=== PATIENT | female | born 1950 | race Caucasian/White ===

== ENCOUNTER 2016-04-15 14:17 | Emergency (ER) | payer MEDICARE, BC ==
[2016-04-15 14:32] VITALS: BP 143/95
--- NOTE | 2016-04-15 15:35 | EDM.PDOC ---
ED HPI Skin/Rash - General Chief Complaint: Skin Complaint Stated Complaint: RASH BY BREAST AREA Time Seen by Provider: 04/15/16 15:15 Source: Reports: Patient History Limitations: Reports: No limitations - History of Present Illness INITIAL COMMENTS - FREE TEXT/NARRATIVE: 66-year-old female with a painful rash in the right chest for the past 24 hours. No fever or chills, no cough, no recent trauma. Denies nausea or vomiting. Timing: Reports: still present Location, Skin: Reports: chest Severity: mild Associated symptoms: Reports: denies other symptoms - Related Data Allergies Allergy/AdvReac Type Severity Reaction Status Date / Time Sulfa (Sulfonamide Allergy Mild Rash Verified 02/16/16 02:56 Antibiotics) meperidine HCl [From Demerol] Allergy Unknown Rash Verified 02/16/16 02:56 Home Meds: Ambulatory Orders Medication Instructions Recorded Confirmed Albuterol/Ipratropium [DuoNeb 3 ml INH ASDIRECTED PRN 01/06/13 04/15/16 3.0-0.5 MG/3 ML] LORazepam [Ativan] 0.5 mg PO Q6H PRN 01/06/13 04/15/16 PARoxetine [Paxil] 10 mg PO QAM 04/11/14 04/15/16 busPIRone [Buspar] 5 mg PO TID 11/06/15 04/15/16 Alendronate Sodium [Fosamax] 1 tab PO ASDIRECTED 02/16/16 04/15/16 Cholecalciferol (Vitamin D3) 50,000 unit PO ASDIRECTED 02/16/16 04/15/16 [Decara] Levalbuterol Tartrate 2 puff IH Q4H PRN 02/16/16 04/15/16 [Levalbuterol Tartrate Hfa] predniSONE 10 mg PO DAILY PRN 02/16/16 04/15/16 Metoprolol Tartrate [Lopressor] 50 mg PO BID tablet 02/18/16 04/15/16 Budesonide/Formoterol Fumarate 2 puff INH BID 04/15/16 04/15/16 [Symbicort 160-4.5 Mcg Inhaler] Past Medical History HEENT History: Reports: Impaired vision Cardiovascular History: Reports: Hypertension Respiratory History: Reports: COPD, Other (see below) Other Respiratory History: 02 2l at night as needed. 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: Neurological History: Reports: Migraines Psychiatric History: Reports: Anxiety - Infectious Disease History Infectious Disease History: Reports: Other (see below) Other Infectious Disease History: unknown - Past Surgical History Head Surgeries/Procedures: Reports: None HEENT Surgical History: Reports: None Cardiovascular Surgical History: Reports: None Respiratory Surgical History: Reports: None Female Surgical History: Reports: None Neurological Surgical History: Reports: None Dermatological Surgical History: Reports: None Social & Family History - Family History Family Medical History: Noncontributory - Tobacco Use Smoking Status *Q: Former Smoker Years of Tobacco use: 40 Packs/Tins Daily: 1 Used Tobacco, but Quit: Yes Month Tobacco Last Used: july Second Hand Smoke Exposure: No - Caffeine Use Caffeine Use: Reports: Tea - Alcohol Use Days Per Week of Alcohol Use: 7 Number of Drinks Per Day: 2 Total Drinks Per Week: 14 Date of Last Drink: 04/14/16 - Recreational Drug Use Recreational Drug Use: No - Living Situation & Occupation Living situation: Reports: , with spouse Occupation: disabled ED ROS GENERAL - Review of Systems Review Of Systems: See Below Constitutional: Reports: no symptoms Respiratory: Denies: shortness of breath, cough Cardiovascular: Reports: Chest pain GI/Abdominal: Denies: Abdominal pain, Nausea, Vomiting ED EXAM, SKIN/RASH Exam: See Below Exam Limited By: No limitations General Appearance: alert, no apparent distress Respiratory/Chest: no respiratory distress Cardiovascular: regular rate, rhythm Neurological: alert, oriented Psychiatric: normal affect, normal mood Skin: Warm, Dry, Other (Patient has 3 discrete groups of vesicular lesions on an erythematous base along the right lateral chest typical of shingles) Course - Vital Signs Last Recorded V/S: Last Vital Signs Temp 96.8 F 04/15/16 14:30 Pulse 91 04/15/16 14:30 Resp 16 04/15/16 14:30 BP 143/95 H 04/15/16 14:30 Pulse Ox 95 04/15/16 14:30 - Re-Assessments/Exams Free Text/Narrative Re-Assessment/Exam: 04/15/16 15:33 Patient has shingles of the right chest. She was placed on Famvir 500 mg 3 times a day for 7 days along with gabapentin 100 mg 3 times a day. She was also given 12 hydrocodone for extra pain control at anti-inflammatories. She can return if worsening or concerns. Departure - Departure Time of Disposition: 15:57 Disposition: Home, Self-Care 01 Condition: good Clinical Impression: Shingles rash Qualifiers: Herpes zoster complications: without complications Qualified Code(s): B02.9 - Zoster without complications Instructions: Shingles, [id number] Referrals: Félix Santana MD [Primary Care Provider] - Forms: ED Department Discharge Care Plan Goals: Take prescribed medicines 3 times daily for 7 days. Ibuprofen or naproxen for pain and add stronger pain medications if needed. Return for recheck if worsening at any time, or consider recheck in 4-5 days if not improving satisfactorily.
== END 2016-04-15 15:58 | disposition home or self-care (01) ==
LOC: JP.ED 14:17
DX: B02.9 Zoster without complications (principal); I10 Essential (primary) hypertension; J44.9 Chronic obstructive pulmonary disease, unspecified; F41.9 Anxiety disorder, unspecified; Z87.891 Personal history of nicotine dependence; Z79.899 Other long term (current) drug therapy; Z88.2 Allergy status to sulfonamides; Z88.8 Allergy status to other drugs, medicaments and biological substances
CPT/HCPCS: 99283

== ENCOUNTER 2016-04-23 07:00 | Inpatient (IN) | payer MEDICARE, BC ==
[2016-04-23] MEDS ORDERED: Sodium Chloride 0.9% 10 ML Syringe FLUSH PRN ×3 (07:28→10:22)
--- NOTE | 2016-04-23 07:33 | EDM.PDOC ---
ED HISTORY OF PRESENT ILLNESS - General Chief Complaint: Respiratory Problem Stated Complaint: BREATHING Time Seen by Provider: 04/23/16 07:23 Source: Reports: Patient, Family, RN notes reviewed History Limitations: Reports: No limitations - History of Present Illness INITIAL COMMENTS - FREE TEXT/NARRATIVE: 66-year-old female presents emergency department for a complaint of shortness of breath she is a known history of end-stage chronic obstructive pulmonary disease has been intubated in the past however does not want to be intubated at this time does have home BiPAP which she uses. This particular event started early in the morning start BiPAP she did well unfortunately this morning it started becoming more hypoxic EMS services were called she was transported to ED for further evaluation she denies any fevers chest pain no GI symptoms - Related Data Allergies/ADRs: Allergies Allergy/AdvReac Type Severity Reaction Status Date / Time Sulfa (Sulfonamide Allergy Mild Rash Verified 02/16/16 02:56 Antibiotics) meperidine HCl [From Demerol] Allergy Unknown Rash Verified 02/16/16 02:56 Home Meds: Home Meds Albuterol/Ipratropium [DuoNeb 3.0-0.5 MG/3 ML] 3 ml INH ASDIRECTED PRN 01/06/13 [History] LORazepam [Ativan] 0.5 mg PO Q6H PRN 01/06/13 [History] PARoxetine [Paxil] 10 mg PO QAM 04/11/14 [History] busPIRone [Buspar] 5 mg PO TID 11/06/15 [History] Alendronate Sodium [Fosamax] 1 tab PO ASDIRECTED 02/16/16 [History] Cholecalciferol (Vitamin D3) [Decara] 50,000 unit PO ASDIRECTED 02/16/16 [ History] Levalbuterol Tartrate [Levalbuterol Tartrate Hfa] 2 puff IH Q4H PRN 02/16/16 [ History] predniSONE 10 mg PO DAILY PRN 02/16/16 [History] Metoprolol Tartrate [Lopressor] 50 mg PO BID tablet 02/18/16 [Rx] Budesonide/Formoterol Fumarate [Symbicort 160-4.5 Mcg Inhaler] 2 puff INH BID [History] Past Medical History HEENT History: Reports: Impaired vision Cardiovascular History: Reports: Hypertension Respiratory History: Reports: COPD, Other (see below) Other Respiratory History: 02 2l at night as needed. 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: Neurological History: Reports: Migraines Psychiatric History: Reports: Anxiety - Infectious Disease History Infectious Disease History: Reports: Chicken pox Other Infectious Disease History: unknown - Past Surgical History Head Surgeries/Procedures: Reports: None HEENT Surgical History: Reports: None Cardiovascular Surgical History: Reports: None Respiratory Surgical History: Reports: None Female Surgical History: Reports: None Neurological Surgical History: Reports: None Dermatological Surgical History: Reports: None Social & Family History - Family History Family Medical History: Noncontributory - Tobacco Use Smoking Status *Q: Former Smoker Years of Tobacco use: 40 Packs/Tins Daily: 1 Used Tobacco, but Quit: Yes Month Tobacco Last Used: july Second Hand Smoke Exposure: No - Caffeine Use Caffeine Use: Reports: Tea - Alcohol Use Days Per Week of Alcohol Use: 7 Number of Drinks Per Day: 2 Total Drinks Per Week: 14 - Recreational Drug Use Recreational Drug Use: No - Living Situation & Occupation Living situation: Reports: , with spouse Occupation: disabled ED ROS GENERAL - Review of Systems Review Of Systems: See Below Constitutional: Denies: fever, chills HEENT: Reports: No symptoms Respiratory: Reports: shortness of breath, wheezing, cough. Denies: sputum Cardiovascular: Denies: Chest pain GI/Abdominal: Reports: No symptoms : Reports: no symptoms Musculoskeletal: Reports: no symptoms Skin: Reports: no symptoms ED EXAM, GENERAL - Physical Exam Exam: See Below Free Text/Narrative:: General: Female in respiratory distress on CPAP, alert and oriented x3 HEENT: head is atraumatic normocephalic, eyes pupils equal round reactive to light and accommodation sclera clear no conjunctivitis appreciated. Ears tympanic membranes clear and mae landmarks and light reflex are present bilaterally canals are clear. Nose deferred Mouth deferred. Neck: Supple no thyromegaly no tracheal deviation. Nodes: Cervical nodes subclavicular nodes nontender no palpable lymphadenopathy noted. Lungs: Breath sounds are distant there is scant wheezing noted both sides expiratory phase CV: Distant sounds Regular rate and rhythm S1 and S2 appreciated no murmurs rubs or gallops noted. Abdomen: Soft, nontender, no palpable masses or organomegaly appreciated, no distention no guarding bowel sounds are present, . Neuro: Cranial nerves II through XII grossly intact Skin: Warm and dry, intact Extremities: No lower extremity edema appreciated, pedal pulse is +2. Course - Vital Signs Last Recorded V/S: Last Vital Signs Temp 96.3 F 04/23/16 07:04 Pulse 123 H 04/23/16 09:32 Resp 28 H 04/23/16 09:32 BP 179/102 H 04/23/16 09:32 Pulse Ox 83 L 04/23/16 09:32 - Orders/Labs/Meds Orders: Active Orders 24 hr Category Date Time Status Patient Status Manage Transfer [TRANSFER] Routine ADT 04/23/16 09:25 Active BIPAP Adult [RT BiPAP/CPAP] [RC] ASDIRECTED Care 04/23/16 07:33 Active Cardiac Monitoring [RC] .As Directed Care 04/23/16 09:25 Active EKG Documentation Completion [RC] ASDIRECTED Care 04/23/16 07:31 Active Chest 1V Frontal [CR] Urgent Exams 04/23/16 07:28 Taken CULTURE BLOOD [BC] Urgent Lab 04/23/16 08:32 Received CULTURE BLOOD [BC] Urgent Lab 04/23/16 08:35 Received Piperacillin/Tazobactam [Zosyn] 3.375 gm Med 04/23/16 08:30 Active Sodium Chloride 0.9% [Normal Saline] 50 ml IV Q6H Sodium Chloride 0.9% [Saline Flush] Med 04/23/16 07:28 Active 10 ml FLUSH ASDIRECTED PRN Sodium Chloride 0.9% [Saline Flush] Med 04/23/16 07:28 Active 10 ml FLUSH ASDIRECTED PRN Blood Culture x2 Reflex Set [OM.PC] Urgent Oth 04/23/16 08:23 Ordered Peripheral IV Insertion Adult [OM.PC] Urgent Oth 04/23/16 07:28 Ordered Resuscitation Status Routine Resus Stat 04/23/16 09:33 Ordered EKG 12 Lead [EK] Urgent Ther 04/23/16 07:28 Ordered Medication Orders Piperacillin Sod/Tazobactam (Sod 3.375 gm/ Sodium Chloride) 50 mls @ 100 mls/ hr IV Q6H THEA Last Admin: 04/23/16 08:35 Dose: 100 mls/hr Sodium Chloride (Saline Flush) 10 ml FLUSH ASDIRECTED PRN PRN Reason: Keep Vein Open Sodium Chloride (Saline Flush) 10 ml FLUSH ASDIRECTED PRN PRN Reason: Keep Vein Open Last Admin: 04/23/16 08:08 Dose: 10 ml Labs: Laboratory Tests 04/23/16 04/23/16 04/23/16 Range/Units 07:28 07:40 07:40 WBC 10.5 (4.5-11.0) K/uL RBC 4.12 (3.30-5.50) M/uL Hgb 15.7 H D (12.0-15.0) g/dL Hct 44.2 (36.0-48.0) % MCV 107 H (80-98) fL MCH 38 H (27-31) pg MCHC 36 (32-36) % Plt Count 257 (150-400) K/uL Neut % (Auto) 79 H (36-66) % Lymph % (Auto) 9 L (24-44) % [place] % (Auto) 8 H (2-6) % Eos % (Auto) 4 (2-4) % Baso % (Auto) 1 (0-1) % Puncture Site Rt radial ABG pH 7.287 L (7.350-7.450) ABG pCO2 57.3 H (35.0-42.0) mmHg ABG pO2 113.0 H (75.0-100.0) mmHg ABG HCO3 26.5 H (22.0-26.0) mmol/L ABG Total CO2 23.2 (21.0-25.0) mmol/L ABG O2 Saturation 97.3 (95.0-98.0) % ABG O2 Content 22.3 (15.0-23.0) %vol ABG Base Excess -1.2 mm/L ABG Hemoglobin 16.4 H (12.0-16.0) g/dL ABG Oxyhemoglobin 96.3 % ABG Carboxyhemoglobin 0.6 (0.0-1.6) % ABG Methemoglobin 0.4 % Shaun Test Passed O2 Delivery Device Cpap Oxygen Flow Rate L Sodium 143 (140-148) mmol/L Potassium 3.7 (3.6-5.2) mmol/L Chloride 106 (100-108) mmol/L Carbon Dioxide 27 (21-32) mmol/L Anion Gap 10.1 (5.0-14.0) mmol/L BUN 7 (7-18) mg/dL Creatinine 0.6 (0.6-1.0) mg/dL Est Cr Clr Drug Dosing 65.35 mL/min Estimated GFR (MDRD) > 60 (>60) Glucose 103 (74-106) mg/dL Calcium 8.6 (8.5-10.1) mg/dL Total Bilirubin 0.4 D (0.2-1.0) mg/dL AST 45 H (15-37) U/L ALT 61 (12-78) U/L Alkaline Phosphatase 81 (46-116) U/L Troponin I < 0.017 (0.000-0.056) ng/mL Total Protein 7.1 (6.4-8.2) g/dL Albumin 3.5 (3.4-5.0) g/dL Globulin 3.6 H (2.3-3.5) g/dL Albumin/Globulin Ratio 1.0 L (1.2-2.2) Meds: Medications Generic Name Dose Route Start Last Admin Trade Name Freq PRN Reason Stop Dose Admin Piperacillin Sod/Tazobactam 50 mls @ 100 mls/hr 04/23/16 08:30 04/23/16 08:35 Sod 3.375 gm/ Sodium Chloride IV 100 mls/hr Q6H THEA Administration Sodium Chloride 10 ml 04/23/16 07:28 Saline Flush FLUSH ASDIRECTED PRN Keep Vein Open Sodium Chloride 10 ml 04/23/16 07:28 04/23/16 08:08 Saline Flush FLUSH 10 ml ASDIRECTED PRN Administration Keep Vein Open Discontinued Medications Generic Name Dose Route Start Last Admin Trade Name Freq PRN Reason Stop Dose Admin Levofloxacin/Dextrose 500 mg/ 100 mls @ 100 mls/hr 04/23/16 08:21 04/23/16 08 :36 Premix IV 04/23/16 09:20 100 mls/hr ONETIME ONE Administration Lorazepam 1 mg 04/23/16 07:56 04/23/16 08:00 Ativan IVPUSH 04/23/16 07:57 1 mg ONETIME ONE Administration Lorazepam 1 mg 04/23/16 08:22 04/23/16 08:27 Ativan IVPUSH 04/23/16 08:23 1 mg ONETIME ONE Administration Lorazepam 1 mg 04/23/16 08:37 04/23/16 08:50 Ativan IVPUSH 04/23/16 08:38 1 mg ONETIME ONE Administration Methylprednisolone Sodium Succinate 125 mg 04/23/16 08:21 04/23/16 08:27 Solu-Medrol IVPUSH 04/23/16 08:22 125 mg ONETIME ONE Administration Morphine Sulfate 1 mg 04/23/16 07:56 04/23/16 08:01 Morphine IVPUSH 04/23/16 07:57 1 mg ONETIME ONE Administration Morphine Sulfate 1 mg 04/23/16 08:37 04/23/16 09:21 Morphine IVPUSH 04/23/16 08:38 1 mg ONETIME ONE Administration Departure - Departure Time of Disposition: 09:54 Disposition: Home, Self-Care 01 Condition: good Clinical Impression: COPD exacerbation Respiratory failure with hypoxia Qualifiers: Chronicity: acute Qualified Code(s): J96.01 - Acute respiratory failure with hypoxia Forms: ED Department Discharge - My Orders Last 24 Hours: My Active Orders 04/23/16 07:28 Chest 1V Frontal [CR] Urgent Sodium Chloride 0.9% [Saline Flush] 10 ml FLUSH ASDIRECTED PRN Sodium Chloride 0.9% [Saline Flush] 10 ml FLUSH ASDIRECTED PRN Peripheral IV Insertion Adult [OM.PC] Urgent EKG 12 Lead [EK] Urgent 04/23/16 07:31 EKG Documentation Completion [RC] ASDIRECTED 04/23/16 07:33 BIPAP Adult [RT BiPAP/CPAP] [RC] ASDIRECTED 04/23/16 08:23 Blood Culture x2 Reflex Set [OM.PC] Urgent 04/23/16 08:30 Piperacillin/Tazobactam [Zosyn] 3.375 gm Sodium Chloride 0.9% [Normal Saline] 50 ml IV Q6H 04/23/16 08:32 CULTURE BLOOD [BC] Urgent 04/23/16 08:35 CULTURE BLOOD [BC] Urgent - Assessment/Plan Last 24 Hours: My Active Orders 04/23/16 07:28 Chest 1V Frontal [CR] Urgent Sodium Chloride 0.9% [Saline Flush] 10 ml FLUSH ASDIRECTED PRN Sodium Chloride 0.9% [Saline Flush] 10 ml FLUSH ASDIRECTED PRN Peripheral IV Insertion Adult [OM.PC] Urgent EKG 12 Lead [EK] Urgent 04/23/16 07:31 EKG Documentation Completion [RC] ASDIRECTED 04/23/16 07:33 BIPAP Adult [RT BiPAP/CPAP] [RC] ASDIRECTED 04/23/16 08:23 Blood Culture x2 Reflex Set [OM.PC] Urgent 04/23/16 08:30 Piperacillin/Tazobactam [Zosyn] 3.375 gm Sodium Chloride 0.9% [Normal Saline] 50 ml IV Q6H 04/23/16 08:32 CULTURE BLOOD [BC] Urgent 04/23/16 08:35 CULTURE BLOOD [BC] Urgent Plan: Assessment Acuity = acute Site and laterality = respiratory failure complicated patient with history of chronic obstructive lung disease Etiology = unclear etiology exacerbation of COPD Manifestations = hypoxic Location of injury = home Lab values = CBC within normal limits the pH 7.3 PCO2 57.3 PO2 113 bicarbonate 26.5 consistent with respiratory acidosis troponin was negative chest x-ray shows no acute process Plan 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
[2016-04-23] MEDS ORDERED: Morphine 2 MG/ML Syringe IVPUSH ONE ×2 (07:56→08:37)
[2016-04-23] MEDS ORDERED: LORazepam 2 MG/ML MDV IVPUSH ONE ×3 (07:56→08:37)
[2016-04-23] MEDS ORDERED: methylPREDNISolone Sodium Succinate 125 MG/2 ML SDV IVPUSH ONE (08:21)
[2016-04-23] MEDS ORDERED: Levofloxacin/Dextrose 5%-Water 500 MG in Premix Bag 1 BAG IV ONE (08:21)
[2016-04-23] MEDS ORDERED: Piperacillin/Tazobactam 3.375 GM in Sodium Chloride 0.9% 50 ML IV SCH ×2 (08:30→10:22)
[2016-04-23] MEDS ORDERED: Levalbuterol Tartrate HFA 15 GM Inhaler INH PRN (10:22)
[2016-04-23] MEDS ORDERED: Docusate Sodium 100 MG Cap PO PRN (10:22)
[2016-04-23] MEDS ORDERED: Polyethylene Glycol 3350 Powder 17 GM Packet PO PRN (10:22)
[2016-04-23] MEDS ORDERED: HYDROmorphone 0.5 MG/0.5 ML Syringe IVPUSH PRN (10:22)
[2016-04-23] MEDS ORDERED: Acetaminophen 325 MG Tab PO PRN (10:22)
[2016-04-23] MEDS ORDERED: Ondansetron 4 MG/2 ML SDV IV PRN (10:22)
[2016-04-23] MEDS ORDERED: Magnesium Hydroxide 400 MG/5 ML Susp 30 ML Cup PO PRN (10:22)
[2016-04-23] MEDS ORDERED: Bisacodyl 5 MG Tab PO PRN (10:22)
[2016-04-23] MEDS ORDERED: oxyCODONE 5 MG Tab PO PRN (10:22)
[2016-04-23] MEDS ORDERED: Levalbuterol HCl 1.25 MG/3 ML Neb NEB PRN (10:22)
[2016-04-23] MEDS ORDERED: Non-Formulary Medication 1 Each (Budesonide/Formoterol Fumarate [Symbicort 160-4.5 Mcg Inh INH SCH (10:22)
--- NOTE | 2016-04-23 10:38 | PCM.HP ---
H&P History of Present Illness - General Date of Service: 04/23/16 Admit Problem/Dx: Admission Diagnosis/Problem Admission Diagnosis/Problem COPD, Severe chronic obstructive pulmonary disease Source of Information: Patient, Family, Old records, Provider History Limitations: Reports: Altered mental status, Respiratory distress - History of Present Illness Initial Comments - Free Text/Narative: This patient is a 66-year-old woman was admitted through the emergency department with acute on chronic respiratory failure. She has a long-standing history of COPD oxygen dependent and does use the Trilogy home ventilator system. Over the past 2 weeks has been somewhat more weak and lethargic, she has experienced shingles on her left lower chest wall. At the present time she has received sedating medication and is compromised from a respiratory standpoint with BiPAP in place and is unable to provide significant history concerning recent symptoms or events. Other than being weak and lethargic does not think that she's had significant respiratory symptoms until early this morning. She awoke early in the morning more short of breath, this seemed to settle down after she used a nebulizer treatment and her Trilogy ventilator. She will begin at 6 AM more short of breath and this did not settle down despite use of the Trilogy and nebulizer therapy. On evaluation in the emergency department is noted to have hypoxic and hypercapnic respiratory failure. Chest x-ray shows no obvious infiltrates at the present time. - Related Data Allergies/Adverse Reactions: Allergies Allergy/AdvReac Type Severity Reaction Status Date / Time Sulfa (Sulfonamide Allergy Mild Rash Verified 02/16/16 02:56 Antibiotics) meperidine HCl [From Demerol] Allergy Unknown Rash Verified 02/16/16 02:56 Home Medications: Home Meds Albuterol/Ipratropium [DuoNeb 3.0-0.5 MG/3 ML] 3 ml INH ASDIRECTED PRN 01/06/13 [History] LORazepam [Ativan] 0.5 mg PO Q6H PRN 01/06/13 [History] PARoxetine [Paxil] 10 mg PO QAM 04/11/14 [History] busPIRone [Buspar] 5 mg PO TID 11/06/15 [History] Alendronate Sodium [Fosamax] 1 tab PO ASDIRECTED 02/16/16 [History] Cholecalciferol (Vitamin D3) [Decara] 50,000 unit PO ASDIRECTED 02/16/16 [ History] Levalbuterol Tartrate [Levalbuterol Tartrate Hfa] 2 puff IH Q4H PRN 02/16/16 [ History] predniSONE 10 mg PO DAILY PRN 02/16/16 [History] Metoprolol Tartrate [Lopressor] 50 mg PO BID tablet 02/18/16 [Rx] Budesonide/Formoterol Fumarate [Symbicort 160-4.5 Mcg Inhaler] 2 puff INH BID [History] Past Medical History HEENT History: Reports: Impaired vision Cardiovascular History: Reports: Hypertension Respiratory History: Reports: COPD, Other (see below) Other Respiratory History: 02 2l at night as needed. 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: Neurological History: Reports: Migraines Psychiatric History: Reports: Anxiety - Infectious Disease History Infectious Disease History: Reports: Chicken pox Other Infectious Disease History: unknown - Past Surgical History Head Surgeries/Procedures: Reports: None HEENT Surgical History: Reports: None Cardiovascular Surgical History: Reports: None Respiratory Surgical History: Reports: None Female Surgical History: Reports: None Neurological Surgical History: Reports: None Dermatological Surgical History: Reports: None Social & Family History - Family History Family Medical History: Noncontributory - Tobacco Use Smoking Status *Q: Former Smoker Years of Tobacco use: 40 Packs/Tins Daily: 1 Used Tobacco, but Quit: Yes Month Tobacco Last Used: july Second Hand Smoke Exposure: No - Caffeine Use Caffeine Use: Reports: Tea - Alcohol Use Days Per Week of Alcohol Use: 7 Number of Drinks Per Day: 2 Total Drinks Per Week: 14 - Recreational Drug Use Recreational Drug Use: No - Living Situation & Occupation Living situation: Reports: , with spouse Occupation: disabled H&P Review of Systems - Review of Systems: Review Of Systems: Unable To Obtain General: Reports: ROS unobtainable (Secondary to respiratory compromise and sedation) Exam - Exam Exam: See Below - Vital Signs Vital Signs: Last Vital Signs Temp 96.3 F 04/23/16 07:04 Pulse 123 H 04/23/16 09:32 Resp 28 H 04/23/16 09:32 BP 179/102 H 04/23/16 09:32 Pulse Ox 83 L 04/23/16 09:32 Weight: 119 lb 0.794 oz - Exam Quality Assessment: supplemental oxygen, other (BiPAP) General: moderate distress, sedated HEENT: Conjunctiva clear, Mucosa moist & pink, Nares patent, Normal nasal septum , Posterior pharynx clear, Pupils equal, Pupils reactive Neck: supple, trachea midline, +2 carotid pulse wo bruit Lungs: Decreased breath sounds, Wheezing. No: Crackles, Rales, Rhonchi, Rub, Stridor Cardiovascular: regular rhythm, normal S1, normal S2, tachycardia. No: irregular rhythm, bradycardia, systolic murmur, diastolic murmur Abdomen: normal bowel sounds, soft Extremities: 3, normal inspection, 10 Skin: warm, dry, intact - Patient Data Result Diagrams: 04/23/16 07:40 04/23/16 07:40 *Q Meaningful Use (ADM) - VTE *Q VTE Criteria *Q: - VTE Risk Assess *Q Each Risk Factor Represents 1 Point: Abnormal Pulmonary Function (COPD) Total Score 1 Point Risk Factors: 1 Each Risk Factor Represents 2 Points: Age 60 - 74 Years Total Score 2 Point Risk Factors: 2 Each Risk Factor Represents 3 Points: None Total Score 3 Point Risk Factors: 0 Each Risk Factor Represents 5 Points: None Total Score 5 Point Risk Factors: 0 Venous Thromboembolism Risk Factor Score *Q: 3 - Stroke *Q Stroke Criteria *Q: - AMI *Q AMI Criteria *Q: Problem List Initiated/Reviewed/Updated: Yes Orders Last 24hrs: Active Orders 24 hr Category Date Time Status Patient Status [ADT] Routine ADT 04/23/16 10:22 Active Communication Order [RC] ASDIRECTED Care 04/23/16 10:22 Active Intake and Output [RC] QSHIFT Care 04/23/16 10:22 Active Notify Provider Vital Signs [RC] ASDIRECTED Care 04/23/16 10:22 Active Notify Provider [RC] PRN Care 04/23/16 10:22 Active Oxygen Therapy [RC] ASDIRECTED Care 04/23/16 10:22 Active Oxygen Therapy [RC] PRN Care 04/23/16 10:22 Active Peripheral IV Care [RC] . DIRECTED Care 04/23/16 10:22 Active Pulse Oximetry [RC] CONTINUOUS Care 04/23/16 10:22 Active RT Aerosol Therapy [RC] ASDIRECTED Care 04/23/16 10:22 Active RT BiPAP/CPAP [RC] ASDIRECTED Care 04/23/16 10:22 Active Up With Assistance [RC] ASDIRECTED Care 04/23/16 10:22 Active VTE/DVT Education [RC] Per Unit Routine Care 04/23/16 10:22 Active Vital Signs [RC] Q4H Care 04/23/16 10:22 Active Regular Diet [DIET] Diet 04/23/16 Lunch Active BASIC METABOLIC PANEL,BMP [CHEM] AM Lab 04/24/16 05:11 Ordered BLOOD GAS ARTERIAL [BG] Stat Lab 04/23/16 11:00 Ordered BLOOD GAS ARTERIAL [BG] Timed Lab 04/24/16 05:00 Ordered CBC WITH AUTO DIFF [HEME] AM Lab 04/24/16 05:11 Ordered CULTURE RESPIRATORY + SMEAR [RM] Stat Lab 04/23/16 10:22 Uncollected Acetaminophen [Tylenol] Med 04/23/16 10:22 Active 650 mg PO Q4H PRN Albuterol/Ipratropium [DuoNeb 3.0-0.5 MG/3 ML] Med 04/23/16 11:00 Active 3 ml NEB QIDRT Bisacodyl [Dulcolax] Med 04/23/16 10:22 Active 5 mg PO DAILY PRN Docusate Sodium [Colace] Med 04/23/16 10:22 Active 100 mg PO BID PRN Enoxaparin [Lovenox] Med 04/23/16 10:22 Ordered 40 mg SUBCUT DAILY HYDROmorphone [Dilaudid] Med 04/23/16 10:22 Active 0.5 mg IVPUSH Q1H PRN LORazepam [Ativan] Med 04/23/16 10:22 Active See Dose Instructions IVPUSH Q2H PRN Levalbuterol HCl [Xopenex] Med 04/23/16 10:22 Active 1.25 mg NEB Q4H PRN Levofloxacin/Dextrose 5%-Water [Levaquin in D5W 750 MG/ Med 04/23/16 10:22 Ordered 150 ML] 750 mg Premix Bag 1 bag IV Q24H Magnesium Hydroxide [Milk of Magnesia] Med 04/23/16 10:22 Active 30 ml PO Q12H PRN Ondansetron [Zofran] Med 04/23/16 10:22 Active 4 mg IV Q4H PRN Pantoprazole [Protonix] Med 04/23/16 10:22 Ordered 40 mg PO DAILY Piperacillin/Tazobactam [Zosyn] 3.375 gm Med 04/23/16 10:22 Ordered Sodium Chloride 0.9% [Normal Saline] 50 ml IV Q6H Polyethylene Glycol 3350 [MiraLAX] Med 04/23/16 10:22 Ordered 17 gm PO DAILY PRN Sodium Chloride 0.9% [Normal Saline] 1,000 ml Med 04/23/16 10:22 Ordered IV ASDIRECTED Sodium Chloride 0.9% [Saline Flush] Med 04/23/16 10:22 Ordered 10 ml FLUSH ASDIRECTED PRN methylPREDNISolone Sod Succ [Solu-MEDROL] Med 04/23/16 10:22 Ordered 62.5 mg IV Q6H oxyCODONE Med 04/23/16 10:22 Active 5 mg PO Q4H PRN Peripheral IV Insertion Adult [OM.PC] Routine Oth 04/23/16 10:22 Ordered Resuscitation Status Routine Resus Stat 04/23/16 09:33 Ordered Medication Orders Acetaminophen (Tylenol) 650 mg PO Q4H PRN PRN Reason: Pain (Mild 1-3)/fever Albuterol/Ipratropium (Duoneb 3.0-0.5 Mg/3 Ml) 3 ml NEB QIDRT [facility] Bisacodyl (Dulcolax) 5 mg PO DAILY PRN PRN Reason: Constipation Buspirone HCl (Buspar) 5 mg PO TID [facility] Docusate Sodium (Colace) 100 mg PO BID PRN PRN Reason: Constipation Enoxaparin Sodium (Lovenox) 40 mg SUBCUT DAILY [facility] Hydromorphone HCl (Dilaudid) 0.5 mg IVPUSH Q1H PRN PRN Reason: Pain Levofloxacin/Dextrose 750 mg/ (Premix) 150 mls @ 100 mls/hr IV Q24H [facility] Stop: 04/30/16 10:23 Piperacillin Sod/Tazobactam (Sod 3.375 gm/ Sodium Chloride) 50 mls @ 100 mls/ hr IV Q6H [facility] Sodium Chloride (Normal Saline) 1,000 mls @ 125 mls/hr IV ASDIRECTED THEA Levalbuterol HCl (Xopenex) 1.25 mg NEB Q4H PRN PRN Reason: Shortness of Breath Levalbuterol HCl (Xopenex Hfa) gm INH Q4H PRN PRN Reason: Wheezing Lorazepam (Ativan) 0 mg IVPUSH Q2H PRN PRN Reason: Anxiety Magnesium Hydroxide (Milk Of Magnesia) 30 ml PO Q12H PRN PRN Reason: Constipation Methylprednisolone Sodium Succinate (Solu-Medrol) 62.5 mg IV Q6H THEA Metoprolol Tartrate (Lopressor) 50 mg PO BID THEA Non-Formulary Medication (Budesonide/Formoterol Fumarate [Symbicort 160-4.5 Mcg Inhaler]) 2 puff INH BID THEA Non-Formulary Medication (Paroxetine [Paxil]) 10 mg PO QAM THEA Ondansetron HCl (Zofran) 4 mg IV Q4H PRN PRN Reason: Nausea/Vomiting Oxycodone HCl (Oxycodone) 5 mg PO Q4H PRN PRN Reason: Pain (moderate 4-6) Pantoprazole Sodium (Protonix) 40 mg PO DAILY THEA Polyethylene Glycol (Miralax) 17 gm PO DAILY PRN PRN Reason: Constipation Sodium Chloride (Saline Flush) 10 ml FLUSH ASDIRECTED PRN PRN Reason: Keep Vein Open Assessment/Plan Comment:: ASSESSMENT AND PLAN ACUTE ON CHRONIC HYPOXIC AND HYPERCAPNIC RESPIRATORY FAILURE-exacerbation which occurred in the past few hours, unable to manage at home. Still has a relatively high respiratory rate with hypoxia and tachycardia. There've been several discussions in the past concerning her wishes for ongoing management and she has adamantly refused intubation and mechanical ventilation. -Continue noninvasive positive pressure ventilation -Solu-Medrol IV -IV antibiotic therapy with levofloxacin and Zosyn, given previous antibiotic use and steroid use -IV fluids for hydration -Supplemental oxygen as needed, goal oxygen saturation of 88-92% -Nebulizer therapy as needed SEVERE COPD-oxygen dependent with use of Trilogy ventilator at home -Management as above MAINTENANCE ISSUES -DVT prophylaxis; Lovenox 40 mg subcutaneous daily -GI prophylaxis; Protonix 40 mg by mouth daily -Pederson catheter; not indicated -Nutrition; regular diet -Nicotine dependence; not required CODE STATUS-DNR/DNI ADMISSION STATUS-patient will be admitted to inpatient status, expect at least a 2 night hospital stay for evaluation and management of problems as outlined above. At the time of this admission I do not reasonably expected evaluation and management of this problem will require more than a 96 hour hospital stay. DISPOSITION-anticipate discharge to home after the hospital stay. PRIMARY CARE PROVIDER-Dr. Santana
--- NOTE | 2016-04-23 10:52 | CR ---
Portable chest Comparison: February 16, 2016. Findings: There is advanced hyperinflation. There are no infiltrates or effusions. The heart and vas cular structures are within normal limits. Impression: 1. COPD. 2. No acute findings.
[2016-04-23] MEDS: Albuterol/Ipratropium 3.0-0.5 MG/3 ML Neb Soln NEB SCH ×3 (10:59→20:36)
[2016-04-23] MEDS: Pantoprazole 40 MG Tab.CR PO SCH ×2 (13:11→14:37)
[2016-04-23] MEDS: Formoterol/Mometasone 200-5 MCG 8.8 GM Inhaler IH SCH ×2 (13:15→20:31)
[2016-04-23] MEDS: busPIRone 5 MG Tab PO SCH ×2 (14:36→20:30)
[2016-04-23] MEDS: methylPREDNISolone Sodium Succinate 125 MG/2 ML SDV IV SCH ×2 (14:36→19:31)
[2016-04-23] MEDS: Enoxaparin 40 MG/0.4 ML Syringe SUBCUT SCH (14:37)
[2016-04-23] MEDS: Piperacillin/Tazobactam/Dext 3.375 GM in Premix Bag 1 BAG IV SCH ×2 (14:53→20:38)
[2016-04-23] MEDS: Sodium Chloride 0.9% 1,000 ML IV SCH (17:47)
[2016-04-23] MEDS: LORazepam 2 MG/ML MDV IVPUSH PRN ×2 (19:47→20:53)
[2016-04-23] MEDS: Metoprolol Tartrate 50 MG Tab PO SCH (20:32)
[2016-04-24] MEDS: methylPREDNISolone Sodium Succinate 125 MG/2 ML SDV IV SCH ×2 (02:05→08:30)
[2016-04-24] MEDS: Piperacillin/Tazobactam/Dext 3.375 GM in Premix Bag 1 BAG IV SCH ×4 (02:06→21:00)
[2016-04-24] MEDS: Sodium Chloride 0.9% 1,000 ML IV SCH (03:14)
[2016-04-24] MEDS: LORazepam 2 MG/ML MDV IVPUSH PRN ×4 (05:25→23:52)
[2016-04-24] MEDS: Levofloxacin/Dextrose 5%-Water 750 MG in Premix Bag 1 BAG IV SCH (05:25)
[2016-04-24] MEDS: Albuterol/Ipratropium 3.0-0.5 MG/3 ML Neb Soln NEB SCH ×4 (07:10→21:00)
[2016-04-24] MEDS: Formoterol/Mometasone 200-5 MCG 8.8 GM Inhaler IH SCH ×2 (07:10→21:00)
[2016-04-24] MEDS: Pantoprazole 40 MG Tab.CR PO SCH (08:32)
[2016-04-24] MEDS ORDERED: Potassium Chloride 20 MEQ Tab.ER PO ONE (09:00)
[2016-04-24] MEDS ORDERED: PAROXETINE 10 MG PO SCH (09:00)
[2016-04-24] MEDS: busPIRone 5 MG Tab PO SCH ×3 (10:20→21:00)
[2016-04-24] MEDS: Metoprolol Tartrate 50 MG Tab PO SCH ×2 (10:20→21:00)
[2016-04-24] MEDS: PARoxetine 20 MG Tab PO SCH (10:21)
--- NOTE | 2016-04-24 15:08 | PCM.PN ---
- General Info Date of Service: 04/24/16 - Review of Systems General: Reports: weakness. Denies: fever, chills Pulmonary: Reports: shortness of breath, wheezing. Denies: pleuritic chest pain , cough, sputum, hemoptysis Cardiovascular: Reports: dyspnea on exertion. Denies: chest pain, palpitations , orthopnea, PND, edema, lightheadedness Gastrointestinal: Reports: No symptoms Systems Review Comment:: This patient has improved dramatically over the past 24 hours. Oxygen saturations have been good with supplemental oxygen via nasal cannula, no longer requiring BiPAP. Vital signs have been stable and she has remained afebrile. - Patient Data Vitals - most recent: Last Vital Signs Temp 97.8 F 04/24/16 12:00 Pulse 104 H 04/24/16 14:32 Resp 14 04/24/16 12:00 BP 112/47 L 04/24/16 12:00 Pulse Ox 95 04/24/16 12:00 Weight - most recent: 119 lb 0.794 oz I&O - last 24 hours: Intake & Output 04/24/16 04/24/16 04/24/16 06:59 14:59 22:59 Intake Total 240 50 Output Total 450 200 Balance -210 -150 Lab Results last 24 hrs: Laboratory Results - last 24 hr 04/24/16 04/24/16 04/24/16 Range/Units 05:00 05:48 05:48 WBC 11.3 H (4.5-11.0) K/uL RBC 3.74 (3.30-5.50) M/uL Hgb 13.8 (12.0-15.0) g/dL Hct 40.4 (36.0-48.0) % MCV 108 H (80-98) fL MCH 37 H (27-31) pg MCHC 34 (32-36) % Plt Count 265 (150-400) K/uL Neut % (Auto) 93 H (36-66) % Lymph % (Auto) 5 L (24-44) % [place] % (Auto) 2 (2-6) % Eos % (Auto) 0 L (2-4) % Baso % (Auto) 0 (0-1) % Puncture Site Rt radial ABG pH 7.453 H (7.350-7.450) ABG pCO2 30.2 L (35.0-42.0) mmHg ABG pO2 99.0 (75.0-100.0) mmHg ABG HCO3 20.8 L (22.0-26.0) mmol/L ABG Total CO2 18.1 L (21.0-25.0) mmol/L ABG O2 Saturation 97.9 (95.0-98.0) % ABG O2 Content 19.0 (15.0-23.0) %vol ABG Base Excess -1.6 mm/L ABG Hemoglobin 14.0 (12.0-16.0) g/dL ABG Oxyhemoglobin 95.9 % ABG Carboxyhemoglobin 1.5 (0.0-1.6) % ABG Methemoglobin 0.5 % Shaun Test Passed O2 Delivery Device Bipap Oxygen Flow Rate L Sodium 141 (140-148) mmol/L Potassium 3.4 L (3.6-5.2) mmol/L Chloride 108 (100-108) mmol/L Carbon Dioxide 22 (21-32) mmol/L Anion Gap 14.4 H (5.0-14.0) mmol/L BUN 9 (7-18) mg/dL Creatinine 0.7 (0.6-1.0) mg/dL Est Cr Clr Drug Dosing 56.02 mL/min Estimated GFR (MDRD) > 60 (>60) Glucose 171 H (74-106) mg/dL Calcium 8.4 L (8.5-10.1) mg/dL Med Orders - Current: Current Medications Acetaminophen (Tylenol) 650 mg PO Q4H PRN PRN Reason: Pain (Mild 1-3)/fever Albuterol/Ipratropium (Duoneb 3.0-0.5 Mg/3 Ml) 3 ml NEB QIDRT [facility] Last Admin: 04/24/16 14:31 Dose: 3 ml Bisacodyl (Dulcolax) 5 mg PO DAILY PRN PRN Reason: Constipation Buspirone HCl (Buspar) 5 mg PO TID [facility] Last Admin: 04/24/16 10:20 Dose: 5 mg Docusate Sodium (Colace) 100 mg PO BID PRN PRN Reason: Constipation Enoxaparin Sodium (Lovenox) 40 mg SUBCUT Q24H [facility] Last Admin: 04/23/16 14:37 Dose: 40 mg Hydromorphone HCl (Dilaudid) 0.5 mg IVPUSH Q1H PRN PRN Reason: Pain Levofloxacin/Dextrose 750 mg/ (Premix) 150 mls @ 100 mls/hr IV Q24H [facility] Stop: 04/30/16 06:01 Last Admin: 04/24/16 05:25 Dose: 100 mls/hr Piperacillin/Tazobactam/ (Dextrose 3.375 gm/ Premix) 50 mls @ 100 mls/hr IV Q6H [facility] Last Admin: 04/24/16 10:27 Dose: 100 mls/hr Levalbuterol HCl (Xopenex) 1.25 mg NEB Q4H PRN PRN Reason: Shortness of Breath Levalbuterol HCl (Xopenex Hfa) 0 gm INH Q4H PRN PRN Reason: Wheezing Lorazepam (Ativan) 0 mg IVPUSH Q2H PRN PRN Reason: Anxiety Last Admin: 04/24/16 10:22 Dose: 1 mg Magnesium Hydroxide (Milk Of Magnesia) 30 ml PO Q12H PRN PRN Reason: Constipation Metoprolol Tartrate (Lopressor) 50 mg PO BID [facility] Last Admin: 04/24/16 10:20 Dose: 50 mg Mometasone Furoate/Formoterol Fumar (Dulera 200-5 Mcg) 2 puff IH BIDRT [facility] Last Admin: 04/24/16 07:10 Dose: 2 puff Ondansetron HCl (Zofran) 4 mg IV Q4H PRN PRN Reason: Nausea/Vomiting Oxycodone HCl (Oxycodone) 5 mg PO Q4H PRN PRN Reason: Pain (moderate 4-6) Pantoprazole Sodium (Protonix) 40 mg PO ACBREAKFAST [facility] Last Admin: 04/24/16 08:32 Dose: 40 mg Paroxetine HCl (Paxil) 10 mg PO DAILY [facility] Last Admin: 04/24/16 10:21 Dose: 10 mg Polyethylene Glycol (Miralax) 17 gm PO DAILY PRN PRN Reason: Constipation Sodium Chloride (Saline Flush) 10 ml FLUSH ASDIRECTED PRN PRN Reason: Keep Vein Open Discontinued Medications Levofloxacin/Dextrose 500 mg/ (Premix) 100 mls @ 100 mls/hr IV ONETIME ONE Stop: 04/23/16 09:20 Last Admin: 04/23/16 08:36 Dose: 100 mls/hr Piperacillin Sod/Tazobactam (Sod 3.375 gm/ Sodium Chloride) 50 mls @ 100 mls/ hr IV Q6H [facility] Last Admin: 04/23/16 08:35 Dose: 100 mls/hr Sodium Chloride (Normal Saline) 1,000 mls @ 125 mls/hr IV ASDIRECTED [facility] Last Admin: 04/24/16 03:14 Dose: 125 mls/hr Lorazepam (Ativan) 1 mg IVPUSH ONETIME ONE Stop: 04/23/16 07:57 Last Admin: 04/23/16 08:00 Dose: 1 mg Lorazepam (Ativan) 1 mg IVPUSH ONETIME ONE Stop: 04/23/16 08:23 Last Admin: 04/23/16 08:27 Dose: 1 mg Lorazepam (Ativan) 1 mg IVPUSH ONETIME ONE Stop: 04/23/16 08:38 Last Admin: 04/23/16 08:50 Dose: 1 mg Methylprednisolone Sodium Succinate (Solu-Medrol) 125 mg IVPUSH ONETIME ONE Stop: 04/23/16 08:22 Last Admin: 04/23/16 08:27 Dose: 125 mg Methylprednisolone Sodium Succinate (Solu-Medrol) 62.5 mg IV Q6H [facility] Last Admin: 04/24/16 08:30 Dose: 62.5 mg Morphine Sulfate (Morphine) 1 mg IVPUSH ONETIME ONE Stop: 04/23/16 07:57 Last Admin: 04/23/16 08:01 Dose: 1 mg Morphine Sulfate (Morphine) 1 mg IVPUSH ONETIME ONE Stop: 04/23/16 08:38 Last Admin: 04/23/16 09:21 Dose: 1 mg Potassium Chloride (Klor-Con M20) 40 meq PO ONETIME ONE Stop: 04/24/16 09:01 Last Admin: 04/24/16 10:20 Dose: 40 meq Sodium Chloride (Saline Flush) 10 ml FLUSH ASDIRECTED PRN PRN Reason: Keep Vein Open Sodium Chloride (Saline Flush) 10 ml FLUSH ASDIRECTED PRN PRN Reason: Keep Vein Open Last Admin: 04/23/16 08:08 Dose: 10 ml - Exam Lungs: Decreased breath sounds, Wheezing. No: Crackles, Rales, Rhonchi, Rub, Stridor Cardiovascular: regular rhythm, no murmurs, tachycardia. No: irregular rhythm, bradycardia Abdomen: bowel sounds present, soft, no tenderness, no distension Extremities: no edema Skin: warm, dry, intact - Problem List Review Problem List Initiated/Reviewed/Updated: Yes - My Orders Last 24 Hours: My Active Orders 04/23/16 15:00 Piperacillin/Tazobactam/Dext [Zosyn in Dextrose Iso-Osmotic 3.375 GM] 3.375 gm Premix Bag 1 bag IV Q6H 04/24/16 06:00 Levofloxacin/Dextrose 5%-Water [Levaquin in D5W 750 MG/150 ML] 750 mg Premix Bag 1 bag IV Q24H 04/24/16 09:00 PARoxetine [Paxil] 10 mg PO DAILY 04/24/16 11:32 Convert IV to Saline Lock [OM.PC] Routine 04/24/16 15:15 methylPREDNISolone Sod Succ [Solu-MEDROL] 40 mg IVPUSH Q12H - Plan Plan:: ASSESSMENT AND PLAN ACUTE ON CHRONIC HYPOXIC AND HYPERCAPNIC RESPIRATORY FAILURE-improved significantly since admission, hypercapnia has resolved and oxygen saturations are within the desired range on supplemental oxygen via nasal cannula -Discontinue BiPAP -Solu-Medrol IV -IV antibiotic therapy with levofloxacin and Zosyn, given previous antibiotic use and steroid use -Saline lock IV -Supplemental oxygen as needed, goal oxygen saturation of 88-92% -Nebulizer therapy as needed SEVERE COPD-oxygen dependent with use of Trilogy ventilator at home -Management as above MAINTENANCE ISSUES -DVT prophylaxis; Lovenox 40 mg subcutaneous daily -GI prophylaxis; Protonix 40 mg by mouth daily -Pederson catheter; not indicated -Nutrition; regular diet -Nicotine dependence; not required CODE STATUS-DNR/DNI ADMISSION STATUS-patient will be admitted to inpatient status, expect at least a 2 night hospital stay for evaluation and management of problems as outlined above. At the time of this admission I do not reasonably expected evaluation and management of this problem will require more than a 96 hour hospital stay. DISPOSITION-anticipate discharge to home after the hospital stay. PRIMARY CARE PROVIDER-Dr. Santana
[2016-04-24] MEDS: Enoxaparin 40 MG/0.4 ML Syringe SUBCUT SCH (15:55)
[2016-04-24] MEDS: methylPREDNISolone Sodium Succinate 40 MG/1 ML SDV IVPUSH SCH (20:59)
[2016-04-25] MEDS: Piperacillin/Tazobactam/Dext 3.375 GM in Premix Bag 1 BAG IV SCH ×2 (02:45→08:19)
[2016-04-25] MEDS: LORazepam 2 MG/ML MDV IVPUSH PRN ×2 (02:45→05:35)
[2016-04-25] MEDS: Levofloxacin/Dextrose 5%-Water 750 MG in Premix Bag 1 BAG IV SCH (05:35)
[2016-04-25] MEDS: Formoterol/Mometasone 200-5 MCG 8.8 GM Inhaler IH SCH ×2 (07:11→21:25)
[2016-04-25] MEDS: Albuterol/Ipratropium 3.0-0.5 MG/3 ML Neb Soln NEB SCH ×4 (07:11→21:25)
[2016-04-25] MEDS: methylPREDNISolone Sodium Succinate 40 MG/1 ML SDV IVPUSH SCH (08:19)
[2016-04-25] MEDS: busPIRone 5 MG Tab PO SCH ×3 (08:28→21:23)
[2016-04-25] MEDS: Pantoprazole 40 MG Tab.CR PO SCH (08:28)
[2016-04-25] MEDS: Metoprolol Tartrate 50 MG Tab PO SCH ×2 (08:29→21:23)
[2016-04-25] MEDS: PARoxetine 20 MG Tab PO SCH (08:29)
--- NOTE | 2016-04-25 08:39 | PCM.PN ---
- General Info Date of Service: 04/25/16 Functional Status: Reports: pain controlled, tolerating diet, urinating - Review of Systems General: Denies: fever, chills Pulmonary: Reports: shortness of breath, wheezing. Denies: pleuritic chest pain , cough, sputum, hemoptysis Cardiovascular: Reports: dyspnea on exertion. Denies: chest pain, palpitations , orthopnea, PND, edema Gastrointestinal: Reports: No symptoms Systems Review Comment:: This patient has continued to do well, shortness of breath remains mildly to moderately worse than her baseline. Oxygen saturations have been adequate and she has remained afebrile with stable vital signs. - Patient Data Vitals - most recent: Last Vital Signs Temp 97.1 F 04/25/16 08:00 Pulse 100 04/25/16 08:29 Resp 20 04/25/16 08:00 BP 127/56 L 04/25/16 08:29 Pulse Ox 98 04/25/16 08:00 Weight - most recent: 119 lb 0.794 oz I&O - last 24 hours: Intake & Output 04/24/16 04/25/16 04/25/16 22:59 06:59 14:59 Intake Total 182 Output Total 1000 Balance -818 Med Orders - Current: Current Medications Acetaminophen (Tylenol) 650 mg PO Q4H PRN PRN Reason: Pain (Mild 1-3)/fever Albuterol/Ipratropium (Duoneb 3.0-0.5 Mg/3 Ml) 3 ml NEB QIDRT [facility] Last Admin: 04/25/16 07:11 Dose: 3 ml Bisacodyl (Dulcolax) 5 mg PO DAILY PRN PRN Reason: Constipation Buspirone HCl (Buspar) 5 mg PO TID [facility] Last Admin: 04/25/16 08:28 Dose: 5 mg Docusate Sodium (Colace) 100 mg PO BID PRN PRN Reason: Constipation Last Admin: 04/25/16 08:35 Dose: 100 mg Enoxaparin Sodium (Lovenox) 40 mg SUBCUT Q24H [facility] Last Admin: 04/24/16 15:55 Dose: 40 mg Hydromorphone HCl (Dilaudid) 0.5 mg IVPUSH Q1H PRN PRN Reason: Pain Levalbuterol HCl (Xopenex) 1.25 mg NEB Q4H PRN PRN Reason: Shortness of Breath Levalbuterol HCl (Xopenex Hfa) 0 gm INH Q4H PRN PRN Reason: Wheezing Levofloxacin (Levaquin) 500 mg PO Q24H [facility] Lorazepam (Ativan) 0.5 mg PO Q4H PRN PRN Reason: Anxiety Magnesium Hydroxide (Milk Of Magnesia) 30 ml PO Q12H PRN PRN Reason: Constipation Metoprolol Tartrate (Lopressor) 50 mg PO BID [facility] Last Admin: 04/25/16 08:29 Dose: 50 mg Mometasone Furoate/Formoterol Fumar (Dulera 200-5 Mcg) 2 puff IH BIDRT [facility] Last Admin: 04/25/16 07:11 Dose: 2 puff Ondansetron HCl (Zofran) 4 mg IV Q4H PRN PRN Reason: Nausea/Vomiting Oxycodone HCl (Oxycodone) 5 mg PO Q4H PRN PRN Reason: Pain (moderate 4-6) Pantoprazole Sodium (Protonix) 40 mg PO ACBREAKFAST [facility] Last Admin: 04/25/16 08:28 Dose: 40 mg Paroxetine HCl (Paxil) 10 mg PO DAILY [facility] Last Admin: 04/25/16 08:29 Dose: 10 mg Polyethylene Glycol (Miralax) 17 gm PO DAILY PRN PRN Reason: Constipation Prednisone (Prednisone) 40 mg PO WITHBREAKFAST [facility] Sodium Chloride (Saline Flush) 10 ml FLUSH ASDIRECTED PRN PRN Reason: Keep Vein Open Discontinued Medications Levofloxacin/Dextrose 500 mg/ (Premix) 100 mls @ 100 mls/hr IV ONETIME ONE Stop: 04/23/16 09:20 Last Admin: 04/23/16 08:36 Dose: 100 mls/hr Piperacillin Sod/Tazobactam (Sod 3.375 gm/ Sodium Chloride) 50 mls @ 100 mls/ hr IV Q6H [facility] Last Admin: 04/23/16 08:35 Dose: 100 mls/hr Levofloxacin/Dextrose 750 mg/ (Premix) 150 mls @ 100 mls/hr IV Q24H [facility] Stop: 04/30/16 06:01 Last Admin: 04/25/16 05:35 Dose: 100 mls/hr Sodium Chloride (Normal Saline) 1,000 mls @ 125 mls/hr IV ASDIRECTED [facility] Last Admin: 04/24/16 03:14 Dose: 125 mls/hr Piperacillin/Tazobactam/ (Dextrose 3.375 gm/ Premix) 50 mls @ 100 mls/hr IV Q6H [facility] Last Admin: 04/25/16 08:19 Dose: 100 mls/hr Lorazepam (Ativan) 1 mg IVPUSH ONETIME ONE Stop: 04/23/16 07:57 Last Admin: 04/23/16 08:00 Dose: 1 mg Lorazepam (Ativan) 1 mg IVPUSH ONETIME ONE Stop: 04/23/16 08:23 Last Admin: 04/23/16 08:27 Dose: 1 mg Lorazepam (Ativan) 1 mg IVPUSH ONETIME ONE Stop: 04/23/16 08:38 Last Admin: 04/23/16 08:50 Dose: 1 mg Lorazepam (Ativan) 0 mg IVPUSH Q2H PRN PRN Reason: Anxiety Last Admin: 04/25/16 05:35 Dose: 1 mg Methylprednisolone Sodium Succinate (Solu-Medrol) 125 mg IVPUSH ONETIME ONE Stop: 04/23/16 08:22 Last Admin: 04/23/16 08:27 Dose: 125 mg Methylprednisolone Sodium Succinate (Solu-Medrol) 62.5 mg IV Q6H [facility] Last Admin: 04/24/16 08:30 Dose: 62.5 mg Methylprednisolone Sodium Succinate (Solu-Medrol) 40 mg IVPUSH Q12H [facility] Last Admin: 04/25/16 08:19 Dose: 40 mg Morphine Sulfate (Morphine) 1 mg IVPUSH ONETIME ONE Stop: 04/23/16 07:57 Last Admin: 04/23/16 08:01 Dose: 1 mg Morphine Sulfate (Morphine) 1 mg IVPUSH ONETIME ONE Stop: 04/23/16 08:38 Last Admin: 04/23/16 09:21 Dose: 1 mg Potassium Chloride (Klor-Con M20) 40 meq PO ONETIME ONE Stop: 04/24/16 09:01 Last Admin: 04/24/16 10:20 Dose: 40 meq Sodium Chloride (Saline Flush) 10 ml FLUSH ASDIRECTED PRN PRN Reason: Keep Vein Open Sodium Chloride (Saline Flush) 10 ml FLUSH ASDIRECTED PRN PRN Reason: Keep Vein Open Last Admin: 04/23/16 08:08 Dose: 10 ml - Exam Quality Assessment: supplemental oxygen, DVT prophylaxis General: alert, oriented, cooperative, mild distress Lungs: Normal respiratory effort, Decreased breath sounds, Wheezing. No: Crackles, Rales, Rhonchi Cardiovascular: regular rhythm, no murmurs, tachycardia. No: irregular rhythm, bradycardia Abdomen: bowel sounds present, soft, no tenderness, no distension Extremities: no edema Skin: warm, dry, intact - Problem List Review Problem List Initiated/Reviewed/Updated: Yes - My Orders Last 24 Hours: My Active Orders 04/24/16 09:00 PARoxetine [Paxil] 10 mg PO DAILY 04/24/16 11:32 Convert IV to Saline Lock [OM.PC] Routine 04/25/16 08:34 Vital Signs [RC] Q4H LORazepam [Ativan] 0.5 mg PO Q4H PRN 04/25/16 08:45 Levofloxacin [Levaquin] 500 mg PO Q24H 04/26/16 08:00 predniSONE 40 mg PO WITHBREAKFAST - Plan Plan:: ASSESSMENT AND PLAN ACUTE ON CHRONIC HYPOXIC AND HYPERCAPNIC RESPIRATORY FAILURE-improved significantly since admission, hypercapnia has resolved and oxygen saturations are within the desired range on supplemental oxygen via nasal cannula -Discontinue Solu-Medrol IV -Prednisone 40 mg by mouth daily -Discontinue IV antibiotics -Urine is on 40 mg by mouth daily -Saline lock IV -Supplemental oxygen as needed, goal oxygen saturation of 88-92% -Nebulizer therapy as needed SEVERE COPD-oxygen dependent with use of Trilogy ventilator at home -Management as above MAINTENANCE ISSUES -DVT prophylaxis; Lovenox 40 mg subcutaneous daily -GI prophylaxis; Protonix 40 mg by mouth daily -Pederson catheter; not indicated -Nutrition; regular diet -Nicotine dependence; not required CODE STATUS-DNR/DNI ADMISSION STATUS-patient will be admitted to inpatient status, expect at least a 2 night hospital stay for evaluation and management of problems as outlined above. At the time of this admission I do not reasonably expected evaluation and management of this problem will require more than a 96 hour hospital stay. DISPOSITION-anticipate discharge to home possibly tomorrow PRIMARY CARE PROVIDER-Dr. Santana
[2016-04-25] MEDS: Enoxaparin 40 MG/0.4 ML Syringe SUBCUT SCH (14:13)
[2016-04-25] MEDS: LORazepam 0.5 MG Tab PO PRN (21:25)
[2016-04-26] MEDS: LORazepam 0.5 MG Tab PO PRN (04:22)
[2016-04-26] MEDS: Formoterol/Mometasone 200-5 MCG 8.8 GM Inhaler IH SCH (07:15)
[2016-04-26] MEDS: Albuterol/Ipratropium 3.0-0.5 MG/3 ML Neb Soln NEB SCH (07:15)
[2016-04-26] MEDS ORDERED: Levofloxacin 500 MG Tab PO SCH (07:30)
[2016-04-26] MEDS ORDERED: predniSONE 20 MG Tab PO SCH (08:00)
--- NOTE | 2016-04-26 10:02 | PCM.DCSUM1 ---
Discharge Summary - Hospital Course Brief History: This patient is a 66-year-old woman who was admitted through the emergency department hypoxia and shortness of breath secondary to acute on chronic respiratory failure with hypoxia and hypercapnia. - Discharge Data Discharge Date: 04/26/16 Discharge Disposition: Home, Self-Care 01 Condition: Fair - Discharge Diagnosis/Problem(s) (1) Acute on chronic respiratory failure with hypoxia and hypercapnia SNOMED Code(s): 41750593, 490827687 ICD Code: J96.21 - ACUTE AND CHRONIC RESPIRATORY FAILURE WITH HYPOXIA; J96.22 - ACUTE AND CHRONIC RESPIRATORY FAILURE WITH HYPERCAPNIA Status: Acute Current Visit: Yes (2) Bronchitis SNOMED Code(s): 77525853 ICD Code: J40 - BRONCHITIS, NOT SPECIFIED ACUTE OR CHRONIC Status: Acute Current Visit: Yes (3) COPD exacerbation SNOMED Code(s): 038162595, 918054123 ICD Code: J44.1 - CHRONIC OBSTRUCTIVE PULMONARY DISEASE W (ACUTE) EXACERBATION Status: Acute Current Visit: Yes (4) COPD, Severe chronic obstructive pulmonary disease SNOMED Code(s): 283743936 ICD Code: J44.9 - CHRONIC OBSTRUCTIVE PULMONARY DISEASE, UNSPECIFIED Status : Chronic Priority: Medium Current Visit: No - Patient Summary/Data Hospital Course: Ms. Gamboa is a 66-year-old woman with a known history of severe COPD. She's had recurrent admissions for COPD exacerbation with respiratory compromise. On the morning of admission developed marked increased shortness of breath and was unresponsive to nebulizer therapy at home. On evaluation in the emergency department with arterial blood gases was found to have significant hypoxia as well as hypercapnia. Chest x-ray showed no obvious infiltrates. She was placed on invasive positive pressure ventilation for respiratory support, given IV fluids, IV antibiotics, and IV Solu-Medrol. Initially her respiratory status worsened, it has been her which up until this point that she will not be intubated again. Initially with use of the noninvasive positive pressure ventilation she stabilized and by the time of discharge was significantly improved and close to baseline as far as her respiratory status. She is descended to change her CODE STATUS full code and a new pulse form will be completed prior to discharge. Activity will be as tolerated and she will resume her usual diet. Home care followup will be arranged for restorative physical therapy and occupational therapy because of weakness related to her respiratory compromise. Followup appointment will be scheduled with Dr. Santana within one week. - Patient Instructions Diet: Usual Diet as Tolerated Activity: As Tolerated Other/Special Instructions: Home care followup after discharge, with restorative physical therapy and occupational therapy. Schedule followup appointment with Dr. Santana within one week. - Discharge Plan Prescriptions/Med Rec: Levofloxacin [Levaquin] 500 mg PO Q24H #7 tablet Prednisone [IJD: predniSONE] 40 mg PO WITHBREAKFAST #6 tablet Home Medications: Home Meds Albuterol/Ipratropium [DuoNeb 3.0-0.5 MG/3 ML] 3 ml INH ASDIRECTED PRN 01/06/13 [History] LORazepam [Ativan] 0.5 mg PO Q6H PRN 01/06/13 [History] PARoxetine [Paxil] 10 mg PO QAM 04/11/14 [History] busPIRone [Buspar] 5 mg PO TID 11/06/15 [History] Alendronate Sodium [Fosamax] 1 tab PO ASDIRECTED 02/16/16 [History] Cholecalciferol (Vitamin D3) [Decara] 50,000 unit PO ASDIRECTED 02/16/16 [ History] Levalbuterol Tartrate [Levalbuterol Tartrate Hfa] 2 puff IH Q4H PRN 02/16/16 [ History] predniSONE 10 mg PO DAILY PRN 02/16/16 [History] Metoprolol Tartrate [Lopressor] 50 mg PO BID tablet 02/18/16 [Rx] Budesonide/Formoterol Fumarate [Symbicort 160-4.5 Mcg Inhaler] 2 puff INH BID [History] Levofloxacin [Levaquin] 500 mg PO Q24H #7 tablet 04/26/16 [Rx] Prednisone [IJD: predniSONE] 40 mg PO WITHBREAKFAST #6 tablet 04/26/16 [Rx] Referrals: Félix Santana MD [Primary Care Provider] - - Patient Data Vitals - Most Recent: Last Vital Signs Temp 97.5 F 04/26/16 00:00 Pulse 89 04/26/16 07:21 Resp 17 04/26/16 04:00 BP 155/82 H 04/26/16 04:00 Pulse Ox 98 04/26/16 04:00 Weight - Most Recent: 119 lb 0.794 oz I&O - Last 24 hours: Intake & Output 04/25/16 04/26/16 04/26/16 22:59 06:59 14:59 Output Total 400 1300 Balance -400 -1300 Med Orders - Current: Current Medications Acetaminophen (Tylenol) 650 mg PO Q4H PRN PRN Reason: Pain (Mild 1-3)/fever Albuterol/Ipratropium (Duoneb 3.0-0.5 Mg/3 Ml) 3 ml NEB QIDRT [facility] Last Admin: 04/26/16 07:15 Dose: 3 ml Bisacodyl (Dulcolax) 5 mg PO DAILY PRN PRN Reason: Constipation Buspirone HCl (Buspar) 5 mg PO TID [facility] Last Admin: 04/25/16 21:23 Dose: 5 mg Docusate Sodium (Colace) 100 mg PO BID PRN PRN Reason: Constipation Last Admin: 04/25/16 08:35 Dose: 100 mg Enoxaparin Sodium (Lovenox) 40 mg SUBCUT Q24H [facility] Last Admin: 04/25/16 14:13 Dose: 40 mg Hydromorphone HCl (Dilaudid) 0.5 mg IVPUSH Q1H PRN PRN Reason: Pain Levalbuterol HCl (Xopenex) 1.25 mg NEB Q4H PRN PRN Reason: Shortness of Breath Levalbuterol HCl (Xopenex Hfa) 0 gm INH Q4H PRN PRN Reason: Wheezing Levofloxacin (Levaquin) 500 mg PO Q24H [facility] Lorazepam (Ativan) 0.5 mg PO Q4H PRN PRN Reason: Anxiety Last Admin: 04/26/16 04:22 Dose: 0.5 mg Magnesium Hydroxide (Milk Of Magnesia) 30 ml PO Q12H PRN PRN Reason: Constipation Metoprolol Tartrate (Lopressor) 50 mg PO BID [facility] Last Admin: 04/25/16 21:23 Dose: 50 mg Mometasone Furoate/Formoterol Fumar (Dulera 200-5 Mcg) 2 puff IH BIDRT [facility] Last Admin: 04/26/16 07:15 Dose: 2 puff Ondansetron HCl (Zofran) 4 mg IV Q4H PRN PRN Reason: Nausea/Vomiting Oxycodone HCl (Oxycodone) 5 mg PO Q4H PRN PRN Reason: Pain (moderate 4-6) Pantoprazole Sodium (Protonix) 40 mg PO ACBREAKFAST [facility] Last Admin: 04/25/16 08:28 Dose: 40 mg Paroxetine HCl (Paxil) 10 mg PO DAILY [facility] Last Admin: 04/25/16 08:29 Dose: 10 mg Polyethylene Glycol (Miralax) 17 gm PO DAILY PRN PRN Reason: Constipation Prednisone (Prednisone) 40 mg PO WITHBREAKFAST [facility] Sodium Chloride (Saline Flush) 10 ml FLUSH ASDIRECTED PRN PRN Reason: Keep Vein Open Discontinued Medications Levofloxacin/Dextrose 500 mg/ (Premix) 100 mls @ 100 mls/hr IV ONETIME ONE Stop: 04/23/16 09:20 Last Admin: 04/23/16 08:36 Dose: 100 mls/hr Piperacillin Sod/Tazobactam (Sod 3.375 gm/ Sodium Chloride) 50 mls @ 100 mls/ hr IV Q6H [facility] Last Admin: 04/23/16 08:35 Dose: 100 mls/hr Levofloxacin/Dextrose 750 mg/ (Premix) 150 mls @ 100 mls/hr IV Q24H [facility] Stop: 04/30/16 06:01 Last Admin: 04/25/16 05:35 Dose: 100 mls/hr Sodium Chloride (Normal Saline) 1,000 mls @ 125 mls/hr IV ASDIRECTED [facility] Last Admin: 04/24/16 03:14 Dose: 125 mls/hr Piperacillin/Tazobactam/ (Dextrose 3.375 gm/ Premix) 50 mls @ 100 mls/hr IV Q6H [facility] Last Admin: 04/25/16 08:19 Dose: 100 mls/hr Lorazepam (Ativan) 1 mg IVPUSH ONETIME ONE Stop: 04/23/16 07:57 Last Admin: 04/23/16 08:00 Dose: 1 mg Lorazepam (Ativan) 1 mg IVPUSH ONETIME ONE Stop: 04/23/16 08:23 Last Admin: 04/23/16 08:27 Dose: 1 mg Lorazepam (Ativan) 1 mg IVPUSH ONETIME ONE Stop: 04/23/16 08:38 Last Admin: 04/23/16 08:50 Dose: 1 mg Lorazepam (Ativan) 0 mg IVPUSH Q2H PRN PRN Reason: Anxiety Last Admin: 04/25/16 05:35 Dose: 1 mg Methylprednisolone Sodium Succinate (Solu-Medrol) 125 mg IVPUSH ONETIME ONE Stop: 04/23/16 08:22 Last Admin: 04/23/16 08:27 Dose: 125 mg Methylprednisolone Sodium Succinate (Solu-Medrol) 62.5 mg IV Q6H [facility] Last Admin: 04/24/16 08:30 Dose: 62.5 mg Methylprednisolone Sodium Succinate (Solu-Medrol) 40 mg IVPUSH Q12H [facility] Last Admin: 04/25/16 08:19 Dose: 40 mg Morphine Sulfate (Morphine) 1 mg IVPUSH ONETIME ONE Stop: 04/23/16 07:57 Last Admin: 04/23/16 08:01 Dose: 1 mg Morphine Sulfate (Morphine) 1 mg IVPUSH ONETIME ONE Stop: 04/23/16 08:38 Last Admin: 04/23/16 09:21 Dose: 1 mg Potassium Chloride (Klor-Con M20) 40 meq PO ONETIME ONE Stop: 04/24/16 09:01 Last Admin: 04/24/16 10:20 Dose: 40 meq Sodium Chloride (Saline Flush) 10 ml FLUSH ASDIRECTED PRN PRN Reason: Keep Vein Open Sodium Chloride (Saline Flush) 10 ml FLUSH ASDIRECTED PRN PRN Reason: Keep Vein Open Last Admin: 04/23/16 08:08 Dose: 10 ml *Q Meaningful Use (DIS) - VTE *Q VTE Criteria *Q: - Stroke *Q Stroke Criteria *Q: - AMI *Q AMI Criteria *Q:
[2016-04-26 11:00] VITALS: BP 138/75
[2016-04-26] MEDS: Metoprolol Tartrate 50 MG Tab PO SCH (11:00)
== END 2016-04-26 11:13 | disposition home or self-care (01) | DRG 189 ==
LOC: JP.ED 07:00 → JP.ICU 09:25
PROVIDERS: ADMIT Hospitalist; ATTEND Hospitalist
DX: J96.21 Acute and chronic respiratory failure with hypoxia (principal); J44.1 Chronic obstructive pulmonary disease with (acute) exacerbation; J96.22 Acute and chronic respiratory failure with hypercapnia; I10 Essential (primary) hypertension; Z87.891 Personal history of nicotine dependence; F41.9 Anxiety disorder, unspecified; H54.7 Unspecified visual loss; Z99.81 Dependence on supplemental oxygen; Z79.52 Long term (current) use of systemic steroids; Z88.2 Allergy status to sulfonamides; Z88.8 Allergy status to other drugs, medicaments and biological substances
CPT/HCPCS: 36415; 36600; 71010 ×2; 80053; 82803; 84484; 85025; 87040 ×2; 87804 ×2; 94660; 96365; 96367; 96375; 96376; 99284; 99285; J1956; J2060 ×3; J2270 ×2; J2543; J2930; J7050 ×2; 80048; 94640-76; A9270-GY; J1650; J2920; J7040; J7620

== ENCOUNTER 2016-05-24 05:57 | Inpatient (IN) | payer MEDICARE, BC ==
--- NOTE | 2016-05-24 06:32 | EDM.PDOC ---
ED HISTORY OF PRESENT ILLNESS - General Chief Complaint: Respiratory Problem Stated Complaint: [facility] Time Seen by Provider: 05/24/16 06:19 Source: Reports: Patient, Old records, RN notes reviewed History Limitations: Reports: No limitations - History of Present Illness INITIAL COMMENTS - FREE TEXT/NARRATIVE: EMS arrival, BiPAP applied and duo neb administered prior to arrival Chief complaint Shortness of breath HPI 66-year-old female with long-standing COPD, however her condition is improved, she quit smoking 3 years ago and she is on oxygen at night only one to 2 L per minute. Was well at bedtime but woke up short of breath 2 hours prior to arrival. Attempted nebulizer at home without relief of dyspnea consequently has been called EMS EMS found her cyanotic with saturations in the 70s despite home oxygen. Started BiPAP at only 5 mm pressure, but this requires a liters per minute of oxygen She improved significantly with this and with a nebulizer and is alert and coherent. Patient has had a DO NOT INTUBATE status in the past, however she states that if it became necessary she would like to be intubated "for a short time". Denies chest pain and nasal congestion and coryza throat pain. Mild cough, nonproductive. No abdominal pain or distention No swelling of the extremities. She has been intubated in the past, has had cardiac arrest at one time due to respiratory arrest. Accompanied by her . - Related Data Allergies/ADRs: Allergies Allergy/AdvReac Type Severity Reaction Status Date / Time Sulfa (Sulfonamide Allergy Mild Rash Verified 02/16/16 02:56 Antibiotics) meperidine HCl [From Demerol] Allergy Unknown Rash Verified 02/16/16 02:56 Home Meds: Home Meds Albuterol/Ipratropium [DuoNeb 3.0-0.5 MG/3 ML] 3 ml INH ASDIRECTED PRN 01/06/13 [History] LORazepam [Ativan] 0.5 mg PO Q6H PRN 01/06/13 [History] PARoxetine [Paxil] 10 mg PO QAM 04/11/14 [History] busPIRone [Buspar] 5 mg PO TID 11/06/15 [History] Alendronate Sodium [Fosamax] 1 tab PO ASDIRECTED 02/16/16 [History] Cholecalciferol (Vitamin D3) [Decara] 50,000 unit PO ASDIRECTED 02/16/16 [ History] Levalbuterol Tartrate [Levalbuterol Tartrate Hfa] 2 puff IH Q4H PRN 02/16/16 [ History] predniSONE 10 mg PO DAILY PRN 02/16/16 [History] Metoprolol Tartrate [Lopressor] 50 mg PO BID tablet 02/18/16 [Rx] Budesonide/Formoterol Fumarate [Symbicort 160-4.5 Mcg Inhaler] 2 puff INH BID [History] Hydrocodone/Acetaminophen [Hydrocodon-Acetaminophen 5-325] 1 each PO Q6H PRN 08/04 [History] clonazePAM [Clonazepam] 0.5 mg PO BEDTIME PRN 05/24/16 [History] Past Medical History HEENT History: Reports: Impaired vision Cardiovascular History: Reports: Hypertension, Other (see below) Other Cardiovascular History: cardiac arrest april 2016 Respiratory History: Reports: COPD, Other (see below) Other Respiratory History: 02 2l at night as needed. 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: Neurological History: Reports: Migraines Psychiatric History: Reports: Anxiety - Infectious Disease History Infectious Disease History: Reports: Shingles Other Infectious Disease History: unknown - Past Surgical History Head Surgeries/Procedures: Reports: None HEENT Surgical History: Reports: None Cardiovascular Surgical History: Reports: None Respiratory Surgical History: Reports: None Female Surgical History: Reports: None Neurological Surgical History: Reports: None Dermatological Surgical History: Reports: None Social & Family History - Family History Family Medical History: Noncontributory - Tobacco Use Smoking Status *Q: Former Smoker Years of Tobacco use: 50 Packs/Tins Daily: 1 Used Tobacco, but Quit: Yes Month Tobacco Last Used: 12/31 Second Hand Smoke Exposure: No - Caffeine Use Caffeine Use: Reports: Tea - Alcohol Use Days Per Week of Alcohol Use: 7 Number of Drinks Per Day: 2 Total Drinks Per Week: 14 Date of Last Drink: 05/23/16 Time of Last Drink: 20:00 - Recreational Drug Use Recreational Drug Use: No - Living Situation & Occupation Living situation: Reports: , with spouse Occupation: disabled ED ROS GENERAL - Review of Systems Review Of Systems: See Below Constitutional: Reports: fatigue, other (Difficulty breathing). Denies: fever, chills HEENT: Reports: No symptoms Respiratory: Reports: Shortness of Breath, Cough, Other (Cyanosis) Cardiovascular: Reports: Dyspnea on exertion. Denies: Chest pain, Edema, Lightheadedness Endocrine: Reports: no symptoms GI/Abdominal: Reports: No symptoms : Reports: no symptoms Musculoskeletal: Reports: no symptoms Skin: Reports: no symptoms Neurological: Reports: No Symptoms Psychiatric: Reports: No symptoms Hematologic/Lymphatic: Reports: no symptoms Immunologic: Reports: no symptoms ED EXAM, GENERAL - Physical Exam Exam: See Below Exam Limited By: Other (BiPAP in place) General Appearance: alert, mild distress, other (She is tachycardic rate 120 with mild elevation of respiratory rate and blood pressure but is definitely improved compared to her earlier status on the BiPAP, responds appropriately to questions and instructions) Eye Exam: bilateral eye: normal inspection Ears: normal external exam, normal canal, hearing grossly normal, normal TMs Nose: normal inspection, normal mucosa Throat/Mouth: Normal inspection, Normal oropharynx, Normal voice Head: atraumatic, normocephalic Neck: supple, non-tender. No: lymphadenopathy (R), lymphadenopathy (L) Respiratory/Chest: decreased breath sounds, rales, rhonchi, accessory muscle use , other (Tachypnea) Cardiovascular: normal peripheral pulses, regular rate, rhythm, tachycardia GI/Abdominal: normal bowel sounds, soft, non tender, distended. No: guarding, rigid, rebound Back Exam: normal inspection Extremities: normal inspection, non-tender, no pedal edema Neurological: alert, no motor/sensory deficits Psychiatric: normal mood Skin Exam: Warm, Dry, Intact, Normal color (Currently, cyanotic earlier), No rash Lymphatic: no adenopathy Course - Vital Signs Last Recorded V/S: Last Vital Signs Temp 37 C 05/24/16 05:59 Pulse 117 H 05/24/16 06:17 Resp 28 H 05/24/16 06:17 BP 137/76 05/24/16 06:17 Pulse Ox 96 05/24/16 06:17 - Orders/Labs/Meds Orders: Active Orders 24 hr Category Date Time Status EKG Documentation Completion [RC] ASDIRECTED Care 05/24/16 06:40 Ordered RT Aerosol Therapy [RC] ASDIRECTED Care 05/24/16 06:41 Ordered Chest 1V Frontal [CR] Stat Exams 05/24/16 06:38 Ordered BLOOD GAS VENOUS [BG] Stat Lab 05/24/16 06:38 Ordered COMPREHENSIVE METABOLIC PN,CMP [CHEM] Stat Lab 05/24/16 06:38 Ordered PRO B-TYPE NATRIUR PEPT,BNPPRO [CHEM] Stat Lab 05/24/16 06:38 Ordered TROPONIN I [CHEM] Stat Lab 05/24/16 06:38 Ordered Albuterol [Proventil Neb Soln] Med 05/24/16 06:41 Once 2.5 mg NEB ONETIME ONE Sodium Chloride 0.9% [Saline Flush] Med 05/24/16 06:38 Ordered 10 ml FLUSH ASDIRECTED PRN methylPREDNISolone Sod Succ [Solu-MEDROL] Med 05/24/16 06:41 Once 40 mg IVPUSH ONETIME ONE Saline Lock Insert [OM.PC] Stat Oth 05/24/16 06:38 Ordered EKG 12 Lead [EK] Routine Ther 05/24/16 06:38 Ordered - Re-Assessments/Exams Free Text/Narrative Re-Assessment/Exam: 05/24/16 06:49 66-year-old female with history of COPD requiring intubation and at one point cardiac resuscitation Presents with acute exacerbation this morning with cyanosis despite home oxygen , improved with BiPAP at only 5 mm of pressure. Differential diagnosis would include pneumonia cardiac ischemia, CBD exacerbation, upper respiratory infection. Chest x-ray labs and BiPAP ordered Transfer to care of Dr. Phillips pending results, will likely need admission Departure - Departure Time of Disposition: 07:00 Disposition: DC[facility] 05 Condition: fair Clinical Impression: COPD with exacerbation, Hypoxia - My Orders Last 24 Hours: My Active Orders 05/24/16 06:38 Chest 1V Frontal [CR] Stat BLOOD GAS VENOUS [BG] Stat COMPREHENSIVE METABOLIC PN,CMP [CHEM] Stat PRO B-TYPE NATRIUR PEPT,BNPPRO [CHEM] Stat TROPONIN I [CHEM] Stat Sodium Chloride 0.9% [Saline Flush] 10 ml FLUSH ASDIRECTED PRN Saline Lock Insert [OM.PC] Stat EKG 12 Lead [EK] Routine 05/24/16 06:40 EKG Documentation Completion [RC] ASDIRECTED 05/24/16 06:41 RT Aerosol Therapy [RC] ASDIRECTED Albuterol [Proventil Neb Soln] 2.5 mg NEB ONETIME ONE methylPREDNISolone Sod Succ [Solu-MEDROL] 40 mg IVPUSH ONETIME ONE - Assessment/Plan Last 24 Hours: My Active Orders 05/24/16 06:38 Chest 1V Frontal [CR] Stat BLOOD GAS VENOUS [BG] Stat COMPREHENSIVE METABOLIC PN,CMP [CHEM] Stat PRO B-TYPE NATRIUR PEPT,BNPPRO [CHEM] Stat TROPONIN I [CHEM] Stat Sodium Chloride 0.9% [Saline Flush] 10 ml FLUSH ASDIRECTED PRN Saline Lock Insert [OM.PC] Stat EKG 12 Lead [EK] Routine 05/24/16 06:40 EKG Documentation Completion [RC] ASDIRECTED 05/24/16 06:41 RT Aerosol Therapy [RC] ASDIRECTED Albuterol [Proventil Neb Soln] 2.5 mg NEB ONETIME ONE methylPREDNISolone Sod Succ [Solu-MEDROL] 40 mg IVPUSH ONETIME ONE
[2016-05-24] MEDS ORDERED: Sodium Chloride 0.9% 10 ML Syringe FLUSH PRN ×2 (06:38→09:34)
[2016-05-24] MEDS ORDERED: methylPREDNISolone Sodium Succinate 40 MG/1 ML SDV IVPUSH ONE (06:41)
[2016-05-24] MEDS ORDERED: Albuterol 0.083% 2.5 MG/3 ML Neb Soln NEB ONE (06:41)
--- NOTE | 2016-05-24 09:00 | PCM.HP ---
H&P History of Present Illness - General Date of Service: 05/24/16 Admit Problem/Dx: Admission Diagnosis/Problem Admission Diagnosis/Problem Hypoxia Source of Information: Patient, Family, Old records, Provider, RN notes reviewed History Limitations: Reports: No limitations - History of Present Illness Initial Comments - Free Text/Narative: This patient is a 66-year-old woman who is admitted through the emergency department with acute on chronic hypoxic respiratory failure. She has known and long-standing oxygen-dependent COPD, she also uses a home Trilogy ventilator. She had an episode of increased shortness of breath last night, this resolved with use of her ventilator and and nebulizer treatment. She slept well until about 4 AM this morning when she developed developed acute shortness of breath that did not respond to her usual interventions. She was brought into the emergency department for further evaluation. Chest x-ray shows no obvious infiltrates, white blood cell count is normal, blood gases did show hypoxia but no hypercapnia. She's been treated with noninvasive positive pressure ventilation, IV Solu-Medrol, and nebulizer therapy. With these interventions her respiratory status has improved significantly. She's had no productive cough, fever, chills, or sweats. - Related Data Allergies/Adverse Reactions: Allergies Allergy/AdvReac Type Severity Reaction Status Date / Time Sulfa (Sulfonamide Allergy Mild Rash Verified 02/16/16 02:56 Antibiotics) meperidine HCl [From Demerol] Allergy Unknown Rash Verified 02/16/16 02:56 Home Medications: Home Meds Albuterol/Ipratropium [DuoNeb 3.0-0.5 MG/3 ML] 3 ml INH ASDIRECTED PRN 01/06/13 [History] LORazepam [Ativan] 0.5 mg PO Q6H PRN 01/06/13 [History] PARoxetine [Paxil] 10 mg PO QAM 04/11/14 [History] busPIRone [Buspar] 5 mg PO TID 11/06/15 [History] Alendronate Sodium [Fosamax] 1 tab PO ASDIRECTED 02/16/16 [History] Cholecalciferol (Vitamin D3) [Decara] 50,000 unit PO ASDIRECTED 02/16/16 [ History] Levalbuterol Tartrate [Levalbuterol Tartrate Hfa] 2 puff IH Q4H PRN 02/16/16 [ History] predniSONE 10 mg PO DAILY PRN 02/16/16 [History] Metoprolol Tartrate [Lopressor] 50 mg PO BID tablet 02/18/16 [Rx] Budesonide/Formoterol Fumarate [Symbicort 160-4.5 Mcg Inhaler] 2 puff INH BID [History] Hydrocodone/Acetaminophen [Hydrocodon-Acetaminophen 5-325] 1 each PO Q6H PRN 08/04 [History] clonazePAM [Clonazepam] 0.5 mg PO BEDTIME PRN 05/24/16 [History] Past Medical History HEENT History: Reports: Impaired vision Cardiovascular History: Reports: Hypertension, Other (see below) Other Cardiovascular History: cardiac arrest april 2016 Respiratory History: Reports: COPD, Other (see below) Other Respiratory History: 02 2l at night as needed. 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: Neurological History: Reports: Migraines Psychiatric History: Reports: Anxiety - Infectious Disease History Infectious Disease History: Reports: Shingles Other Infectious Disease History: unknown - Past Surgical History Head Surgeries/Procedures: Reports: None HEENT Surgical History: Reports: None Cardiovascular Surgical History: Reports: None Respiratory Surgical History: Reports: None Female Surgical History: Reports: None Neurological Surgical History: Reports: None Dermatological Surgical History: Reports: None Social & Family History - Family History Family Medical History: Noncontributory - Tobacco Use Smoking Status *Q: Former Smoker Years of Tobacco use: 50 Packs/Tins Daily: 1 Used Tobacco, but Quit: Yes Month Tobacco Last Used: 12/31 Second Hand Smoke Exposure: No - Caffeine Use Caffeine Use: Reports: Tea - Alcohol Use Days Per Week of Alcohol Use: 7 Number of Drinks Per Day: 2 Total Drinks Per Week: 14 Date of Last Drink: 05/23/16 Time of Last Drink: 20:00 - Recreational Drug Use Recreational Drug Use: No - Living Situation & Occupation Living situation: Reports: , with spouse Occupation: disabled H&P Review of Systems - Review of Systems: Review Of Systems: See Below General: Denies: fever, chills, weakness, diaphoresis HEENT: Reports: no symptoms Pulmonary: Reports: Shortness of Breath, Wheezing. Denies: Pleuritic Chest Pain , Cough, Sputum, Hemoptysis Cardiovascular: Reports: dyspnea on exertion. Denies: chest pain, palpitations , orthopnea, PND, edema, lightheadedness, syncope Gastrointestinal: Reports: No symptoms Genitourinary: Reports: no symptoms Musculoskeletal: Reports: no symptoms Skin: Reports: no symptoms Psychiatric: Reports: no symptoms Neurological: Reports: Difficulty Walking, Other (New foot drop left foot, present for the past month) Hematologic/Lymphatic: Reports: no symptoms Immunologic: Reports: no symptoms Exam - Exam Exam: See Below - Vital Signs Vital Signs: Last Vital Signs Temp 98.6 F 05/24/16 05:59 Pulse 112 H 05/24/16 07:23 Resp 28 H 05/24/16 06:17 BP 130/71 05/24/16 07:23 Pulse Ox 96 05/24/16 07:23 Weight: 118 lb - Exam Quality Assessment: supplemental oxygen, DVT prophylaxis General: alert, cooperative, moderate distress HEENT: Conjunctiva clear, Hearing intact, Mucosa moist & pink, Nares patent, Normal nasal septum, Posterior pharynx clear, Pupils equal, Pupils reactive Neck: supple, trachea midline, +2 carotid pulse wo bruit Lungs: Decreased breath sounds. No: Crackles, Rales, Rhonchi, Rub, Stridor, Wheezing Cardiovascular: regular rate, regular rhythm, normal S1, normal S2 Abdomen: normal bowel sounds, soft Back Exam: normal inspection, full range of motion, NT Extremities: 3, normal inspection, 10 Skin: warm, dry, intact Neurological: cranial nerves intact, normal speech, normal tone, sensation intact, focal deficit (Foot drop left foot) Neuro Extensive - Mental Status: alert, oriented x3, normal mood/affect, normal cognition, memory intact - Patient Data Lab Results last 24 hrs: Laboratory Results - last 24 hr 05/24/16 05/24/16 05/24/16 Range/Units 06:38 06:58 07:52 WBC 12.1 H (4.5-11.0) K/uL RBC 3.92 (3.30-5.50) M/uL Hgb 14.7 (12.0-15.0) g/dL Hct 41.5 (36.0-48.0) % MCV 106 H (80-98) fL MCH 38 H (27-31) pg MCHC 35 (32-36) % Plt Count 321 (150-400) K/uL Neut % (Auto) 82 H (36-66) % Lymph % (Auto) 6 L (24-44) % Dixie % (Auto) 8 H (2-6) % Eos % (Auto) 4 (2-4) % Baso % (Auto) 0 (0-1) % ABG Hemoglobin 14.6 (12.0-16.0) g/dL ABG Oxyhemoglobin 58.1 % ABG Carboxyhemoglobin 1.2 (0.0-1.6) % ABG Methemoglobin 0.5 % VBG pH 7.414 (7.350-7.450) VBG pCO2 44.5 mm/Hg VBG pO2 33.8 mm/Hg VBG HCO3 27.9 mmol/L VBG Total CO2 24.6 mmol/L VBG O2 Saturation 59.1 VBG O2 Content 11.9 %vol VBG Base Excess 3.3 mm/L O2 Delivery Device Cpap Sodium 145 (140-148) mmol/L Potassium 4.0 (3.6-5.2) mmol/L Chloride 107 (100-108) mmol/L Carbon Dioxide 29 (21-32) mmol/L Anion Gap 9.1 (5.0-14.0) mmol/L BUN 5 L (7-18) mg/dL Creatinine 0.7 (0.6-1.0) mg/dL Est Cr Clr Drug Dosing TNP Estimated GFR (MDRD) > 60 (>60) Glucose 119 H (74-106) mg/dL Calcium 9.0 (8.5-10.1) mg/dL Total Bilirubin 0.4 (0.2-1.0) mg/dL AST 44 H (15-37) U/L ALT 39 (12-78) U/L Alkaline Phosphatase 117 H (46-116) U/L Troponin I < 0.017 (0.000-0.056) ng/mL Tiz-[id number] Pept 117 (5-125) pg/mL Total Protein 6.8 (6.4-8.2) g/dL Albumin 2.9 L (3.4-5.0) g/dL Globulin 3.9 H (2.3-3.5) g/dL Albumin/Globulin Ratio 0.7 L (1.2-2.2) Result Diagrams: 04/06/17 07:52 05/24/16 06:58 *Q Meaningful Use (ADM) - VTE *Q VTE Criteria *Q: - VTE Risk Assess *Q Each Risk Factor Represents 1 Point: Abnormal Pulmonary Function (COPD) Total Score 1 Point Risk Factors: 1 Each Risk Factor Represents 2 Points: Age 60 - 74 Years Total Score 2 Point Risk Factors: 2 Each Risk Factor Represents 3 Points: None Total Score 3 Point Risk Factors: 0 Each Risk Factor Represents 5 Points: None Total Score 5 Point Risk Factors: 0 Venous Thromboembolism Risk Factor Score *Q: 3 - Stroke *Q Stroke Criteria *Q: - AMI *Q AMI Criteria *Q: Problem List Initiated/Reviewed/Updated: Yes Orders Last 24hrs: Active Orders 24 hr Category Date Time Status Patient Status Manage Transfer [TRANSFER] Routine ADT 05/24/16 08:48 Active Cardiac Monitoring [RC] .As Directed Care 05/24/16 08:48 Active EKG Documentation Completion [RC] ASDIRECTED Care 05/24/16 06:40 Active RT Aerosol Therapy [RC] ASDIRECTED Care 05/24/16 06:41 Active Chest 1V Frontal [CR] Stat Exams 05/24/16 06:38 Taken Sodium Chloride 0.9% [Saline Flush] Med 05/24/16 06:38 Active 10 ml FLUSH ASDIRECTED PRN Saline Lock Insert [OM.PC] Stat Oth 05/24/16 06:38 Ordered Resuscitation Status Routine Resus Stat 05/24/16 08:50 Ordered EKG 12 Lead [EK] Routine Ther 05/24/16 06:38 Ordered Medication Orders Sodium Chloride (Saline Flush) 10 ml FLUSH ASDIRECTED PRN PRN Reason: Keep Vein Open Last Admin: 05/24/16 07:05 Dose: 10 ml Assessment/Plan Comment:: ASSESSMENT AND PLAN ACUTE ON CHRONIC HYPOXIC RESPIRATORY FAILURE-exacerbation which occurred in the past few hours, unable to manage at home. Stabilize since arriving in the emergency department using noninvasive ventilation, nebulizer therapy, and Solu- Medrol. No evidence of underlying respiratory tract infection at the present time, we'll plan to hold on use of antibiotics. -Continue noninvasive positive pressure ventilation -Solu-Medrol IV -IV fluids for hydration -Supplemental oxygen as needed, goal oxygen saturation of 88-92% -Nebulizer therapy as needed SEVERE COPD-oxygen dependent with use of Trilogy ventilator at home -Management as above MAINTENANCE ISSUES -DVT prophylaxis; Lovenox 40 mg subcutaneous daily -GI prophylaxis; not indicated -Pederson catheter; not indicated -Nutrition; regular diet -Nicotine dependence; not required CODE STATUS-FULL CODE ADMISSION STATUS-patient will be admitted to inpatient status, expect at least a 2 night hospital stay for evaluation and management of problems as outlined above. At the time of this admission I do not reasonably expected evaluation and management of this problem will require more than a 96 hour hospital stay. DISPOSITION-anticipate discharge to home after the hospital stay. PRIMARY CARE PROVIDER-Dr. Santana Additional CC's: Félix Santana
--- NOTE | 2016-05-24 09:13 | CR ---
Chest 1V Frontal HISTORY: exacerbation copd COMPARISON: 04/23/2016, 02/16/2016 FINDINGS: Lungs appear mildly hyperinflated similar to prior exams. No acute infiltrate is identified. Cardiom ediastinal silhouette is within normal limits. No vascular redistribution or pleural fluid can be se en. Bony structures and soft tissues are unremarkable. IMPRESSION: Mild hyperinflation. No acute chest abnormality or significant interval change is identified.
[2016-05-24] MEDS ORDERED: Acetaminophen 325 MG Tab PO PRN (09:34)
[2016-05-24] MEDS ORDERED: LORazepam 0.5 MG Tab PO PRN (09:34)
[2016-05-24] MEDS ORDERED: Levalbuterol Tartrate HFA 15 GM Inhaler INH PRN (09:34)
[2016-05-24] MEDS ORDERED: Magnesium Hydroxide 400 MG/5 ML Susp 30 ML Cup PO PRN (09:34)
[2016-05-24] MEDS ORDERED: Albuterol 0.083% 2.5 MG/3 ML Neb Soln NEB PRN (09:34)
[2016-05-24] MEDS ORDERED: Docusate Sodium 100 MG Cap PO PRN (09:34)
[2016-05-24] MEDS ORDERED: Polyethylene Glycol 3350 Powder 17 GM Packet PO PRN (09:34)
[2016-05-24] MEDS ORDERED: Ondansetron 4 MG/2 ML SDV IV PRN (09:34)
[2016-05-24] MEDS ORDERED: Acetaminophen/HYDROcodone 325-5 MG Tab PO PRN (09:34)
[2016-05-24] MEDS: Albuterol/Ipratropium 3.0-0.5 MG/3 ML Neb Soln NEB SCH ×3 (10:25→20:34)
[2016-05-24] MEDS: Formoterol/Mometasone 200-5 MCG 8.8 GM Inhaler IH SCH ×2 (10:25→20:34)
[2016-05-24] MEDS: Enoxaparin 40 MG/0.4 ML Syringe SUBCUT SCH (10:46)
[2016-05-24] MEDS: Metoprolol Tartrate 50 MG Tab PO SCH ×2 (10:47→20:34)
[2016-05-24] MEDS: PARoxetine 20 MG Tab PO SCH (10:47)
[2016-05-24] MEDS: busPIRone 5 MG Tab PO SCH ×3 (10:47→20:34)
[2016-05-24] MEDS: methylPREDNISolone Sodium Succinate 40 MG/1 ML SDV IVPUSH SCH ×2 (14:24→21:30)
[2016-05-24] MEDS: ClonazePAM 0.5 MG Tab PO PRN (22:35)
[2016-05-25] MEDS: methylPREDNISolone Sodium Succinate 40 MG/1 ML SDV IVPUSH SCH ×2 (05:48→17:26)
[2016-05-25] MEDS: Albuterol/Ipratropium 3.0-0.5 MG/3 ML Neb Soln NEB SCH ×4 (07:13→20:53)
[2016-05-25] MEDS: Formoterol/Mometasone 200-5 MCG 8.8 GM Inhaler IH SCH ×2 (07:53→20:55)
[2016-05-25] MEDS: busPIRone 5 MG Tab PO SCH ×3 (08:16→20:53)
[2016-05-25] MEDS: PARoxetine 20 MG Tab PO SCH (08:16)
[2016-05-25] MEDS: Metoprolol Tartrate 50 MG Tab PO SCH ×2 (08:17→20:53)
[2016-05-25] MEDS: Enoxaparin 40 MG/0.4 ML Syringe SUBCUT SCH (08:17)
--- NOTE | 2016-05-25 09:31 | PCM.PN ---
- General Info Date of Service: 05/25/16 Functional Status: Reports: tolerating diet, ambulating, urinating - Review of Systems General: Denies: Fever, Chills Pulmonary: Reports: shortness of breath, wheezing. Denies: pleuritic chest pain , cough, sputum, hemoptysis Cardiovascular: Reports: Dyspnea on Exertion. Denies: Chest Pain, Palpitations , Orthopnea, PND, Edema, Lightheadedness Gastrointestinal: Reports: No symptoms Systems Review Comment:: This patient has improved significantly since admission, shortness of breath is much better but not yet back to baseline. Vital signs have been stable and she has remained afebrile. No significant cough or sputum production. - Patient Data Vitals - most recent: Last Vital Signs Temp 97.9 F 05/25/16 08:00 Pulse 97 05/25/16 08:17 Resp 18 05/25/16 08:00 BP 130/65 05/25/16 08:17 Pulse Ox 95 05/25/16 08:00 Weight - most recent: 115 lb 9.6 oz I&O - last 24 hours: Intake & Output 05/24/16 05/25/16 05/25/16 22:59 06:59 14:59 Intake Total 480 Balance 480 Lab Results last 24 hrs: Laboratory Results - last 24 hr 05/25/16 05/25/16 Range/Units 05:44 05:44 WBC 9.6 (4.5-11.0) K/uL RBC 3.81 (3.30-5.50) M/uL Hgb 13.7 (12.0-15.0) g/dL Hct 41.0 (36.0-48.0) % MCV 108 H (80-98) fL MCH 36 H (27-31) pg MCHC 33 (32-36) % Plt Count 347 (150-400) K/uL Neut % (Auto) 88 H (36-66) % Lymph % (Auto) 8 L (24-44) % [place] % (Auto) 5 (2-6) % Eos % (Auto) 0 L (2-4) % Baso % (Auto) 0 (0-1) % Sodium 142 (140-148) mmol/L Potassium 4.3 (3.6-5.2) mmol/L Chloride 106 (100-108) mmol/L Carbon Dioxide 28 (21-32) mmol/L Anion Gap 8.5 (5.0-14.0) mmol/L BUN 9 D (7-18) mg/dL Creatinine 0.6 (0.6-1.0) mg/dL Est Cr Clr Drug Dosing 65.35 mL/min Estimated GFR (MDRD) > 60 (>60) Glucose 155 H (74-106) mg/dL Calcium 8.8 (8.5-10.1) mg/dL Med Orders - Current: Current Medications Acetaminophen (Tylenol) 650 mg PO Q4H PRN PRN Reason: Pain (Mild 1-3)/fever Hydrocodone Bitart/Acetaminophen ([place] 325-5 Mg) 1 tab PO Q4H PRN PRN Reason: Pain (moderate 4-6) Albuterol (Proventil Neb Soln) 2.5 mg NEB Q4H PRN PRN Reason: Shortness Of Breath/wheezing Albuterol/Ipratropium (Duoneb 3.0-0.5 Mg/3 Ml) 3 ml NEB QIDRT [facility] Last Admin: 05/25/16 07:13 Dose: 3 ml Buspirone HCl (Buspar) 5 mg PO TID [facility] Last Admin: 05/25/16 08:16 Dose: 5 mg Clonazepam (Klonopin) 0.5 mg PO BEDTIME PRN PRN Reason: Anxiety Last Admin: 05/24/16 22:35 Dose: 0.5 mg Docusate Sodium (Colace) 100 mg PO BID PRN PRN Reason: Constipation Enoxaparin Sodium (Lovenox) 40 mg SUBCUT DAILY [facility] Last Admin: 05/25/16 08:17 Dose: 40 mg Levalbuterol HCl (Xopenex Hfa) 0 gm INH Q4H PRN PRN Reason: Wheezing Lorazepam (Ativan) 0.5 mg PO Q6H PRN PRN Reason: Anxiety Last Admin: 05/24/16 23:45 Dose: 0.5 mg Magnesium Hydroxide (Milk Of Magnesia) 30 ml PO Q12H PRN PRN Reason: Constipation Methylprednisolone Sodium Succinate (Solu-Medrol) 40 mg IVPUSH Q12H [facility] Metoprolol Tartrate (Lopressor) 50 mg PO BID [facility] Last Admin: 05/25/16 08:17 Dose: 50 mg Mometasone Furoate/Formoterol Fumar (Dulera 200-5 Mcg) 2 puff IH BIDRT [facility] Last Admin: 05/25/16 07:53 Dose: 2 puff Ondansetron HCl (Zofran) 4 mg IV Q4H PRN PRN Reason: Nausea/Vomiting Paroxetine HCl (Paxil) 10 mg PO QAM [facility] Last Admin: 05/25/16 08:16 Dose: 10 mg Polyethylene Glycol (Miralax) 17 gm PO DAILY PRN PRN Reason: Constipation Sodium Chloride (Saline Flush) 10 ml FLUSH ASDIRECTED PRN PRN Reason: Keep Vein Open Discontinued Medications Albuterol (Proventil Neb Soln) 2.5 mg NEB ONETIME ONE Stop: 05/24/16 06:42 Last Admin: 05/24/16 07:03 Dose: 2.5 mg Methylprednisolone Sodium Succinate (Solu-Medrol) 40 mg IVPUSH ONETIME ONE Stop: 05/24/16 06:42 Last Admin: 05/24/16 07:04 Dose: 40 mg Methylprednisolone Sodium Succinate (Solu-Medrol) 40 mg IVPUSH Q8H [facility] Last Admin: 05/25/16 05:48 Dose: 40 mg Sodium Chloride (Saline Flush) 10 ml FLUSH ASDIRECTED PRN PRN Reason: Keep Vein Open Last Admin: 05/24/16 07:05 Dose: 10 ml - Exam Quality Assessment: supplemental oxygen, DVT prophylaxis General: alert, oriented, cooperative, no acute distress Lungs: Normal respiratory effort, Decreased breath sounds, Wheezing. No: Crackles, Rales, Rhonchi, Rub, Stridor Cardiovascular: Regular Rate, Regular Rhythm, No Murmurs Abdomen: bowel sounds present, soft, no tenderness, no distension Extremities: no edema Skin: warm, dry, intact - Problem List Review Problem List Initiated/Reviewed/Updated: Yes - My Orders Last 24 Hours: My Active Orders 05/24/16 08:50 Resuscitation Status Routine 05/24/16 09:34 Patient Status [ADT] Routine Intake and Output [RC] QSHIFT Notify Provider Vital Signs [RC] ASDIRECTED Oxygen Therapy [RC] PRN Peripheral IV Care [RC] Q12H RT Aerosol Therapy [RC] ASDIRECTED VTE/DVT Education [RC] Per Unit Routine Acetaminophen [Tylenol] 650 mg PO Q4H PRN Acetaminophen/HYDROcodone [[place] 325-5 MG] 1 tab PO Q4H PRN Albuterol [Proventil Neb Soln] 2.5 mg NEB Q4H PRN Docusate Sodium [Colace] 100 mg PO BID PRN Enoxaparin [Lovenox] 40 mg SUBCUT DAILY Magnesium Hydroxide [Milk of Magnesia] 30 ml PO Q12H PRN Ondansetron [Zofran] 4 mg IV Q4H PRN Polyethylene Glycol 3350 [MiraLAX] 17 gm PO DAILY PRN Sodium Chloride 0.9% [Saline Flush] 10 ml FLUSH ASDIRECTED PRN Peripheral IV Insertion Adult [OM.PC] Routine 05/24/16 11:00 Albuterol/Ipratropium [DuoNeb 3.0-0.5 MG/3 ML] 3 ml NEB QIDRT 05/25/16 09:28 Activity as Tolerated [RC] .Routine Vital Signs [RC] Q4H 05/25/16 18:00 methylPREDNISolone Sod Succ [Solu-MEDROL] 40 mg IVPUSH Q12H - Plan Plan:: ASSESSMENT AND PLAN ACUTE ON CHRONIC HYPOXIC RESPIRATORY FAILURE-significant improvement since admission with decrease shortness of breath. No longer requiring noninvasive ventilation -Continue noninvasive positive pressure ventilation -Solu-Medrol IV -Supplemental oxygen as needed, goal oxygen saturation of 88-92% -Nebulizer therapy as needed SEVERE COPD-oxygen dependent with use of Trilogy ventilator at home -Management as above MAINTENANCE ISSUES -DVT prophylaxis; Lovenox 40 mg subcutaneous daily -GI prophylaxis; not indicated -Pederson catheter; not indicated -Nutrition; regular diet -Nicotine dependence; not required CODE STATUS-FULL CODE ADMISSION STATUS-patient will be admitted to inpatient status, expect at least a 2 night hospital stay for evaluation and management of problems as outlined above. At the time of this admission I do not reasonably expected evaluation and management of this problem will require more than a 96 hour hospital stay. DISPOSITION-anticipate discharge to home after the hospital stay. PRIMARY CARE PROVIDER-Dr. Santana Additional CC's: Félix Santana
[2016-05-25] MEDS: ClonazePAM 0.5 MG Tab PO PRN (20:55)
[2016-05-26] MEDS: methylPREDNISolone Sodium Succinate 40 MG/1 ML SDV IVPUSH SCH (06:25)
[2016-05-26] MEDS: Formoterol/Mometasone 200-5 MCG 8.8 GM Inhaler IH SCH (07:01)
[2016-05-26] MEDS: Albuterol/Ipratropium 3.0-0.5 MG/3 ML Neb Soln NEB SCH (07:01)
[2016-05-26 07:44] VITALS: BP 148/69
[2016-05-26] MEDS: PARoxetine 20 MG Tab PO SCH (08:30)
[2016-05-26] MEDS: busPIRone 5 MG Tab PO SCH (08:30)
[2016-05-26] MEDS: Metoprolol Tartrate 50 MG Tab PO SCH (08:30)
--- NOTE | 2016-05-26 09:58 | PCM.DCSUM1 ---
Discharge Summary - Hospital Course Brief History: Ms. Gamboa is a 66-year-old woman who is admitted through the emergency department with acute on chronic respiratory failure and hypoxia. - Discharge Data Discharge Date: 05/26/16 Discharge Disposition: Home, Self-Care 01 Condition: Fair - Discharge Diagnosis/Problem(s) (1) COPD with exacerbation SNOMED Code(s): 736412583, [id number] ICD Code: J44.1 - CHRONIC OBSTRUCTIVE PULMONARY DISEASE W (ACUTE) EXACERBATION Status: Acute Current Visit: Yes (2) Hypoxia SNOMED Code(s): 897243507, 639739061 ICD Code: R09.02 - HYPOXEMIA Status: Acute Current Visit: Yes (3) Respiratory failure with hypoxia SNOMED Code(s): 33026642056272666 ICD Code: J96.91 - RESPIRATORY FAILURE, UNSPECIFIED WITH HYPOXIA Status: Acute Current Visit: No Qualifiers: Chronicity: acute Qualified Code(s): J96.01 - Acute respiratory failure with hypoxia - Patient Summary/Data Hospital Course: Ms. Gamboa is a 66-year-old woman with a known and long-standing history of oxygen-dependent COPD. She's had a history of recurrent episodes of exacerbation with hypoxia and frequently associated hypercapnia. For a few days prior to admission she noted some increased shortness of breath and also had an episode of increased shortness of breath on the evening prior to admission. She woke at approximately 4 AM on the morning of admission with marked increase in shortness of breath, unfortunately did not improve with use of her Trilogy ventilator or nebulizers. On evaluation in the emergency department she was found to be severely hypoxic, but did not have significant CO2 retention. There was no evidence of underlying respiratory tract infection. White blood cell count was within normal range and chest x-ray showed no obvious infiltrates. She had no recent history of cough or significant sputum production. On admission she was given IV fluids for hydration as well as IV Solu-Medrol and use a noninvasive ventilation. She was also given nebulizer therapy scheduled and as needed. With these interventions she improved significantly over the next 2 days and was almost back to baseline by the time of discharge. She reported that her ventilator at home had not been working appropriately in the company was contacted and provided her with a new ventilator and ability to use in the line nebulizer therapy. Activity will be as tolerated and she will resume her usual diet. She will be on prednisone 40 mg for 2 days and then 20 mg for 2 days and then discontinue. Followup appointment will be scheduled with Dr. Santana within one week. - Patient Instructions Diet: Usual Diet as Tolerated Activity: As Tolerated Other/Special Instructions: Schedule followup appointment with Dr. Santana within one week. - Discharge Plan Prescriptions/Med Rec: Prednisone [IJD: predniSONE] 40 mg PO DAILY #6 tab Home Medications: Home Meds Albuterol/Ipratropium [DuoNeb 3.0-0.5 MG/3 ML] 3 ml INH ASDIRECTED PRN 01/06/13 [History] LORazepam [Ativan] 0.5 mg PO Q6H PRN 01/06/13 [History] PARoxetine [Paxil] 10 mg PO QAM 04/11/14 [History] busPIRone [Buspar] 5 mg PO TID 11/06/15 [History] Alendronate Sodium [Fosamax] 1 tab PO ASDIRECTED 02/16/16 [History] Cholecalciferol (Vitamin D3) [Decara] 50,000 unit PO ASDIRECTED 02/16/16 [ History] Levalbuterol Tartrate [Levalbuterol Tartrate Hfa] 2 puff IH Q4H PRN 02/16/16 [ History] Metoprolol Tartrate [Lopressor] 50 mg PO BID tablet 02/18/16 [Rx] Budesonide/Formoterol Fumarate [Symbicort 160-4.5 Mcg Inhaler] 2 puff INH BID [History] Hydrocodone/Acetaminophen [Hydrocodon-Acetaminophen 5-325] 1 each PO Q6H PRN 08/04 [History] clonazePAM [Clonazepam] 0.5 mg PO BEDTIME PRN 05/24/16 [History] Prednisone [IJD: predniSONE] 40 mg PO DAILY #6 tab 05/26/16 [Rx] Referrals: Félix Santana MD [Primary Care Provider] - - Patient Data Vitals - Most Recent: Last Vital Signs Temp 97.2 F 05/26/16 07:43 Pulse 88 05/26/16 08:30 Resp 16 05/26/16 07:43 BP 148/69 H 05/26/16 08:30 Pulse Ox 98 05/26/16 07:43 Weight - Most Recent: 115 lb 9.6 oz I&O - Last 24 hours: Intake & Output 05/25/16 05/26/16 05/26/16 22:59 06:59 14:59 Intake Total 840 240 Balance 840 240 Med Orders - Current: Current Medications Acetaminophen (Tylenol) 650 mg PO Q4H PRN PRN Reason: Pain (Mild 1-3)/fever Hydrocodone Bitart/Acetaminophen ([place] 325-5 Mg) 1 tab PO Q4H PRN PRN Reason: Pain (moderate 4-6) Albuterol (Proventil Neb Soln) 2.5 mg NEB Q4H PRN PRN Reason: Shortness Of Breath/wheezing Albuterol/Ipratropium (Duoneb 3.0-0.5 Mg/3 Ml) 3 ml NEB QIDRT [facility] Last Admin: 05/26/16 07:01 Dose: 3 ml Buspirone HCl (Buspar) 5 mg PO TID [facility] Last Admin: 05/26/16 08:30 Dose: 5 mg Clonazepam (Klonopin) 0.5 mg PO BEDTIME PRN PRN Reason: Anxiety Last Admin: 05/25/16 20:55 Dose: 0.5 mg Docusate Sodium (Colace) 100 mg PO BID PRN PRN Reason: Constipation Enoxaparin Sodium (Lovenox) 40 mg SUBCUT DAILY [facility] Last Admin: 05/25/16 08:17 Dose: 40 mg Levalbuterol HCl (Xopenex Hfa) 0 gm INH Q4H PRN PRN Reason: Wheezing Lorazepam (Ativan) 0.5 mg PO Q6H PRN PRN Reason: Anxiety Last Admin: 05/24/16 23:45 Dose: 0.5 mg Magnesium Hydroxide (Milk Of Magnesia) 30 ml PO Q12H PRN PRN Reason: Constipation Methylprednisolone Sodium Succinate (Solu-Medrol) 40 mg IVPUSH Q12H [facility] Last Admin: 05/26/16 06:25 Dose: 40 mg Metoprolol Tartrate (Lopressor) 50 mg PO BID [facility] Last Admin: 05/26/16 08:30 Dose: 50 mg Mometasone Furoate/Formoterol Fumar (Dulera 200-5 Mcg) 2 puff IH BIDRT [facility] Last Admin: 05/26/16 07:01 Dose: 2 puff Ondansetron HCl (Zofran) 4 mg IV Q4H PRN PRN Reason: Nausea/Vomiting Paroxetine HCl (Paxil) 10 mg PO QAM [facility] Last Admin: 05/26/16 08:30 Dose: 10 mg Polyethylene Glycol (Miralax) 17 gm PO DAILY PRN PRN Reason: Constipation Sodium Chloride (Saline Flush) 10 ml FLUSH ASDIRECTED PRN PRN Reason: Keep Vein Open Discontinued Medications Albuterol (Proventil Neb Soln) 2.5 mg NEB ONETIME ONE Stop: 05/24/16 06:42 Last Admin: 05/24/16 07:03 Dose: 2.5 mg Methylprednisolone Sodium Succinate (Solu-Medrol) 40 mg IVPUSH ONETIME ONE Stop: 05/24/16 06:42 Last Admin: 05/24/16 07:04 Dose: 40 mg Methylprednisolone Sodium Succinate (Solu-Medrol) 40 mg IVPUSH Q8H [facility] Last Admin: 05/25/16 05:48 Dose: 40 mg Sodium Chloride (Saline Flush) 10 ml FLUSH ASDIRECTED PRN PRN Reason: Keep Vein Open Last Admin: 05/24/16 07:05 Dose: 10 ml *Q Meaningful Use (DIS) - VTE *Q VTE Criteria *Q: - Stroke *Q Stroke Criteria *Q: - AMI *Q AMI Criteria *Q:
== END 2016-05-26 10:29 | disposition home or self-care (01) | DRG 190 ==
LOC: JP.ED 05:57 → JP.ICU 08:48
PROVIDERS: ADMIT Hospitalist; ATTEND Hospitalist
DX: J44.1 Chronic obstructive pulmonary disease with (acute) exacerbation (principal); J96.21 Acute and chronic respiratory failure with hypoxia; I10 Essential (primary) hypertension; Z99.81 Dependence on supplemental oxygen; Z87.891 Personal history of nicotine dependence; F41.9 Anxiety disorder, unspecified; Z87.440 Personal history of urinary (tract) infections; H54.7 Unspecified visual loss; Z88.2 Allergy status to sulfonamides; Z88.8 Allergy status to other drugs, medicaments and biological substances; Z79.52 Long term (current) use of systemic steroids; Z86.74 Personal history of sudden cardiac arrest
CPT/HCPCS: 36415; 71010 ×2; 80053; 82803; 83880; 84484; 85025; 93005; 96374; 99285 ×2; J2920; J7050; 80048; 93010; 94640-76; A9270-GY; J1650; J7620

== ENCOUNTER 2016-10-30 15:28 | Emergency (ER) | payer MEDICARE, BC ==
[2016-10-30 16:05] VITALS: BP 183/103
--- NOTE | 2016-10-30 16:13 | EDM.PDOC ---
ED HPI GENERAL MEDICAL PROBLEM - General Chief Complaint: Respiratory Problem Stated Complaint: chest pain Time Seen by Provider: 10/30/16 15:50 Source of Information: Reports: Patient, Family History Limitations: Reports: No Limitations - History of Present Illness INITIAL COMMENTS - FREE TEXT/NARRATIVE: 66-year-old female with severe end-stage COPD but no previous cardiac history presents with several days of recurring upper chest, neck, jaw and ear pain which waxes and wanes several times daily lasting up to 15 minutes. It is not related to activity in fact she had 2 episodes while sleeping last night that woke her up. She has no shortness of breath increase, diaphoresis, or nausea or vomiting with the episodes. She has not tried antacids for symptoms. She currently has no pain or discomfort. Her COPD has been stable for the last 5 months, she has not been on steroids recently. Onset: Unknown/Unsure Duration: Day(s): (symptoms have been waxing and waning for several days) Location: Reports: Neck, Chest - Related Data Allergies Allergy/AdvReac Type Severity Reaction Status Date / Time Sulfa (Sulfonamide Allergy Mild Rash Verified 10/30/16 15:43 Antibiotics) meperidine HCl [From Demerol] Allergy Unknown Rash Verified 10/30/16 15:43 Home Meds: Home Meds Albuterol/Ipratropium [DuoNeb 3.0-0.5 MG/3 ML] 3 ml INH ASDIRECTED PRN 01/06/13 [History] LORazepam [Ativan] 0.5 mg PO Q6H PRN 01/06/13 [History] PARoxetine [Paxil] 10 mg PO QAM 04/11/14 [History] busPIRone [Buspar] 5 mg PO TID 11/06/15 [History] Alendronate Sodium [Fosamax] 1 tab PO ASDIRECTED 02/16/16 [History] Cholecalciferol (Vitamin D3) [Decara] 50,000 unit PO ASDIRECTED 02/16/16 [ History] Levalbuterol Tartrate [Levalbuterol Tartrate Hfa] 2 puff IH Q4H PRN 02/16/16 [ History] Metoprolol Tartrate [Lopressor] 50 mg PO BID tablet 02/18/16 [Rx] Budesonide/Formoterol Fumarate [Symbicort 160-4.5 Mcg Inhaler] 2 puff INH BID [History] Hydrocodone/Acetaminophen [Hydrocodon-Acetaminophen 5-325] 1 each PO Q6H PRN 08/04 [History] clonazePAM [Clonazepam] 0.5 mg PO BEDTIME PRN 05/24/16 [History] Past Medical History HEENT History: Reports: Impaired Vision Cardiovascular History: Reports: Hypertension, Other (See Below) Other Cardiovascular History: cardiac arrest april 2016 Respiratory History: Reports: COPD, Other (See Below) Other Respiratory History: 02 2l at night as needed. 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 copd Genitourinary History: Reports: UTI, Recurrent [employer] History: Reports: Neurological History: Reports: Migraines Psychiatric History: Reports: Anxiety - Infectious Disease History Infectious Disease History: Reports: Shingles Other Infectious Disease History: unknown - Past Surgical History Head Surgeries/Procedures: Reports: None Neurological Surgical History: Reports: None Dermatological Surgical History: Reports: None Social & Family History - Family History Family Medical History: Noncontributory - Tobacco Use Smoking Status *Q: Former Smoker Years of Tobacco use: 50 Packs/Tins Daily: 1 Used Tobacco, but Quit: Yes Month Tobacco Last Used: 12/31 Second Hand Smoke Exposure: No - Caffeine Use Caffeine Use: Reports: Tea - Alcohol Use Days Per Week of Alcohol Use: 7 Number of Drinks Per Day: 2 Total Drinks Per Week: 14 - Recreational Drug Use Recreational Drug Use: No - Living Situation & Occupation Living situation: Reports: , with Spouse Occupation: Disabled ED ROS GENERAL - Review of Systems Review Of Systems: See Below Constitutional: Denies: Fever, Chills, Malaise HEENT: Reports: Ear Pain, Other (jaw hurts) Respiratory: Reports: Shortness of Breath (chronic and stable) Cardiovascular: Reports: Chest Pain (upper substernal pain that radiates to the neck and jaw) GI/Abdominal: Reports: No Symptoms Skin: Reports: Bruising (patient bruises easily which is chronic) Neurological: Denies: Dizziness, Headache Psychiatric: Reports: No Symptoms ED EXAM, GENERAL - Physical Exam Exam: See Below Exam Limited By: No Limitations General Appearance: Alert, No Apparent Distress Eye Exam: Bilateral Eye: EOMI, Normal Inspection (no jaundice, hydration normal) Throat/Mouth: Normal Inspection, Other (I cannot reproduce palpation tenderness to the jaw or temporal area) Head: Atraumatic Neck: Normal Inspection Respiratory/Chest: No Respiratory Distress, Decreased Breath Sounds (diffusely decreased breath sounds) Cardiovascular: Regular Rate, Rhythm, No Edema, No Murmur GI/Abdominal: Non-Tender Extremities: No: Pedal Edema Neurological: Alert, Oriented Psychiatric: Normal Affect, Normal Mood Skin Exam: Warm, Dry EKG INTERPRETATION Rhythm: NSR (nonspecific ST depression looks consistent with past EKGs) Course - Vital Signs Last Recorded V/S: Last Vital Signs Temp 97.7 F 10/30/16 15:40 Pulse 99 10/30/16 15:40 Resp 12 10/30/16 15:40 BP 183/103 H 10/30/16 15:40 Pulse Ox 92 L 10/30/16 15:40 - Orders/Labs/Meds Orders: Active Orders 24 hr Category Date Time Status EKG Documentation Completion [RC] ASDIRECTED Care 10/30/16 16:06 Active EKG 12 Lead [EK] Routine Ther 10/30/16 16:06 Ordered Labs: Laboratory Tests 10/30/16 10/30/16 10/30/16 Range/Units 16:19 16:19 16:19 WBC 10.8 (4.5-11.0) K/uL RBC 4.29 (3.30-5.50) M/uL Hgb 15.2 H (12.0-15.0) g/dL Hct 46.2 (36.0-48.0) % MCV 108 H (80-98) fL MCH 35 H (27-31) pg MCHC 33 (32-36) % Plt Count 233 (150-400) K/uL Neut % (Auto) 79 H (36-66) % Lymph % (Auto) 11 L (24-44) % [place] % (Auto) 7 H (2-6) % Eos % (Auto) 3 (2-4) % Baso % (Auto) 0 (0-1) % Sodium 140 (140-148) mmol/L Potassium 3.6 (3.6-5.2) mmol/L Chloride 104 (100-108) mmol/L Carbon Dioxide 26 (21-32) mmol/L Anion Gap 9.8 (5.0-14.0) mmol/L BUN 12 (7-18) mg/dL Creatinine 0.8 (0.6-1.0) mg/dL Est Cr Clr Drug Dosing 49.01 mL/min Estimated GFR (MDRD) > 60 (>60) Glucose 99 (74-106) mg/dL Calcium 9.0 (8.5-10.1) mg/dL Troponin I < 0.017 (0.000-0.056) ng/mL - Re-Assessments/Exams Free Text/Narrative Re-Assessment/Exam: 10/30/16 16:12 She has no pain in the emergency room, the EKG is nonspecific. A CBC, BMP, troponin were obtained. 10/30/16 17:13 all labs were negative. Patient did not develop any additional symptoms while in the emergency room. She will take 20 mg of omeprazole daily for 2 weeks, and liquid antacid if her pain recurs. She will return to the emergency room if the pain becomes more common with activity or causes shortness of breath, diaphoresis or other symptoms. Departure - Departure Time of Disposition: 17:27 Disposition: Home, Self-Care 01 Condition: Good Clinical Impression: Chest pain, atypical - Discharge Information Instructions: Nonspecific Chest Pain, [id number] Referrals: Félix Santana MD [Primary Care Provider] - Forms: ED Department Discharge Care Plan Goals: Try daily Prilosec, generic is omeprazole, 20 mg daily before meals for the next 2 weeks. Also liquid antacid may provide a rapid relief if pain recurs. return to ER if the pain is persistent or is accompanied with increasing shortness of breath, diaphoresis or nausea. - My Orders Last 24 Hours: My Active Orders 10/30/16 16:06 EKG Documentation Completion [RC] ASDIRECTED EKG 12 Lead [EK] Routine - Assessment/Plan Last 24 Hours: My Active Orders 10/30/16 16:06 EKG Documentation Completion [RC] ASDIRECTED EKG 12 Lead [EK] Routine
== END 2016-10-30 17:27 | disposition home or self-care (01) ==
LOC: JP.ED 15:28
DX: R07.89 Other chest pain (principal); H54.7 Unspecified visual loss; I10 Essential (primary) hypertension; J44.9 Chronic obstructive pulmonary disease, unspecified; G43.909 Migraine, unspecified, not intractable, without status migrainosus; F41.9 Anxiety disorder, unspecified; Z87.891 Personal history of nicotine dependence; Z88.2 Allergy status to sulfonamides; Z88.8 Allergy status to other drugs, medicaments and biological substances; Z87.440 Personal history of urinary (tract) infections; Z88.5 Allergy status to narcotic agent
CPT/HCPCS: 36415; 80048; 84484; 85025; 93005; 93010; 99284; 99285-25

== ENCOUNTER 2016-11-02 14:04 | Emergency (ER) | payer MEDICARE, BC ==
[2016-11-02] MEDS ORDERED: Sodium Chloride 0.9% 100 ML IV SCH (14:45)
[2016-11-02] MEDS ORDERED: Iopamidol 612 MG/ML 100 ML Bottle IV SCH (14:45)
--- NOTE | 2016-11-02 15:04 | EDM.PDOC ---
ED HPI GENERAL MEDICAL PROBLEM - General Chief Complaint: Chest Pain Stated Complaint: CHEST PAIN Time Seen by Provider: 11/02/16 14:15 Source of Information: Reports: Patient, Family History Limitations: Reports: No Limitations - History of Present Illness INITIAL COMMENTS - FREE TEXT/NARRATIVE: 66-year-old female with significant COPD was seen several days ago with intermittent chest pain and cardiac was ruled out. Anti-acids were tried the last 3 days but pain is becoming more persistent, especially in the neck, jaw and the ears bilaterally. Her breathing has been good, no chest pain, nausea or vomiting, fever or chills. She called this morning explaining she wasn't improving so I asked the patient to come back in for a CT of her chest to rule out any mediastinal air or other pathology. Onset: Unknown/Unsure (Symptoms have been waxing and waning for over a week) Location: Reports: Head, Neck, Chest Severity: Moderate Worsens with: Reports: None Associated Symptoms: Reports: No Other Symptoms Chest Pain Score (Numeric/FACES): 1 - Related Data Allergies Allergy/AdvReac Type Severity Reaction Status Date / Time Sulfa (Sulfonamide Allergy Mild Rash Verified 10/30/16 15:43 Antibiotics) meperidine HCl [From Demerol] Allergy Unknown Rash Verified 10/30/16 15:43 Home Meds: Home Meds Albuterol/Ipratropium [DuoNeb 3.0-0.5 MG/3 ML] 3 ml INH ASDIRECTED PRN 01/06/13 [History] LORazepam [Ativan] 0.5 mg PO Q6H PRN 01/06/13 [History] PARoxetine [Paxil] 10 mg PO QAM 04/11/14 [History] busPIRone [Buspar] 5 mg PO TID 11/06/15 [History] Alendronate Sodium [Fosamax] 1 tab PO ASDIRECTED 02/16/16 [History] Cholecalciferol (Vitamin D3) [Decara] 50,000 unit PO ASDIRECTED 02/16/16 [ History] Levalbuterol Tartrate [Levalbuterol Tartrate Hfa] 2 puff IH Q4H PRN 02/16/16 [ History] Metoprolol Tartrate [Lopressor] 50 mg PO BID tablet 02/18/16 [Rx] Budesonide/Formoterol Fumarate [Symbicort 160-4.5 Mcg Inhaler] 2 puff INH BID [History] Hydrocodone/Acetaminophen [Hydrocodon-Acetaminophen 5-325] 1 each PO Q6H PRN 08/04 [History] clonazePAM [Clonazepam] 0.5 mg PO BEDTIME PRN 05/24/16 [History] Past Medical History HEENT History: Reports: Impaired Vision Cardiovascular History: Reports: Hypertension, Other (See Below) Other Cardiovascular History: cardiac arrest april 2016 Respiratory History: Reports: COPD, Other (See Below) Other Respiratory History: 02 2l at night as needed. 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: Neurological History: Reports: Migraines Psychiatric History: Reports: Anxiety - Infectious Disease History Infectious Disease History: Reports: Shingles Other Infectious Disease History: unknown - Past Surgical History Head Surgeries/Procedures: Reports: None Neurological Surgical History: Reports: None Dermatological Surgical History: Reports: None Social & Family History - Family History Family Medical History: Noncontributory - Tobacco Use Smoking Status *Q: Never Smoker Years of Tobacco use: 50 Packs/Tins Daily: 1 Used Tobacco, but Quit: Yes Month Tobacco Last Used: 12/31 Second Hand Smoke Exposure: No - Caffeine Use Caffeine Use: Reports: None - Alcohol Use Days Per Week of Alcohol Use: 7 Number of Drinks Per Day: 3 Total Drinks Per Week: 21 - Recreational Drug Use Recreational Drug Use: No - Living Situation & Occupation Living situation: Reports: , with Spouse Occupation: Disabled ED ROS GENERAL - Review of Systems Review Of Systems: See Below Constitutional: Denies: Fever, Chills, Malaise HEENT: Reports: Ear Pain (Bilateral ear pain), Other (Bilateral jaw pain) Respiratory: Reports: Shortness of Breath (Shortness of breath is chronic and stable) Cardiovascular: Reports: Chest Pain (Substernal chest pain is actually improved from several days ago) GI/Abdominal: Denies: Abdominal Pain : Reports: No Symptoms Neurological: Denies: Headache Psychiatric: Reports: No Symptoms ED EXAM, GENERAL - Physical Exam Exam: See Below Exam Limited By: No Limitations General Appearance: Alert, No Apparent Distress Eye Exam: Bilateral Eye: EOMI Ears: Normal TMs Throat/Mouth: Normal Inspection, Other (I cannot reproduce jaw pain with palpation) Head: Atraumatic Respiratory/Chest: No Respiratory Distress, Decreased Breath Sounds (Diffuse decreased breath sounds but otherwise stable) Cardiovascular: Regular Rate, Rhythm Back Exam: Normal Inspection Extremities: No: Pedal Edema Neurological: Alert, Oriented, No Motor/Sensory Deficits Course - Vital Signs Last Recorded V/S: Last Vital Signs Temp 97.7 F 11/02/16 14:14 Pulse 86 11/02/16 15:12 Resp 16 11/02/16 14:14 BP 139/74 11/02/16 15:12 Pulse Ox 87 L 11/02/16 15:12 - Orders/Labs/Meds Meds: Medications Discontinued Medications Generic Name Dose Route Start Last Admin Trade Name Reilly PRN Reason Stop Dose Admin Sodium Chloride 100 mls @ 3 mls/sec 11/02/16 14:45 11/02/16 14:46 Normal Saline IV 3 mls/sec ASDIRECTED THEA Administration Iopamidol 100 ml 11/02/16 14:45 11/02/16 14:46 Isovue-300 (61%) IV 100 ml . DIRECTED THEA Administration Methylprednisolone Sodium Succinate 62.5 mg 11/02/16 15:23 11/02/16 15:31 Solu-Medrol IVPUSH 11/02/16 15:24 62.5 mg ONETIME ONE Administration - Re-Assessments/Exams Free Text/Narrative Re-Assessment/Exam: 11/02/16 15:38 CT chest was done with IV contrast and was normal other than severe emphysematous changes. Patient was given 62.5 mg of IV Solu-Medrol, encouraged to continue taking the pain medication and increasing activity as tolerated. She will recheck in 2-3 days if not improving satisfactorily. Departure - Departure Time of Disposition: 15:47 Disposition: Home, Self-Care 01 Condition: Fair Clinical Impression: Chest pain, atypical - Discharge Information Instructions: Nonspecific Chest Pain, [id number] Referrals: PCP,None [Primary Care Provider] - Forms: ED Department Discharge Care Plan Goals: Continue with oxycodone as needed for the next 24-48 hours and recheck if not improving after 2-3 days.
--- NOTE | 2016-11-02 15:08 | CT ---
CT chest with contrast. Total DLP 231. Indication: Chest pain. Comparison: 02/22/2015. Findings: No enlarged mediastinal or hilar adenopathy. No evidence for dissection. Coronary artery ca lcifications. There is moderate to advanced emphysematous changes. No focal consolidation. No pneumot horax. There are remote bilateral rib fractures.. Small indeterminant adrenal gland nodule measuring 9 mm is stable compared to prior. Fatty infiltration liver. Impression: 1. Emphysematous changes. 2. No evidence for pneumothorax or pneumomediastinum. 3. Small indeterminate adrenal gland nodule stable compared to prior 9 mm.
[2016-11-02 15:13] VITALS: BP 139/74
[2016-11-02] MEDS ORDERED: methylPREDNISolone Sodium Succinate 125 MG/2 ML SDV IVPUSH ONE (15:23)
== END 2016-11-02 15:47 | disposition home or self-care (01) ==
LOC: JP.ED 14:04
DX: R07.89 Other chest pain (principal); I10 Essential (primary) hypertension; F41.9 Anxiety disorder, unspecified; J44.9 Chronic obstructive pulmonary disease, unspecified; Z87.440 Personal history of urinary (tract) infections; Z88.2 Allergy status to sulfonamides; Z88.8 Allergy status to other drugs, medicaments and biological substances; Z79.899 Other long term (current) drug therapy
CPT/HCPCS: 71260; 96374; 99285; J2930; J7030; Q9967; 99284

== ENCOUNTER 2016-11-03 15:43 | Emergency (ER) | payer MEDICARE, BC ==
--- NOTE | 2016-11-03 16:33 | EDM.PDOC ---
ED HPI GENERAL MEDICAL PROBLEM - General Chief Complaint: Chest Pain Stated Complaint: CHEST PAIN Time Seen by Provider: 11/03/16 16:23 Source of Information: Reports: Patient, Family History Limitations: Reports: No Limitations - History of Present Illness INITIAL COMMENTS - FREE TEXT/NARRATIVE: pt hs pain in her upper chest which rdiates to her neck and jaws and to the back of her neck It comes on in episodes and will last sometimes up to 2 hours. She has a history of severe copd. She has had numerous episodes of resp failure and ended up on a resp multiple times. Duration: Day(s):, Other (pt has been having this unusal chest pain for 1 week. ) Location: Reports: Chest Associated Symptoms: Reports: Chest Pain, Shortness of Breath, Other (history of severe copd) Upper Chest Pain Score (Numeric/FACES): 10 - Related Data Allergies Allergy/AdvReac Type Severity Reaction Status Date / Time Sulfa (Sulfonamide Allergy Mild Rash Verified 11/03/16 16:03 Antibiotics) meperidine HCl [From Demerol] Allergy Unknown Rash Verified 11/03/16 16:03 Home Meds: Home Meds Albuterol/Ipratropium [DuoNeb 3.0-0.5 MG/3 ML] 3 ml INH ASDIRECTED PRN 01/06/13 [History] LORazepam [Ativan] 0.5 mg PO Q6H PRN 01/06/13 [History] PARoxetine [Paxil] 10 mg PO QAM 04/11/14 [History] busPIRone [Buspar] 5 mg PO TID 11/06/15 [History] Alendronate Sodium [Fosamax] 1 tab PO ASDIRECTED 02/16/16 [History] Cholecalciferol (Vitamin D3) [Decara] 50,000 unit PO ASDIRECTED 02/16/16 [ History] Levalbuterol Tartrate [Levalbuterol Tartrate Hfa] 2 puff IH Q4H PRN 02/16/16 [ History] Metoprolol Tartrate [Lopressor] 50 mg PO BID tablet 02/18/16 [Rx] Budesonide/Formoterol Fumarate [Symbicort 160-4.5 Mcg Inhaler] 2 puff INH BID [History] Hydrocodone/Acetaminophen [Hydrocodon-Acetaminophen 5-325] 1 each PO Q6H PRN 08/04 [History] clonazePAM [Clonazepam] 0.5 mg PO BEDTIME PRN 05/24/16 [History] Past Medical History HEENT History: Reports: Impaired Vision Cardiovascular History: Reports: Hypertension, Prior Cardiac Arrest, Other (See Below) Other Cardiovascular History: cardiac arrest april 2016 Respiratory History: Reports: COPD, Other (See Below) Other Respiratory History: 02 2l at night as needed. 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: Neurological History: Reports: Migraines Psychiatric History: Reports: Anxiety - Infectious Disease History Infectious Disease History: Reports: Shingles Other Infectious Disease History: unknown - Past Surgical History Head Surgeries/Procedures: Reports: None Neurological Surgical History: Reports: None Dermatological Surgical History: Reports: None Social & Family History - Family History Family Medical History: Noncontributory - Tobacco Use Smoking Status *Q: Former Smoker Years of Tobacco use: 50 Packs/Tins Daily: 1 Used Tobacco, but Quit: Yes Month Tobacco Last Used: 12/31 Second Hand Smoke Exposure: No - Caffeine Use Caffeine Use: Reports: None - Alcohol Use Days Per Week of Alcohol Use: 7 Number of Drinks Per Day: 3 Total Drinks Per Week: 21 - Recreational Drug Use Recreational Drug Use: No - Living Situation & Occupation Living situation: Reports: , with Spouse Occupation: Disabled ED ROS GENERAL - Review of Systems Review Of Systems: See Below Constitutional: Reports: No Symptoms HEENT: Reports: No Symptoms Respiratory: Reports: Shortness of Breath Cardiovascular: Reports: Chest Pain Endocrine: Reports: No Symptoms GI/Abdominal: Reports: No Symptoms : Reports: No Symptoms Musculoskeletal: Reports: No Symptoms Skin: Reports: No Symptoms ED EXAM, GENERAL - Physical Exam Exam: See Below Free Text/Narrative:: pt arrived with upper chest pain radiating to the neck and jaws. She states these come in episodes and will sometimes last as long as 2 hours. This pain is very severe at this time. Exam Limited By: No Limitations General Appearance: Alert, Anxious, Moderate Distress Ears: Normal TMs Nose: Normal Inspection Throat/Mouth: Normal Inspection Head: Atraumatic Neck: Normal Inspection Respiratory/Chest: Other (pt has chronic sob. ) Cardiovascular: Regular Rate, Rhythm GI/Abdominal: Soft, Non-Tender (Female) Exam: Deferred Rectal (Female) Exam: Deferred Back Exam: Normal Inspection Extremities: Normal Inspection Neurological: Alert, Oriented, Normal Cognition Psychiatric: Normal Affect Course - Vital Signs Last Recorded V/S: Last Vital Signs Temp 36.6 C 11/03/16 16:07 Pulse 105 H 11/03/16 16:07 Resp 14 11/03/16 16:07 BP 163/93 H 11/03/16 16:07 Pulse Ox 93 L 11/03/16 16:07 - Orders/Labs/Meds Orders: Active Orders 24 hr Category Date Time Status EKG Documentation Completion [RC] ASDIRECTED Care 11/03/16 16:08 Active UA W/MICROSCOPIC [URIN] Urgent Lab 11/03/16 16:08 Uncollected EKG 12 Lead [EK] Routine Ther 11/03/16 16:08 Ordered Labs: Laboratory Tests 11/03/16 11/03/16 11/03/16 Range/Units 16:18 16:18 16:18 WBC 15.6 H (4.5-11.0) K/uL RBC 4.10 (3.30-5.50) M/uL Hgb 15.3 H (12.0-15.0) g/dL Hct 43.5 (36.0-48.0) % MCV 106 H (80-98) fL MCH 37 H (27-31) pg MCHC 35 (32-36) % Plt Count 289 (150-400) K/uL Neut % (Auto) 85 H (36-66) % Lymph % (Auto) 7 L (24-44) % [place] % (Auto) 8 H (2-6) % Eos % (Auto) 0 L (2-4) % Baso % (Auto) 0 (0-1) % Sodium 137 L (140-148) mmol/L Potassium 4.0 (3.6-5.2) mmol/L Chloride 102 (100-108) mmol/L Carbon Dioxide 27 (21-32) mmol/L Anion Gap 12.0 (5.0-14.0) mmol/L BUN 14 (7-18) mg/dL Creatinine 1.0 (0.6-1.0) mg/dL Est Cr Clr Drug Dosing 39.21 mL/min Estimated GFR (MDRD) 55 L (>60) Glucose 133 H (74-106) mg/dL Calcium 9.3 (8.5-10.1) mg/dL Total Bilirubin 0.4 (0.2-1.0) mg/dL AST 38 H (15-37) U/L ALT 49 (12-78) U/L Alkaline Phosphatase 91 (46-116) U/L Troponin I 0.306 H* (0.000-0.056) ng/mL Total Protein 7.4 (6.4-8.2) g/dL Albumin 3.4 (3.4-5.0) g/dL Globulin 4.0 H (2.3-3.5) g/dL Albumin/Globulin Ratio 0.9 L (1.2-2.2) - Re-Assessments/Exams Free Text/Narrative Re-Assessment/Exam: 11/03/16 17:[address] depression laterally. Her trop is .3. Her other labs are good and her o2 sats have remained ok Departure - Departure Time of Disposition: 17:05 Disposition: DC/Tfer to Acute Hospital 02 Reason for Transfer *Q: Primary PCI Indicated Condition: Fair Clinical Impression: Elevated troponin, Acute DE anterior lateral subsequent episode care Referrals: Félix Santana MD [Primary Care Provider] - Forms: ED Department Discharge Care Plan Goals: transfer to [facility]. - My Orders Last 24 Hours: My Active Orders 11/03/16 16:08 EKG Documentation Completion [RC] ASDIRECTED UA W/MICROSCOPIC [URIN] Urgent EKG 12 Lead [EK] Routine - Assessment/Plan Last 24 Hours: My Active Orders 11/03/16 16:08 EKG Documentation Completion [RC] ASDIRECTED UA W/MICROSCOPIC [URIN] Urgent EKG 12 Lead [EK] Routine
[2016-11-03] MEDS ORDERED: Aspirin 81 MG Tab.Chew PO ONE (17:01)
[2016-11-03] MEDS ORDERED: Heparin Sodium 5,000 Units/ML Vial IVPUSH ONE (17:01)
[2016-11-03] MEDS ORDERED: Metoprolol Tartrate 50 MG Tab PO ONE (17:06)
--- NOTE | 2016-11-03 17:11 | PCM.CONS ---
H&P History of Present Illness - General Date of Service: 11/03/16 Source of Information: Patient, Family, Provider History Limitations: Reports: No Limitations - History of Present Illness Initial Comments - Free Text/Narative: Eleanor presents to the emergency room today after an episode of chest pain that started around 8 AM this morning. She describes a severe pressure-like pain that started in the middle of her chest and radiated to her neck into her jaw as well as to the left shoulder. She had a accompanying sensation of heartburn but did not have nausea or shortness of breath. She laid down and rested and after approximately 2 hours the pain went away. She has had similar pains several times over the past week and has been in the emergency room twice but workup has been negative both of those times. The episode yesterday happened while she was resting but shortly after she had finished staining the deck. Episodes earlier in the week had happened with exertion as well. Respiratory status has been stable recently. No recent pulmonary infections. No fevers or chills. Workup in the emergency room revealed anterolateral ST depressions which were relatively mild but deeper than previous EKGs. Troponin level is elevated at 0.3. [facility] was contacted for transfer and cardiology evaluation. Upper Chest Pain Score (Numeric/FACES): 10 - Related Data Allergies/Adverse Reactions: Allergies Allergy/AdvReac Type Severity Reaction Status Date / Time Sulfa (Sulfonamide Allergy Mild Rash Verified 11/03/16 16:03 Antibiotics) meperidine HCl [From Demerol] Allergy Unknown Rash Verified 11/03/16 16:03 Home Medications: Home Meds Albuterol/Ipratropium [DuoNeb 3.0-0.5 MG/3 ML] 3 ml INH ASDIRECTED PRN 01/06/13 [History] LORazepam [Ativan] 0.5 mg PO Q6H PRN 01/06/13 [History] PARoxetine [Paxil] 10 mg PO QAM 04/11/14 [History] busPIRone [Buspar] 5 mg PO TID 11/06/15 [History] Alendronate Sodium [Fosamax] 1 tab PO ASDIRECTED 02/16/16 [History] Cholecalciferol (Vitamin D3) [Decara] 50,000 unit PO ASDIRECTED 02/16/16 [ History] Levalbuterol Tartrate [Levalbuterol Tartrate Hfa] 2 puff IH Q4H PRN 02/16/16 [ History] Metoprolol Tartrate [Lopressor] 50 mg PO BID tablet 02/18/16 [Rx] Budesonide/Formoterol Fumarate [Symbicort 160-4.5 Mcg Inhaler] 2 puff INH BID [History] Hydrocodone/Acetaminophen [Hydrocodon-Acetaminophen 5-325] 1 each PO Q6H PRN 08/04 [History] clonazePAM [Clonazepam] 0.5 mg PO BEDTIME PRN 05/24/16 [History] Past Medical History HEENT History: Reports: Impaired Vision Cardiovascular History: Reports: Hypertension, Prior Cardiac Arrest, Other (See Below) Other Cardiovascular History: cardiac arrest april 2016 Respiratory History: Reports: COPD, Other (See Below) Other Respiratory History: 02 2l at night as needed. 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: Neurological History: Reports: Migraines Psychiatric History: Reports: Anxiety - Infectious Disease History Infectious Disease History: Reports: Shingles Other Infectious Disease History: unknown - Past Surgical History Head Surgeries/Procedures: Reports: None Neurological Surgical History: Reports: None Dermatological Surgical History: Reports: None Social & Family History - Family History Family Medical History: Noncontributory - Tobacco Use Smoking Status *Q: Former Smoker Years of Tobacco use: 50 Packs/Tins Daily: 1 Used Tobacco, but Quit: Yes Month Tobacco Last Used: 12/31 Second Hand Smoke Exposure: No - Caffeine Use Caffeine Use: Reports: None - Alcohol Use Days Per Week of Alcohol Use: 7 Number of Drinks Per Day: 3 Total Drinks Per Week: 21 - Recreational Drug Use Recreational Drug Use: No - Living Situation & Occupation Living situation: Reports: , with Spouse Occupation: Disabled H&P Review of Systems - Review of Systems: Review Of Systems: See Below Free Text/Narrative: A complete 12 point review of systems was obtained. Pertinent positives and negatives are noted in the history of present illness. All other systems were reviewed and were negative except as noted. Exam - Exam Exam: See Below - Vital Signs Vital Signs: Last Vital Signs Temp 36.6 C 11/03/16 16:07 Pulse 105 H 11/03/16 16:07 Resp 14 11/03/16 16:07 BP 163/93 H 11/03/16 16:07 Pulse Ox 93 L 11/03/16 16:07 Weight: 51.31 kg - Exam Quality Assessment: No: Supplemental Oxygen General: Alert, Oriented, Cooperative. No: Mild Distress HEENT: Conjunctiva Clear, Mucosa Moist & [place]. No: Scleral Icterus Neck: Supple, Trachea Midline Lungs: Clear to Auscultation, Normal Respiratory Effort Cardiovascular: Regular Rhythm, Tachycardia GI/Abdominal Exam: Normal Bowel Sounds, Soft, Non-Tender, No Distention Back Exam: Normal Inspection, Full Range of Motion Extremities: Normal Inspection, No Pedal Edema. No: Increased Warmth Peripheral Pulses: 2+: Dorsalis Pedis (L), Dorsalis Pedis (R) Skin: Warm, Dry Neuro Extensive - Mental Status: Alert, Oriented x3, Nl Response to Commands Neuro Extensive - Motor, Sensory, Reflexes: CN II-XII Intact. No: Dysarthria, Abnormal Motor, Tremor Psychiatric: Alert, Anxious - Patient Data Lab Results Last 24 hrs: Laboratory Results - last 24 hr 11/03/16 11/03/16 11/03/16 Range/Units 16:18 16:18 16:18 WBC 15.6 H (4.5-11.0) K/uL RBC 4.10 (3.30-5.50) M/uL Hgb 15.3 H (12.0-15.0) g/dL Hct 43.5 (36.0-48.0) % MCV 106 H (80-98) fL MCH 37 H (27-31) pg MCHC 35 (32-36) % Plt Count 289 (150-400) K/uL Neut % (Auto) 85 H (36-66) % Lymph % (Auto) 7 L (24-44) % [place] % (Auto) 8 H (2-6) % Eos % (Auto) 0 L (2-4) % Baso % (Auto) 0 (0-1) % Sodium 137 L (140-148) mmol/L Potassium 4.0 (3.6-5.2) mmol/L Chloride 102 (100-108) mmol/L Carbon Dioxide 27 (21-32) mmol/L Anion Gap 12.0 (5.0-14.0) mmol/L BUN 14 (7-18) mg/dL Creatinine 1.0 (0.6-1.0) mg/dL Est Cr Clr Drug Dosing 39.21 mL/min Estimated GFR (MDRD) 55 L (>60) Glucose 133 H (74-106) mg/dL Calcium 9.3 (8.5-10.1) mg/dL Total Bilirubin 0.4 (0.2-1.0) mg/dL AST 38 H (15-37) U/L ALT 49 (12-78) U/L Alkaline Phosphatase 91 (46-116) U/L Troponin I 0.306 H* (0.000-0.056) ng/mL Total Protein 7.4 (6.4-8.2) g/dL Albumin 3.4 (3.4-5.0) g/dL Globulin 4.0 H (2.3-3.5) g/dL Albumin/Globulin Ratio 0.9 L (1.2-2.2) Result Diagrams: 11/03/16 16:18 11/03/16 16:18 Imaging Impressions Last 24 hrs: EKG - images personally reviewed and compared to the EKG from October 30 - she is in normal sinus rhythm. She does have mild ST depressions in leads V3 through V6 most notably V4 and V5. I don't appreciate any ST elevations. Consult PN Assessment/Plan Procedures: Procedures AGENT NOS ASSAY W/OPTIC (11/11/15) AIRWAY INHALATION TREATMENT (05/24/16) ASSAY OF CK (CPK) (07/10/15) ASSAY OF LACTIC ACID (02/16/16) ASSAY OF LIPASE (02/16/16) ASSAY OF MAGNESIUM (02/16/16) ASSAY OF NATRIURETIC PEPTIDE (05/24/16) ASSAY OF PHOSPHORUS (02/19/15) ASSAY OF TROPONIN QUANT (10/30/16) ASSAY THYROID STIM HORMONE (04/08/13) ASSESSMENT OF APHASIA (02/19/15) BLOOD CULTURE FOR BACTERIA (04/23/16) BLOOD GASES ANY COMBINATION (05/24/16) C DIFF AMPLIFIED PROBE (11/11/15) CHEST WALL MANIPULATION (04/11/14) CHEST X-RAY 1 VIEW FRONTAL (05/24/16) CHEST X-RAY 2VW FRONTAL&LATL (05/01/15) CO/MEMBANE DIFFUSE CAPACITY (04/23/14) COMPLETE CBC AUTOMATED (11/14/15) COMPLETE CBC W/AUTO DIFF WBC (10/30/16) COMPREHEN METABOLIC PANEL (05/24/16) CT ANGIOGRAPHY CHEST (02/19/15) ELECTROCARDIOGRAM TRACING (10/30/16) EMERGENCY DEPT VISIT (10/30/16) EMERGENCY DEPT VISIT (04/23/16) EMERGENCY DEPT VISIT (04/23/16) EMERGENCY DEPT VISIT (04/15/16) EMERGENCY DEPT VISIT (02/16/16) EMERGENCY DEPT VISIT (07/10/15) EMERGENCY DEPT VISIT (05/01/15) EMERGENCY DEPT VISIT (02/19/15) EMERGENCY DEPT VISIT (02/17/15) EMERGENCY DEPT VISIT (02/17/15) EMERGENCY DEPT VISIT (04/11/14) EMERGENCY DEPT VISIT (01/06/13) EVALUATE PT USE OF INHALER (01/10/15) EVALUATION OF WHEEZING (04/23/14) EXTREMITY STUDY (03/30/15) GLUCOSE BLOOD TEST (02/19/15) HEMOGLOBIN (02/19/15) HYDRATE IV INFUSION ADD-ON (11/06/15) HYDRATION IV INFUSION INIT (11/06/15) INFLUENZA ASSAY W/OPTIC (04/23/16) INSERT EMERGENCY AIRWAY (02/19/15) MEASURE BLOOD OXYGEN LEVEL (06/07/15) METABOLIC PANEL TOTAL CA (10/30/16) MRI LUMBAR SPINE W/O DYE (05/07/16) OCCULT BLD FECES 1-3 TESTS (11/14/15) OT EVALUATION (02/19/15) OVA AND PARASITES SMEARS (11/11/15) POS AIRWAY PRESSURE CPAP (04/23/16) PROTHROMBIN TIME (02/16/16) PT EVALUATION (02/19/15) PULM FUNCTION TEST BY GAS (04/23/14) PULMONARY SERVICE/PROCEDURE (02/19/15) ROUTINE VENIPUNCTURE (10/30/16) SMEAR COMPLEX STAIN (11/11/15) SPEECH/HEARING THERAPY (02/19/15) STOOL CULTR AEROBIC BACT EA (11/11/15) THER/PROPH/DIAG INJ IV PUSH (05/24/16) THER/PROPH/DIAG INJ SC/IM (02/17/15) THER/PROPH/DIAG IV INF INIT (04/23/16) THERAPEUTIC ACTIVITIES (02/19/15) THERAPEUTIC EXERCISES (02/19/15) TTE W/DOPPLER COMPLETE (11/10/15) TX/PRO/DX INJ NEW DRUG ADDON (04/23/16) TX/PRO/DX INJ SAME DRUG ACT TUTOR (04/23/16) TX/PROPH/DG ADDL SEQ IV INF (04/23/16) URINALYSIS AUTO W/O SCOPE (04/11/14) URINALYSIS AUTO W/SCOPE (11/06/15) URINE CULTURE/COLONY COUNT (02/19/15) VENT MGMT INPAT INIT DAY (02/19/15) VENT MGMT INPAT SUBQ DAY (02/19/15) WITHDRAWAL OF ARTERIAL BLOOD (04/23/16) Problem List Initiated/Reviewed/Updated: Yes My Orders Last 24 Hours: My Active Orders 11/03/16 17:06 PTT,PARTIAL THROMBOPLSTIN TIME [COAG] Stat Metoprolol Tartrate [Lopressor] 50 mg PO ONETIME ONE 11/03/16 17:15 Heparin Sodium/D5W [Heparin 25,000 Units in D5W 500 ML] 25,000 units in 500 ml IV TITRATE Plan: ASSESSMENT AND PLAN - Non-ST elevation myocardial infarction - concerning chest pain story over the past weekend troponin is elevated today. I think she would benefit from a higher level of care at this point and will be transferred to [facility] in [place]. She has received 50 mg of oral metoprolol, 324 mg of aspirin as well as a 3000 unit bolus of heparin. She will be started on a heparin infusion at 12 units per kilogram per hour. She is stable and the benefits outweigh the risks of transfer at this time. I have spoken with the hospitalist service at [facility] and they graciously accepted her care. She'll be transferred via [facility]. Severe COPD - long-standing issue but not currently oxygen dependent. She does use the [employer] home ventilation system at night. She will be bringing this with her in the ambulance. Mario Luque MD Requesting Provider: Dr Phillips Date Consult Requested: 11/03/16 Reason for Consult: chest pain Patient History Reviewed: Yes Admission H&P Reviewed: No Notified Requestor: Yes Time Spent (in minutes): 60
[2016-11-03] MEDS ORDERED: Heparin Sodium/D5W 25,000 UNITS/500 ML BAG IV SCH (17:15)
[2016-11-03 18:00] VITALS: BP 146/74
== END 2016-11-03 18:00 ==
LOC: JP.ED 15:43
DX: I21.09 ST elevation (STEMI) myocardial infarction involving other coronary artery of anterior wall (principal); R79.89 Other specified abnormal findings of blood chemistry; I10 Essential (primary) hypertension; J44.9 Chronic obstructive pulmonary disease, unspecified; F41.9 Anxiety disorder, unspecified; Z88.2 Allergy status to sulfonamides; Z88.5 Allergy status to narcotic agent; Z79.899 Other long term (current) drug therapy; Z87.440 Personal history of urinary (tract) infections; Z87.891 Personal history of nicotine dependence
CPT/HCPCS: 36415; 80053; 84484; 85025; 85730; 93005; 93010; 96365; 96376; 99285; A9270; J1644

== ENCOUNTER 2016-11-26 00:02 | Inpatient (IN) | payer MEDICARE, BC ==
[2016-11-26] MEDS ORDERED: Sodium Chloride 0.9% 10 ML Syringe FLUSH PRN ×2 (00:13→01:44)
[2016-11-26] MEDS ORDERED: methylPREDNISolone Sodium Succinate 125 MG/2 ML SDV IVPUSH ONE (00:16)
[2016-11-26] MEDS ORDERED: Albuterol 0.083% 2.5 MG/3 ML Neb Soln NEB ONE (00:24)
--- NOTE | 2016-11-26 00:26 | EDM.PDOC ---
ED HPI GENERAL MEDICAL PROBLEM - General Chief Complaint: Respiratory Problem Stated Complaint: SOB [facility] Time Seen by Provider: 11/26/16 00:26 Source of Information: Reports: Patient, EMS, Family History Limitations: Reports: No Limitations - History of Present Illness INITIAL COMMENTS - FREE TEXT/NARRATIVE: pt arrived with increased sob which has been going on for about 2 days. She has not had any chest pain. She Has not had a fever and has not had colored sputum. She has not been on predisone. Onset: Gradual, Other ( Over 2-3 days. ) Duration: Hour(s): Location: Reports: Chest Associated Symptoms: Reports: Cough, Shortness of Breath denies pain Pain Score (Numeric/FACES): 0 - Related Data Allergies Allergy/AdvReac Type Severity Reaction Status Date / Time Sulfa (Sulfonamide Allergy Mild Rash Verified 11/26/16 00:24 Antibiotics) meperidine HCl [From Demerol] Allergy Unknown Rash Verified 11/26/16 00:24 Home Meds: Home Meds Albuterol/Ipratropium [DuoNeb 3.0-0.5 MG/3 ML] 3 ml INH ASDIRECTED PRN 01/06/13 [History] LORazepam [Ativan] 0.5 mg PO Q6H PRN 01/06/13 [History] PARoxetine [Paxil] 10 mg PO QAM 04/11/14 [History] busPIRone [Buspar] 5 mg PO TID 11/06/15 [History] Alendronate Sodium [Fosamax] 1 tab PO ASDIRECTED 02/16/16 [History] Cholecalciferol (Vitamin D3) [Decara] 50,000 unit PO ASDIRECTED 02/16/16 [ History] Levalbuterol Tartrate [Levalbuterol Tartrate Hfa] 2 puff IH Q4H PRN 02/16/16 [ History] Metoprolol Tartrate [Lopressor] 50 mg PO BID tablet 02/18/16 [Rx] Budesonide/Formoterol Fumarate [Symbicort 160-4.5 Mcg Inhaler] 2 puff INH BID [History] Atropine/Diphenoxylate [Diphenoxylate-Atropine] 1 dose PO ASDIRECTED PRN [History] Clopidogrel Bisulfate [Clopidogrel] 75 mg PO DAILY 10/09/17 [History] Nitroglycerin 0.4 mg SL ASDIRECTED PRN 11/26/16 [History] atorvaSTATin [Lipitor] 80 mg PO BEDTIME 11/26/16 [History] Past Medical History HEENT History: Reports: Impaired Vision Cardiovascular History: Reports: Hypertension, Prior Cardiac Arrest, Other (See Below) Other Cardiovascular History: cardiac arrest april 2016 Respiratory History: Reports: COPD, Other (See Below) Other Respiratory History: 02 2l at night as needed. 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: Neurological History: Reports: Migraines Psychiatric History: Reports: Anxiety - Infectious Disease History Infectious Disease History: Reports: Shingles Other Infectious Disease History: unknown - Past Surgical History Head Surgeries/Procedures: Reports: None Neurological Surgical History: Reports: None Dermatological Surgical History: Reports: None Social & Family History - Family History Family Medical History: Noncontributory - Tobacco Use Smoking Status *Q: Former Smoker Years of Tobacco use: 50 Packs/Tins Daily: 1 Used Tobacco, but Quit: Yes Month Tobacco Last Used: 12/31 Second Hand Smoke Exposure: No - Caffeine Use Caffeine Use: Reports: None - Alcohol Use Days Per Week of Alcohol Use: 7 Number of Drinks Per Day: 3 Total Drinks Per Week: 21 - Recreational Drug Use Recreational Drug Use: No - Living Situation & Occupation Living situation: Reports: , with Spouse Occupation: Disabled ED ROS GENERAL - Review of Systems Review Of Systems: See Below Constitutional: Reports: Weakness HEENT: Reports: No Symptoms Respiratory: Reports: Shortness of Breath, Wheezing Cardiovascular: Reports: Other (pt is not having any chest pain) Endocrine: Reports: No Symptoms GI/Abdominal: Reports: No Symptoms : Reports: No Symptoms Musculoskeletal: Reports: No Symptoms Skin: Reports: No Symptoms ED EXAM, GENERAL - Physical Exam Exam: See Below Free Text/Narrative:: Pt arrived with increased sob. She did try her cpap at home and that did not help her. She is not on steroids at this time. Exam Limited By: No Limitations General Appearance: Alert, Anxious, Moderate Distress Ears: Normal TMs Nose: Normal Inspection Throat/Mouth: Normal Inspection Head: Atraumatic Neck: Normal Inspection Respiratory/Chest: Decreased Breath Sounds, Wheezing Cardiovascular: Regular Rate, Rhythm, Tachycardia GI/Abdominal: Soft, Non-Tender (Female) Exam: Deferred Rectal (Female) Exam: Deferred Back Exam: Normal Inspection Extremities: Normal Inspection Neurological: Alert, Oriented, Normal Cognition, Other ( very anxious and in distress. ) Course - Orders/Labs/Meds Orders: Active Orders 24 hr Category Date Time Status RT Aerosol Therapy [RC] ASDIRECTED Care 11/26/16 00:25 Active Chest 1V Frontal [CR] Stat Exams 11/26/16 00:14 Taken UA W/MICROSCOPIC [URIN] Urgent Lab 11/26/16 00:14 Uncollected Sodium Chloride 0.9% [Saline Flush] Med 11/26/16 00:13 Active 10 ml FLUSH ASDIRECTED PRN Saline Lock Insert [OM.PC] Routine Oth 11/26/16 00:13 Ordered Medication Orders Sodium Chloride (Saline Flush) 10 ml FLUSH ASDIRECTED PRN PRN Reason: Keep Vein Open Last Admin: 11/26/16 00:37 Dose: 10 ml Labs: Laboratory Tests 11/26/16 11/26/16 11/26/16 Range/Units 00:14 00:20 00:35 WBC 10.0 (4.5-11.0) K/uL RBC 4.18 (3.30-5.50) M/uL Hgb 14.6 (12.0-15.0) g/dL Hct 44.3 (36.0-48.0) % MCV 106 H (80-98) fL MCH 35 H (27-31) pg MCHC 33 (32-36) % Plt Count 304 (150-400) K/uL Neut % (Auto) 73 H (36-66) % Lymph % (Auto) 14 L (24-44) % [place] % (Auto) 8 H (2-6) % Eos % (Auto) 6 H (2-4) % Baso % (Auto) 0 (0-1) % Puncture Site R radial ABG pH 7.402 (7.350-7.450) ABG pCO2 42.8 H (35.0-42.0) mmHg ABG pO2 89.4 (75.0-100.0) mmHg ABG HCO3 26.1 H (22.0-26.0) mmol/L ABG Total CO2 22.8 (21.0-25.0) mmol/L ABG O2 Saturation 96.3 (95.0-98.0) % ABG O2 Content 19.5 (15.0-23.0) %vol ABG Base Excess 1.6 mm/L ABG Hemoglobin 14.5 (12.0-16.0) g/dL ABG Oxyhemoglobin 95.2 % ABG Carboxyhemoglobin 0.7 (0.0-1.6) % ABG Methemoglobin 0.4 % Shaun Test Pass O2 Delivery Device Cpap Oxygen Flow Rate 2 L Sodium 141 (140-148) mmol/L Potassium 3.6 (3.6-5.2) mmol/L Chloride 103 (100-108) mmol/L Carbon Dioxide 28 (21-32) mmol/L Anion Gap 9.6 (5.0-14.0) mmol/L BUN 6 L D (7-18) mg/dL Creatinine 0.6 (0.6-1.0) mg/dL Est Cr Clr Drug Dosing 65.35 mL/min Estimated GFR (MDRD) > 60 (>60) Glucose 103 (74-106) mg/dL Calcium 8.7 (8.5-10.1) mg/dL Total Bilirubin 0.4 (0.2-1.0) mg/dL AST 42 H (15-37) U/L ALT 41 (12-78) U/L Alkaline Phosphatase 119 H (46-116) U/L Total Protein 7.1 (6.4-8.2) g/dL Albumin 3.3 L (3.4-5.0) g/dL Globulin 3.8 H (2.3-3.5) g/dL Albumin/Globulin Ratio 0.9 L (1.2-2.2) Meds: Medications Generic Name Dose Route Start Last Admin Trade Name Freq PRN Reason Stop Dose Admin Sodium Chloride 10 ml 11/26/16 00:13 11/26/16 00:37 Saline Flush FLUSH 10 ml ASDIRECTED PRN Administration Keep Vein Open Discontinued Medications Generic Name Dose Route Start Last Admin Trade Name Freq PRN Reason Stop Dose Admin Albuterol 2.5 mg 11/26/16 00:24 11/26/16 00:36 Proventil Neb Soln NEB 11/26/16 00:25 2.5 mg ONETIME ONE Administration Methylprednisolone Sodium Succinate 125 mg 11/26/16 00:16 11/26/16 00:32 Solu-Medrol IVPUSH 11/26/16 00:17 125 mg ONETIME ONE Administration - Re-Assessments/Exams Free Text/Narrative Re-Assessment/Exam: 11/26/16 01:01 pt has a slightly high co2. She has a wbc that is not markedly elevated. She was given solumedrol 125 and another albuterol neb. She is feeling better at this time. Her chest xray does not show a definite infiltrate. 11/26/16 01:02 Departure - Departure Time of Disposition: 01:08 Disposition: Admitted As Inpatient 65 Condition: Fair Clinical Impression: COPD exacerbation, Recent myocardial infarction - Discharge Information Referrals: Félix Santana MD [Primary Care Provider] - Forms: ED Department Discharge Care Plan Goals: admit to Dr fagan. - My Orders Last 24 Hours: My Active Orders 11/26/16 00:13 Sodium Chloride 0.9% [Saline Flush] 10 ml FLUSH ASDIRECTED PRN Saline Lock Insert [OM.PC] Routine 11/26/16 00:14 Chest 1V Frontal [CR] Stat UA W/MICROSCOPIC [URIN] Urgent 11/26/16 00:25 RT Aerosol Therapy [RC] ASDIRECTED - Assessment/Plan Last 24 Hours: My Active Orders 11/26/16 00:13 Sodium Chloride 0.9% [Saline Flush] 10 ml FLUSH ASDIRECTED PRN Saline Lock Insert [OM.PC] Routine 11/26/16 00:14 Chest 1V Frontal [CR] Stat UA W/MICROSCOPIC [URIN] Urgent 11/26/16 00:25 RT Aerosol Therapy [RC] ASDIRECTED
--- NOTE | 2016-11-26 01:34 | PCM.HP ---
H&P History of Present Illness - General Date of Service: 11/26/16 Admit Problem/Dx: Admission Diagnosis/Problem Admission Diagnosis/Problem COPD, Severe chronic obstructive pulmonary disease Source of Information: Patient, Family, Old Records, Provider, RN Notes Reviewed History Limitations: Reports: No Limitations - History of Present Illness Initial Comments - Free Text/Narative: Ms. Gamboa is a 66-year-old woman who is admitted through the emergency department with acute on chronic respiratory failure with hypoxia. She has a known long-standing history of severe COPD, she uses oxygen at home as well as a Trilogy home ventilator. Over the past 48 hours prior to admission she has noted progressive onset of shortness of breath associated with marked fatigue and decrease in appetite. She went to bed this evening at approximately 9 PM but then woke at 11 acutely short of breath. She took 2 nebulizer treatments at home but continued to have difficulty so the ambulance was called and she was brought into the emergency department for further evaluation and management. She has received further nebulizer treatments here as well as 125 mg of IV Solu- Medrol. With these interventions she is feeling somewhat improved and not as acutely short of breath. She recently experienced a myocardial infarction and was hospitalized in [place], 2 stents were placed and she is currently on aspirin and Plavix. Current symptoms are very different from what she experienced with her myocardial infarction. denies pain Pain Score (Numeric/FACES): 0 - Related Data Allergies/Adverse Reactions: Allergies Allergy/AdvReac Type Severity Reaction Status Date / Time Sulfa (Sulfonamide Allergy Mild Rash Verified 11/26/16 00:24 Antibiotics) meperidine HCl [From Demerol] Allergy Unknown Rash Verified 11/26/16 00:24 Home Medications: Home Meds Albuterol/Ipratropium [DuoNeb 3.0-0.5 MG/3 ML] 3 ml INH ASDIRECTED PRN 01/06/13 [History] LORazepam [Ativan] 0.5 mg PO Q6H PRN 01/06/13 [History] PARoxetine [Paxil] 10 mg PO QAM 04/11/14 [History] busPIRone [Buspar] 5 mg PO TID 11/06/15 [History] Alendronate Sodium [Fosamax] 70 mg PO ASDIRECTED 02/16/16 [History] Cholecalciferol (Vitamin D3) [Decara] 50,000 unit PO ASDIRECTED 02/16/16 [ History] Levalbuterol Tartrate [Levalbuterol Tartrate Hfa] 2 puff IH Q4H PRN 02/16/16 [ History] Metoprolol Tartrate [Lopressor] 50 mg PO BID tablet 02/18/16 [Rx] Budesonide/Formoterol Fumarate [Symbicort 160-4.5 Mcg Inhaler] 2 puff INH BID [History] Atropine/Diphenoxylate [Diphenoxylate-Atropine] 1 dose PO ASDIRECTED PRN [History] Clopidogrel Bisulfate [Clopidogrel] 75 mg PO DAILY 11/26/16 [History] Nitroglycerin 0.4 mg SL ASDIRECTED PRN 11/26/16 [History] atorvaSTATin [Lipitor] 80 mg PO BEDTIME 11/26/16 [History] Past Medical History HEENT History: Reports: Impaired Vision Cardiovascular History: Reports: Hypertension, Prior Cardiac Arrest, Other (See Below) Other Cardiovascular History: cardiac arrest april 2016 Respiratory History: Reports: COPD, Other (See Below) Other Respiratory History: 02 2l at night as needed. 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 copd Genitourinary History: Reports: UTI, Recurrent INSPECT[employer]ODUCTS History: Reports: Neurological History: Reports: Migraines Psychiatric History: Reports: Anxiety - Infectious Disease History Infectious Disease History: Reports: Shingles Other Infectious Disease History: unknown - Past Surgical History Head Surgeries/Procedures: Reports: None Neurological Surgical History: Reports: None Dermatological Surgical History: Reports: None Social & Family History - Family History Family Medical History: Noncontributory - Tobacco Use Smoking Status *Q: Former Smoker Years of Tobacco use: 50 Packs/Tins Daily: 1 Used Tobacco, but Quit: Yes Month Tobacco Last Used: 12/31 Second Hand Smoke Exposure: No - Caffeine Use Caffeine Use: Reports: None - Alcohol Use Days Per Week of Alcohol Use: 7 Number of Drinks Per Day: 3 Total Drinks Per Week: 21 - Recreational Drug Use Recreational Drug Use: No - Living Situation & Occupation Living situation: Reports: , with Spouse Occupation: Disabled H&P Review of Systems - Review of Systems: Review Of Systems: See Below General: Reports: Weakness, Decreased Appetite. Denies: Fever, Chills, Diaphoresis HEENT: Reports: No Symptoms Pulmonary: Reports: Shortness of Breath, Wheezing. Denies: Cough, Sputum, Hemoptysis Cardiovascular: Reports: Dyspnea on Exertion. Denies: Chest Pain, Palpitations , Orthopnea, PND, Edema, Lightheadedness Gastrointestinal: Reports: No Symptoms Genitourinary: Reports: No Symptoms Musculoskeletal: Reports: No Symptoms Skin: Reports: No Symptoms Psychiatric: Reports: No Symptoms Neurological: Reports: No Symptoms Hematologic/Lymphatic: Reports: No Symptoms Immunologic: Reports: No Symptoms Exam - Exam Exam: See Below - Vital Signs Weight: 110 lb - Exam Quality Assessment: Supplemental Oxygen, DVT Prophylaxis General: Alert, Oriented, Cooperative, Moderate Distress HEENT: Conjunctiva Clear, Hearing Intact, Mucosa Moist & [place], Normal Nasal Septum, Posterior Pharynx Clear, Pupils Equal Neck: Supple, Trachea Midline, +2 Carotid Pulse wo Bruit Lungs: Decreased Breath Sounds, Rhonchi, Wheezing. No: Crackles, Rales Cardiovascular: Regular Rate, Regular Rhythm, Normal S1, Normal S2. No: Systolic Murmur, Diastolic Murmur GI/Abdominal Exam: Normal Bowel Sounds, Soft, Non-Tender, No Organomegaly, No Distention Back Exam: Normal Inspection, Full Range of Motion Extremities: Normal Inspection, Non-Tender, No Pedal Edema Skin: Warm, Dry, Intact Neurological: Cranial Nerves Intact, Strength Equal Bilateral, Normal Speech, Normal Tone, Sensation Intact. No: Focal Deficit Neuro Extensive - Mental Status: Alert, Oriented x3, Normal Mood/Affect, Normal Cognition, Memory Intact - Patient Data Lab Results Last 24 hrs: Laboratory Results - last 24 hr 11/26/16 11/26/16 11/26/16 Range/Units 00:14 00:20 00:35 WBC 10.0 (4.5-11.0) K/uL RBC 4.18 (3.30-5.50) M/uL Hgb 14.6 (12.0-15.0) g/dL Hct 44.3 (36.0-48.0) % MCV 106 H (80-98) fL MCH 35 H (27-31) pg MCHC 33 (32-36) % Plt Count 304 (150-400) K/uL Neut % (Auto) 73 H (36-66) % Lymph % (Auto) 14 L (24-44) % [place] % (Auto) 8 H (2-6) % Eos % (Auto) 6 H (2-4) % Baso % (Auto) 0 (0-1) % Puncture Site R radial ABG pH 7.402 (7.350-7.450) ABG pCO2 42.8 H (35.0-42.0) mmHg ABG pO2 89.4 (75.0-100.0) mmHg ABG HCO3 26.1 H (22.0-26.0) mmol/L ABG Total CO2 22.8 (21.0-25.0) mmol/L ABG O2 Saturation 96.3 (95.0-98.0) % ABG O2 Content 19.5 (15.0-23.0) %vol ABG Base Excess 1.6 mm/L ABG Hemoglobin 14.5 (12.0-16.0) g/dL ABG Oxyhemoglobin 95.2 % ABG Carboxyhemoglobin 0.7 (0.0-1.6) % ABG Methemoglobin 0.4 % Shaun Test Pass O2 Delivery Device Cpap Oxygen Flow Rate 2 L Sodium 141 (140-148) mmol/L Potassium 3.6 (3.6-5.2) mmol/L Chloride 103 (100-108) mmol/L Carbon Dioxide 28 (21-32) mmol/L Anion Gap 9.6 (5.0-14.0) mmol/L BUN 6 L D (7-18) mg/dL Creatinine 0.6 (0.6-1.0) mg/dL Est Cr Clr Drug Dosing 65.35 mL/min Estimated GFR (MDRD) > 60 (>60) Glucose 103 (74-106) mg/dL Calcium 8.7 (8.5-10.1) mg/dL Total Bilirubin 0.4 (0.2-1.0) mg/dL AST 42 H (15-37) U/L ALT 41 (12-78) U/L Alkaline Phosphatase 119 H (46-116) U/L Total Protein 7.1 (6.4-8.2) g/dL Albumin 3.3 L (3.4-5.0) g/dL Globulin 3.8 H (2.3-3.5) g/dL Albumin/Globulin Ratio 0.9 L (1.2-2.2) Result Diagrams: 11/26/16 00:14 11/26/16 00:20 *Q Meaningful Use (ADM) - VTE *Q VTE Criteria *Q: - VTE Risk Assess *Q Each Risk Factor Represents 1 Point: Acute Myocardial Infarction, Less than 1 Month, Abnormal Pulmonary Function (COPD) Total Score 1 Point Risk Factors: 2 Each Risk Factor Represents 2 Points: Age 60 - 74 Years Total Score 2 Point Risk Factors: 2 Each Risk Factor Represents 3 Points: None Total Score 3 Point Risk Factors: 0 Each Risk Factor Represents 5 Points: None Total Score 5 Point Risk Factors: 0 Venous Thromboembolism Risk Factor Score *Q: 4 - Stroke *Q Stroke Criteria *Q: - AMI *Q AMI Criteria *Q: Problem List Initiated/Reviewed/Updated: Yes Orders Last 24hrs: Active Orders 24 hr Category Date Time Status Patient Status Manage Transfer [TRANSFER] Routine ADT 11/26/16 01:15 Active RT Aerosol Therapy [RC] ASDIRECTED Care 11/26/16 00:25 Active Chest 1V Frontal [CR] Stat Exams 11/26/16 00:14 Taken UA W/MICROSCOPIC [URIN] Urgent Lab 11/26/16 00:14 Uncollected Sodium Chloride 0.9% [Saline Flush] Med 11/26/16 00:13 Active 10 ml FLUSH ASDIRECTED PRN Saline Lock Insert [OM.PC] Routine Oth 11/26/16 00:13 Ordered Resuscitation Status Routine Resus Stat 11/26/16 01:19 Ordered Medication Orders Sodium Chloride (Saline Flush) 10 ml FLUSH ASDIRECTED PRN PRN Reason: Keep Vein Open Last Admin: 11/26/16 00:37 Dose: 10 ml Assessment/Plan Comment:: ASSESSMENT AND PLAN ACUTE ON CHRONIC HYPOXIC RESPIRATORY FAILURE-symptoms of shortness of breath with weakness and anorexia over the past 48 hours. Became acutely more short of breath this evening and awoke her from sleep. She is improved with nebulizer therapy at home and in the emergency department. -Continue noninvasive positive pressure ventilation -Solu-Medrol IV -IV fluids for hydration -Supplemental oxygen as needed, goal oxygen saturation of 88-92% -Nebulizer therapy as needed -Levofloxacin 500 mg IV every 24 hours CORONARY ARTERY DISEASE-status post myocardial infarction approximately 3 weeks ago. Status post angioplasty with 2 stent placements. -Continue outpatient medical regimen SEVERE COPD-oxygen dependent with use of Trilogy ventilator at home -Management as above MAINTENANCE ISSUES -DVT prophylaxis; Lovenox 40 mg subcutaneous daily -GI prophylaxis; not indicated -Pederson catheter; not indicated -Nutrition; regular diet -Nicotine dependence; not required CODE STATUS-FULL CODE ADMISSION STATUS-patient will be admitted to inpatient status, expect at least a 2 night hospital stay for evaluation and management of problems as outlined above. At the time of this admission I do not reasonably expected evaluation and management of this problem will require more than a 96 hour hospital stay. DISPOSITION-anticipate discharge to home after the hospital stay. PRIMARY CARE PROVIDER-Dr. Santana Additional CC's: Félix Santana
[2016-11-26] MEDS ORDERED: Enoxaparin 40 MG/0.4 ML Syringe SUBCUT SCH ×2 (01:44→21:00)
[2016-11-26] MEDS ORDERED: Magnesium Hydroxide 400 MG/5 ML Susp 30 ML Cup PO PRN (01:44)
[2016-11-26] MEDS ORDERED: Levofloxacin/Dextrose 5%-Water 500 MG in Premix Bag 1 BAG IV SCH ×2 (01:44→21:00)
[2016-11-26] MEDS ORDERED: Docusate Sodium 100 MG Cap PO PRN (01:44)
[2016-11-26] MEDS ORDERED: Acetaminophen 325 MG Tab PO PRN (01:44)
[2016-11-26] MEDS ORDERED: Polyethylene Glycol 3350 Powder 17 GM Packet PO PRN (01:44)
[2016-11-26] MEDS ORDERED: oxyCODONE 5 MG Tab PO PRN (01:44)
[2016-11-26] MEDS ORDERED: Sodium Chloride 0.9% 1,000 ML IV SCH (01:44)
[2016-11-26] MEDS ORDERED: Albuterol 0.083% 2.5 MG/3 ML Neb Soln NEB PRN (01:44)
[2016-11-26] MEDS ORDERED: Levalbuterol Tartrate HFA 15 GM Inhaler INH PRN (01:44)
[2016-11-26] MEDS ORDERED: methylPREDNISolone Sodium Succinate 40 MG/1 ML SDV IVPUSH SCH (01:44)
[2016-11-26] MEDS ORDERED: Nitroglycerin 0.4 MG Tab.SL SL PRN (01:44)
[2016-11-26] MEDS ORDERED: Ondansetron 4 MG/2 ML SDV IV PRN (01:44)
[2016-11-26] MEDS: LORazepam 0.5 MG Tab PO PRN ×4 (02:29→22:26)
[2016-11-26] MEDS: methylPREDNISolone Sodium Succinate 40 MG/1 ML SDV IVPUSH SCH ×2 (06:05→12:18)
[2016-11-26] MEDS: Albuterol/Ipratropium 3.0-0.5 MG/3 ML Neb Soln NEB SCH ×4 (07:16→21:47)
[2016-11-26] MEDS: Formoterol/Mometasone 200-5 MCG 8.8 GM Inhaler IH SCH ×2 (08:42→21:32)
[2016-11-26] MEDS: busPIRone 5 MG Tab PO SCH ×3 (08:43→21:31)
[2016-11-26] MEDS: Metoprolol Tartrate 50 MG Tab PO SCH ×2 (08:43→21:31)
[2016-11-26] MEDS: Clopidogrel 75 MG Tab PO SCH (08:44)
[2016-11-26] MEDS: PARoxetine 20 MG Tab PO SCH (08:44)
[2016-11-26] MEDS: Aspirin 81 MG Tab.Chew PO SCH (08:44)
[2016-11-26] MEDS ORDERED: Formoterol/Mometasone 200-5 MCG 8.8 GM Inhaler IH SCH (09:00)
--- NOTE | 2016-11-26 09:20 | PCM.PN ---
- General Info Date of Service: 11/26/16 Functional Status: Reports: Pain Controlled - Review of Systems General: Reports: Weakness. Denies: Fever Pulmonary: Reports: Shortness of Breath Systems Review Comment:: No acute events since the time of admission last night. She is breathing easier and feels less short of breath. No complaints of chest pain. Tolerating current treatments without any obvious side effects. She has not had any fevers. She was taken off supplemental oxygen recently and has been maintaining oxygen saturations since that time. - Patient Data Vitals - Most Recent: Last Vital Signs Temp 36.6 C 11/26/16 08:48 Pulse 112 H 11/26/16 08:43 Resp 14 11/26/16 08:00 BP 150/71 H 11/26/16 08:43 Pulse Ox 96 11/26/16 08:00 Weight - Most Recent: 50.1 kg I&O - Last 24 Hours: Intake & Output 11/25/16 11/26/16 11/26/16 22:59 06:59 14:59 Intake Total 689 Output Total 700 Balance -11 Lab Results Last 24 Hours: Laboratory Results - last 24 hr 11/26/16 11/26/16 11/26/16 Range/Units 03:53 05:40 05:40 WBC 10.8 (4.5-11.0) K/uL RBC 3.95 (3.30-5.50) M/uL Hgb 14.5 (12.0-15.0) g/dL Hct 41.9 (36.0-48.0) % MCV 106 H (80-98) fL MCH 37 H (27-31) pg MCHC 35 (32-36) % Plt Count 250 (150-400) K/uL Neut % (Auto) 93 H (36-66) % Lymph % (Auto) 6 L (24-44) % Sumner % (Auto) 1 L (2-6) % Eos % (Auto) 0 L (2-4) % Baso % (Auto) 0 (0-1) % Sodium 141 (140-148) mmol/L Potassium 3.8 (3.6-5.2) mmol/L Chloride 105 (100-108) mmol/L Carbon Dioxide 28 (21-32) mmol/L Anion Gap 8.1 (5.0-14.0) mmol/L BUN 7 (7-18) mg/dL Creatinine 0.7 (0.6-1.0) mg/dL Est Cr Clr Drug Dosing 56.02 mL/min Estimated GFR (MDRD) > 60 (>60) Glucose 154 H (74-106) mg/dL Calcium 8.4 L (8.5-10.1) mg/dL Magnesium 1.4 L D (1.8-2.4) mg/dL Urine Color Yellow Urine Appearance Clear Urine pH 7.0 (4.5-8.0) Ur Specific Council 1.010 (1.008-1.030) Urine Protein Negative (NEGATIVE) mg/dL Urine Glucose (UA) Normal (NEGATIVE) mg/dL Urine Ketones Negative (NEGATIVE) mg/dL Urine Occult Blood Negative (NEGATIVE) Urine Nitrite Negative (NEGATIVE) Urine Bilirubin Negative (NEGATIVE) Urine Urobilinogen Normal (NORMAL) mg/dL Ur Leukocyte Esterase Negative (NEGATIVE) Urine RBC 0-5 (0-5) Urine WBC 0-5 (0-5) Ur Epithelial Cells Few Amorphous Sediment Not seen Urine Bacteria Few Urine Mucus Not seen Med Orders - Current: Current Medications Acetaminophen (Tylenol) 650 mg PO Q4H PRN PRN Reason: Pain (Mild 1-3)/fever Albuterol (Proventil Neb Soln) 2.5 mg NEB Q2H PRN PRN Reason: Shortness Of Breath/wheezing Last Admin: 11/26/16 03:35 Dose: 2.5 mg Albuterol/Ipratropium (Duoneb 3.0-0.5 Mg/3 Ml) 3 ml NEB QIDRT COUNT INCLUDES [facility] Last Admin: 11/26/16 07:16 Dose: 3 ml Aspirin (Aspirin) 81 mg PO DAILY COUNT INCLUDES [facility] Last Admin: 11/26/16 08:44 Dose: 81 mg Atorvastatin Calcium (Lipitor) 80 mg PO BEDTIME COUNT INCLUDES [facility] Buspirone HCl (Buspar) 5 mg PO TID COUNT INCLUDES [facility] Last Admin: 11/26/16 08:43 Dose: 5 mg Clopidogrel Bisulfate (Plavix) 75 mg PO DAILY COUNT [facility]CLUDES [facility] Last Admin: 11/26/16 08:44 Dose: 75 mg Docusate Sodium (Colace) 100 mg PO BID PRN PRN Reason: Constipation Enoxaparin Sodium (Lovenox) 40 mg SUBCUT BEDTIME COUNT INCLUDES THE [facility] Magnesium Sulfate 2 gm/ Premix 50 mls @ 25 mls/hr IV Q6H COUNT INCLUDES THE [facility] Stop: 11/26/16 17:29 Levalbuterol HCl (Xopenex Hfa) 0 gm INH Q4H PRN PRN Reason: Wheezing Lorazepam (Ativan) 0.5 mg PO Q4H PRN PRN Reason: Anxiety Last Admin: 11/26/16 08:43 Dose: 0.5 mg Magnesium Hydroxide (Milk Of Magnesia) 30 ml PO Q12H PRN PRN Reason: Constipation Methylprednisolone Sodium Succinate (Solu-Medrol) 40 mg IVPUSH Q6H COUNT INCLUDES [facility] Last Admin: 11/26/16 06:05 Dose: 40 mg Metoprolol Tartrate (Lopressor) 50 mg PO BID COUNT INCLUDES [facility] Last Admin: 11/26/16 08:43 Dose: 50 mg Mometasone Furoate/Formoterol Fumar (Dulera 200-5 Mcg) 0 puff IH BIDRT COUNT INCLUDES [facility] Last Admin: 11/26/16 08:42 Dose: 2 puff Nitroglycerin (Nitrostat) 0.4 mg SL ASDIRECTED PRN PRN Reason: Chest Pain Ondansetron HCl (Zofran) 4 mg IV Q4H PRN PRN Reason: Nausea/Vomiting Oxycodone HCl (Oxycodone) 5 mg PO Q4H PRN PRN Reason: Pain (moderate 4-6) Paroxetine HCl (Paxil) 10 mg PO DAILY COUNT [facility]CLUDES [facility] Last Admin: 11/26/16 08:44 Dose: 10 mg Polyethylene Glycol (Miralax) 17 gm PO DAILY PRN PRN Reason: Constipation Sodium Chloride (Saline Flush) 10 ml FLUSH ASDIRECTED PRN PRN Reason: Keep Vein Open Discontinued Medications Albuterol (Proventil Neb Soln) 2.5 mg NEB ONETIME ONE Stop: 11/26/16 00:25 Last Admin: 11/26/16 00:36 Dose: 2.5 mg Enoxaparin Sodium (Lovenox) 40 mg SUBCUT DAILY COUNT [facility]CLUDES [facility] Last Admin: 11/26/16 02:26 Dose: 40 mg Levofloxacin/Dextrose 500 mg/ (Premix) 100 mls @ 100 mls/hr IV Q24H COUNT INCLUDES [facility] Last Admin: 11/26/16 02:15 Dose: 100 mls/hr Sodium Chloride (Normal Saline) 1,000 mls @ 125 mls/hr IV ASDIRECTED COUNT INCLUDES THE [facility] Last Admin: 11/26/16 02:12 Dose: 125 mls/hr Levofloxacin/Dextrose 500 mg/ (Premix) 100 mls @ 100 mls/hr IV Q24H COUNT INCLUDES [facility] Methylprednisolone Sodium Succinate (Solu-Medrol) 125 mg IVPUSH ONETIME ONE Stop: 11/26/16 00:17 Last Admin: 11/26/16 00:32 Dose: 125 mg Methylprednisolone Sodium Succinate (Solu-Medrol) 40 mg IVPUSH Q6H COUNT [facility]CLUDES [facility] Last Admin: 11/26/16 07:22 Dose: Not Given Sodium Chloride (Saline Flush) 10 ml FLUSH ASDIRECTED PRN PRN Reason: Keep Vein Open Last Admin: 11/26/16 00:37 Dose: 10 ml - Exam Quality Assessment: No: Supplemental Oxygen General: Alert, Oriented, Cooperative, No Acute Distress Neck: Supple Lungs: Clear to Auscultation, Normal Respiratory Effort. No: Wheezing Cardiovascular: Regular Rate, Regular Rhythm GI/Abdominal Exam: Soft, Non-Tender Extremities: No Pedal Edema. No: Increased Warmth Skin: Warm, Dry Psy/Mental Status: Alert, Normal Affect - Problem List Review Problem List Initiated/Reviewed/Updated: Yes - My Orders Last 24 Hours: My Active Orders 11/26/16 09:17 Convert IV to Saline Lock [OM.PC] Routine 11/26/16 09:18 Transfer Patient (Change bed) [ADT] Routine 11/26/16 09:19 Discontinue Telemetry Monitoring [Cardiac Monitoring Discontinue] [RC] Click to Edit 11/26/16 09:30 Magnesium Sulfate/Water [Magnesium Sulfate 2 GM in Water 50 ML] 2 gm Premix Bag 1 bag IV Q6H 11/26/16 21:00 Levofloxacin [Levaquin] 250 mg PO Q24H Levofloxacin [Levaquin] 500 mg PO Q24H 11/27/16 05:00 BASIC METABOLIC PANEL,BMP [CHEM] Timed CBC W/O DIFF,HEMOGRAM [HEME] Timed (1) - Plan Plan:: ASSESSMENT AND PLAN ACUTE ON CHRONIC HYPOXIC RESPIRATORY FAILURE - unclear if bacterial or viral or other. Getting better with antibiotics, steroids and nebulizers. Off supplemental oxygen this morning. -Continue home ventilation system at night -Transition to prednisone -Saline lock IV -Supplemental oxygen as needed, goal oxygen saturation of 88-92% -Nebulizer therapy as needed -Continue levofloxacin CORONARY ARTERY DISEASE - status post myocardial infarction approximately 3 weeks ago that did require 2 stents. No active symptoms. -Continue outpatient medical regimen SEVERE COPD - oxygen dependent with use of Trilogy ventilator at home -Management as above MAINTENANCE ISSUES -DVT prophylaxis; Lovenox 40 mg subcutaneous daily -GI prophylaxis; not indicated -Pederson catheter; not indicated -Nutrition; regular diet DISPOSITION - anticipate discharge to home after the hospital stay. Mario Luque M.D.
[2016-11-26] MEDS: Magnesium Sulfate/Water 2 GM in Premix Bag 1 BAG IV SCH ×2 (09:38→16:36)
--- NOTE | 2016-11-26 09:57 | CR ---
Portable chest Comparison: Chest CT 02 November 2016. Findings: The heart and vascular structures are within normal limits. There are no infiltrates or eff usions. There are healing rib fractures bilaterally. There is hyperinflation consistent with COPD. Impression: 1. COPD. 2. No acute findings.
[2016-11-26] MEDS: predniSONE 20 MG Tab PO SCH (17:42)
[2016-11-26] MEDS ORDERED: Levofloxacin 250 MG Tab PO SCH (21:00)
[2016-11-26] MEDS ORDERED: Levofloxacin 500 MG Tab PO SCH (21:00)
[2016-11-26] MEDS ORDERED: atorvaSTATin 20 MG Tab PO SCH (21:00)
[2016-11-27] MEDS: LORazepam 0.5 MG Tab PO PRN ×2 (03:34→08:26)
[2016-11-27] MEDS: Albuterol/Ipratropium 3.0-0.5 MG/3 ML Neb Soln NEB SCH ×2 (07:24→10:56)
[2016-11-27] MEDS: Formoterol/Mometasone 200-5 MCG 8.8 GM Inhaler IH SCH (07:24)
[2016-11-27] MEDS: predniSONE 20 MG Tab PO SCH (08:25)
[2016-11-27] MEDS: Aspirin 81 MG Tab.Chew PO SCH (09:16)
[2016-11-27] MEDS: busPIRone 5 MG Tab PO SCH (09:17)
[2016-11-27] MEDS: Metoprolol Tartrate 50 MG Tab PO SCH (09:17)
[2016-11-27] MEDS: PARoxetine 20 MG Tab PO SCH (09:23)
[2016-11-27] MEDS: Clopidogrel 75 MG Tab PO SCH (09:25)
[2016-11-27 09:27] VITALS: BP 132/72
--- NOTE | 2016-11-27 10:57 | PCM.DCSUM1 ---
Discharge Summary - Hospital Course Brief History: 66-year-old female with history of severe COPD who utilizes the home ventilation system at night, recent non-ST elevation myocardial infarction treated with stenting who presented with increased shortness of breath and was admitted for management of acute COPD exacerbation probably secondary to bronchitis. - Discharge Data Discharge Date: 11/27/16 Discharge Disposition: Home, Self-Care 01 Condition: Good - Discharge Diagnosis/Problem(s) (1) COPD exacerbation SNOMED Code(s): 332005838 ICD Code: J44.1 - CHRONIC OBSTRUCTIVE PULMONARY DISEASE W (ACUTE) EXACERBATION Status: Acute (2) Recent myocardial infarction SNOMED Code(s): 585316389 ICD Code: [id number] - Status: Acute (3) COPD, Severe chronic obstructive pulmonary disease SNOMED Code(s): 540561943 ICD Code: J44.9 - CHRONIC OBSTRUCTIVE PULMONARY DISEASE, UNSPECIFIED Status : Chronic Priority: Medium - Patient Summary/Data Hospital Course: Eleanor presented to the emergency room with cough and shortness of breath. Workup in the emergency room revealed hypoxic respiratory failure and a COPD exacerbation thought secondary to bronchitis. She was started on antibiotics and IV steroids and admitted to the intensive care unit for further management. By the morning after admission she is feeling a fair amount better. She was off oxygen for part of the morning. She did not have any wheezing. Symptomatically she felt quite a bit better. We are able to transition her to oral steroids and oral antibiotics on the day after admission. She tolerated this transition well and had a good second night in the hospital. By the morning of discharge she is feeling pretty much back to her usual self other than some mild weakness. She does not have significant shortness of breath or cough. She has not had any fevers. She is off supplemental oxygen. I believe she is safe for outpatient management at this time. The plan is for 3 additional days of antibiotic therapy as well as 3 additional days of steroids. She'll be discharged home with early follow-up to ensure that she continues to do better. - Patient Instructions Diet: Heart Healthy Diet Activity: As Tolerated Showering/Bathing: May Shower Notify Provider of: Fever, Increased Pain, Nausea and/or Vomiting Other/Special Instructions: 1. You were in the hospital for management of an acute COPD exacerbation secondary to bronchitis. You have been improving with antibiotics, steroids and breathing treatments. I recommend 3 additional doses of levofloxacin taken at bedtime and your next dose is due tonight. I also recommend that you take prednisone 20 mg twice daily with meals for 5 more doses. Your next dose is due today at suppertime. You should continue your nebulizers and inhalers as usual at home. Please continue to use your Trilogy home ventilation system as you have been previously. 2. Please continue your other home medications as previously prescribed. 3. Follow up with Dr. Hou approximately 1 week. 4. You may resume your cardiac rehabilitation tomorrow. 5. Please seek medical attention if you develop fever greater than 101, have sudden worsening of shortness of breath or you develop chest pain/pressure - Discharge Plan Prescriptions/Med Rec: Levofloxacin 750 mg PO BEDTIME #3 tablet Prednisone [IJD: predniSONE] 20 mg PO BIDMEALS #5 tablet Home Medications: Home Meds Albuterol/Ipratropium [DuoNeb 3.0-0.5 MG/3 ML] 3 ml INH ASDIRECTED PRN 01/06/13 [History] LORazepam [Ativan] 0.5 mg PO Q6H PRN 01/06/13 [History] PARoxetine [Paxil] 10 mg PO QAM 04/11/14 [History] busPIRone [Buspar] 5 mg PO TID 11/06/15 [History] Alendronate Sodium [Fosamax] 70 mg PO ASDIRECTED 02/16/16 [History] Cholecalciferol (Vitamin D3) [Decara] 50,000 unit PO ASDIRECTED 02/16/16 [ History] Levalbuterol Tartrate [Levalbuterol Tartrate Hfa] 2 puff IH Q4H PRN 02/16/16 [ History] Metoprolol Tartrate [Lopressor] 50 mg PO BID tablet 02/18/16 [Rx] Budesonide/Formoterol Fumarate [Symbicort 160-4.5 Mcg Inhaler] 2 puff INH BID [History] Atropine/Diphenoxylate [Diphenoxylate-Atropine] 1 dose PO ASDIRECTED PRN [History] Clopidogrel Bisulfate [Clopidogrel] 75 mg PO DAILY 11/26/16 [History] Nitroglycerin 0.4 mg SL ASDIRECTED PRN 11/26/16 [History] atorvaSTATin [Lipitor] 80 mg PO BEDTIME 11/26/16 [History] Levofloxacin 750 mg PO BEDTIME #3 tablet 11/27/16 [Rx] Prednisone [IJD: predniSONE] 20 mg PO BIDMEALS #5 tablet 11/27/16 [Rx] Patient Handouts: Chronic Obstructive Pulmonary Disease Exacerbation, Levofloxacin tablets, Prednisone tablets Referrals: Félix Santana MD [Primary Care Provider] - 12/05/16 1:00 pm (1 week - f/u hospital stay for COPD exacerbation 12/05 works well, has f/u in [employer] 12/03 and not availabe to drive ) - Discharge Summary/Plan Comment DC Time >30 min.: No (25) - Patient Data Vitals - Most Recent: Last Vital Signs Temp 36.4 C 11/27/16 07:19 Pulse 81 11/27/16 09:17 Resp 18 11/27/16 07:19 BP 132/72 11/27/16 09:17 Pulse Ox 99 11/27/16 07:19 Weight - Most Recent: 50.1 kg I&O - Last 24 hours: Intake & Output 11/26/16 11/27/16 11/27/16 22:59 06:59 14:59 Intake Total 290 240 240 Output Total 1 Balance 289 240 240 Lab Results - Last 24 hrs: Laboratory Results - last 24 hr 11/27/16 11/27/16 Range/Units 05:00 05:00 WBC 12.7 H (4.5-11.0) K/uL RBC 3.64 (3.30-5.50) M/uL Hgb 12.8 (12.0-15.0) g/dL Hct 38.9 (36.0-48.0) % MCV 107 H (80-98) fL MCH 35 H (27-31) pg MCHC 33 (32-36) % Plt Count 247 (150-400) K/uL Sodium 136 L (140-148) mmol/L Potassium 3.9 (3.6-5.2) mmol/L Chloride 104 (100-108) mmol/L Carbon Dioxide 24 (21-32) mmol/L Anion Gap 11.9 (5.0-14.0) mmol/L BUN 13 D (7-18) mg/dL Creatinine 0.6 (0.6-1.0) mg/dL Est Cr Clr Drug Dosing 65.35 mL/min Estimated GFR (MDRD) > 60 (>60) Glucose 125 H (74-106) mg/dL Calcium 8.4 L (8.5-10.1) mg/dL Med Orders - Current: Current Medications Acetaminophen (Tylenol) 650 mg PO Q4H PRN PRN Reason: Pain (Mild 1-3)/fever Last Admin: 11/26/16 21:46 Dose: 650 mg Albuterol (Proventil Neb Soln) 2.5 mg NEB Q2H PRN PRN Reason: Shortness Of Breath/wheezing Last Admin: 11/26/16 03:35 Dose: 2.5 mg Albuterol/Ipratropium (Duoneb 3.0-0.5 Mg/3 Ml) 3 ml NEB QIDRT [facility] Last Admin: 11/27/16 07:24 Dose: 3 ml Aspirin (Aspirin) 81 mg PO DAILY [facility] Last Admin: 11/27/16 09:16 Dose: 81 mg Atorvastatin Calcium (Lipitor) 80 mg PO BEDTIME [facility] Last Admin: 11/26/16 21:31 Dose: 80 mg Buspirone HCl (Buspar) 5 mg PO TID [facility] Last Admin: 11/27/16 09:17 Dose: 5 mg Clopidogrel Bisulfate (Plavix) 75 mg PO DAILY [facility] Last Admin: 11/27/16 09:25 Dose: 75 mg Docusate Sodium (Colace) 100 mg PO BID PRN PRN Reason: Constipation Enoxaparin Sodium (Lovenox) 40 mg SUBCUT BEDTIME [facility] Last Admin: 11/26/16 21:33 Dose: 40 mg Levalbuterol HCl (Xopenex Hfa) 0 gm INH Q4H PRN PRN Reason: Wheezing Levofloxacin 250 mg/ (Levofloxacin 500 mg) 750 mg PO BEDTIME [facility] Last Admin: 11/26/16 21:31 Dose: 750 mg Lorazepam (Ativan) 0.5 mg PO Q4H PRN PRN Reason: Anxiety Last Admin: 11/27/16 08:26 Dose: 0.5 mg Magnesium Hydroxide (Milk Of Magnesia) 30 ml PO Q12H PRN PRN Reason: Constipation Metoprolol Tartrate (Lopressor) 50 mg PO BID [facility] Last Admin: 11/27/16 09:17 Dose: 50 mg Mometasone Furoate/Formoterol Fumar (Dulera 200-5 Mcg) 0 puff IH BIDRT [facility] Last Admin: 11/27/16 07:24 Dose: 2 puff Nitroglycerin (Nitrostat) 0.4 mg SL ASDIRECTED PRN PRN Reason: Chest Pain Ondansetron HCl (Zofran) 4 mg IV Q4H PRN PRN Reason: Nausea/Vomiting Oxycodone HCl (Oxycodone) 5 mg PO Q4H PRN PRN Reason: Pain (moderate 4-6) Paroxetine HCl (Paxil) 10 mg PO DAILY [facility] Last Admin: 11/27/16 09:23 Dose: 10 mg Polyethylene Glycol (Miralax) 17 gm PO DAILY PRN PRN Reason: Constipation Prednisone (Prednisone) 20 mg PO BIDMEALS [facility] Last Admin: 11/27/16 08:25 Dose: 20 mg Sodium Chloride (Saline Flush) 10 ml FLUSH ASDIRECTED PRN PRN Reason: Keep Vein Open Discontinued Medications Albuterol (Proventil Neb Soln) 2.5 mg NEB ONETIME ONE Stop: 11/26/16 00:25 Last Admin: 11/26/16 00:36 Dose: 2.5 mg Enoxaparin Sodium (Lovenox) 40 mg SUBCUT DAILY [facility] Last Admin: 11/26/16 02:26 Dose: 40 mg Levofloxacin/Dextrose 500 mg/ (Premix) 100 mls @ 100 mls/hr IV Q24H [facility] Last Admin: 11/26/16 02:15 Dose: 100 mls/hr Sodium Chloride (Normal Saline) 1,000 mls @ 125 mls/hr IV ASDIRECTED [facility] Last Admin: 11/26/16 02:12 Dose: 125 mls/hr Levofloxacin/Dextrose 500 mg/ (Premix) 100 mls @ 100 mls/hr IV Q24H [facility] Magnesium Sulfate 2 gm/ Premix 50 mls @ 25 mls/hr IV Q6H [facility] Stop: 11/26/16 17:29 Last Admin: 11/26/16 16:36 Dose: 25 mls/hr Methylprednisolone Sodium Succinate (Solu-Medrol) 125 mg IVPUSH ONETIME ONE Stop: 11/26/16 00:17 Last Admin: 11/26/16 00:32 Dose: 125 mg Methylprednisolone Sodium Succinate (Solu-Medrol) 40 mg IVPUSH Q6H [facility] Last Admin: 11/26/16 07:22 Dose: Not Given Methylprednisolone Sodium Succinate (Solu-Medrol) 40 mg IVPUSH Q6H [facility] Last Admin: 11/26/16 12:18 Dose: 40 mg Sodium Chloride (Saline Flush) 10 ml FLUSH ASDIRECTED PRN PRN Reason: Keep Vein Open Last Admin: 11/26/16 00:37 Dose: 10 ml *Q Meaningful Use (DIS) - VTE *Q VTE Criteria *Q: - Stroke *Q Stroke Criteria *Q: - AMI *Q AMI Criteria *Q:
== END 2016-11-27 12:00 | disposition home or self-care (01) | DRG 192 ==
LOC: JP.ED 00:02 → JP.ICU 01:15 → JP.MS 14:20
PROVIDERS: ADMIT Hospitalist; ATTEND Internal Medicine
DX: J44.0 Chronic obstructive pulmonary disease with (acute) lower respiratory infection (principal); J20.9 Acute bronchitis, unspecified; J44.1 Chronic obstructive pulmonary disease with (acute) exacerbation; I25.2 Old myocardial infarction; I10 Essential (primary) hypertension; I25.10 Atherosclerotic heart disease of native coronary artery without angina pectoris; Z99.81 Dependence on supplemental oxygen; Z87.891 Personal history of nicotine dependence; R53.1 Weakness; R06.02 Shortness of breath; R05 Cough; Z95.5 Presence of coronary angioplasty implant and graft; F41.9 Anxiety disorder, unspecified; Z87.440 Personal history of urinary (tract) infections; H54.7 Unspecified visual loss; Z79.52 Long term (current) use of systemic steroids; Z88.5 Allergy status to narcotic agent; Z88.2 Allergy status to sulfonamides; Z86.74 Personal history of sudden cardiac arrest
CPT/HCPCS: 36415; 36600; 71010 ×2; 80053; 82803; 85025; 94640; 96374; 99285; J2930; J7050; 80048; 81001; 83735; 85027; 94660; 99284; A9270-GY; J1650; J1956; J2920; J3475; J7040; J7620

== ENCOUNTER 2017-04-08 12:13 | Inpatient (IN) | payer MEDICARE, BC ==
[2017-04-08] MEDS ORDERED: Albuterol 0.083% 2.5 MG/3 ML Neb Soln NEB ONE (12:52)
--- NOTE | 2017-04-08 12:53 | EDM.PDOC ---
ED HPI GENERAL MEDICAL PROBLEM - General Chief Complaint: Respiratory Problem Stated Complaint: SHORTNESS OF BREATH,COPD Time Seen by Provider: 04/08/17 12:52 Source of Information: Reports: Patient, Family History Limitations: Reports: No Limitations - History of Present Illness INITIAL COMMENTS - FREE TEXT/NARRATIVE: pt has a history of severe copd. She has had resp failure multiple times. Onset: Gradual, Other (last 2-3 days. ) Duration: Hour(s):, Getting Worse Location: Reports: Chest Associated Symptoms: Reports: Other (pt feels that she has had a uri and he has now gotten very tight in her chest. She did have a flu shot. ) - Related Data Allergies Allergy/AdvReac Type Severity Reaction Status Date / Time Sulfa (Sulfonamide Allergy Mild Rash Verified 04/08/17 13:02 Antibiotics) meperidine HCl [From Demerol] Allergy Unknown Rash Verified 04/08/17 13:02 Home Meds: Home Meds Albuterol/Ipratropium [DuoNeb 3.0-0.5 MG/3 ML] 3 ml INH ASDIRECTED PRN 01/06/13 [History] LORazepam [Ativan] 0.5 mg PO Q6H PRN 01/06/13 [History] PARoxetine [Paxil] 10 mg PO QAM 04/11/14 [History] busPIRone [Buspar] 5 mg PO TID 11/06/15 [History] Cholecalciferol (Vitamin D3) [Decara] 50,000 unit PO ASDIRECTED 02/16/16 [ History] Levalbuterol Tartrate [Levalbuterol Tartrate Hfa] 2 puff IH Q4H PRN 02/16/16 [ History] Metoprolol Tartrate [Lopressor] 50 mg PO BID tablet 02/18/16 [Rx] Budesonide/Formoterol Fumarate [Symbicort 160-4.5 Mcg Inhaler] 2 puff INH BID [History] Clopidogrel Bisulfate [Clopidogrel] 75 mg PO DAILY 11/26/16 [History] Nitroglycerin 0.4 mg SL ASDIRECTED PRN 11/26/16 [History] atorvaSTATin [Lipitor] 80 mg PO BEDTIME 11/26/16 [History] Aspirin [Lo-Dose Aspirin EC] 81 mg PO BEDTIME 04/08/17 [History] Lifitegrast [Xiidra] 1 drop EYEBOTH BID 04/08/17 [History] Past Medical History HEENT History: Reports: Impaired Vision Cardiovascular History: Reports: Hypertension, Prior Cardiac Arrest, Stents, Other (See Below) Other Cardiovascular History: cardiac arrest april 2016 Respiratory History: Reports: COPD, Other (See Below) Other Respiratory History: 02 2l at night as needed. 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 copd. 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: Neurological History: Reports: Migraines Psychiatric History: Reports: Anxiety - Infectious Disease History Infectious Disease History: Reports: Shingles Other Infectious Disease History: unknown - Past Surgical History Head Surgeries/Procedures: Reports: None Neurological Surgical History: Reports: None Dermatological Surgical History: Reports: None Social & Family History - Family History Family Medical History: Noncontributory - Tobacco Use Smoking Status *Q: Former Smoker Years of Tobacco use: 50 Packs/Tins Daily: 1 Used Tobacco, but Quit: Yes Month Tobacco Last Used: 1 Second Hand Smoke Exposure: No - Caffeine Use Caffeine Use: Reports: None - Alcohol Use Days Per Week of Alcohol Use: 7 Number of Drinks Per Day: 2 Total Drinks Per Week: 14 - Recreational Drug Use Recreational Drug Use: No - Living Situation & Occupation Living situation: Reports: , with Spouse Occupation: Disabled ED ROS GENERAL - Review of Systems Review Of Systems: See Below Constitutional: Reports: Malaise, Decreased Appetite HEENT: Reports: No Symptoms Respiratory: Reports: Shortness of Breath, Wheezing Cardiovascular: Reports: No Symptoms Endocrine: Reports: No Symptoms GI/Abdominal: Reports: No Symptoms : Reports: No Symptoms ED EXAM, GENERAL - Physical Exam Exam: See Below Free Text/Narrative:: pt arrived very tight in her chest. She is a pt who can change rapidly and get in trouble. Exam Limited By: No Limitations General Appearance: Alert, Moderate Distress Ears: Normal TMs Nose: Normal Inspection Throat/Mouth: Normal Inspection Head: Atraumatic Neck: Normal Inspection Respiratory/Chest: Decreased Breath Sounds, Crackles, Wheezing, Other (pt is working fairly hard to move air. ) Cardiovascular: Regular Rate, Rhythm, Tachycardia GI/Abdominal: Soft, Non-Tender (Female) Exam: Deferred Rectal (Female) Exam: Deferred Back Exam: Normal Inspection Extremities: Normal Inspection Neurological: Alert, Oriented, Normal Cognition Psychiatric: Normal Affect Course - Vital Signs Last Recorded V/S: Last Vital Signs Temp 36.8 C 04/09/17 07:13 Pulse 110 H 04/09/17 07:13 Resp 17 04/09/17 07:13 BP 113/53 L 04/09/17 07:13 Pulse Ox 99 04/09/17 07:31 - Orders/Labs/Meds Orders: Medication Orders Acetaminophen (Tylenol) 650 mg PO Q4H PRN PRN Reason: Pain (Mild 1-3)/fever Albuterol/Ipratropium (Duoneb 3.0-0.5 Mg/3 Ml) 3 ml NEB QIDRT [facility] Last Admin: 04/09/17 07:34 Dose: 3 ml Admin: 04/08/17 21:30 Dose: 3 ml Admin: 04/08/17 16:40 Dose: 3 ml Atorvastatin Calcium (Lipitor) 80 mg PO BEDTIME [facility] Last Admin: 04/08/17 21:23 Dose: 80 mg Buspirone HCl (Buspar) 5 mg PO TID [facility] Last Admin: 04/08/17 21:23 Dose: 5 mg Clopidogrel Bisulfate (Plavix) 75 mg PO DAILY [facility] Enoxaparin Sodium (Lovenox) 40 mg SUBCUT Q24H [facility] Last Admin: 04/08/17 17:54 Dose: 40 mg Doxycycline Hyclate 100 mg/ (Sodium Chloride) 100 mls @ 100 mls/hr IV Q12H [facility] Last Admin: 04/09/17 03:23 Dose: 100 mls/hr Admin: 04/08/17 16:40 Dose: 100 mls/hr Sodium Chloride (Normal Saline) 1,000 mls @ 100 mls/hr IV ASDIRECTED [facility] Last Admin: 04/09/17 03:07 Dose: 100 mls/hr Levalbuterol HCl (Xopenex) 1.25 mg NEB Q4H PRN PRN Reason: Dyspnea Last Admin: 04/09/17 05:22 Dose: 1.25 mg Admin: 04/09/17 01:03 Dose: 1.25 mg Admin: 04/08/17 19:10 Dose: 1.25 mg Levalbuterol HCl (Xopenex Hfa) 0 gm INH Q4H PRN PRN Reason: Wheezing Lorazepam (Ativan) 0.5 mg PO Q2H PRN PRN Reason: Anxiety Magnesium Hydroxide (Milk Of Magnesia) 30 ml PO Q12H PRN PRN Reason: Constipation Methylprednisolone Sodium Succinate (Solu-Medrol) 40 mg IVPUSH Q6H [facility] Last Admin: 04/09/17 01:29 Dose: 40 mg Admin: 04/08/17 19:40 Dose: 40 mg Metoprolol Tartrate (Lopressor) 50 mg PO BID [facility] Last Admin: 04/08/17 21:24 Dose: 50 mg Mometasone Furoate/Formoterol Fumar (Dulera 200-5 Mcg) 2 puff IH BIDRT [facility] Last Admin: 04/09/17 07:34 Dose: 2 puff Admin: 04/08/17 21:23 Dose: 2 puff Nitroglycerin (Nitrostat) 0.4 mg SL Q5M PRN PRN Reason: Chest Pain Ondansetron HCl (Zofran) 4 mg IV Q4H PRN PRN Reason: Nausea/Vomiting Oxycodone HCl (Oxycodone) 5 mg PO Q4H PRN PRN Reason: Pain (moderate 4-6) Paroxetine HCl (Paxil) 10 mg PO DAILY [facility] Polyethylene Glycol (Miralax) 17 gm PO DAILY PRN PRN Reason: Constipation Senna/Docusate Sodium (Senna Plus) 1 tab PO BID PRN PRN Reason: Constipation Sodium Chloride (Saline Flush) 10 ml FLUSH ASDIRECTED PRN PRN Reason: Keep Vein Open Labs: Laboratory Tests 04/08/17 04/08/17 04/08/17 Range/Units 12:55 12:55 14:10 WBC 11.0 (4.5-11.0) K/uL RBC 3.82 (3.30-5.50) M/uL Hgb 14.3 (12.0-15.0) g/dL Hct 41.8 (36.0-48.0) % MCV 109 H (80-98) fL MCH 37 H (27-31) pg MCHC 34 (32-36) % Plt Count 352 (150-400) K/uL Neut % (Auto) 91 H (36-66) % Lymph % (Auto) 5 L (24-44) % [place] % (Auto) 4 (2-6) % Eos % (Auto) 0 L (2-4) % Baso % (Auto) 0 (0-1) % Puncture Site Lt radial ABG pH 7.454 H (7.350-7.450) ABG pCO2 33.5 L (35.0-42.0) mmHg ABG pO2 105.0 H (75.0-100.0) mmHg ABG HCO3 23.1 (22.0-26.0) mmol/L ABG Total CO2 20.1 L (21.0-25.0) mmol/L ABG O2 Saturation 98.1 H (95.0-98.0) % ABG O2 Content 19.1 (15.0-23.0) %vol ABG Base Excess 0.3 mm/L ABG Hemoglobin 13.9 (12.0-16.0) g/dL ABG Oxyhemoglobin 96.8 % ABG Carboxyhemoglobin 0.8 (0.0-1.6) % ABG Methemoglobin 0.5 % Shaun Test Pass O2 Delivery Device Nasal cannula Oxygen Flow Rate 2 L Sodium 140 (140-148) mmol/L Potassium 3.9 (3.6-5.2) mmol/L Chloride 105 (100-108) mmol/L Carbon Dioxide 26 (21-32) mmol/L Anion Gap 9.5 (5.0-14.0) mmol/L BUN 9 (7-18) mg/dL Creatinine 0.8 (0.6-1.0) mg/dL Est Cr Clr Drug Dosing 48.34 mL/min Estimated GFR (MDRD) > 60 (>60) Glucose 111 H (74-106) mg/dL Calcium 9.0 (8.5-10.1) mg/dL Total Bilirubin 0.4 (0.2-1.0) mg/dL AST 24 (15-37) U/L ALT 38 (12-78) U/L Alkaline Phosphatase 82 (46-116) U/L Total Protein 6.6 (6.4-8.2) g/dL Albumin 3.4 (3.4-5.0) g/dL Globulin 3.2 (2.3-3.5) g/dL Albumin/Globulin Ratio 1.1 L (1.2-2.2) Meds: Medications Generic Name Dose Route Start Last Admin Trade Name Freq PRN Reason Stop Dose Admin Acetaminophen 650 mg 04/08/17 15:27 Tylenol PO Q4H PRN Pain (Mild 1-3)/fever Albuterol/Ipratropium 3 ml 04/08/17 16:00 04/09/17 07:34 Duoneb 3.0-0.5 Mg/3 Ml NEB 3 ml QIDRT [facility] Administration Atorvastatin Calcium 80 mg 04/08/17 21:00 04/08/17 21:23 Lipitor PO 80 mg BEDTIME [facility] Administration Buspirone HCl 5 mg 04/08/17 21:00 04/08/17 21:23 Buspar PO 5 mg TID [facility] Administration Clopidogrel Bisulfate 75 mg 04/09/17 09:00 Plavix PO DAILY [facility] Enoxaparin Sodium 40 mg 04/08/17 18:00 04/08/17 17:54 Lovenox SUBCUT 40 mg Q24H [facility] Administration Doxycycline Hyclate 100 mg/ 100 mls @ 100 mls/hr 04/08/17 16:00 04/09/17 03: 23 Sodium Chloride IV 100 mls/hr Q12H [facility] Administration Sodium Chloride 1,000 mls @ 100 mls/hr 04/08/17 15:27 04/09/17 03:07 Normal Saline IV 100 mls/hr ASDIRECTED [facility] Administration Levalbuterol HCl 1.25 mg 04/08/17 15:27 04/09/17 05:22 Xopenex NEB 1.25 mg Q4H PRN Administration Dyspnea Levalbuterol HCl 0 gm 04/08/17 15:27 Xopenex Hfa INH Q4H PRN Wheezing Lorazepam 0.5 mg 04/09/17 06:27 Ativan PO Q2H PRN Anxiety Magnesium Hydroxide 30 ml 04/08/17 15:27 Milk Of Magnesia PO Q12H PRN Constipation Methylprednisolone Sodium Succinate 40 mg 04/08/17 20:00 04/09/17 01:29 Solu-Medrol IVPUSH 40 mg Q6H [facility] Administration Metoprolol Tartrate 50 mg 04/08/17 21:00 04/08/17 21:24 Lopressor PO 50 mg BID [facility] Administration Mometasone Furoate/Formoterol Fumar 2 puff 04/08/17 21:00 02/20/18 07:34 Dulera 200-5 Mcg IH 2 puff BIDRT [facility] Administration Nitroglycerin 0.4 mg 04/08/17 15:27 Nitrostat SL Q5M PRN Chest Pain Ondansetron HCl 4 mg 04/08/17 15:27 Zofran IV Q4H PRN Nausea/Vomiting Oxycodone HCl 5 mg 04/08/17 15:27 Oxycodone PO Q4H PRN Pain (moderate 4-6) Paroxetine HCl 10 mg 04/09/17 09:00 Paxil PO DAILY [facility] Polyethylene Glycol 17 gm 04/08/17 15:27 Miralax PO DAILY PRN Constipation Senna/Docusate Sodium 1 tab 04/08/17 15:27 Senna Plus PO BID PRN Constipation Sodium Chloride 10 ml 04/08/17 15:27 Saline Flush FLUSH ASDIRECTED PRN Keep Vein Open Discontinued Medications Generic Name Dose Route Start Last Admin Trade Name Freq PRN Reason Stop Dose Admin Albuterol 2.5 mg 04/08/17 12:52 04/08/17 12:58 Proventil Neb Soln NEB 04/08/17 12:53 2.5 mg ONETIME ONE Administration Lorazepam 0.5 mg 04/08/17 15:27 04/09/17 01:03 Ativan PO 0.5 mg Q6H PRN Administration Anxiety Lorazepam 0.5 mg 04/09/17 06:26 04/09/17 06:37 Ativan IVPUSH 04/09/17 06:27 0.5 mg ONETIME STA Administration Methylprednisolone Sodium Succinate 125 mg 04/08/17 14:02 04/08/17 14:28 Solu-Medrol IVPUSH 04/08/17 14:03 125 mg ONETIME ONE Administration - Re-Assessments/Exams Free Text/Narrative Re-Assessment/Exam: 04/09/17 08:58 pt was given solumedrol iv and labs were obtained. Dr fagan was called to come and admit her. Departure - Departure Time of Disposition: 09:00 Disposition: Admitted As Inpatient 65 Condition: Fair Clinical Impression: Bronchitis, Bronchospasm - Discharge Information
--- NOTE | 2017-04-08 13:34 | CR ---
Portable chest Comparison: 26 November 2016. The heart and vascular structures are stable. There is mild hyperinflation. There is no infiltrates o r effusions. There are healed bilateral rib fractures. Impression: 1. No acute findings.
[2017-04-08] MEDS ORDERED: methylPREDNISolone Sodium Succinate 125 MG/2 ML SDV IVPUSH ONE (14:02)
--- NOTE | 2017-04-08 14:32 | CR ---
Portable chest Comparison: One hour prior. Findings: There is mild hyperinflation. There are no infiltrates or effusions. The heart and vascular structures are stable. Impression: 1. No interval change.
--- NOTE | 2017-04-08 14:40 | PCM.HP ---
H&P History of Present Illness - General Date of Service: 04/08/17 Admit Problem/Dx: Source of Information: Patient, Family, Old Records, RN Notes Reviewed History Limitations: Reports: No Limitations - History of Present Illness Initial Comments - Free Text/Narative: Ms. Gamboa is a 67-year-old woman with a known history of COPD who presents to the emergency department with increased shortness of breath and cough of 48 hours duration. She has had long-standing COPD and does use oxygen at home mainly at night as well as a Trilogy home ventilator system. 2 days ago be and to experience increased shortness of breath and over the past 24 hours has had a significant cough, productive of relatively clear sputum. She's not aware of any significant fevers or chills and denies any recent sick contacts. - Related Data Allergies/Adverse Reactions: Allergies Allergy/AdvReac Type Severity Reaction Status Date / Time Sulfa (Sulfonamide Allergy Mild Rash Verified 04/08/17 13:02 Antibiotics) meperidine HCl [From Demerol] Allergy Unknown Rash Verified 04/08/17 13:02 Home Medications: Home Meds Albuterol/Ipratropium [DuoNeb 3.0-0.5 MG/3 ML] 3 ml INH ASDIRECTED PRN 01/06/13 [History] LORazepam [Ativan] 0.5 mg PO Q6H PRN 01/06/13 [History] PARoxetine [Paxil] 10 mg PO QAM 04/11/14 [History] busPIRone [Buspar] 5 mg PO TID 11/06/15 [History] Alendronate Sodium [Fosamax] 70 mg PO ASDIRECTED 02/16/16 [History] Cholecalciferol (Vitamin D3) [Decara] 50,000 unit PO ASDIRECTED 02/16/16 [ History] Levalbuterol Tartrate [Levalbuterol Tartrate Hfa] 2 puff IH Q4H PRN 02/16/16 [ History] Metoprolol Tartrate [Lopressor] 50 mg PO BID tablet 02/18/16 [Rx] Budesonide/Formoterol Fumarate [Symbicort 160-4.5 Mcg Inhaler] 2 puff INH BID [History] Atropine/Diphenoxylate [Diphenoxylate-Atropine] 1 dose PO ASDIRECTED PRN [History] Clopidogrel Bisulfate [Clopidogrel] 75 mg PO DAILY 11/26/16 [History] Nitroglycerin 0.4 mg SL ASDIRECTED PRN 11/26/16 [History] atorvaSTATin [Lipitor] 80 mg PO BEDTIME 11/26/16 [History] Levofloxacin 750 mg PO BEDTIME #3 tablet 11/27/16 [Rx] Prednisone [IJD: predniSONE] 20 mg PO BIDMEALS #5 tablet 11/27/16 [Rx] Past Medical History HEENT History: Reports: Impaired Vision Cardiovascular History: Reports: Hypertension, Prior Cardiac Arrest, Stents, Other (See Below) Other Cardiovascular History: cardiac arrest april 2016 Respiratory History: Reports: COPD, Other (See Below) Other Respiratory History: 02 2l at night as needed. 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 copd. 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: Neurological History: Reports: Migraines Psychiatric History: Reports: Anxiety - Infectious Disease History Infectious Disease History: Reports: Shingles Other Infectious Disease History: unknown - Past Surgical History Neurological Surgical History: Reports: None Social & Family History - Family History Family Medical History: Noncontributory - Tobacco Use Smoking Status *Q: Unknown Ever Smoked Years of Tobacco use: 50 Packs/Tins Daily: 1 Used Tobacco, but Quit: Yes Month Tobacco Last Used: 1 Second Hand Smoke Exposure: No - Caffeine Use Caffeine Use: Reports: None - Alcohol Use Days Per Week of Alcohol Use: 7 Number of Drinks Per Day: 2 Total Drinks Per Week: 14 - Recreational Drug Use Recreational Drug Use: No - Living Situation & Occupation Living situation: Reports: , with Spouse Occupation: Disabled H&P Review of Systems - Review of Systems: Review Of Systems: See Below General: Denies: Fever, Chills, Diaphoresis HEENT: Reports: No Symptoms Pulmonary: Reports: Shortness of Breath, Wheezing, Cough, Sputum. Denies: Pleuritic Chest Pain, Hemoptysis Cardiovascular: Reports: Dyspnea on Exertion. Denies: Chest Pain, Palpitations , Orthopnea, PND, Edema, Lightheadedness Gastrointestinal: Reports: No Symptoms Genitourinary: Reports: No Symptoms Musculoskeletal: Reports: No Symptoms Skin: Reports: No Symptoms Psychiatric: Reports: No Symptoms Neurological: Reports: No Symptoms Hematologic/Lymphatic: Reports: No Symptoms Immunologic: Reports: No Symptoms Exam - Exam Exam: See Below - Vital Signs Vital Signs: Last Vital Signs Temp 98.4 F 04/08/17 14:30 Pulse 97 04/08/17 14:30 Resp 17 04/08/17 14:30 BP 129/64 04/08/17 14:30 Pulse Ox 96 04/08/17 14:30 Weight: 108 lb 7.479 oz - Exam Quality Assessment: Supplemental Oxygen, DVT Prophylaxis General: Alert, Oriented, Cooperative, Moderate Distress HEENT: Conjunctiva Clear, Hearing Intact, Mucosa Moist & [place], Normal Nasal Septum, Posterior Pharynx Clear, Pupils Equal Neck: Supple, Trachea Midline, +2 Carotid Pulse wo Bruit Lungs: Decreased Breath Sounds, Wheezing. No: Crackles, Rales, Rhonchi, Rub, Stridor Cardiovascular: Regular Rhythm, Normal S1, Normal S2, Tachycardia. No: Systolic Murmur, Diastolic Murmur GI/Abdominal Exam: Soft, Non-Tender, No Organomegaly, No Distention Back Exam: Normal Inspection, Full Range of Motion Extremities: Non-Tender, No Pedal Edema Skin: Warm, Dry, Intact Neurological: Cranial Nerves Intact, Strength Equal Bilateral, Normal Speech, Normal Tone, Sensation Intact. No: Focal Deficit Neuro Extensive - Mental Status: Alert, Oriented x3, Normal Mood/Affect, Normal Cognition, Memory Intact - Patient Data Lab Results Last 24 hrs: Laboratory Results - last 24 hr 04/08/17 04/08/17 04/08/17 Range/Units 12:55 12:55 14:10 WBC 11.0 (4.5-11.0) K/uL RBC 3.82 (3.30-5.50) M/uL Hgb 14.3 (12.0-15.0) g/dL Hct 41.8 (36.0-48.0) % MCV 109 H (80-98) fL MCH 37 H (27-31) pg MCHC 34 (32-36) % Plt Count 352 (150-400) K/uL Neut % (Auto) 91 H (36-66) % Lymph % (Auto) 5 L (24-44) % [place] % (Auto) 4 (2-6) % Eos % (Auto) 0 L (2-4) % Baso % (Auto) 0 (0-1) % Puncture Site Lt radial ABG pH 7.454 H (7.350-7.450) ABG pCO2 33.5 L (35.0-42.0) mmHg ABG pO2 105.0 H (75.0-100.0) mmHg ABG HCO3 23.1 (22.0-26.0) mmol/L ABG Total CO2 20.1 L (21.0-25.0) mmol/L ABG O2 Saturation 98.1 H (95.0-98.0) % ABG O2 Content 19.1 (15.0-23.0) %vol ABG Base Excess 0.3 mm/L ABG Hemoglobin 13.9 (12.0-16.0) g/dL ABG Oxyhemoglobin 96.8 % ABG Carboxyhemoglobin 0.8 (0.0-1.6) % ABG Methemoglobin 0.5 % Shaun Test Pass O2 Delivery Device Nasal cannula Oxygen Flow Rate 2 L Sodium 140 (140-148) mmol/L Potassium 3.9 (3.6-5.2) mmol/L Chloride 105 (100-108) mmol/L Carbon Dioxide 26 (21-32) mmol/L Anion Gap 9.5 (5.0-14.0) mmol/L BUN 9 (7-18) mg/dL Creatinine 0.8 (0.6-1.0) mg/dL Est Cr Clr Drug Dosing 48.34 mL/min Estimated GFR (MDRD) > 60 (>60) Glucose 111 H (74-106) mg/dL Calcium 9.0 (8.5-10.1) mg/dL Total Bilirubin 0.4 (0.2-1.0) mg/dL AST 24 (15-37) U/L ALT 38 (12-78) U/L Alkaline Phosphatase 82 (46-116) U/L Total Protein 6.6 (6.4-8.2) g/dL Albumin 3.4 (3.4-5.0) g/dL Globulin 3.2 (2.3-3.5) g/dL Albumin/Globulin Ratio 1.1 L (1.2-2.2) Result Diagrams: 04/08/17 12:55 04/08/17 12:55 Dwight Results Last 24 hrs: Microbiology 04/08/17 13:03 Influenza Type A Antigen Screen - Final Nasal Aspirate, Right NEGATIVE INFLUENZA A VIRUS AG Influenza Type B Antigen Screen - Final NEGATIVE INFLUENZA B VIRUS AG *Q Meaningful Use (ADM) - VTE *Q VTE Criteria *Q: - VTE Risk Assess *Q Each Risk Factor Represents 1 Point: Abnormal Pulmonary Function (COPD) Total Score 1 Point Risk Factors: 1 Each Risk Factor Represents 2 Points: Age 60 - 74 Years Total Score 2 Point Risk Factors: 2 Each Risk Factor Represents 3 Points: None Total Score 3 Point Risk Factors: 0 Each Risk Factor Represents 5 Points: None Total Score 5 Point Risk Factors: 0 Venous Thromboembolism Risk Factor Score *Q: 3 - Stroke *Q Stroke Criteria *Q: - AMI *Q AMI Criteria *Q: Problem List Initiated/Reviewed/Updated: Yes Orders Last 24hrs: Active Orders 24 hr Category Date Time Status Patient Status Manage Transfer [TRANSFER] Routine ADT 04/08/17 14:20 Ordered RT Aerosol Therapy [RC] ASDIRECTED Care 04/08/17 12:52 Active Chest 1V Frontal [CR] Stat Exams 04/08/17 14:01 Taken Resuscitation Status Routine Resus Stat 04/08/17 14:23 Ordered Assessment/Plan Comment:: ASSESSMENT AND PLAN ACUTE ON CHRONIC RESPIRATORY FAILURE WITH HYPOXIA-onset of shortness of breath and cough over the past 48 hours, viral versus bacterial. Influenza A and B antigens are negative -Supplemental oxygen as needed -Use of home ventilator system as needed -Sputum culture pending -Nebulizer therapy with Xopenex and duo nebs -Solu-Medrol 40 mg IV every 6 hours -Doxycycline 100 mg IV every 12 hours COPD EXACERBATION SECONDARY TO BRONCHITIS -Management as above CORONARY ARTERY DISEASE-status post angioplasty with stent placement in the past few months. Currently asymptomatic. -Continue outpatient medical regimen MAINTENANCE ISSUES -DVT prophylaxis; Lovenox 40 mg subcutaneous daily -GI prophylaxis; not indicated -Pederson catheter; not indicated -Nutrition; regular diet -Nicotine dependence; not required CODE STATUS-FULL CODE ADMISSION STATUS-patient will be admitted to inpatient status, expect at least a 2 night hospital stay for evaluation and management of problems as outlined above. At the time of this admission I do not reasonably expected evaluation and management of this problem will require more than a 96 hour hospital stay. DISPOSITION-anticipate discharge to home after the hospital stay. PRIMARY CARE PROVIDER-Dr. Santana
[2017-04-08] MEDS ORDERED: Nitroglycerin 0.4 MG Tab.SL SL PRN (15:27)
[2017-04-08] MEDS ORDERED: Sodium Chloride 0.9% 1,000 ML IV SCH (15:27)
[2017-04-08] MEDS ORDERED: Levalbuterol Tartrate HFA 15 GM Inhaler INH PRN (15:27)
[2017-04-08] MEDS ORDERED: Magnesium Hydroxide 400 MG/5 ML Susp 30 ML Cup PO PRN (15:27)
[2017-04-08] MEDS ORDERED: Sodium Chloride 0.9% 10 ML Syringe FLUSH PRN (15:27)
[2017-04-08] MEDS ORDERED: oxyCODONE 5 MG Tab PO PRN (15:27)
[2017-04-08] MEDS ORDERED: Polyethylene Glycol 3350 Powder 17 GM Packet PO PRN (15:27)
[2017-04-08] MEDS ORDERED: Ondansetron 4 MG/2 ML SDV IV PRN (15:27)
[2017-04-08] MEDS: Doxycycline 100 MG in Sodium Chloride 0.9% 100 ML IV SCH (16:40)
[2017-04-08] MEDS: Albuterol/Ipratropium 3.0-0.5 MG/3 ML Neb Soln NEB SCH ×2 (16:40→21:30)
[2017-04-08] MEDS: Enoxaparin 40 MG/0.4 ML Syringe SUBCUT SCH (17:54)
[2017-04-08] MEDS: Levalbuterol HCl 1.25 MG/3 ML Neb NEB PRN (19:10)
[2017-04-08] MEDS: LORazepam 0.5 MG Tab PO PRN (19:10)
[2017-04-08] MEDS: methylPREDNISolone Sodium Succinate 40 MG/1 ML SDV IVPUSH SCH (19:40)
[2017-04-08] MEDS ORDERED: Non-Formulary Medication 1 Each (Budesonide/Formoterol Fumarate [Symbicort 160-4.5 Mcg Inh INH SCH (21:00)
[2017-04-08] MEDS ORDERED: Non-Formulary Medication 1 Each (Atorvastatin [Lipitor] 80 MG) PO SCH (21:00)
[2017-04-08] MEDS: busPIRone 5 MG Tab PO SCH (21:23)
[2017-04-08] MEDS: Formoterol/Mometasone 200-5 MCG 8.8 GM Inhaler IH SCH (21:23)
[2017-04-08] MEDS: atorvaSTATin 20 MG Tab PO SCH (21:23)
[2017-04-08] MEDS: Metoprolol Tartrate 50 MG Tab PO SCH (21:24)
[2017-04-09] MEDS: Levalbuterol HCl 1.25 MG/3 ML Neb NEB PRN ×6 (01:03→22:54)
[2017-04-09] MEDS: LORazepam 0.5 MG Tab PO PRN ×8 (01:03→23:00)
[2017-04-09] MEDS: methylPREDNISolone Sodium Succinate 40 MG/1 ML SDV IVPUSH SCH ×4 (01:29→20:46)
[2017-04-09] MEDS: Doxycycline 100 MG in Sodium Chloride 0.9% 100 ML IV SCH ×2 (03:23→15:26)
[2017-04-09] MEDS ORDERED: LORazepam 2 MG/ML MDV IVPUSH STA (06:26)
[2017-04-09] MEDS: Albuterol/Ipratropium 3.0-0.5 MG/3 ML Neb Soln NEB SCH ×5 (07:34→21:00)
[2017-04-09] MEDS: Formoterol/Mometasone 200-5 MCG 8.8 GM Inhaler IH SCH ×3 (07:34→21:05)
[2017-04-09] MEDS ORDERED: PAROXETINE 10 MG PO SCH (09:00)
[2017-04-09] MEDS: busPIRone 5 MG Tab PO SCH ×3 (09:07→20:53)
[2017-04-09] MEDS: PARoxetine 20 MG Tab PO SCH (09:07)
[2017-04-09] MEDS: Clopidogrel 75 MG Tab PO SCH (09:08)
[2017-04-09] MEDS: Metoprolol Tartrate 50 MG Tab PO SCH ×2 (09:10→20:49)
[2017-04-09] MEDS: Folic Acid 1 MG Tab PO SCH (10:24)
--- NOTE | 2017-04-09 12:27 | PCM.PN ---
- General Info Date of Service: 04/09/17 Subjective Update: Ms. Gamboa continues to experience intermittent episodes of increased shortness of breath. Vital signs have been stable and she has remained afebrile. Continues to use supplemental oxygen in addition to her Trilogy home ventilator system. Functional Status: Reports: Tolerating Diet, Urinating - Review of Systems General: Reports: Weakness. Denies: Fever, Chills Pulmonary: Reports: Shortness of Breath, Cough, Wheezing. Denies: Pleuritic Chest Pain, Sputum, Hemoptysis Cardiovascular: Reports: Dyspnea on Exertion. Denies: Chest Pain, Palpitations , Orthopnea, PND, Edema, Lightheadedness Gastrointestinal: Reports: No Symptoms - Patient Data Vitals - Most Recent: Last Vital Signs Temp 97 F 04/09/17 11:00 Pulse 95 04/09/17 11:00 Resp 17 04/09/17 11:00 BP 127/96 H 04/09/17 11:00 Pulse Ox 99 04/09/17 11:00 Weight - Most Recent: 108 lb 7.479 oz I&O - Last 24 Hours: Intake & Output 04/08/17 04/09/17 04/09/17 22:59 06:59 14:59 Intake Total 523 1111 Output Total 450 950 300 Balance 73 161 -300 Lab Results Last 24 Hours: Laboratory Results - last 24 hr 04/09/17 04/09/17 04/09/17 Range/Units 05:00 05:00 08:37 WBC 8.6 (4.5-11.0) K/uL RBC 3.53 (3.30-5.50) M/uL Hgb 13.1 (12.0-15.0) g/dL Hct 39.9 (36.0-48.0) % MCV 113 H (80-98) fL MCH 37 H (27-31) pg MCHC 33 (32-36) % Plt Count 299 (150-400) K/uL Neut % (Auto) 96 H (36-66) % Lymph % (Auto) 3 L (24-44) % [place] % (Auto) 2 (2-6) % Eos % (Auto) 0 L (2-4) % Baso % (Auto) 0 (0-1) % Sodium 141 (140-148) mmol/L Potassium 3.8 (3.6-5.2) mmol/L Chloride 109 H (100-108) mmol/L Carbon Dioxide 24 (21-32) mmol/L Anion Gap 11.8 (5.0-14.0) mmol/L BUN 9 (7-18) mg/dL Creatinine 0.6 (0.6-1.0) mg/dL Est Cr Clr Drug Dosing 64.46 mL/min Estimated GFR (MDRD) > 60 (>60) Glucose 156 H (74-106) mg/dL Calcium 8.3 L (8.5-10.1) mg/dL Vitamin B12 332 (193-986) pg/ml Folate 4.9 L (8.6-58.9) ng/ml Med Orders - Current: Current Medications Acetaminophen (Tylenol) 650 mg PO Q4H PRN PRN Reason: Pain (Mild 1-3)/fever Albuterol/Ipratropium (Duoneb 3.0-0.5 Mg/3 Ml) 3 ml NEB QIDRT [facility] Last Admin: 04/09/17 10:20 Dose: 3 ml Atorvastatin Calcium (Lipitor) 80 mg PO BEDTIME [facility] Last Admin: 04/08/17 21:23 Dose: 80 mg Buspirone HCl (Buspar) 5 mg PO TID [facility] Last Admin: 04/09/17 09:07 Dose: 5 mg Clopidogrel Bisulfate (Plavix) 75 mg PO DAILY [facility] Last Admin: 04/09/17 09:08 Dose: 75 mg Enoxaparin Sodium (Lovenox) 40 mg SUBCUT Q24H [facility] Last Admin: 04/08/17 17:54 Dose: 40 mg Folic Acid (Folic Acid) 1 mg PO DAILY [facility] Last Admin: 04/09/17 10:24 Dose: 1 mg Doxycycline Hyclate 100 mg/ (Sodium Chloride) 100 mls @ 100 mls/hr IV Q12H [facility] Last Admin: 04/09/17 03:23 Dose: 100 mls/hr Levalbuterol HCl (Xopenex) 1.25 mg NEB Q4H PRN PRN Reason: Dyspnea Last Admin: 04/09/17 09:52 Dose: 1.25 mg Levalbuterol HCl (Xopenex Hfa) 0 gm INH Q4H PRN PRN Reason: Wheezing Lorazepam (Ativan) 0.5 mg PO Q2H PRN PRN Reason: Anxiety Last Admin: 04/09/17 11:04 Dose: 0.5 mg Magnesium Hydroxide (Milk Of Magnesia) 30 ml PO Q12H PRN PRN Reason: Constipation Methylprednisolone Sodium Succinate (Solu-Medrol) 40 mg IVPUSH Q6H [facility] Last Admin: 04/09/17 09:06 Dose: 40 mg Metoprolol Tartrate (Lopressor) 50 mg PO BID [facility] Last Admin: 04/09/17 09:10 Dose: 50 mg Mometasone Furoate/Formoterol Fumar (Dulera 200-5 Mcg) 2 puff IH BIDRT [facility] Last Admin: 04/09/17 09:57 Dose: 2 puff Nitroglycerin (Nitrostat) 0.4 mg SL Q5M PRN PRN Reason: Chest Pain Non-Formulary Medication (Nf Drug) 1 each EYEBOTH BID [facility] Ondansetron HCl (Zofran) 4 mg IV Q4H PRN PRN Reason: Nausea/Vomiting Oxycodone HCl (Oxycodone) 5 mg PO Q4H PRN PRN Reason: Pain (moderate 4-6) Paroxetine HCl (Paxil) 10 mg PO DAILY [facility] Last Admin: 04/09/17 09:07 Dose: 10 mg Polyethylene Glycol (Miralax) 17 gm PO DAILY PRN PRN Reason: Constipation Senna/Docusate Sodium (Senna Plus) 1 tab PO BID PRN PRN Reason: Constipation Sodium Chloride (Saline Flush) 10 ml FLUSH ASDIRECTED PRN PRN Reason: Keep Vein Open Discontinued Medications Albuterol (Proventil Neb Soln) 2.5 mg NEB ONETIME ONE Stop: 04/08/17 12:53 Last Admin: 04/08/17 12:58 Dose: 2.5 mg Sodium Chloride (Normal Saline) 1,000 mls @ 100 mls/hr IV ASDIRECTED [facility] Last Admin: 04/09/17 03:07 Dose: 100 mls/hr Lorazepam (Ativan) 0.5 mg PO Q6H PRN PRN Reason: Anxiety Last Admin: 04/09/17 01:03 Dose: 0.5 mg Lorazepam (Ativan) 0.5 mg IVPUSH ONETIME STA Stop: 04/09/17 06:27 Last Admin: 04/09/17 06:37 Dose: 0.5 mg Methylprednisolone Sodium Succinate (Solu-Medrol) 125 mg IVPUSH ONETIME ONE Stop: 04/08/17 14:03 Last Admin: 04/08/17 14:28 Dose: 125 mg - Exam Quality Assessment: Supplemental Oxygen, DVT Prophylaxis General: Alert, Oriented, Cooperative, Moderate Distress Lungs: Decreased Breath Sounds, Rhonchi, Wheezing. No: Crackles, Rales, Rub, Stridor Cardiovascular: Regular Rate, Regular Rhythm, No Murmurs GI/Abdominal Exam: Soft, Non-Tender, No Organomegaly, No Distention Extremities: Non-Tender, No Pedal Edema Skin: Warm, Dry, Intact - Problem List Review Problem List Initiated/Reviewed/Updated: Yes - My Orders Last 24 Hours: My Active Orders 04/08/17 14:23 Resuscitation Status Routine 04/08/17 15:27 Patient Status [ADT] Routine Ambulate [RC] QID Height and Weight [RC] DAILY Intake and Output [RC] QSHIFT Notify Provider Vital Signs [RC] PRN Oxygen Therapy [RC] PRN Peripheral IV Care [RC] . DIRECTED Pulse Oximetry [RC] CONTINUOUS RT Aerosol Therapy [RC] ASDIRECTED Up ad Tena [RC] ASDIRECTED Up to Chair [RC] QID Vital Signs [RC] Q4H CULTURE RESPIRATORY + SMEAR [RM] Stat Acetaminophen [Tylenol] 650 mg PO Q4H PRN Docusate Sodium/Sennosides [Senna Plus] 1 tab PO BID PRN Levalbuterol HCl [Xopenex] 1.25 mg NEB Q4H PRN Magnesium Hydroxide [Milk of Magnesia] 30 ml PO Q12H PRN Ondansetron [Zofran] 4 mg IV Q4H PRN Polyethylene Glycol 3350 [MiraLAX] 17 gm PO DAILY PRN Sodium Chloride 0.9% [Saline Flush] 10 ml FLUSH ASDIRECTED PRN oxyCODONE 5 mg PO Q4H PRN Peripheral IV Insertion Adult [OM.PC] Routine 04/08/17 16:00 Albuterol/Ipratropium [DuoNeb 3.0-0.5 MG/3 ML] 3 ml NEB QIDRT Doxycycline [Vibramycin] 100 mg Sodium Chloride 0.9% [Normal Saline] 100 ml IV Q12H 04/08/17 18:00 Enoxaparin [Lovenox] 40 mg SUBCUT Q24H 04/08/17 20:00 methylPREDNISolone Sod Succ [Solu-MEDROL] 40 mg IVPUSH Q6H 04/08/17 21:00 Mometasone/Formoterol [Dulera 200-5 MCG] 2 puff IH BIDRT atorvaSTATin [Lipitor] 80 mg PO BEDTIME 04/08/17 Lunch Regular Diet [DIET] 04/09/17 06:27 LORazepam [Ativan] 0.5 mg PO Q2H PRN 04/09/17 09:00 PARoxetine [Paxil] 10 mg PO DAILY 04/09/17 10:00 Folic Acid 1 mg PO DAILY 04/09/17 12:24 Convert IV to Saline Lock [OM.PC] Routine 04/09/17 21:00 Non-Formulary Medication [NF Drug] 1 each EYEBOTH BID - Plan Plan:: ASSESSMENT AND PLAN ACUTE ON CHRONIC RESPIRATORY FAILURE WITH HYPOXIA- not significantly improved since admission with ongoing shortness of breath and respiratory compromise -Supplemental oxygen as needed -Use of home ventilator system as needed -Sputum culture pending -Nebulizer therapy with Xopenex and duo nebs -Solu-Medrol 40 mg IV every 6 hours -Doxycycline 100 mg IV every 12 hours -Saline lock IV COPD EXACERBATION SECONDARY TO BRONCHITIS -Management as above CORONARY ARTERY DISEASE-status post angioplasty with stent placement in the past few months. Currently asymptomatic. -Continue outpatient medical regimen MAINTENANCE ISSUES -DVT prophylaxis; Lovenox 40 mg subcutaneous daily -GI prophylaxis; not indicated -Pederson catheter; not indicated -Nutrition; regular diet -Nicotine dependence; not required CODE STATUS-FULL CODE ADMISSION STATUS-patient will be admitted to inpatient status, expect at least a 2 night hospital stay for evaluation and management of problems as outlined above. At the time of this admission I do not reasonably expected evaluation and management of this problem will require more than a 96 hour hospital stay. DISPOSITION-anticipate discharge to home after the hospital stay. PRIMARY CARE PROVIDER-Dr. Santana
[2017-04-09] MEDS: Acetaminophen 325 MG Tab PO PRN ×2 (13:21→18:37)
[2017-04-09] MEDS: Enoxaparin 40 MG/0.4 ML Syringe SUBCUT SCH (17:32)
[2017-04-09] MEDS: Morphine 2 MG/ML Syringe IVPUSH PRN ×7 (18:38→23:05)
[2017-04-09] MEDS: Melatonin 3 MG Tab PO SCH (20:54)
[2017-04-09] MEDS: atorvaSTATin 20 MG Tab PO SCH (20:58)
[2017-04-09] MEDS: XIIDRA 5% EYEBOTH SCH (20:59)
[2017-04-09] MEDS: OPTH EYEBOTH SCH (20:59)
[2017-04-09] MEDS ORDERED: Non-Formulary Medication 1 Each EYEBOTH SCH (21:00)
[2017-04-10] MEDS: Morphine 2 MG/ML Syringe IVPUSH PRN ×8 (00:08→21:11)
[2017-04-10] MEDS: methylPREDNISolone Sodium Succinate 40 MG/1 ML SDV IVPUSH SCH ×4 (01:50→20:13)
[2017-04-10] MEDS: Levalbuterol HCl 1.25 MG/3 ML Neb NEB PRN (04:04)
[2017-04-10] MEDS: Doxycycline 100 MG in Sodium Chloride 0.9% 100 ML IV SCH (04:16)
[2017-04-10] MEDS: LORazepam 0.5 MG Tab PO PRN ×2 (04:18→07:22)
[2017-04-10] MEDS ORDERED: Cefepime 1 GM in Sodium Chloride 0.9% 50 ML IV SCH (07:00)
[2017-04-10] MEDS: Albuterol/Ipratropium 3.0-0.5 MG/3 ML Neb Soln NEB SCH ×4 (07:11→20:14)
[2017-04-10] MEDS: Formoterol/Mometasone 200-5 MCG 8.8 GM Inhaler IH SCH ×2 (07:11→20:14)
[2017-04-10] MEDS: Levofloxacin/Dextrose 5%-Water 750 MG in Premix Bag 1 BAG IV SCH (07:37)
[2017-04-10] MEDS ORDERED: Propofol 200 MG/20 ML SDV ONE (08:13)
[2017-04-10] MEDS ORDERED: Succinylcholine/Normal Saline 200 MG/10 ML Syringe ONE (08:13)
[2017-04-10] MEDS ORDERED: SODIUM CHLORIDE 0.9% IV SCH (08:15)
[2017-04-10] MEDS ORDERED: HEPARIN SODIUM IV SCH (08:15)
[2017-04-10] MEDS ORDERED: Lidocaine 1% 2 ML ONE (08:37)
--- NOTE | 2017-04-10 09:13 | CR ---
Portable chest Comparison: Previous day. The heart and vascular structures are stable. There are no infiltrates or effusions. Chronic bilatera l rib fractures are again noted. Impression: 1. No acute findings.
[2017-04-10] MEDS: Cefepime 1 GM in Sodium Chloride 0.9% 50 ML IV SCH ×3 (09:19→23:25)
[2017-04-10] MEDS: Folic Acid 1 MG Tab PO SCH (09:29)
[2017-04-10] MEDS: busPIRone 5 MG Tab PO SCH ×3 (09:29→20:14)
[2017-04-10] MEDS: Clopidogrel 75 MG Tab PO SCH (09:30)
[2017-04-10] MEDS: Metoprolol Tartrate 50 MG Tab PO SCH ×2 (09:30→20:15)
[2017-04-10] MEDS: PARoxetine 20 MG Tab PO SCH (09:30)
--- NOTE | 2017-04-10 09:37 | ANES ---
DATE OF SERVICE: 04/10/2017 TIME: 0815 hours. INDICATION: I was called to the intensive care unit by Dr. Clayton to evaluate Ms. Gamboa for intubation. She has been on BiPAP for a couple of days and not doing very well with a pH of about 7.1. I talked to the patient. She was aware enough to know the risks and benefits, and I did explain these to her. She agreed for an intubation and an arterial line. TECHNIQUE: I then placed her in the supine position. I gave her 100 mg of propofol along with 100 mg of succinylcholine. I intubated her with an 8.0 tube with a MAC 3. Positive end-tidal CO2 was obtained as well as bilateral breath sounds. The tape was secured by the respiratory therapy staff and hooked to the ventilator. I then put a 20-gauge left radial arterial line in. This had good waveform and good blood return. I then sutured it with 2-0 Prolene and secured it with Tegaderm and tape. She tolerated both procedures very nicely. Talat Rodriguez CRNA /[id number]
--- NOTE | 2017-04-10 10:39 | CR ---
Portable chest Comparison: Earlier same day. There has been interval placement of a endotracheal tube. The tube is positioned with the tip approxi mately 1.6 cm above the haroon. The lungs are hyperinflated. The heart and vascular structures are wi thin normal limits. There are no infiltrates or effusions. Impression: 1. Interval placement of endotracheal tube. 2. COPD. 3. No acute infiltrates.
[2017-04-10] MEDS: XIIDRA 5% EYEBOTH SCH ×2 (11:18→20:15)
[2017-04-10] MEDS: OPTH EYEBOTH SCH ×2 (11:18→20:15)
--- NOTE | 2017-04-10 11:52 | PCM.PN ---
- General Info Date of Service: 04/10/17 Subjective Update: Over the past 24 hours Ms. Gamboa experienced ongoing and progressive shortness of breath, with gradual decline in respiratory status. Early this morning she became significantly more short of breath, blood gases at that time showed development of respiratory acidosis. She had been using her home Trilogy ventilator, she was transferred to the intensive care unit and placed on BiPAP. After one hour of therapy with BiPAP blood gases were repeated and were even worse with progression of CO2 retention and respiratory acidosis. Decision was made at this time to proceed with intubation and mechanical ventilation, I discussed this with the patient and her and she agreed to proceed. Since intubation CO2 retention and respiratory acidosis have been slowly improving but are not yet within normal range. Chest x-ray was obtained and showed no obvious infiltrates. Antibiotic therapy was changed to cefepime and levofloxacin. Because of intubation and ongoing sedation she is unable to provide further information concerning symptoms or review of systems. - Patient Data Vitals - Most Recent: Last Vital Signs Temp 98.4 F 04/10/17 10:00 Pulse 103 H 04/10/17 11:00 Resp 20 04/10/17 11:00 BP 93/52 L 04/10/17 11:00 Pulse Ox 100 04/10/17 11:00 Weight - Most Recent: 110 lb 12.8 oz I&O - Last 24 Hours: Intake & Output 04/09/17 04/10/17 04/10/17 22:59 06:59 14:59 Intake Total 1400 924 150 Output Total 200 50 Balance 1200 874 150 Lab Results Last 24 Hours: Laboratory Results - last 24 hr 04/10/17 04/10/17 04/10/17 Range/Units 04:46 04:47 04:47 WBC 13.0 H (4.5-11.0) K/uL RBC 3.87 (3.30-5.50) M/uL Hgb 14.0 (12.0-15.0) g/dL Hct 44.4 (36.0-48.0) % MCV 115 H (80-98) fL MCH 36 H (27-31) pg MCHC 32 (32-36) % Plt Count 323 (150-400) K/uL Neut % (Auto) 94 H (36-66) % Lymph % (Auto) 2 L (24-44) % [place] % (Auto) 4 (2-6) % Eos % (Auto) 0 L (2-4) % Baso % (Auto) 0 (0-1) % Puncture Site Rt radial ABG pH 7.241 L (7.350-7.450) ABG pCO2 59.4 H (35.0-42.0) mmHg ABG pO2 98.2 (75.0-100.0) mmHg ABG HCO3 24.6 (22.0-26.0) mmol/L ABG Total CO2 22.6 (21.0-25.0) mmol/L ABG O2 Saturation 96.4 (95.0-98.0) % ABG O2 Content 18.6 (15.0-23.0) %vol ABG Base Excess -3.4 mm/L ABG Hemoglobin 13.9 (12.0-16.0) g/dL ABG Oxyhemoglobin 95.2 % ABG Carboxyhemoglobin 0.6 (0.0-1.6) % ABG Methemoglobin 0.6 % Shaun Test Passed O2 Delivery Device Bipap Oxygen Flow Rate 4 L Sodium 141 (140-148) mmol/L Potassium 4.2 (3.6-5.2) mmol/L Chloride 108 (100-108) mmol/L Carbon Dioxide 25 (21-32) mmol/L Anion Gap 8.2 (5.0-14.0) mmol/L BUN 14 D (7-18) mg/dL Creatinine 0.5 L (0.6-1.0) mg/dL Est Cr Clr Drug Dosing 77.35 mL/min Estimated GFR (MDRD) > 60 (>60) Glucose 149 H (74-106) mg/dL Calcium 8.2 L (8.5-10.1) mg/dL 04/10/17 04/10/17 04/10/17 Range/Units 08:00 09:15 11:00 WBC (4.5-11.0) K/uL RBC (3.30-5.50) M/uL Hgb (12.0-15.0) g/dL Hct (36.0-48.0) % MCV (80-98) fL MCH (27-31) pg MCHC (32-36) % Plt Count (150-400) K/uL Neut % (Auto) (36-66) % Lymph % (Auto) (24-44) % [place] % (Auto) (2-6) % Eos % (Auto) (2-4) % Baso % (Auto) (0-1) % Puncture Site Rt radial A-line A-line ABG pH 7.154 L* 7.172 L* 7.188 L* (7.350-7.450) ABG pCO2 79.6 H* 72.1 H* 70.4 H* (35.0-42.0) mmHg ABG pO2 127.0 H 239.0 H 263.0 H (75.0-100.0) mmHg ABG HCO3 26.8 H 25.4 25.8 (22.0-26.0) mmol/L ABG Total CO2 25.2 H 23.8 24.2 (21.0-25.0) mmol/L ABG O2 Saturation 97.6 99.2 H 99.2 H (95.0-98.0) % ABG O2 Content 19.3 19.5 18.9 (15.0-23.0) %vol ABG Base Excess -4.1 -4.6 -3.7 mm/L ABG Hemoglobin 14.1 13.8 13.3 (12.0-16.0) g/dL ABG Oxyhemoglobin 96.5 98.1 98.4 % ABG Carboxyhemoglobin 0.5 0.6 0.1 (0.0-1.6) % ABG Methemoglobin 0.6 0.5 0.7 % Shaun Test Passed A-line A-line O2 Delivery Device Bipap Ventilator Ventilator Oxygen Flow Rate L Sodium (140-148) mmol/L Potassium (3.6-5.2) mmol/L Chloride (100-108) mmol/L Carbon Dioxide (21-32) mmol/L Anion Gap (5.0-14.0) mmol/L BUN (7-18) mg/dL Creatinine (0.6-1.0) mg/dL Est Cr Clr Drug Dosing mL/min Estimated GFR (MDRD) (>60) Glucose (74-106) mg/dL Calcium (8.5-10.1) mg/dL Med Orders - Current: Current Medications Acetaminophen (Tylenol) 650 mg PO Q4H PRN PRN Reason: Pain (Mild 1-3)/fever Last Admin: 04/09/17 18:37 Dose: 650 mg Albuterol/Ipratropium (Duoneb 3.0-0.5 Mg/3 Ml) 3 ml NEB QIDRT [facility] Last Admin: 04/10/17 10:57 Dose: 3 ml Atorvastatin Calcium (Lipitor) 80 mg PO BEDTIME [facility] Last Admin: 04/09/17 20:58 Dose: 80 mg Buspirone HCl (Buspar) 5 mg PO TID [facility] Last Admin: 04/10/17 09:29 Dose: Not Given Clopidogrel Bisulfate (Plavix) 75 mg PO DAILY [facility] Last Admin: 04/10/17 09:30 Dose: Not Given Enoxaparin Sodium (Lovenox) 40 mg SUBCUT Q24H [facility] Last Admin: 04/09/17 17:32 Dose: 40 mg Folic Acid (Folic Acid) 1 mg PO DAILY [facility] Last Admin: 04/10/17 09:29 Dose: Not Given Levofloxacin/Dextrose 750 mg/ (Premix) 150 mls @ 100 mls/hr IV Q24H [facility] Last Admin: 04/10/17 07:37 Dose: 100 mls/hr Cefepime HCl 1 gm/ Sodium (Chloride) 50 mls @ 100 mls/hr IV Q8H [facility] Last Admin: 04/10/17 09:19 Dose: 100 mls/hr Heparin Sodium (Porcine) 1 (units/ Sodium Chloride) 500.0002 mls @ 0 mls/hr IV ASDIRECTED [facility] Last Admin: 04/10/17 09:18 Dose: 1 mls/hr Propofol (Diprivan 100 Ml) 100 mls @ 6.031 mls/hr IV TITRATE THEA; 20 MCG/KG/MIN PRN Reason: Protocol Last Titration: 04/10/17 10:32 Dose: 60 mcg/kg/min, 18.093 mls/hr Sodium Chloride (Normal Saline) 1,000 mls @ 75 mls/hr IV ASDIRECTED [facility] Levalbuterol HCl (Xopenex) 1.25 mg NEB Q4H PRN PRN Reason: Dyspnea Last Admin: 04/10/17 04:04 Dose: 1.25 mg Levalbuterol HCl (Xopenex Hfa) 0 gm INH Q4H PRN PRN Reason: Wheezing Lorazepam (Ativan) 0.5 mg PO Q2H PRN PRN Reason: Anxiety Last Admin: 04/10/17 07:22 Dose: 0.5 mg Magnesium Hydroxide (Milk Of Magnesia) 30 ml PO Q12H PRN PRN Reason: Constipation Melatonin (Melatonin) 9 mg PO BEDTIME [facility] Last Admin: 04/09/17 20:54 Dose: 9 mg Methylprednisolone Sodium Succinate (Solu-Medrol) 40 mg IVPUSH Q6H [facility] Last Admin: 04/10/17 07:34 Dose: 40 mg Metoprolol Tartrate (Lopressor) 50 mg PO BID [facility] Last Admin: 04/10/17 09:30 Dose: Not Given Mometasone Furoate/Formoterol Fumar (Dulera 200-5 Mcg) 2 puff IH BIDRT [facility] Last Admin: 04/10/17 07:11 Dose: Not Given Morphine Sulfate (Morphine) 2 mg IVPUSH Q30M PRN PRN Reason: Shortness of Breath Last Admin: 04/10/17 09:32 Dose: 2 mg Nitroglycerin (Nitrostat) 0.4 mg SL Q5M PRN PRN Reason: Chest Pain Ondansetron HCl (Zofran) 4 mg IV Q4H PRN PRN Reason: Nausea/Vomiting Oxycodone HCl (Oxycodone) 5 mg PO Q4H PRN PRN Reason: Pain (moderate 4-6) Pantoprazole Sodium (Protonix Iv) 40 mg IVPUSH DAILY [facility] Paroxetine HCl (Paxil) 10 mg PO DAILY [facility] Last Admin: 04/10/17 09:30 Dose: Not Given Xiidra 5% Opth Soln ((Ptom)) 0 each EYEBOTH BID [facility] Last Admin: 04/10/17 11:18 Dose: 1 each Polyethylene Glycol (Miralax) 17 gm PO DAILY PRN PRN Reason: Constipation Senna/Docusate Sodium (Senna Plus) 1 tab PO BID PRN PRN Reason: Constipation Sodium Chloride (Saline Flush) 10 ml FLUSH ASDIRECTED PRN PRN Reason: Keep Vein Open Last Admin: 04/09/17 13:25 Dose: 10 ml Discontinued Medications Albuterol (Proventil Neb Soln) 2.5 mg NEB ONETIME ONE Stop: 04/08/17 12:53 Last Admin: 04/08/17 12:58 Dose: 2.5 mg Doxycycline Hyclate 100 mg/ (Sodium Chloride) 100 mls @ 100 mls/hr IV Q12H [facility] Last Admin: 04/10/17 04:16 Dose: 100 mls/hr Sodium Chloride (Normal Saline) 1,000 mls @ 100 mls/hr IV ASDIRECTED [facility] Last Admin: 04/09/17 03:07 Dose: 100 mls/hr Cefepime HCl 1 gm/ Sodium (Chloride) 50 mls @ 100 mls/hr IV Q8H [facility] Last Admin: 04/10/17 07:51 Dose: Not Given Propofol (Diprivan 100 Ml) Confirm Administered Dose 100 mls @ as directed .ROUTE .STK-MED ONE Stop: 04/10/17 08:16 Last Admin: 04/10/17 09:21 Dose: Not Given Lidocaine HCl (Xylocaine-Mpf 1%) Confirm Administered Dose 2 mls @ as directed .ROUTE .STK-MED ONE Stop: 04/10/17 08:38 Lorazepam (Ativan) 0.5 mg PO Q6H PRN PRN Reason: Anxiety Last Admin: 04/09/17 01:03 Dose: 0.5 mg Lorazepam (Ativan) 0.5 mg IVPUSH ONETIME STA Stop: 04/09/17 06:27 Last Admin: 04/09/17 06:37 Dose: 0.5 mg Methylprednisolone Sodium Succinate (Solu-Medrol) 125 mg IVPUSH ONETIME ONE Stop: 04/08/17 14:03 Last Admin: 04/08/17 14:28 Dose: 125 mg Propofol (Diprivan 20 Ml) Confirm Administered Dose 200 mg .ROUTE .STK-MED ONE Stop: 04/10/17 08:14 Succinylcholine Chloride (Succinylcholine In Ns Pf) Confirm Administered Dose 200 mg .ROUTE .STK-MED ONE Stop: 04/10/17 08:14 - Exam Quality Assessment: Supplemental Oxygen (Ventilator), Urine Catheter, DVT Prophylaxis General: Sedated, Lethargic Neck: Supple, Trachea Midline Lungs: Decreased Breath Sounds, Wheezing. No: Crackles, Rales, Rhonchi, Rub, Stridor Cardiovascular: Regular Rate, Regular Rhythm, No Murmurs GI/Abdominal Exam: Soft, Non-Tender, No Organomegaly, No Distention Extremities: Non-Tender, No Pedal Edema Skin: Warm, Dry, Intact - Problem List Review Problem List Initiated/Reviewed/Updated: Yes - My Orders Last 24 Hours: My Active Orders 04/09/17 12:24 Convert IV to Saline Lock [OM.PC] Routine 04/09/17 18:18 Morphine 2 mg IVPUSH Q30M PRN 04/09/17 21:00 Melatonin 9 mg PO BEDTIME Patient's Own Medication [Ptom] 0 each EYEBOTH BID 04/10/17 07:00 Levofloxacin/Dextrose 5%-Water [Levaquin in D5W 750 MG/150 ML] 750 mg Premix Bag 1 bag IV Q24H 04/10/17 08:00 Cefepime [Maxipime] 1 gm Sodium Chloride 0.9% [Normal Saline] 50 ml IV Q8H 04/10/17 08:15 Heparin Sodium 1 units Sodium Chloride 0.9% [Normal Saline] 500 ml IV ASDIRECTED 04/10/17 08:35 RT Ventilator, Adult [RC] ASDIRECTED Restraint Initiate Non-VIOL/Non-SD [OM.PC] Stat 04/10/17 08:41 Desired Level of Sedation (RASS) [AST] Click to Edit 04/10/17 08:45 Propofol [Diprivan 100 ML] 100 ml IV TITRATE Restraint Monitoring Non-VIOL/Non-SD [OM.PC] Daily 04/10/17 11:45 Pantoprazole [ProTONIX IV] 40 mg IVPUSH DAILY Sodium Chloride 0.9% @ 75 MLS/HR(1000ml) Sodium Chloride 0.9% [Normal Saline] 1 ,000 ml IV ASDIRECTED 04/10/17 17:00 BASIC METABOLIC PANEL,BMP [CHEM] Stat BLOOD GAS ARTERIAL [BG] Stat 04/10/17 Breakfast NPO [Nothing Per Oral Diet] [DIET] 04/11/17 05:00 Chest 1V Frontal [CR] DAILY BASIC METABOLIC PANEL,BMP [CHEM] Timed BLOOD GAS ARTERIAL [BG] Timed CBC WITH AUTO DIFF [HEME] Timed MAGNESIUM [CHEM] Timed 04/11/17 08:45 Restraint Monitoring Non-VIOL/Non-SD [OM.PC] Daily 04/12/17 05:00 Chest 1V Frontal [CR] DAILY 04/13/17 05:00 Chest 1V Frontal [CR] DAILY 04/14/17 05:00 Chest 1V Frontal [CR] DAILY 04/15/17 05:00 Chest 1V Frontal [CR] DAILY - Plan Plan:: ASSESSMENT AND PLAN ACUTE ON CHRONIC RESPIRATORY FAILURE WITH HYPOXIA AND HYPERCAPNIA-progressive respiratory decline with development of CO2 retention and respiratory acidosis. Unresponsive to ongoing therapy or switch to noninvasive positive pressure ventilation with BiPAP. She is status post intubation and has been started on mechanical ventilation; assist-control rate of 20, FiO2 of 50%, PEEP of 5, tidal volume of 350. -Follow-up ABGs and BMP later this afternoon -Sputum culture pending -Nebulizer therapy with Xopenex and duo nebs -Solu-Medrol 40 mg IV every 6 hours -Cefepime and levofloxacin -Normal saline 75 mL per hour for maintenance hydration COPD EXACERBATION SECONDARY TO BRONCHITIS -Management as above CORONARY ARTERY DISEASE-status post angioplasty with stent placement in the past few months. Currently asymptomatic. -Continue outpatient medical regimen MAINTENANCE ISSUES -DVT prophylaxis; Lovenox 40 mg subcutaneous daily -GI prophylaxis; Protonix 40 mg IV daily -Pederson catheter; placed to monitor urine output -Nutrition; nothing by mouth -Nicotine dependence; not required CODE STATUS-FULL CODE ADMISSION STATUS-patient will be admitted to inpatient status, expect at least a 2 night hospital stay for evaluation and management of problems as outlined above. At the time of this admission I do not reasonably expected evaluation and management of this problem will require more than a 96 hour hospital stay. DISPOSITION-anticipate discharge to home after the hospital stay. PRIMARY CARE PROVIDER-Dr. Santana
[2017-04-10] MEDS: Pantoprazole 40 MG Vial IVPUSH SCH (13:34)
[2017-04-10] MEDS: Sodium Chloride 0.9% 1,000 ML IV SCH ×2 (15:21→21:06)
[2017-04-10] MEDS: Enoxaparin 40 MG/0.4 ML Syringe SUBCUT SCH (17:22)
[2017-04-10] MEDS ORDERED: LORazepam 2 MG/ML MDV IVPUSH PRN (17:42)
[2017-04-10] MEDS: atorvaSTATin 20 MG Tab PO SCH (20:15)
[2017-04-10] MEDS: Melatonin 3 MG Tab PO SCH (20:15)
[2017-04-11] MEDS: methylPREDNISolone Sodium Succinate 40 MG/1 ML SDV IVPUSH SCH ×4 (02:24→20:35)
[2017-04-11] MEDS: Morphine 2 MG/ML Syringe IVPUSH PRN ×6 (03:17→22:06)
[2017-04-11] MEDS: Levofloxacin/Dextrose 5%-Water 750 MG in Premix Bag 1 BAG IV SCH (06:29)
[2017-04-11] MEDS: Albuterol/Ipratropium 3.0-0.5 MG/3 ML Neb Soln NEB SCH ×4 (07:12→21:01)
[2017-04-11] MEDS: Formoterol/Mometasone 200-5 MCG 8.8 GM Inhaler IH SCH ×2 (07:14→20:52)
[2017-04-11] MEDS ORDERED: Sodium Chloride 0.9% 1,000 ML IV SCH (08:15)
[2017-04-11] MEDS: Cefepime 1 GM in Sodium Chloride 0.9% 50 ML IV SCH ×3 (08:29→23:34)
[2017-04-11] MEDS: busPIRone 5 MG Tab PO SCH ×3 (08:30→20:52)
[2017-04-11] MEDS: Metoprolol Tartrate 50 MG Tab PO SCH ×2 (08:30→20:53)
[2017-04-11] MEDS: PARoxetine 20 MG Tab PO SCH (08:30)
[2017-04-11] MEDS: Folic Acid 1 MG Tab PO SCH (08:30)
[2017-04-11] MEDS ORDERED: Furosemide 20 MG/2 ML VIAL IVPUSH ONE (08:30)
[2017-04-11] MEDS: Clopidogrel 75 MG Tab PO SCH (08:31)
[2017-04-11] MEDS: Pantoprazole 40 MG Vial IVPUSH SCH (09:06)
--- NOTE | 2017-04-11 09:09 | PCM.PN ---
- General Info Date of Service: 04/11/17 Subjective Update: Eleanor has remained fairly stable since yesterday, CO2 level does rise if she is over oxygenated. Currently receiving sedation because of ongoing difficulty with anxiety. Vital signs have been within desired range and she has remained afebrile. Unable to provide significant information concerning current symptoms are review systems because of sedation and intubation. - Patient Data Vitals - Most Recent: Last Vital Signs Temp 96.7 F 04/11/17 06:00 Pulse 99 04/11/17 07:13 Resp 20 04/11/17 07:00 BP 144/70 H 04/11/17 07:00 Pulse Ox 98 04/11/17 07:00 Weight - Most Recent: 110 lb 12.8 oz I&O - Last 24 Hours: Intake & Output 04/10/17 04/11/17 04/11/17 22:59 06:59 14:59 Intake Total 50 1527 Output Total 75 750 Balance -25 777 Lab Results Last 24 Hours: Laboratory Results - last 24 hr 04/10/17 04/10/17 04/10/17 Range/Units 09:15 11:00 17:00 WBC (4.5-11.0) K/uL RBC (3.30-5.50) M/uL Hgb (12.0-15.0) g/dL Hct (36.0-48.0) % MCV (80-98) fL MCH (27-31) pg MCHC (32-36) % Plt Count (150-400) K/uL Neut % (Auto) (36-66) % Lymph % (Auto) (24-44) % Glynn % (Auto) (2-6) % Eos % (Auto) (2-4) % Baso % (Auto) (0-1) % Puncture Site A-line A-line A-line ABG pH 7.172 L* 7.188 L* 7.296 L (7.350-7.450) ABG pCO2 72.1 H* 70.4 H* 49.6 H (35.0-42.0) mmHg ABG pO2 239.0 H 263.0 H 76.3 (75.0-100.0) mmHg ABG HCO3 25.4 25.8 23.4 (22.0-26.0) mmol/L ABG Total CO2 23.8 24.2 21.8 (21.0-25.0) mmol/L ABG O2 Saturation 99.2 H 99.2 H 94.6 L (95.0-98.0) % ABG O2 Content 19.5 18.9 15.5 (15.0-23.0) %vol ABG Base Excess -4.6 -3.7 -2.8 mm/L ABG Hemoglobin 13.8 13.3 11.8 L (12.0-16.0) g/dL ABG Oxyhemoglobin 98.1 98.4 93.2 % ABG Carboxyhemoglobin 0.6 0.1 0.9 (0.0-1.6) % ABG Methemoglobin 0.5 0.7 0.6 % Shaun Test A-line A-line A-line O2 Delivery Device Ventilator Ventilator Ventilator Oxygen Flow Rate L Sodium (140-148) mmol/L Potassium (3.6-5.2) mmol/L Chloride (100-108) mmol/L Carbon Dioxide (21-32) mmol/L Anion Gap (5.0-14.0) mmol/L BUN (7-18) mg/dL Creatinine (0.6-1.0) mg/dL Est Cr Clr Drug Dosing mL/min Estimated GFR (MDRD) (>60) Glucose (74-106) mg/dL Calcium (8.5-10.1) mg/dL Magnesium (1.8-2.4) mg/dL 04/10/17 04/11/17 04/11/17 Range/Units 17:00 05:00 05:05 WBC 9.5 (4.5-11.0) K/uL RBC 3.44 (3.30-5.50) M/uL Hgb 12.5 (12.0-15.0) g/dL Hct 40.3 (36.0-48.0) % MCV 117 H (80-98) fL MCH 36 H (27-31) pg MCHC 31 L (32-36) % Plt Count 232 (150-400) K/uL Neut % (Auto) 93 H (36-66) % Lymph % (Auto) 2 L (24-44) % Glynn % (Auto) 6 (2-6) % Eos % (Auto) 0 L (2-4) % Baso % (Auto) 0 (0-1) % Puncture Site A-line ABG pH 7.264 L (7.350-7.450) ABG pCO2 56.1 H (35.0-42.0) mmHg ABG pO2 105.0 H (75.0-100.0) mmHg ABG HCO3 24.5 (22.0-26.0) mmol/L ABG Total CO2 22.8 (21.0-25.0) mmol/L ABG O2 Saturation 97.4 (95.0-98.0) % ABG O2 Content 17.0 (15.0-23.0) %vol ABG Base Excess -2.7 mm/L ABG Hemoglobin 12.6 (12.0-16.0) g/dL ABG Oxyhemoglobin 95.5 % ABG Carboxyhemoglobin 1.2 (0.0-1.6) % ABG Methemoglobin 0.7 % Shaun Test A-line O2 Delivery Device Ventilator Oxygen Flow Rate L Sodium 140 (140-148) mmol/L Potassium 4.1 (3.6-5.2) mmol/L Chloride 109 H (100-108) mmol/L Carbon Dioxide 23 (21-32) mmol/L Anion Gap 12.1 (5.0-14.0) mmol/L BUN 17 (7-18) mg/dL Creatinine 0.5 L (0.6-1.0) mg/dL Est Cr Clr Drug Dosing 77.35 mL/min Estimated GFR (MDRD) > 60 (>60) Glucose 122 H (74-106) mg/dL Calcium 8.4 L (8.5-10.1) mg/dL Magnesium (1.8-2.4) mg/dL 04/11/17 Range/Units 05:05 WBC (4.5-11.0) K/uL RBC (3.30-5.50) M/uL Hgb (12.0-15.0) g/dL Hct (36.0-48.0) % MCV (80-98) fL MCH (27-31) pg MCHC (32-36) % Plt Count (150-400) K/uL Neut % (Auto) (36-66) % Lymph % (Auto) (24-44) % Glynn % (Auto) (2-6) % Eos % (Auto) (2-4) % Baso % (Auto) (0-1) % Puncture Site ABG pH (7.350-7.450) ABG pCO2 (35.0-42.0) mmHg ABG pO2 (75.0-100.0) mmHg ABG HCO3 (22.0-26.0) mmol/L ABG Total CO2 (21.0-25.0) mmol/L ABG O2 Saturation (95.0-98.0) % ABG O2 Content (15.0-23.0) %vol ABG Base Excess mm/L ABG Hemoglobin (12.0-16.0) g/dL ABG Oxyhemoglobin % ABG Carboxyhemoglobin (0.0-1.6) % ABG Methemoglobin % Shaun Test O2 Delivery Device Oxygen Flow Rate L Sodium 142 (140-148) mmol/L Potassium 4.0 (3.6-5.2) mmol/L Chloride 111 H (100-108) mmol/L Carbon Dioxide 26 (21-32) mmol/L Anion Gap 9.0 (5.0-14.0) mmol/L BUN 13 (7-18) mg/dL Creatinine 0.5 L (0.6-1.0) mg/dL Est Cr Clr Drug Dosing 77.35 mL/min Estimated GFR (MDRD) > 60 (>60) Glucose 138 H (74-106) mg/dL Calcium 7.9 L (8.5-10.1) mg/dL Magnesium 2.2 D (1.8-2.4) mg/dL Med Orders - Current: Current Medications Acetaminophen (Tylenol) 650 mg PO Q4H PRN PRN Reason: Pain (Mild 1-3)/fever Last Admin: 04/09/17 18:37 Dose: 650 mg Albuterol/Ipratropium (Duoneb 3.0-0.5 Mg/3 Ml) 3 ml NEB QIDRT [facility] Last Admin: 04/11/17 07:12 Dose: 3 ml Atorvastatin Calcium (Lipitor) 80 mg PO BEDTIME [facility] Last Admin: 04/10/17 20:15 Dose: Not Given Buspirone HCl (Buspar) 5 mg PO TID [facility] Last Admin: 04/11/17 08:30 Dose: Not Given Clopidogrel Bisulfate (Plavix) 75 mg PO DAILY [facility] Last Admin: 04/11/17 08:31 Dose: Not Given Enoxaparin Sodium (Lovenox) 40 mg SUBCUT Q24H [facility] Last Admin: 04/10/17 17:22 Dose: 40 mg Folic Acid (Folic Acid) 1 mg PO DAILY [facility] Last Admin: 04/11/17 08:30 Dose: Not Given Levofloxacin/Dextrose 750 mg/ (Premix) 150 mls @ 100 mls/hr IV Q24H [facility] Last Admin: 04/11/17 06:29 Dose: 100 mls/hr Cefepime HCl 1 gm/ Sodium (Chloride) 50 mls @ 100 mls/hr IV Q8H [facility] Last Admin: 04/11/17 08:29 Dose: 100 mls/hr Heparin Sodium (Porcine) 1 (units/ Sodium Chloride) 500.0002 mls @ 0 mls/hr IV ASDIRECTED [facility] Last Admin: 04/10/17 09:18 Dose: 1 mls/hr Propofol (Diprivan 100 Ml) 100 mls @ 6.031 mls/hr IV TITRATE THEA; 20 MCG/KG/MIN PRN Reason: Protocol Last Admin: 04/11/17 08:38 Dose: 60 mcg/kg/min, 18.093 mls/hr Sodium Chloride (Normal Saline) 1,000 mls @ 25 mls/hr IV ASDIRECTED [facility] Levalbuterol HCl (Xopenex) 1.25 mg NEB Q4H PRN PRN Reason: Dyspnea Last Admin: 04/10/17 04:04 Dose: 1.25 mg Levalbuterol HCl (Xopenex Hfa) 0 gm INH Q4H PRN PRN Reason: Wheezing Lorazepam (Ativan) 0.5 mg PO Q2H PRN PRN Reason: Anxiety Last Admin: 04/10/17 07:22 Dose: 0.5 mg Lorazepam (Ativan) 0.5 mg IVPUSH Q2H PRN PRN Reason: Anxiety Magnesium Hydroxide (Milk Of Magnesia) 30 ml PO Q12H PRN PRN Reason: Constipation Melatonin (Melatonin) 9 mg PO BEDTIME [facility] Last Admin: 04/10/17 20:15 Dose: Not Given Methylprednisolone Sodium Succinate (Solu-Medrol) 40 mg IVPUSH Q6H [facility] Last Admin: 04/11/17 08:29 Dose: 40 mg Metoprolol Tartrate (Lopressor) 50 mg PO BID [facility] Last Admin: 04/11/17 08:30 Dose: Not Given Mometasone Furoate/Formoterol Fumar (Dulera 200-5 Mcg) 2 puff IH BIDRT [facility] Last Admin: 04/11/17 07:14 Dose: Not Given Morphine Sulfate (Morphine) 2 mg IVPUSH Q30M PRN PRN Reason: Shortness of Breath Last Admin: 04/11/17 09:00 Dose: 2 mg Nitroglycerin (Nitrostat) 0.4 mg SL Q5M PRN PRN Reason: Chest Pain Ondansetron HCl (Zofran) 4 mg IV Q4H PRN PRN Reason: Nausea/Vomiting Oxycodone HCl (Oxycodone) 5 mg PO Q4H PRN PRN Reason: Pain (moderate 4-6) Pantoprazole Sodium (Protonix Iv) 40 mg IVPUSH DAILY [facility] Last Admin: 04/11/17 09:06 Dose: 40 mg Paroxetine HCl (Paxil) 10 mg PO DAILY [facility] Last Admin: 04/11/17 08:30 Dose: Not Given Xiidra 5% Opth Soln ((Ptom)) 0 each EYEBOTH BID [facility] Last Admin: 04/10/17 20:15 Dose: 1 each Polyethylene Glycol (Miralax) 17 gm PO DAILY PRN PRN Reason: Constipation Senna/Docusate Sodium (Senna Plus) 1 tab PO BID PRN PRN Reason: Constipation Sodium Chloride (Saline Flush) 10 ml FLUSH ASDIRECTED PRN PRN Reason: Keep Vein Open Last Admin: 04/09/17 13:25 Dose: 10 ml Discontinued Medications Albuterol (Proventil Neb Soln) 2.5 mg NEB ONETIME ONE Stop: 04/08/17 12:53 Last Admin: 04/08/17 12:58 Dose: 2.5 mg Furosemide (Lasix) 20 mg IVPUSH NOW ONE Stop: 04/11/17 08:31 Last Admin: 04/11/17 09:06 Dose: 20 mg Doxycycline Hyclate 100 mg/ (Sodium Chloride) 100 mls @ 100 mls/hr IV Q12H [facility] Last Admin: 04/10/17 04:16 Dose: 100 mls/hr Sodium Chloride (Normal Saline) 1,000 mls @ 100 mls/hr IV ASDIRECTED [facility] Last Admin: 04/09/17 03:07 Dose: 100 mls/hr Cefepime HCl 1 gm/ Sodium (Chloride) 50 mls @ 100 mls/hr IV Q8H [facility] Last Admin: 04/10/17 07:51 Dose: Not Given Propofol (Diprivan 100 Ml) Confirm Administered Dose 100 mls @ as directed .ROUTE .STK-MED ONE Stop: 04/10/17 08:16 Last Admin: 04/10/17 09:21 Dose: Not Given Lidocaine HCl (Xylocaine-Mpf 1%) Confirm Administered Dose 2 mls @ as directed .ROUTE .STK-MED ONE Stop: 04/10/17 08:38 Sodium Chloride (Normal Saline) 1,000 mls @ 75 mls/hr IV ASDIRECTED [facility] Last Admin: 04/10/17 21:06 Dose: 75 mls/hr Lorazepam (Ativan) 0.5 mg PO Q6H PRN PRN Reason: Anxiety Last Admin: 04/09/17 01:03 Dose: 0.5 mg Lorazepam (Ativan) 0.5 mg IVPUSH ONETIME STA Stop: 04/09/17 06:27 Last Admin: 04/09/17 06:37 Dose: 0.5 mg Methylprednisolone Sodium Succinate (Solu-Medrol) 125 mg IVPUSH ONETIME ONE Stop: 04/08/17 14:03 Last Admin: 04/08/17 14:28 Dose: 125 mg Propofol (Diprivan 20 Ml) Confirm Administered Dose 200 mg .ROUTE .STK-MED ONE Stop: 04/10/17 08:14 Succinylcholine Chloride (Succinylcholine In Ns Pf) Confirm Administered Dose 200 mg .ROUTE .STK-MED ONE Stop: 04/10/17 08:14 - Exam Quality Assessment: Supplemental Oxygen (Ventilator), Urine Catheter, DVT Prophylaxis General: Sedated, Lethargic Lungs: Decreased Breath Sounds. No: Rales, Rhonchi, Wheezing Cardiovascular: Regular Rate, Regular Rhythm, No Murmurs GI/Abdominal Exam: Soft, Non-Tender, No Organomegaly, No Distention Extremities: Non-Tender, No Pedal Edema Skin: Warm, Dry - Problem List Review Problem List Initiated/Reviewed/Updated: Yes - My Orders Last 24 Hours: My Active Orders 04/10/17 08:15 Heparin Sodium 1 units Sodium Chloride 0.9% [Normal Saline] 500 ml IV ASDIRECTED 04/10/17 08:35 RT Ventilator, Adult [RC] Q2H Restraint Initiate Non-VIOL/Non-SD [OM.PC] Stat 04/10/17 08:41 Desired Level of Sedation (RASS) [AST] Click to Edit 04/10/17 08:45 Propofol [Diprivan 100 ML] 100 ml IV TITRATE Restraint Monitoring Non-VIOL/Non-SD [OM.PC] Daily 04/10/17 13:00 Pantoprazole [ProTONIX IV] 40 mg IVPUSH DAILY 04/10/17 17:42 LORazepam [Ativan] 0.5 mg IVPUSH Q2H PRN 04/11/17 05:00 Chest 1V Frontal [CR] DAILY 04/11/17 08:15 Sodium Chloride 0.9% [Normal Saline] 1,000 ml IV ASDIRECTED 04/11/17 08:45 Restraint Monitoring Non-VIOL/Non-SD [OM.PC] Daily 04/11/17 17:00 BASIC METABOLIC PANEL,BMP [CHEM] Stat BLOOD GAS ARTERIAL [BG] Stat 04/12/17 05:00 Chest 1V Frontal [CR] DAILY BASIC METABOLIC PANEL,BMP [CHEM] Timed BLOOD GAS ARTERIAL [BG] Timed CBC WITH AUTO DIFF [HEME] Timed MAGNESIUM [CHEM] Timed 04/13/17 05:00 Chest 1V Frontal [CR] DAILY 04/14/17 05:00 Chest 1V Frontal [CR] DAILY 04/15/17 05:00 Chest 1V Frontal [CR] DAILY - Plan Plan:: ASSESSMENT AND PLAN ACUTE ON CHRONIC RESPIRATORY FAILURE WITH HYPOXIA AND HYPERCAPNIA-stable since intubation yesterday, continues to experience CO2 retention especially with higher PO2 levels. Chest x-ray from this morning shows appropriate position of the endotracheal tube, but development of bilateral pleural effusions. -Furosemide 20 mg IV now -Follow-up ABGs and BMP later this afternoon -Sputum culture pending -Nebulizer therapy with Xopenex and duo nebs -Solu-Medrol 40 mg IV every 6 hours -Cefepime and levofloxacin -Normal saline 25 mL per hour for maintenance hydration -Plan for possible spontaneous breathing trial tomorrow morning COPD EXACERBATION SECONDARY TO BRONCHITIS -Management as above CORONARY ARTERY DISEASE-status post angioplasty with stent placement in the past few months. Currently asymptomatic. -Continue outpatient medical regimen MAINTENANCE ISSUES -DVT prophylaxis; Lovenox 40 mg subcutaneous daily -GI prophylaxis; Protonix 40 mg IV daily -Pederson catheter; placed to monitor urine output -Nutrition; nothing by mouth -Nicotine dependence; not required CODE STATUS-FULL CODE ADMISSION STATUS-patient will be admitted to inpatient status, expect at least a 2 night hospital stay for evaluation and management of problems as outlined above. At the time of this admission I do not reasonably expected evaluation and management of this problem will require more than a 96 hour hospital stay. DISPOSITION-anticipate discharge to home after the hospital stay. PRIMARY CARE PROVIDER-Dr. Santana
[2017-04-11] MEDS: OPTH EYEBOTH SCH ×2 (09:58→22:01)
[2017-04-11] MEDS: XIIDRA 5% EYEBOTH SCH ×2 (09:58→22:01)
--- NOTE | 2017-04-11 11:04 | CR ---
Portable chest Comparison: Previous day. The endotracheal tube is in good position. There is increased hyperinflation consistent with COPD. Th e heart and vascular structures are stable. There are no infiltrates or effusions. Impression: 1. Endotracheal tube in good position. 2. COPD.
[2017-04-11] MEDS: Enoxaparin 40 MG/0.4 ML Syringe SUBCUT SCH (17:56)
[2017-04-11] MEDS: Potassium Chloride 20 MEQ in Premix Bag 1 BAG IV SCH ×2 (18:36→20:49)
[2017-04-11] MEDS: Lidocaine 1% 50 ML MDV INJECT SCH ×2 (18:36→20:51)
[2017-04-11] MEDS: atorvaSTATin 20 MG Tab PO SCH (20:53)
[2017-04-11] MEDS: Melatonin 3 MG Tab PO SCH (20:53)
[2017-04-12] MEDS: Morphine 2 MG/ML Syringe IVPUSH PRN ×8 (01:26→23:42)
[2017-04-12] MEDS: methylPREDNISolone Sodium Succinate 40 MG/1 ML SDV IVPUSH SCH ×3 (02:16→18:36)
[2017-04-12] MEDS: Albuterol/Ipratropium 3.0-0.5 MG/3 ML Neb Soln NEB SCH ×4 (07:52→20:55)
[2017-04-12] MEDS: Levofloxacin/Dextrose 5%-Water 750 MG in Premix Bag 1 BAG IV SCH (07:56)
[2017-04-12] MEDS: Formoterol/Mometasone 200-5 MCG 8.8 GM Inhaler IH SCH ×2 (07:57→23:42)
[2017-04-12] MEDS: Pantoprazole 40 MG Vial IVPUSH SCH (08:02)
[2017-04-12] MEDS: Cefepime 1 GM in Sodium Chloride 0.9% 50 ML IV SCH (08:17)
[2017-04-12] MEDS: PARoxetine 20 MG Tab PO SCH (08:17)
[2017-04-12] MEDS: busPIRone 5 MG Tab PO SCH ×2 (08:17→13:57)
[2017-04-12] MEDS: Folic Acid 1 MG Tab PO SCH ×2 (08:17→18:35)
[2017-04-12] MEDS: Clopidogrel 75 MG Tab PO SCH ×2 (08:17→18:35)
[2017-04-12] MEDS ORDERED: Furosemide 20 MG/2 ML VIAL IVPUSH ONE (08:19)
[2017-04-12] MEDS: Potassium Chloride 20 MEQ, Lidocaine 1% 2 ML in Sodium Chloride 0.9% 100 ML IV SCH ×2 (08:55→12:31)
[2017-04-12] MEDS: Metoprolol Tartrate 50 MG Tab PO SCH ×2 (08:58→20:54)
--- NOTE | 2017-04-12 09:23 | CR ---
Portable chest Comparison: Previous day. The endotracheal tube is unchanged in position. There is hyperinflation consistent with COPD. There a re no infiltrates or effusions. The heart and vascular structures are within normal limits. Impression: 1. No interval change.
--- NOTE | 2017-04-12 09:36 | PCM.PN ---
- General Info Date of Service: 04/12/17 Subjective Update: Eleanor continues to require ongoing sedation, as sedation is decreased heart rate increases in blood pressure goes up. Continues to tolerate a relatively low level of FiO2, she has been afebrile. Currently receiving IV sedation and is unable to provide significant information concerning symptoms or review of systems. - Patient Data Vitals - Most Recent: Last Vital Signs Temp 98.1 F 04/12/17 04:00 Pulse 107 H 04/12/17 08:00 Resp 16 04/12/17 08:00 BP 179/86 H 04/12/17 08:00 Pulse Ox 91 L 04/12/17 08:00 Weight - Most Recent: 137 lb 3.2 oz I&O - Last 24 Hours: Intake & Output 04/11/17 04/12/17 04/12/17 22:59 06:59 14:59 Intake Total 935 940 Output Total 175 75 Balance 760 940 -75 Lab Results Last 24 Hours: Laboratory Results - last 24 hr 04/11/17 04/11/17 04/12/17 Range/Units 17:00 17:00 05:00 WBC 6.1 (4.5-11.0) K/uL RBC 3.29 L (3.30-5.50) M/uL Hgb 12.0 (12.0-15.0) g/dL Hct 38.3 (36.0-48.0) % MCV 116 H (80-98) fL MCH 37 H (27-31) pg MCHC 31 L (32-36) % Plt Count 214 (150-400) K/uL Neut % (Auto) 92 H (36-66) % Lymph % (Auto) 2 L (24-44) % [place] % (Auto) 6 (2-6) % Eos % (Auto) 0 L (2-4) % Baso % (Auto) 0 (0-1) % Puncture Site Line ABG pH 7.359 (7.350-7.450) ABG pCO2 49.0 H (35.0-42.0) mmHg ABG pO2 71.5 L (75.0-100.0) mmHg ABG HCO3 27.0 H (22.0-26.0) mmol/L ABG Total CO2 24.6 (21.0-25.0) mmol/L ABG O2 Saturation 93.8 L (95.0-98.0) % ABG O2 Content 15.9 (15.0-23.0) %vol ABG Base Excess 1.4 mm/L ABG Hemoglobin 12.2 (12.0-16.0) g/dL ABG Oxyhemoglobin 92.4 % ABG Carboxyhemoglobin 0.9 (0.0-1.6) % ABG Methemoglobin 0.6 % Shaun Test TNP O2 Delivery Device Ventilator Oxygen Flow Rate 25 L Sodium 145 (140-148) mmol/L Potassium 3.4 L (3.6-5.2) mmol/L Chloride 109 H (100-108) mmol/L Carbon Dioxide 26 (21-32) mmol/L Anion Gap 13.4 (5.0-14.0) mmol/L BUN 14 (7-18) mg/dL Creatinine 0.5 L (0.6-1.0) mg/dL Est Cr Clr Drug Dosing 77.35 mL/min Estimated GFR (MDRD) > 60 (>60) Glucose 136 H (74-106) mg/dL Calcium 8.5 (8.5-10.1) mg/dL Magnesium (1.8-2.4) mg/dL 04/12/17 04/12/17 Range/Units 05:00 05:00 WBC (4.5-11.0) K/uL RBC (3.30-5.50) M/uL Hgb (12.0-15.0) g/dL Hct (36.0-48.0) % MCV (80-98) fL MCH (27-31) pg MCHC (32-36) % Plt Count (150-400) K/uL Neut % (Auto) (36-66) % Lymph % (Auto) (24-44) % [place] % (Auto) (2-6) % Eos % (Auto) (2-4) % Baso % (Auto) (0-1) % Puncture Site A-line ABG pH 7.373 (7.350-7.450) ABG pCO2 46.3 H (35.0-42.0) mmHg ABG pO2 102.0 H (75.0-100.0) mmHg ABG HCO3 26.3 H (22.0-26.0) mmol/L ABG Total CO2 24.0 (21.0-25.0) mmol/L ABG O2 Saturation 97.8 (95.0-98.0) % ABG O2 Content 15.9 (15.0-23.0) %vol ABG Base Excess 1.2 mm/L ABG Hemoglobin 11.8 L (12.0-16.0) g/dL ABG Oxyhemoglobin 95.2 % ABG Carboxyhemoglobin 2.1 H (0.0-1.6) % ABG Methemoglobin 0.6 % Shaun Test A-line O2 Delivery Device Ventilator Oxygen Flow Rate L Sodium 146 (140-148) mmol/L Potassium 4.1 (3.6-5.2) mmol/L Chloride 112 H (100-108) mmol/L Carbon Dioxide 26 (21-32) mmol/L Anion Gap 12.1 (5.0-14.0) mmol/L BUN 15 (7-18) mg/dL Creatinine 0.4 L (0.6-1.0) mg/dL Est Cr Clr Drug Dosing 96.69 mL/min Estimated GFR (MDRD) > 60 (>60) Glucose 145 H (74-106) mg/dL Calcium 8.1 L (8.5-10.1) mg/dL Magnesium 2.5 H (1.8-2.4) mg/dL Med Orders - Current: Current Medications Acetaminophen (Tylenol) 650 mg PO Q4H PRN PRN Reason: Pain (Mild 1-3)/fever Last Admin: 04/09/17 18:37 Dose: 650 mg Albuterol/Ipratropium (Duoneb 3.0-0.5 Mg/3 Ml) 3 ml NEB QIDRT [facility] Last Admin: 04/12/17 07:52 Dose: 3 ml Atorvastatin Calcium (Lipitor) 80 mg PO BEDTIME [facility] Last Admin: 04/11/17 20:53 Dose: Not Given Budesonide (Pulmicort) 0.5 mg NEB BIDRT [facility] Buspirone HCl (Buspar) 5 mg PO TID [facility] Last Admin: 04/12/17 08:17 Dose: Not Given Clopidogrel Bisulfate (Plavix) 75 mg PO DAILY [facility] Last Admin: 04/12/17 08:17 Dose: Not Given Enoxaparin Sodium (Lovenox) 40 mg SUBCUT Q24H [facility] Last Admin: 04/11/17 17:56 Dose: 40 mg Folic Acid (Folic Acid) 1 mg PO DAILY [facility] Last Admin: 04/12/17 08:17 Dose: Not Given Levofloxacin/Dextrose 750 mg/ (Premix) 150 mls @ 100 mls/hr IV Q24H [facility] Last Admin: 04/12/17 07:56 Dose: 100 mls/hr Cefepime HCl 1 gm/ Sodium (Chloride) 50 mls @ 100 mls/hr IV Q8H [facility] Last Admin: 04/12/17 08:17 Dose: 100 mls/hr Heparin Sodium (Porcine) 1 (units/ Sodium Chloride) 500.0002 mls @ 0 mls/hr IV ASDIRECTED [facility] Last Admin: 04/10/17 09:18 Dose: 1 mls/hr Propofol (Diprivan 100 Ml) 100 mls @ 6.031 mls/hr IV TITRATE THEA; 20 MCG/KG/MIN PRN Reason: Protocol Last Admin: 04/12/17 07:54 Dose: 50 mcg/kg/min, 15.077 mls/hr Sodium Chloride (Normal Saline) 1,000 mls @ 25 mls/hr IV ASDIRECTED [facility] Last Admin: 04/12/17 01:43 Dose: 25 mls/hr Potassium Chloride 20 meq/Lidocaine HCl 2 ml/ Sodium Chloride 112 mls @ 56 mls/ hr IV Q2H [facility] Stop: 04/12/17 12:59 Last Admin: 04/12/17 08:55 Dose: 56 mls/hr Labetalol HCl (Normodyne) 10 mg IVPUSH Q4H PRN; Protocol PRN Reason: Hypertension Levalbuterol HCl (Xopenex) 1.25 mg NEB Q4H PRN PRN Reason: Dyspnea Last Admin: 04/10/17 04:04 Dose: 1.25 mg Levalbuterol HCl (Xopenex Hfa) 0 gm INH Q4H PRN PRN Reason: Wheezing Lidocaine HCl (Xylocaine 1%) 2 ml INJECT ASDIRECTED [facility] Last Admin: 04/11/17 20:51 Dose: 2 ml Lorazepam (Ativan) 0.5 mg PO Q2H PRN PRN Reason: Anxiety Last Admin: 04/10/17 07:22 Dose: 0.5 mg Lorazepam (Ativan) 0.5 mg IVPUSH Q2H PRN PRN Reason: Anxiety Magnesium Hydroxide (Milk Of Magnesia) 30 ml PO Q12H PRN PRN Reason: Constipation Melatonin (Melatonin) 9 mg PO BEDTIME [facility] Last Admin: 04/11/17 20:53 Dose: Not Given Methylprednisolone Sodium Succinate (Solu-Medrol) 40 mg IVPUSH Q6H [facility] Last Admin: 04/12/17 08:11 Dose: 40 mg Metoprolol Tartrate (Lopressor) 50 mg PO BID [facility] Last Admin: 04/12/17 08:58 Dose: Not Given Metoprolol Tartrate (Lopressor) 5 mg IVPUSH Q4H [facility] Mometasone Furoate/Formoterol Fumar (Dulera 200-5 Mcg) 2 puff IH BIDRT [facility] Last Admin: 04/12/17 07:57 Dose: Not Given Morphine Sulfate (Morphine) 2 mg IVPUSH Q30M PRN PRN Reason: Shortness of Breath Last Admin: 04/12/17 08:24 Dose: 2 mg Nitroglycerin (Nitrostat) 0.4 mg SL Q5M PRN PRN Reason: Chest Pain Ondansetron HCl (Zofran) 4 mg IV Q4H PRN PRN Reason: Nausea/Vomiting Oxycodone HCl (Oxycodone) 5 mg PO Q4H PRN PRN Reason: Pain (moderate 4-6) Pantoprazole Sodium (Protonix Iv) 40 mg IVPUSH DAILY [facility] Last Admin: 04/12/17 08:02 Dose: 40 mg Paroxetine HCl (Paxil) 10 mg PO DAILY [facility] Last Admin: 04/12/17 08:17 Dose: Not Given Xiidra 5% Opth Soln ((Ptom)) 0 each EYEBOTH BID [facility] Last Admin: 04/11/17 22:01 Dose: 1 each Polyethylene Glycol (Miralax) 17 gm PO DAILY PRN PRN Reason: Constipation Senna/Docusate Sodium (Senna Plus) 1 tab PO BID PRN PRN Reason: Constipation Sodium Chloride (Saline Flush) 10 ml FLUSH ASDIRECTED PRN PRN Reason: Keep Vein Open Last Admin: 04/09/17 13:25 Dose: 10 ml Discontinued Medications Albuterol (Proventil Neb Soln) 2.5 mg NEB ONETIME ONE Stop: 04/08/17 12:53 Last Admin: 04/08/17 12:58 Dose: 2.5 mg Furosemide (Lasix) 20 mg IVPUSH NOW ONE Stop: 04/11/17 08:31 Last Admin: 04/11/17 09:06 Dose: 20 mg Furosemide (Lasix) 20 mg IVPUSH NOW ONE Stop: 04/12/17 08:20 Last Admin: 04/12/17 08:57 Dose: 20 mg Doxycycline Hyclate 100 mg/ (Sodium Chloride) 100 mls @ 100 mls/hr IV Q12H [facility] Last Admin: 04/10/17 04:16 Dose: 100 mls/hr Sodium Chloride (Normal Saline) 1,000 mls @ 100 mls/hr IV ASDIRECTED [facility] Last Admin: 04/09/17 03:07 Dose: 100 mls/hr Cefepime HCl 1 gm/ Sodium (Chloride) 50 mls @ 100 mls/hr IV Q8H [facility] Last Admin: 04/10/17 07:51 Dose: Not Given Propofol (Diprivan 100 Ml) Confirm Administered Dose 100 mls @ as directed .ROUTE .STK-MED ONE Stop: 04/10/17 08:16 Last Admin: 04/10/17 09:21 Dose: Not Given Lidocaine HCl (Xylocaine-Mpf 1%) Confirm Administered Dose 2 mls @ as directed .ROUTE .STK-MED ONE Stop: 04/10/17 08:38 Sodium Chloride (Normal Saline) 1,000 mls @ 75 mls/hr IV ASDIRECTED [facility] Last Admin: 04/10/17 21:06 Dose: 75 mls/hr Potassium Chloride 20 meq/ (Premix) 0 mls @ 50 mls/hr IV Q2H [facility] Stop: 04/11/17 20:06 Last Admin: 04/11/17 20:49 Dose: 50 mls/hr Lorazepam (Ativan) 0.5 mg PO Q6H PRN PRN Reason: Anxiety Last Admin: 04/09/17 01:03 Dose: 0.5 mg Lorazepam (Ativan) 0.5 mg IVPUSH ONETIME STA Stop: 04/09/17 06:27 Last Admin: 04/09/17 06:37 Dose: 0.5 mg Methylprednisolone Sodium Succinate (Solu-Medrol) 125 mg IVPUSH ONETIME ONE Stop: 04/08/17 14:03 Last Admin: 04/08/17 14:28 Dose: 125 mg Propofol (Diprivan 20 Ml) Confirm Administered Dose 200 mg .ROUTE .STK-MED ONE Stop: 04/10/17 08:14 Succinylcholine Chloride (Succinylcholine In Ns Pf) Confirm Administered Dose 200 mg .ROUTE .STK-MED ONE Stop: 04/10/17 08:14 - Exam Quality Assessment: Supplemental Oxygen (Ventilator), Urine Catheter, DVT Prophylaxis General: Sedated, Lethargic Lungs: Decreased Breath Sounds, Wheezing. No: Crackles, Rales, Rhonchi Cardiovascular: Regular Rate, Regular Rhythm, No Murmurs GI/Abdominal Exam: Soft, Non-Tender, No Organomegaly, No Distention Extremities: Non-Tender, No Pedal Edema Skin: Warm, Dry, Intact - Problem List Review Problem List Initiated/Reviewed/Updated: Yes - My Orders Last 24 Hours: My Active Orders 04/11/17 08:45 Restraint Monitoring Non-VIOL/Non-SD [OM.PC] Daily 04/11/17 18:15 Lidocaine 1% [Xylocaine 1%] 2 ml INJECT ASDIRECTED 04/12/17 09:00 Potassium Chloride 20 meq Lidocaine 1% [Xylocaine 1%] 2 ml Sodium Chloride 0.9 % [Normal Saline] 100 ml IV Q2H 04/12/17 09:17 Labetalol [Normodyne] 10 mg IVPUSH Q4H PRN 04/12/17 09:19 RT Aerosol Therapy [RC] ASDIRECTED 04/12/17 09:21 Ang Chest [CT] Stat 04/12/17 09:22 RT Communication [RC] Click to Edit 04/12/17 09:30 Metoprolol Tartrate [Lopressor] 5 mg IVPUSH Q4H 04/12/17 21:00 Budesonide [Pulmicort] 0.5 mg NEB BIDRT 04/13/17 05:00 Chest 1V Frontal [CR] DAILY 04/14/17 05:00 Chest 1V Frontal [CR] DAILY 04/15/17 05:00 Chest 1V Frontal [CR] DAILY - Plan Plan:: ASSESSMENT AND PLAN ACUTE ON CHRONIC RESPIRATORY FAILURE WITH HYPOXIA AND HYPERCAPNIA-remains on low level of supplemental oxygen, otherwise continuing to require full ventilatory support. Continues to require sedation, attempts at decreasing his have resulted in significant hypertension and tachycardia. -CT scan angiogram of the chest -Pulmicort neb twice daily -Metoprolol 5 mg IV every 4 hours -Furosemide 20 mg IV now -Follow-up ABGs and BMP later this afternoon -Sputum culture pending -Nebulizer therapy with Xopenex and duo nebs -Solu-Medrol 40 mg IV every 6 hours -Cefepime and levofloxacin -Normal saline 25 mL per hour for maintenance hydration -Plan for daily spontaneous breathing trials COPD EXACERBATION SECONDARY TO BRONCHITIS -Management as above CORONARY ARTERY DISEASE-status post angioplasty with stent placement in the past few months. Currently asymptomatic. -Continue outpatient medical regimen MAINTENANCE ISSUES -DVT prophylaxis; Lovenox 40 mg subcutaneous daily -GI prophylaxis; Protonix 40 mg IV daily -Pederson catheter; placed to monitor urine output -Nutrition; nothing by mouth -Nicotine dependence; not required CODE STATUS-FULL CODE ADMISSION STATUS-patient will be admitted to inpatient status, expect at least a 2 night hospital stay for evaluation and management of problems as outlined above. At the time of this admission I do not reasonably expected evaluation and management of this problem will require more than a 96 hour hospital stay. DISPOSITION-anticipate discharge to home after the hospital stay. PRIMARY CARE PROVIDER-Dr. Santana
[2017-04-12] MEDS: Budesonide 0.5 MG/2 ML Neb Susp NEB SCH ×2 (09:42→20:55)
[2017-04-12] MEDS: Metoprolol Tartrate 5 MG/5 ML SDV IVPUSH SCH ×2 (09:51→13:46)
[2017-04-12] MEDS: OPTH EYEBOTH SCH ×2 (09:51→20:55)
[2017-04-12] MEDS: XIIDRA 5% EYEBOTH SCH ×2 (09:51→20:55)
[2017-04-12] MEDS ORDERED: Iopamidol 755 Mg/ML 100 ML Bottle IV SCH (10:30)
[2017-04-12] MEDS ORDERED: Sodium Chloride 0.9% 100 ML IV SCH (10:30)
[2017-04-12] MEDS: Labetalol 20 MG/4 ML Syringe IVPUSH PRN ×2 (11:20→15:07)
--- NOTE | 2017-04-12 12:20 | CT ---
Ang Chest HISTORY: Persistent respiratory failure. Evaluate for PE. COMPARISON: Prior CT from October 2016. TECHNIQUE: Intravenous contrast was administered, followed by axial imaging from the lung apices exte nding through the hemidiaphragms. 3D Coronal and/or sagittal MIP reconstructions were obtained and re viewed. Total DLP: 342. FINDINGS: The central and segmental pulmonary arteries are well-opacified. There are no filling defec ts. There is no vessel truncation. There are no findings of pulmonary embolism. There is hyperinflation. There are no infiltrates or effusions. There is no groundglass density. Ther e is no adenopathy. There is a endotracheal tube in place. Limited evaluation of the upper abdomen de monstrates no acute findings. There are chronic rib fractures. Impression: 1. COPD. 2. There are no findings of pulmonary embolism. There are no acute findings of the chest.
[2017-04-12] MEDS ORDERED: Metoprolol Tartrate 5 MG/5 ML SDV IVPUSH PRN (13:53)
[2017-04-12] MEDS ORDERED: LORazepam 2 MG/ML MDV IVPUSH PRN (13:53)
[2017-04-12] MEDS ORDERED: methylPREDNISolone Sodium Succinate 40 MG/1 ML SDV IVPUSH SCH (14:00)
[2017-04-12] MEDS ORDERED: Propofol 200 MG/20 ML SDV ONE (18:02)
[2017-04-12] MEDS ORDERED: Succinylcholine/Normal Saline 200 MG/10 ML Syringe ONE (18:02)
[2017-04-12] MEDS: Aspirin 81 MG Tab.Chew PO SCH (18:35)
[2017-04-12] MEDS: Enoxaparin 40 MG/0.4 ML Syringe SUBCUT SCH (18:37)
[2017-04-12] MEDS ORDERED: Metoprolol Tartrate 50 MG Tab ONE (20:50)
[2017-04-12] MEDS: Melatonin 3 MG Tab PO SCH (20:55)
[2017-04-12] MEDS: atorvaSTATin 20 MG Tab PO SCH (20:55)
--- NOTE | 2017-04-13 01:16 | ANES ---
DATE OF SERVICE: 04/12/2017 I was called to the intensive care unit by Dr. Clayton to evaluate Mrs. Gamboa for an intubation. This is a patient who was intubated a few days ago and was doing well and they extubated her earlier today. She ended up with some CO2 retention and a little bit of lethargy, so they elected to go ahead and intubate her again. I did discuss with the patient about re-intubating her and she agreed. I did give her 100 mg of propofol along with 100 mg of succinylcholine. After adequate sedation and anesthesia, a 7.5 endotracheal tube was inserted to 22 cm at the lip. I did this using a MAC 3 blade. She tolerated the procedure very nicely. Her vital signs remained stable throughout the procedure and nurse was with me the entire procedure. There were no anesthesia complications noted. Talat Rodriguez CRNA /[id number]
[2017-04-13] MEDS: Morphine 2 MG/ML Syringe IVPUSH PRN ×3 (04:01→10:37)
[2017-04-13] MEDS: methylPREDNISolone Sodium Succinate 40 MG/1 ML SDV IVPUSH SCH (05:46)
[2017-04-13] MEDS: Budesonide 0.5 MG/2 ML Neb Susp NEB SCH (07:15)
[2017-04-13] MEDS: Albuterol/Ipratropium 3.0-0.5 MG/3 ML Neb Soln NEB SCH ×3 (07:15→14:55)
[2017-04-13] MEDS: Formoterol/Mometasone 200-5 MCG 8.8 GM Inhaler IH SCH (07:16)
[2017-04-13] MEDS: Acetaminophen 325 MG Tab PO PRN (08:26)
[2017-04-13] MEDS: PARoxetine 20 MG Tab PO SCH (08:26)
[2017-04-13] MEDS: Aspirin 81 MG Tab.Chew PO SCH (08:26)
[2017-04-13] MEDS: XIIDRA 5% EYEBOTH SCH (08:27)
[2017-04-13] MEDS: Folic Acid 1 MG Tab PO SCH (08:27)
[2017-04-13] MEDS: Clopidogrel 75 MG Tab PO SCH (08:27)
[2017-04-13] MEDS: OPTH EYEBOTH SCH (08:27)
[2017-04-13] MEDS: Metoprolol Tartrate 50 MG Tab PO SCH (08:27)
[2017-04-13] MEDS ORDERED: Pantoprazole 40 MG Vial IVPUSH SCH (09:00)
[2017-04-13] MEDS ORDERED: Vancomycin 1 GM SDV IV SCH (10:00)
[2017-04-13] MEDS ORDERED: Meropenem 1 GM in Sodium Chloride 0.9% 100 ML IV SCH (10:00)
[2017-04-13] MEDS ORDERED: Lactated Ringers 1,000 ML IV SCH (10:00)
--- NOTE | 2017-04-13 10:21 | PCM.PN ---
- General Info Date of Service: 04/13/17 Subjective Update: Eleanor underwent CT scan of the chest yesterday showing no evidence of pulmonary embolism, infiltrate, or pulmonary edema. Sedation was discontinued yesterday morning as she became more alert into the later morning a spontaneous breathing trial was performed. She passed this without significant difficulty and was extubated. For transition she was placed on noninvasive positive pressure ventilation. Unfortunately follow-up arterial blood gases showed recurrent CO2 retention and she was reintubated in the early evening. Since reintubation CO2 retention and respiratory acidosis have improved significantly. With no evidence of active infection identified on CT scan yesterday, antibiotics were discontinued. EKG obtained yesterday showed sinus tachycardia with no evidence of ischemia. Troponin level was obtained and was within normal range. This morning continues to have sinus tachycardia, blood pressures have improved or not as high as they have been over the past few days despite resolution of CO2 retention she remains fairly lethargic and CT scan of the head will be obtained this morning. Because of current intubation and decreased level of consciousness she is unable to provide significant information concerning current symptoms or review of systems. - Patient Data Vitals - Most Recent: Last Vital Signs Temp 99.0 F 04/13/17 09:00 Pulse 119 H 04/13/17 09:00 Resp 20 04/13/17 09:00 BP 139/83 04/13/17 09:00 Pulse Ox 94 L 04/13/17 09:00 Weight - Most Recent: 135 lb 11.2 oz I&O - Last 24 Hours: Intake & Output 04/12/17 04/13/17 04/13/17 22:59 06:59 14:59 Intake Total 237 278 Output Total 1600 300 Balance -1363 -22 Lab Results Last 24 Hours: Laboratory Results - last 24 hr 04/12/17 04/12/17 04/12/17 Range/Units 14:30 17:00 17:00 WBC (4.5-11.0) K/uL RBC (3.30-5.50) M/uL Hgb (12.0-15.0) g/dL Hct (36.0-48.0) % MCV (80-98) fL MCH (27-31) pg MCHC (32-36) % Plt Count (150-400) K/uL Neut % (Auto) (36-66) % Lymph % (Auto) (24-44) % [place] % (Auto) (2-6) % Eos % (Auto) (2-4) % Baso % (Auto) (0-1) % Puncture Site A-line Line ABG pH 7.266 L 7.231 L (7.350-7.450) ABG pCO2 70.1 H* 77.5 H* (35.0-42.0) mmHg ABG pO2 90.5 66.0 L (75.0-100.0) mmHg ABG HCO3 30.8 H 31.4 H (22.0-26.0) mmol/L ABG Total CO2 28.3 H 29.1 H (21.0-25.0) mmol/L ABG O2 Saturation 95.1 87.7 L (95.0-98.0) % ABG O2 Content 18.1 16.5 (15.0-23.0) %vol ABG Base Excess 2.2 1.8 mm/L ABG Hemoglobin 13.5 13.6 (12.0-16.0) g/dL ABG Oxyhemoglobin 94.7 86.6 % ABG Carboxyhemoglobin 0.0 0.6 (0.0-1.6) % ABG Methemoglobin 0.4 0.6 % Shaun Test A-line TNP O2 Delivery Device Nasal cannula Oxygen Flow Rate L Sodium (140-148) mmol/L Potassium 4.8 (3.6-5.2) mmol/L Chloride (100-108) mmol/L Carbon Dioxide (21-32) mmol/L Anion Gap (5.0-14.0) mmol/L BUN (7-18) mg/dL Creatinine (0.6-1.0) mg/dL Est Cr Clr Drug Dosing mL/min Estimated GFR (MDRD) (>60) Glucose (74-106) mg/dL Calcium (8.5-10.1) mg/dL Magnesium (1.8-2.4) mg/dL Troponin I (0.000-0.056) ng/mL C-Reactive Protein (0.0-0.3) mg/dL 04/12/17 04/12/17 04/12/17 Range/Units 17:00 17:00 17:55 WBC (4.5-11.0) K/uL RBC (3.30-5.50) M/uL Hgb (12.0-15.0) g/dL Hct (36.0-48.0) % MCV (80-98) fL MCH (27-31) pg MCHC (32-36) % Plt Count (150-400) K/uL Neut % (Auto) (36-66) % Lymph % (Auto) (24-44) % [place] % (Auto) (2-6) % Eos % (Auto) (2-4) % Baso % (Auto) (0-1) % Puncture Site Line ABG pH 7.241 L (7.350-7.450) ABG pCO2 74.0 H* (35.0-42.0) mmHg ABG pO2 90.8 (75.0-100.0) mmHg ABG HCO3 30.6 H (22.0-26.0) mmol/L ABG Total CO2 28.2 H (21.0-25.0) mmol/L ABG O2 Saturation 95.6 (95.0-98.0) % ABG O2 Content 18.1 (15.0-23.0) %vol ABG Base Excess 1.4 mm/L ABG Hemoglobin 13.6 (12.0-16.0) g/dL ABG Oxyhemoglobin 94.5 % ABG Carboxyhemoglobin 0.6 (0.0-1.6) % ABG Methemoglobin 0.6 % Shaun Test TNP O2 Delivery Device Ventilator Oxygen Flow Rate L Sodium 149 H (140-148) mmol/L Potassium 4.8 (3.6-5.2) mmol/L Chloride 112 H (100-108) mmol/L Carbon Dioxide 30 (21-32) mmol/L Anion Gap 11.8 (5.0-14.0) mmol/L BUN 17 (7-18) mg/dL Creatinine 0.5 L (0.6-1.0) mg/dL Est Cr Clr Drug Dosing 77.35 mL/min Estimated GFR (MDRD) > 60 (>60) Glucose 130 H (74-106) mg/dL Calcium 8.4 L (8.5-10.1) mg/dL Magnesium (1.8-2.4) mg/dL Troponin I 0.029 (0.000-0.056) ng/mL C-Reactive Protein 0.96 H (0.0-0.3) mg/dL 04/12/17 04/13/17 04/13/17 Range/Units 23:00 04:30 04:30 WBC 19.1 H (4.5-11.0) K/uL RBC 3.75 (3.30-5.50) M/uL Hgb 13.7 (12.0-15.0) g/dL Hct 44.2 (36.0-48.0) % MCV 118 H (80-98) fL MCH 37 H (27-31) pg MCHC 31 L (32-36) % Plt Count 265 (150-400) K/uL Neut % (Auto) 86 H (36-66) % Lymph % (Auto) 4 L (24-44) % [place] % (Auto) 10 H (2-6) % Eos % (Auto) 0 L (2-4) % Baso % (Auto) 0 (0-1) % Puncture Site Line Line ABG pH 7.336 L 7.321 L (7.350-7.450) ABG pCO2 53.7 H 52.3 H (35.0-42.0) mmHg ABG pO2 72.1 L 99.3 (75.0-100.0) mmHg ABG HCO3 28.0 H 26.3 H (22.0-26.0) mmol/L ABG Total CO2 25.1 H 23.7 (21.0-25.0) mmol/L ABG O2 Saturation 93.2 L 97.0 (95.0-98.0) % ABG O2 Content 17.6 18.3 (15.0-23.0) %vol ABG Base Excess 1.6 -0.1 mm/L ABG Hemoglobin 13.6 13.6 (12.0-16.0) g/dL ABG Oxyhemoglobin 91.4 95.2 % ABG Carboxyhemoglobin 1.2 1.3 (0.0-1.6) % ABG Methemoglobin 0.7 0.6 % Shaun Test O2 Delivery Device Ventilator Ventilator Oxygen Flow Rate L Sodium (140-148) mmol/L Potassium (3.6-5.2) mmol/L Chloride (100-108) mmol/L Carbon Dioxide (21-32) mmol/L Anion Gap (5.0-14.0) mmol/L BUN (7-18) mg/dL Creatinine (0.6-1.0) mg/dL Est Cr Clr Drug Dosing mL/min Estimated GFR (MDRD) (>60) Glucose (74-106) mg/dL Calcium (8.5-10.1) mg/dL Magnesium (1.8-2.4) mg/dL Troponin I (0.000-0.056) ng/mL C-Reactive Protein (0.0-0.3) mg/dL 04/13/17 Range/Units 04:30 WBC (4.5-11.0) K/uL RBC (3.30-5.50) M/uL Hgb (12.0-15.0) g/dL Hct (36.0-48.0) % MCV (80-98) fL MCH (27-31) pg MCHC (32-36) % Plt Count (150-400) K/uL Neut % (Auto) (36-66) % Lymph % (Auto) (24-44) % [place] % (Auto) (2-6) % Eos % (Auto) (2-4) % Baso % (Auto) (0-1) % Puncture Site ABG pH (7.350-7.450) ABG pCO2 (35.0-42.0) mmHg ABG pO2 (75.0-100.0) mmHg ABG HCO3 (22.0-26.0) mmol/L ABG Total CO2 (21.0-25.0) mmol/L ABG O2 Saturation (95.0-98.0) % ABG O2 Content (15.0-23.0) %vol ABG Base Excess mm/L ABG Hemoglobin (12.0-16.0) g/dL ABG Oxyhemoglobin % ABG Carboxyhemoglobin (0.0-1.6) % ABG Methemoglobin % Shaun Test O2 Delivery Device Oxygen Flow Rate L Sodium 148 (140-148) mmol/L Potassium 4.9 (3.6-5.2) mmol/L Chloride 111 H (100-108) mmol/L Carbon Dioxide 26 (21-32) mmol/L Anion Gap 15.9 H (5.0-14.0) mmol/L BUN 30 H D (7-18) mg/dL Creatinine 0.7 (0.6-1.0) mg/dL Est Cr Clr Drug Dosing 55.25 mL/min Estimated GFR (MDRD) > 60 (>60) Glucose 144 H (74-106) mg/dL Calcium 9.0 (8.5-10.1) mg/dL Magnesium 2.7 H (1.8-2.4) mg/dL Troponin I (0.000-0.056) ng/mL C-Reactive Protein (0.0-0.3) mg/dL Med Orders - Current: Current Medications Acetaminophen (Tylenol) 650 mg PO Q4H PRN PRN Reason: Pain (Mild 1-3)/fever Last Admin: 04/13/17 08:26 Dose: 650 mg Albuterol/Ipratropium (Duoneb 3.0-0.5 Mg/3 Ml) 3 ml NEB QIDRT [facility] Last Admin: 04/13/17 07:15 Dose: 3 ml Aspirin (Aspirin) 81 mg PO DAILY [facility] Last Admin: 04/13/17 08:26 Dose: 81 mg Atorvastatin Calcium (Lipitor) 80 mg PO BEDTIME [facility] Last Admin: 04/12/17 20:55 Dose: 80 mg Budesonide (Pulmicort) 0.5 mg NEB BIDRT [facility] Last Admin: 04/13/17 07:15 Dose: 0.5 mg Clopidogrel Bisulfate (Plavix) 75 mg PO DAILY [facility] Last Admin: 04/13/17 08:27 Dose: 75 mg Enoxaparin Sodium (Lovenox) 40 mg SUBCUT Q24H [facility] Last Admin: 04/12/17 18:37 Dose: 40 mg Folic Acid (Folic Acid) 1 mg PO DAILY [facility] Last Admin: 04/13/17 08:27 Dose: 1 mg Heparin Sodium (Porcine) 1 (units/ Sodium Chloride) 500.0002 mls @ 0 mls/hr IV ASDIRECTED [facility] Last Admin: 04/10/17 09:18 Dose: 1 mls/hr Meropenem 1 gm/ Sodium (Chloride) 100 mls @ 200 mls/hr IV Q8H [facility] Vancomycin HCl 1 gm/ Sodium (Chloride) 250 mls @ 250 mls/hr IV Q18H [facility] Lactated Ringer's (Ringers, Lactated) 1,000 mls @ 100 mls/hr IV ASDIRECTED [facility] Labetalol HCl (Normodyne) 10 mg IVPUSH Q4H PRN; Protocol PRN Reason: Hypertension Last Admin: 04/12/17 15:07 Dose: 10 mg Levalbuterol HCl (Xopenex) 1.25 mg NEB Q4H PRN PRN Reason: Dyspnea Last Admin: 04/10/17 04:04 Dose: 1.25 mg Levalbuterol HCl (Xopenex Hfa) 0 gm INH Q4H PRN PRN Reason: Wheezing Last Admin: 04/12/17 13:26 Dose: 1 each Lorazepam (Ativan) 0.5 mg IVPUSH Q4H PRN PRN Reason: Anxiety Magnesium Hydroxide (Milk Of Magnesia) 30 ml PO Q12H PRN PRN Reason: Constipation Melatonin (Melatonin) 9 mg PO BEDTIME [facility] Last Admin: 04/12/17 20:55 Dose: 9 mg Methylprednisolone Sodium Succinate (Solu-Medrol) 40 mg IVPUSH Q12H [facility] Last Admin: 04/13/17 05:46 Dose: 40 mg Metoprolol Tartrate (Lopressor) 50 mg PO BID [facility] Last Admin: 04/13/17 08:27 Dose: 50 mg Metoprolol Tartrate (Lopressor) 5 mg IVPUSH Q4H PRN PRN Reason: Hypertension Mometasone Furoate/Formoterol Fumar (Dulera 200-5 Mcg) 2 puff IH BIDRT [facility] Last Admin: 04/13/17 07:16 Dose: Not Given Morphine Sulfate (Morphine) 2 mg IVPUSH Q30M PRN PRN Reason: Shortness of Breath Last Admin: 04/13/17 06:14 Dose: 2 mg Nitroglycerin (Nitrostat) 0.4 mg SL Q5M PRN PRN Reason: Chest Pain Ondansetron HCl (Zofran) 4 mg IV Q4H PRN PRN Reason: Nausea/Vomiting Oxycodone HCl (Oxycodone) 5 mg PO Q4H PRN PRN Reason: Pain (moderate 4-6) Pantoprazole Sodium (Protonix Iv) 40 mg IVPUSH DAILY [facility] Last Admin: 04/13/17 08:27 Dose: 40 mg Paroxetine HCl (Paxil) 10 mg PO DAILY [facility] Last Admin: 02/24/18 08:26 Dose: 10 mg Xiidra 5% Opth Soln ((Ptom)) 0 each EYEBOTH BID [facility] Last Admin: 04/13/17 08:27 Dose: 1 each Polyethylene Glycol (Miralax) 17 gm PO DAILY PRN PRN Reason: Constipation Senna/Docusate Sodium (Senna Plus) 1 tab PO BID PRN PRN Reason: Constipation Sodium Chloride (Saline Flush) 10 ml FLUSH ASDIRECTED PRN PRN Reason: Keep Vein Open Last Admin: 04/09/17 13:25 Dose: 10 ml Discontinued Medications Albuterol (Proventil Neb Soln) 2.5 mg NEB ONETIME ONE Stop: 04/08/17 12:53 Last Admin: 04/08/17 12:58 Dose: 2.5 mg Buspirone HCl (Buspar) 5 mg PO TID [facility] Last Admin: 04/12/17 13:57 Dose: Not Given Furosemide (Lasix) 20 mg IVPUSH NOW ONE Stop: 04/11/17 08:31 Last Admin: 04/11/17 09:06 Dose: 20 mg Furosemide (Lasix) 20 mg IVPUSH NOW ONE Stop: 04/12/17 08:20 Last Admin: 04/12/17 08:57 Dose: 20 mg Doxycycline Hyclate 100 mg/ (Sodium Chloride) 100 mls @ 100 mls/hr IV Q12H [facility] Last Admin: 04/10/17 04:16 Dose: 100 mls/hr Sodium Chloride (Normal Saline) 1,000 mls @ 100 mls/hr IV ASDIRECTED [facility] Last Admin: 04/09/17 03:07 Dose: 100 mls/hr Cefepime HCl 1 gm/ Sodium (Chloride) 50 mls @ 100 mls/hr IV Q8H [facility] Last Admin: 04/10/17 07:51 Dose: Not Given Levofloxacin/Dextrose 750 mg/ (Premix) 150 mls @ 100 mls/hr IV Q24H [facility] Last Admin: 04/12/17 07:56 Dose: 100 mls/hr Cefepime HCl 1 gm/ Sodium (Chloride) 50 mls @ 100 mls/hr IV Q8H [facility] Last Admin: 04/12/17 08:17 Dose: 100 mls/hr Propofol (Diprivan 100 Ml) Confirm Administered Dose 100 mls @ as directed .ROUTE .STK-MED ONE Stop: 04/10/17 08:16 Last Admin: 04/10/17 09:21 Dose: Not Given Lidocaine HCl (Xylocaine-Mpf 1%) Confirm Administered Dose 2 mls @ as directed .ROUTE .STK-MED ONE Stop: 04/10/17 08:38 Propofol (Diprivan 100 Ml) 100 mls @ 6.031 mls/hr IV TITRATE [facility]; 20 MCG/KG/MIN PRN Reason: Protocol Last Admin: 04/12/17 07:54 Dose: 50 mcg/kg/min, 15.077 mls/hr Sodium Chloride (Normal Saline) 1,000 mls @ 75 mls/hr IV ASDIRECTED [facility] Last Admin: 04/10/17 21:06 Dose: 75 mls/hr Sodium Chloride (Normal Saline) 1,000 mls @ 25 mls/hr IV ASDIRECTED [facility] Last Admin: 04/12/17 01:43 Dose: 25 mls/hr Potassium Chloride 20 meq/ (Premix) 0 mls @ 50 mls/hr IV Q2H [facility] Stop: 04/11/17 20:06 Last Admin: 04/11/17 20:49 Dose: 50 mls/hr Potassium Chloride 20 meq/Lidocaine HCl 2 ml/ Sodium Chloride 112 mls @ 56 mls/ hr IV Q2H [facility] Stop: 04/12/17 12:59 Last Admin: 04/12/17 12:31 Dose: 56 mls/hr Sodium Chloride (Normal Saline) 100 mls @ 3 mls/sec IV ASDIRECTED [facility] Stop: 04/12/17 12:00 Last Admin: 04/12/17 12:10 Dose: 3 mls/sec Propofol (Diprivan 100 Ml) Confirm Administered Dose 100 mls @ as directed .ROUTE .STK-MED ONE Stop: 04/12/17 17:40 Last Admin: 04/12/17 18:27 Dose: Not Given Iopamidol (Isovue-370 (76%)) 100 ml IV . DIRECTED [facility] Stop: 04/12/17 12:00 Last Admin: 04/12/17 12:09 Dose: 100 ml Lidocaine HCl (Xylocaine 1%) 2 ml INJECT ASDIRECTED [facility] Last Admin: 04/11/17 20:51 Dose: 2 ml Lorazepam (Ativan) 0.5 mg PO Q6H PRN PRN Reason: Anxiety Last Admin: 04/09/17 01:03 Dose: 0.5 mg Lorazepam (Ativan) 0.5 mg IVPUSH ONETIME STA Stop: 04/09/17 06:27 Last Admin: 04/09/17 06:37 Dose: 0.5 mg Lorazepam (Ativan) 0.5 mg PO Q2H PRN PRN Reason: Anxiety Last Admin: 04/10/17 07:22 Dose: 0.5 mg Lorazepam (Ativan) 0.5 mg IVPUSH Q2H PRN PRN Reason: Anxiety Methylprednisolone Sodium Succinate (Solu-Medrol) 125 mg IVPUSH ONETIME ONE Stop: 04/08/17 14:03 Last Admin: 04/08/17 14:28 Dose: 125 mg Methylprednisolone Sodium Succinate (Solu-Medrol) 40 mg IVPUSH Q6H [facility] Last Admin: 04/12/17 08:11 Dose: 40 mg Metoprolol Tartrate (Lopressor) 5 mg IVPUSH Q4H [facility] Last Admin: 04/12/17 13:46 Dose: 5 mg Metoprolol Tartrate (Lopressor) Confirm Administered Dose 50 mg .ROUTE .STK-MED ONE Stop: 04/12/17 20:51 Last Admin: 04/12/17 23:32 Dose: Not Given Pantoprazole Sodium (Protonix Iv) 40 mg IVPUSH DAILY [facility] Last Admin: 04/12/17 08:02 Dose: 40 mg Propofol (Diprivan 20 Ml) Confirm Administered Dose 200 mg .ROUTE .STK-MED ONE Stop: 04/10/17 08:14 Propofol (Diprivan 20 Ml) Confirm Administered Dose 200 mg .ROUTE .STK-MED ONE Stop: 04/12/17 18:03 Succinylcholine Chloride (Succinylcholine In Ns Pf) Confirm Administered Dose 200 mg .ROUTE .STK-MED ONE Stop: 04/10/17 08:14 Succinylcholine Chloride (Succinylcholine In Ns Pf) Confirm Administered Dose 200 mg .ROUTE .STK-MED ONE Stop: 04/12/17 18:03 - Exam Quality Assessment: Supplemental Oxygen (Intubation with mechanical ventilation) , Urine Catheter, DVT Prophylaxis Lungs: Normal Respiratory Effort, Wheezing. No: Rales, Rhonchi, Rub Cardiovascular: Regular Rhythm, No Murmurs, Tachycardia GI/Abdominal Exam: Soft, Non-Tender, No Organomegaly, No Distention Extremities: Non-Tender, No Pedal Edema Skin: Warm, Dry - Problem List Review Problem List Initiated/Reviewed/Updated: Yes - My Orders Last 24 Hours: My Active Orders 04/12/17 09:17 Labetalol [Normodyne] 10 mg IVPUSH Q4H PRN 04/12/17 09:22 RT Communication [RC] Click to Edit 04/12/17 13:53 LORazepam [Ativan] 0.5 mg IVPUSH Q4H PRN Metoprolol Tartrate [Lopressor] 5 mg IVPUSH Q4H PRN Convert IV to Saline Lock [OM.PC] Routine 04/12/17 17:47 EKG 12 Lead [EK] Stat 04/12/17 17:48 EKG Documentation Completion [RC] ASDIRECTED 04/12/17 17:52 Gastrointestinal Tube Mgmt [RC] ASDIRECTED Gastrointestinal Tube Mgmt [RC] ASDIRECTED RT Ventilator, Adult [RC] Q2H Nasogastric Orogastric Tube Insertion [OM.PC] Routine Restraint Initiate Non-VIOL/Non-SD [OM.PC] Routine 04/12/17 18:00 Aspirin 81 mg PO DAILY methylPREDNISolone Sod Succ [Solu-MEDROL] 40 mg IVPUSH Q12H Restraint Monitoring Non-VIOL/Non-SD [OM.PC] Daily 04/12/17 18:15 Chest 1V Frontal [CR] Stat 04/12/17 Dinner NPO Now [Nothing per Oral Now Diet] [DIET] 04/13/17 05:00 Chest 1V Frontal [CR] DAILY 04/13/17 09:00 Pantoprazole [ProTONIX IV] 40 mg IVPUSH DAILY 04/13/17 09:37 Head wo Cont [CT] Stat 04/13/17 09:43 Blood Culture x2 Reflex Set [OM.PC] Urgent 04/13/17 09:45 CULTURE BLOOD [BC] Stat CULTURE BLOOD [BC] Stat 04/13/17 10:00 Lactated Ringers [Ringers, Lactated] 1,000 ml IV ASDIRECTED Meropenem [Merrem] 1 gm Sodium Chloride 0.9% [Normal Saline] 100 ml IV Q8H 04/13/17 11:00 Vancomycin 1 gm Sodium Chloride 0.9% [Normal Saline] 250 ml IV Q18H 04/13/17 17:00 BASIC METABOLIC PANEL,BMP [CHEM] Stat 04/13/17 18:00 Restraint Monitoring Non-VIOL/Non-SD [OM.PC] Daily 04/14/17 05:00 Chest 1V Frontal [CR] DAILY BASIC METABOLIC PANEL,BMP [CHEM] Timed BLOOD GAS ARTERIAL [BG] Timed CBC WITH AUTO DIFF [HEME] Timed MAGNESIUM [CHEM] Timed 04/14/17 17:00 BLOOD GAS ARTERIAL [BG] Stat 04/15/17 05:00 Chest 1V Frontal [CR] DAILY - Plan Plan:: ASSESSMENT AND PLAN ACUTE ON CHRONIC RESPIRATORY FAILURE WITH HYPOXIA AND HYPERCAPNIA-after passing a spontaneous breathing trial yesterday was extubated and placed on noninvasive positive pressure ventilation. Unfortunately she developed recurrent CO2 retention and respiratory acidosis. She was reintubated during the early evening. With mechanical ventilation through the night CO2 retention and respiratory acidosis have significantly improved but not totally resolved. -Pulmicort neb twice daily -Follow-up ABGs and BMP later this afternoon -Sputum culture pending -Nebulizer therapy with Xopenex and duo nebs -Solu-Medrol 40 mg IV every 12 hours -PICC line placement for central venous access LEUKOCYTOSIS-associated with mild temperature elevation. This is a new finding, white blood cell count had been within normal range throughout her hospital stay. May be secondary to current glucocorticoid therapy but infection is also a definite possibility. -Blood cultures 2 -Urinalysis and urine culture if needed -Reinitiate antibiotic therapy with meropenem and vancomycin DECREASED LEVEL OF CONSCIOUSNESS-she was more alert and interactive yesterday prior to extubation. Then developed CO2 retention and it was assumed lethargy was secondary to CO2 narcosis. Unfortunately she has not become more alert and interactive since then despite improvement in CO2 retention. She has received only minimal sedation through the night. No new or significant metabolic abnormalities identified. -CT scan of the head this morning without contrast COPD EXACERBATION SECONDARY TO BRONCHITIS -Management as above CORONARY ARTERY DISEASE-status post angioplasty with stent placement in the past few months. Because of tachycardia EKG was obtained yesterday showing sinus tachycardia with no acute ST segment changes. Troponin also obtained and was within normal range -Continue outpatient medical regimen MAINTENANCE ISSUES -DVT prophylaxis; Lovenox 40 mg subcutaneous daily -GI prophylaxis; Protonix 40 mg IV daily -Pederson catheter; placed to monitor urine output -Nutrition; nothing by mouth -Nicotine dependence; not required CODE STATUS-FULL CODE ADMISSION STATUS-patient will be admitted to inpatient status, expect at least a 2 night hospital stay for evaluation and management of problems as outlined above. At the time of this admission I do not reasonably expected evaluation and management of this problem will require more than a 96 hour hospital stay. DISPOSITION-anticipate discharge to home after the hospital stay. PRIMARY CARE PROVIDER-Dr. Santana
--- NOTE | 2017-04-13 14:58 | PCM.DCSUM1 ---
Discharge Summary - Discharge Data Discharge Date: 04/13/17 Discharge Disposition: DC/Tfer to Acute Hospital 02 Condition: Poor - Discharge Diagnosis/Problem(s) (1) Acute on chronic respiratory failure with hypoxia and hypercapnia SNOMED Code(s): 11323501 ICD Code: J96.21 - ACUTE AND CHRONIC RESPIRATORY FAILURE WITH HYPOXIA; J96.22 - ACUTE AND CHRONIC RESPIRATORY FAILURE WITH HYPERCAPNIA Status: Acute Current Visit: Yes (2) Chronic obstructive pulmonary disease with (acute) exacerbation SNOMED Code(s): 427960168 ICD Code: J44.1 - CHRONIC OBSTRUCTIVE PULMONARY DISEASE W (ACUTE) EXACERBATION Status: Acute Current Visit: Yes - Patient Summary/Data Hospital Course: Ms. Gamboa is a 67-year-old woman with a known history of COPD who presented to the emergency department with increased shortness of breath and cough of 48 hours duration. She has had long-standing COPD and uses oxygen at home mainly at night as well as a Trilogy home ventilator system. 2 days prior to admission she began to experience increased shortness of breath and over the past 24 hours has had a significant cough, productive of relatively clear sputum. She's not aware of any significant fevers or chills and denies any recent sick contacts. Ms. Gamboa was admitted to the hospital, initially given IV fluids for hydration as well as IV antibiotic therapy with Levaquin. Initial chest x-ray showed no obvious infiltrates and her white blood cell count was normal. Nebulizer therapy was used with scheduled DuoNeb nebs and when necessary albuterol. She was started on Solu-Medrol 40 mg IV every 6 hours. Noninvasive positive pressure ventilation was used to help manage her hypoxic respiratory failure. She remained stable over the first 24 hours but showed no significant improvement. Over the next 24 hours she developed CO2 retention with respiratory acidosis and on the third day required intubation and mechanical ventilation. She required relatively low level of supplemental oxygen on the ventilator and CO2 retention and respiratory acidosis resolved. After 2 days and the ventilator a spontaneous breathing trial was performed which she passed without difficulty. CT scan also was obtained showing no evidence of pulmonary embolism, infiltrate, or pulmonary edema. She was extubated and placed back on noninvasive positive pressure ventilation. Unfortunately through the afternoon she developed recurrent CO2 retention with associated respiratory acidosis. She was reintubated on the evening prior to admission and remained on the ventilator up until the time of transfer. CO2 retention and respiratory acidosis improved significantly with mechanical ventilation. She was more lethargic prior to reintubation this was felt to be likely secondary to CO2 narcosis. On the morning of transfer remained fairly lethargic despite improvement in her CO2 retention. CT scan of the head without contrast was obtained showing no acute abnormalities. EKG had been obtained because of persistent sinus tachycardia in the range of 110-120, that showed sinus tachycardia with no acute ST segment changes. Because of her history of coronary artery disease troponin level was also obtained was found to be within normal range. On the morning of transfer her white blood cell count was found to be elevated at 19,000, this was associated with a low-grade temperature elevation. Urinalysis was obtained and showed no evidence of active infection. Blood cultures were obtained 2 and she was started on empiric IV antibiotic therapy with vancomycin and meropenem. She continued to have relatively poor air movement and because of ongoing respiratory compromise was it decided to pursue a second opinion with transfer to a tertiary care facility. She will be transferred via [facility] ambulance to [facility] in [facility]. - Patient Instructions Diet: NPO Other/Special Instructions: Patient will be transferred via [facility] ambulance to [facility] in [facility] - Discharge Plan Home Medications: Home Meds Albuterol/Ipratropium [DuoNeb 3.0-0.5 MG/3 ML] 3 ml INH ASDIRECTED PRN 01/06/13 [History] PARoxetine [Paxil] 10 mg PO QAM 04/11/14 [History] busPIRone [Buspar] 5 mg PO TID 11/06/15 [History] Cholecalciferol (Vitamin D3) [Decara] 50,000 unit PO ASDIRECTED 02/16/16 [ History] Levalbuterol Tartrate [Levalbuterol Tartrate Hfa] 2 puff IH Q4H PRN 02/16/16 [ History] Metoprolol Tartrate [Lopressor] 50 mg PO BID tablet 02/18/16 [Rx] Budesonide/Formoterol Fumarate [Symbicort 160-4.5 Mcg Inhaler] 2 puff INH BID [History] Clopidogrel Bisulfate [Clopidogrel] 75 mg PO DAILY 11/26/16 [History] Nitroglycerin 0.4 mg SL ASDIRECTED PRN 11/26/16 [History] atorvaSTATin [Lipitor] 80 mg PO BEDTIME 11/26/16 [History] Lifitegrast [Xiidra] 1 drop EYEBOTH BID 04/08/17 [History] Albuterol/Ipratropium [DuoNeb 3.0-0.5 MG/3 ML] 3 ml NEB QIDRT neb 04/13/17 [Rx] Budesonide [Pulmicort] 0.5 mg NEB BIDRT neb 04/13/17 [Rx] Enoxaparin [Lovenox] 40 mg SUBCUT Q24H syringe 04/13/17 [Rx] Folic Acid 1 mg PO DAILY tablet 04/13/17 [Rx] Meropenem [Merrem] 1 gm IV Q8H sdv 04/13/17 [Rx] Morphine 2 mg IVPUSH Q30M PRN syringe 04/13/17 [Rx] Pantoprazole [ProTONIX IV] 40 mg IVPUSH DAILY vial 04/13/17 [Rx] Vancomycin 1 gm IV Q18H sdv 04/13/17 [Rx] methylPREDNISolone Sod Succ [Solu-MEDROL] 40 mg IVPUSH Q12H sdv 04/13/17 [Rx] Referrals: Félix Santana MD [Primary Care Provider] - - Patient Data Vitals - Most Recent: Last Vital Signs Temp 99.2 F 04/13/17 12:00 Pulse 115 H 04/13/17 13:00 Resp 26 H 04/13/17 13:00 BP 136/74 04/13/17 13:00 Pulse Ox 93 L 04/13/17 13:00 Weight - Most Recent: 135 lb 11.2 oz I&O - Last 24 hours: Intake & Output 04/12/17 04/13/17 04/13/17 22:59 06:59 14:59 Intake Total 237 278 Output Total 1600 300 Balance -1363 -22 Lab Results - Last 24 hrs: Laboratory Results - last 24 hr 04/12/17 04/12/17 04/12/17 Range/Units 14:30 17:00 17:00 WBC (4.5-11.0) K/uL RBC (3.30-5.50) M/uL Hgb (12.0-15.0) g/dL Hct (36.0-48.0) % MCV (80-98) fL MCH (27-31) pg MCHC (32-36) % Plt Count (150-400) K/uL Neut % (Auto) (36-66) % Lymph % (Auto) (24-44) % [place] % (Auto) (2-6) % Eos % (Auto) (2-4) % Baso % (Auto) (0-1) % Puncture Site Line ABG pH 7.231 L (7.350-7.450) ABG pCO2 77.5 H* (35.0-42.0) mmHg ABG pO2 66.0 L (75.0-100.0) mmHg ABG HCO3 31.4 H (22.0-26.0) mmol/L ABG Total CO2 29.1 H (21.0-25.0) mmol/L ABG O2 Saturation 87.7 L (95.0-98.0) % ABG O2 Content 16.5 (15.0-23.0) %vol ABG Base Excess 1.8 mm/L ABG Hemoglobin 13.6 (12.0-16.0) g/dL ABG Oxyhemoglobin 86.6 % ABG Carboxyhemoglobin 0.6 (0.0-1.6) % ABG Methemoglobin 0.6 % Shaun Test TNP O2 Delivery Device Nasal cannula Oxygen Flow Rate L Sodium (140-148) mmol/L Potassium 4.8 (3.6-5.2) mmol/L Chloride (100-108) mmol/L Carbon Dioxide (21-32) mmol/L Anion Gap (5.0-14.0) mmol/L BUN (7-18) mg/dL Creatinine (0.6-1.0) mg/dL Est Cr Clr Drug Dosing mL/min Estimated GFR (MDRD) (>60) Glucose (74-106) mg/dL Calcium (8.5-10.1) mg/dL Magnesium (1.8-2.4) mg/dL Troponin I (0.000-0.056) ng/mL C-Reactive Protein (0.0-0.3) mg/dL Urine Color Urine Appearance Urine pH (4.5-8.0) Ur Specific [place] (1.008-1.030) Urine Protein (NEGATIVE) mg/dL Urine Glucose (UA) (NEGATIVE) mg/dL Urine Ketones (NEGATIVE) mg/dL Urine Occult Blood (NEGATIVE) Urine Nitrite (NEGATIVE) Urine Bilirubin (NEGATIVE) Urine Urobilinogen (NORMAL) mg/dL Ur Leukocyte Esterase (NEGATIVE) Urine RBC (0-5) Urine WBC (0-5) Ur Epithelial Cells Amorphous Sediment Urine Bacteria Urine Mucus Urine Other 04/12/17 04/12/17 04/12/17 Range/Units 17:00 17:00 17:55 WBC (4.5-11.0) K/uL RBC (3.30-5.50) M/uL Hgb (12.0-15.0) g/dL Hct (36.0-48.0) % MCV (80-98) fL MCH (27-31) pg MCHC (32-36) % Plt Count (150-400) K/uL Neut % (Auto) (36-66) % Lymph % (Auto) (24-44) % [place] % (Auto) (2-6) % Eos % (Auto) (2-4) % Baso % (Auto) (0-1) % Puncture Site Line ABG pH 7.241 L (7.350-7.450) ABG pCO2 74.0 H* (35.0-42.0) mmHg ABG pO2 90.8 (75.0-100.0) mmHg ABG HCO3 30.6 H (22.0-26.0) mmol/L ABG Total CO2 28.2 H (21.0-25.0) mmol/L ABG O2 Saturation 95.6 (95.0-98.0) % ABG O2 Content 18.1 (15.0-23.0) %vol ABG Base Excess 1.4 mm/L ABG Hemoglobin 13.6 (12.0-16.0) g/dL ABG Oxyhemoglobin 94.5 % ABG Carboxyhemoglobin 0.6 (0.0-1.6) % ABG Methemoglobin 0.6 % Shaun Test TNP O2 Delivery Device Ventilator Oxygen Flow Rate L Sodium 149 H (140-148) mmol/L Potassium 4.8 (3.6-5.2) mmol/L Chloride 112 H (100-108) mmol/L Carbon Dioxide 30 (21-32) mmol/L Anion Gap 11.8 (5.0-14.0) mmol/L BUN 17 (7-18) mg/dL Creatinine 0.5 L (0.6-1.0) mg/dL Est Cr Clr Drug Dosing 77.35 mL/min Estimated GFR (MDRD) > 60 (>60) Glucose 130 H (74-106) mg/dL Calcium 8.4 L (8.5-10.1) mg/dL Magnesium (1.8-2.4) mg/dL Troponin I 0.029 (0.000-0.056) ng/mL C-Reactive Protein 0.96 H (0.0-0.3) mg/dL Urine Color Urine Appearance Urine pH (4.5-8.0) Ur Specific [place] (1.008-1.030) Urine Protein (NEGATIVE) mg/dL Urine Glucose (UA) (NEGATIVE) mg/dL Urine Ketones (NEGATIVE) mg/dL Urine Occult Blood (NEGATIVE) Urine Nitrite (NEGATIVE) Urine Bilirubin (NEGATIVE) Urine Urobilinogen (NORMAL) mg/dL Ur Leukocyte Esterase (NEGATIVE) Urine RBC (0-5) Urine WBC (0-5) Ur Epithelial Cells Amorphous Sediment Urine Bacteria Urine Mucus Urine Other 04/12/17 04/13/17 04/13/17 Range/Units 23:00 04:30 04:30 WBC 19.1 H (4.5-11.0) K/uL RBC 3.75 (3.30-5.50) M/uL Hgb 13.7 (12.0-15.0) g/dL Hct 44.2 (36.0-48.0) % MCV 118 H (80-98) fL MCH 37 H (27-31) pg MCHC 31 L (32-36) % Plt Count 265 (150-400) K/uL Neut % (Auto) 86 H (36-66) % Lymph % (Auto) 4 L (24-44) % [place] % (Auto) 10 H (2-6) % Eos % (Auto) 0 L (2-4) % Baso % (Auto) 0 (0-1) % Puncture Site Line Line ABG pH 7.336 L 7.321 L (7.350-7.450) ABG pCO2 53.7 H 52.3 H (35.0-42.0) mmHg ABG pO2 72.1 L 99.3 (75.0-100.0) mmHg ABG HCO3 28.0 H 26.3 H (22.0-26.0) mmol/L ABG Total CO2 25.1 H 23.7 (21.0-25.0) mmol/L ABG O2 Saturation 93.2 L 97.0 (95.0-98.0) % ABG O2 Content 17.6 18.3 (15.0-23.0) %vol ABG Base Excess 1.6 -0.1 mm/L ABG Hemoglobin 13.6 13.6 (12.0-16.0) g/dL ABG Oxyhemoglobin 91.4 95.2 % ABG Carboxyhemoglobin 1.2 1.3 (0.0-1.6) % ABG Methemoglobin 0.7 0.6 % Shaun Test O2 Delivery Device Ventilator Ventilator Oxygen Flow Rate L Sodium (140-148) mmol/L Potassium (3.6-5.2) mmol/L Chloride (100-108) mmol/L Carbon Dioxide (21-32) mmol/L Anion Gap (5.0-14.0) mmol/L BUN (7-18) mg/dL Creatinine (0.6-1.0) mg/dL Est Cr Clr Drug Dosing mL/min Estimated GFR (MDRD) (>60) Glucose (74-106) mg/dL Calcium (8.5-10.1) mg/dL Magnesium (1.8-2.4) mg/dL Troponin I (0.000-0.056) ng/mL C-Reactive Protein (0.0-0.3) mg/dL Urine Color Urine Appearance Urine pH (4.5-8.0) Ur Specific [place] (1.008-1.030) Urine Protein (NEGATIVE) mg/dL Urine Glucose (UA) (NEGATIVE) mg/dL Urine Ketones (NEGATIVE) mg/dL Urine Occult Blood (NEGATIVE) Urine Nitrite (NEGATIVE) Urine Bilirubin (NEGATIVE) Urine Urobilinogen (NORMAL) mg/dL Ur Leukocyte Esterase (NEGATIVE) Urine RBC (0-5) Urine WBC (0-5) Ur Epithelial Cells Amorphous Sediment Urine Bacteria Urine Mucus Urine Other 04/13/17 04/13/17 Range/Units 04:30 12:39 WBC (4.5-11.0) K/uL RBC (3.30-5.50) M/uL Hgb (12.0-15.0) g/dL Hct (36.0-48.0) % MCV (80-98) fL MCH (27-31) pg MCHC (32-36) % Plt Count (150-400) K/uL Neut % (Auto) (36-66) % Lymph % (Auto) (24-44) % [place] % (Auto) (2-6) % Eos % (Auto) (2-4) % Baso % (Auto) (0-1) % Puncture Site ABG pH (7.350-7.450) ABG pCO2 (35.0-42.0) mmHg ABG pO2 (75.0-100.0) mmHg ABG HCO3 (22.0-26.0) mmol/L ABG Total CO2 (21.0-25.0) mmol/L ABG O2 Saturation (95.0-98.0) % ABG O2 Content (15.0-23.0) %vol ABG Base Excess mm/L ABG Hemoglobin (12.0-16.0) g/dL ABG Oxyhemoglobin % ABG Carboxyhemoglobin (0.0-1.6) % ABG Methemoglobin % Shaun Test O2 Delivery Device Oxygen Flow Rate L Sodium 148 (140-148) mmol/L Potassium 4.9 (3.6-5.2) mmol/L Chloride 111 H (100-108) mmol/L Carbon Dioxide 26 (21-32) mmol/L Anion Gap 15.9 H (5.0-14.0) mmol/L BUN 30 H D (7-18) mg/dL Creatinine 0.7 (0.6-1.0) mg/dL Est Cr Clr Drug Dosing 55.25 mL/min Estimated GFR (MDRD) > 60 (>60) Glucose 144 H (74-106) mg/dL Calcium 9.0 (8.5-10.1) mg/dL Magnesium 2.7 H (1.8-2.4) mg/dL Troponin I (0.000-0.056) ng/mL C-Reactive Protein (0.0-0.3) mg/dL Urine Color Yellow Urine Appearance Slightly cloudy Urine pH 6.0 (4.5-8.0) Ur Specific [place] 1.020 (1.008-1.030) Urine Protein 30 H (NEGATIVE) mg/dL Urine Glucose (UA) Normal (NEGATIVE) mg/dL Urine Ketones 50 H (NEGATIVE) mg/dL Urine Occult Blood Large (NEGATIVE) Urine Nitrite Negative (NEGATIVE) Urine Bilirubin Small (NEGATIVE) Urine Urobilinogen 1 (NORMAL) mg/dL Ur Leukocyte Esterase Negative (NEGATIVE) Urine RBC 0-5 (0-5) Urine WBC Not seen (0-5) Ur Epithelial Cells Not seen Amorphous Sediment Few Urine Bacteria Not seen Urine Mucus Not seen Urine Other Med Orders - Current: Current Medications Acetaminophen (Tylenol) 650 mg PO Q4H PRN PRN Reason: Pain (Mild 1-3)/fever Last Admin: 04/13/17 08:26 Dose: 650 mg Albuterol/Ipratropium (Duoneb 3.0-0.5 Mg/3 Ml) 3 ml NEB QIDRT [facility] Last Admin: 04/13/17 10:17 Dose: 3 ml Aspirin (Aspirin) 81 mg PO DAILY [facility] Last Admin: 04/13/17 08:26 Dose: 81 mg Atorvastatin Calcium (Lipitor) 80 mg PO BEDTIME [facility] Last Admin: 04/12/17 20:55 Dose: 80 mg Budesonide (Pulmicort) 0.5 mg NEB BIDRT [facility] Last Admin: 04/13/17 07:15 Dose: 0.5 mg Clopidogrel Bisulfate (Plavix) 75 mg PO DAILY [facility] Last Admin: 04/13/17 08:27 Dose: 75 mg Enoxaparin Sodium (Lovenox) 40 mg SUBCUT Q24H [facility] Last Admin: 04/12/17 18:37 Dose: 40 mg Folic Acid (Folic Acid) 1 mg PO DAILY [facility] Last Admin: 04/13/17 08:27 Dose: 1 mg Heparin Sodium (Porcine) 1 (units/ Sodium Chloride) 500.0002 mls @ 0 mls/hr IV ASDIRECTED [facility] Last Admin: 04/10/17 09:18 Dose: 1 mls/hr Meropenem 1 gm/ Sodium (Chloride) 100 mls @ 200 mls/hr IV Q8H [facility] Last Admin: 04/13/17 11:07 Dose: 200 mls/hr Vancomycin HCl 1 gm/ Sodium (Chloride) 250 mls @ 250 mls/hr IV Q18H [facility] Last Admin: 04/13/17 11:10 Dose: 250 mls/hr Lactated Ringer's (Ringers, Lactated) 1,000 mls @ 100 mls/hr IV ASDIRECTED [facility] Labetalol HCl (Normodyne) 10 mg IVPUSH Q4H PRN; Protocol PRN Reason: Hypertension Last Admin: 04/12/17 15:07 Dose: 10 mg Levalbuterol HCl (Xopenex) 1.25 mg NEB Q4H PRN PRN Reason: Dyspnea Last Admin: 04/10/17 04:04 Dose: 1.25 mg Levalbuterol HCl (Xopenex Hfa) 0 gm INH Q4H PRN PRN Reason: Wheezing Last Admin: 04/12/17 13:26 Dose: 1 each Magnesium Hydroxide (Milk Of Magnesia) 30 ml PO Q12H PRN PRN Reason: Constipation Melatonin (Melatonin) 9 mg PO BEDTIME [facility] Last Admin: 04/12/17 20:55 Dose: 9 mg Methylprednisolone Sodium Succinate (Solu-Medrol) 40 mg IVPUSH Q12H [facility] Last Admin: 04/13/17 05:46 Dose: 40 mg Metoprolol Tartrate (Lopressor) 50 mg PO BID [facility] Last Admin: 04/13/17 08:27 Dose: 50 mg Metoprolol Tartrate (Lopressor) 5 mg IVPUSH Q4H PRN PRN Reason: Hypertension Mometasone Furoate/Formoterol Fumar (Dulera 200-5 Mcg) 2 puff IH BIDRT [facility] Last Admin: 04/13/17 07:16 Dose: Not Given Morphine Sulfate (Morphine) 2 mg IVPUSH Q30M PRN PRN Reason: Shortness of Breath Last Admin: 04/13/17 10:37 Dose: 2 mg Nitroglycerin (Nitrostat) 0.4 mg SL Q5M PRN PRN Reason: Chest Pain Ondansetron HCl (Zofran) 4 mg IV Q4H PRN PRN Reason: Nausea/Vomiting Oxycodone HCl (Oxycodone) 5 mg PO Q4H PRN PRN Reason: Pain (moderate 4-6) Pantoprazole Sodium (Protonix Iv) 40 mg IVPUSH DAILY [facility] Last Admin: 04/13/17 08:27 Dose: 40 mg Paroxetine HCl (Paxil) 10 mg PO DAILY [facility] Last Admin: 04/13/17 08:26 Dose: 10 mg Xiidra 5% Opth Soln ((Ptom)) 0 each EYEBOTH BID [facility] Last Admin: 04/13/17 08:27 Dose: 1 each Polyethylene Glycol (Miralax) 17 gm PO DAILY PRN PRN Reason: Constipation Senna/Docusate Sodium (Senna Plus) 1 tab PO BID PRN PRN Reason: Constipation Sodium Chloride (Saline Flush) 10 ml FLUSH ASDIRECTED PRN PRN Reason: Keep Vein Open Last Admin: 04/09/17 13:25 Dose: 10 ml Discontinued Medications Albuterol (Proventil Neb Soln) 2.5 mg NEB ONETIME ONE Stop: 04/08/17 12:53 Last Admin: 04/08/17 12:58 Dose: 2.5 mg Buspirone HCl (Buspar) 5 mg PO TID [facility] Last Admin: 04/12/17 13:57 Dose: Not Given Furosemide (Lasix) 20 mg IVPUSH NOW ONE Stop: 04/11/17 08:31 Last Admin: 04/11/17 09:06 Dose: 20 mg Furosemide (Lasix) 20 mg IVPUSH NOW ONE Stop: 04/12/17 08:20 Last Admin: 04/12/17 08:57 Dose: 20 mg Doxycycline Hyclate 100 mg/ (Sodium Chloride) 100 mls @ 100 mls/hr IV Q12H [facility] Last Admin: 04/10/17 04:16 Dose: 100 mls/hr Sodium Chloride (Normal Saline) 1,000 mls @ 100 mls/hr IV ASDIRECTED [facility] Last Admin: 04/09/17 03:07 Dose: 100 mls/hr Cefepime HCl 1 gm/ Sodium (Chloride) 50 mls @ 100 mls/hr IV Q8H [facility] Last Admin: 04/10/17 07:51 Dose: Not Given Levofloxacin/Dextrose 750 mg/ (Premix) 150 mls @ 100 mls/hr IV Q24H [facility] Last Admin: 04/12/17 07:56 Dose: 100 mls/hr Cefepime HCl 1 gm/ Sodium (Chloride) 50 mls @ 100 mls/hr IV Q8H [facility] Last Admin: 04/12/17 08:17 Dose: 100 mls/hr Propofol (Diprivan 100 Ml) Confirm Administered Dose 100 mls @ as directed .ROUTE .STK-MED ONE Stop: 04/10/17 08:16 Last Admin: 04/10/17 09:21 Dose: Not Given Lidocaine HCl (Xylocaine-Mpf 1%) Confirm Administered Dose 2 mls @ as directed .ROUTE .STK-MED ONE Stop: 04/10/17 08:38 Propofol (Diprivan 100 Ml) 100 mls @ 6.031 mls/hr IV TITRATE THEA; 20 MCG/KG/MIN PRN Reason: Protocol Last Admin: 04/12/17 07:54 Dose: 50 mcg/kg/min, 15.077 mls/hr Sodium Chloride (Normal Saline) 1,000 mls @ 75 mls/hr IV ASDIRECTED [facility] Last Admin: 04/10/17 21:06 Dose: 75 mls/hr Sodium Chloride (Normal Saline) 1,000 mls @ 25 mls/hr IV ASDIRECTED [facility] Last Admin: 04/12/17 01:43 Dose: 25 mls/hr Potassium Chloride 20 meq/ (Premix) 0 mls @ 50 mls/hr IV Q2H [facility] Stop: 04/11/17 20:06 Last Admin: 04/11/17 20:49 Dose: 50 mls/hr Potassium Chloride 20 meq/Lidocaine HCl 2 ml/ Sodium Chloride 112 mls @ 56 mls/ hr IV Q2H [facility] Stop: 04/12/17 12:59 Last Admin: 04/12/17 12:31 Dose: 56 mls/hr Sodium Chloride (Normal Saline) 100 mls @ 3 mls/sec IV ASDIRECTED [facility] Stop: 04/12/17 12:00 Last Admin: 04/12/17 12:10 Dose: 3 mls/sec Propofol (Diprivan 100 Ml) Confirm Administered Dose 100 mls @ as directed .ROUTE .STK-MED ONE Stop: 04/12/17 17:40 Last Admin: 04/12/17 18:27 Dose: Not Given Iopamidol (Isovue-370 (76%)) 100 ml IV . DIRECTED [facility] Stop: 04/12/17 12:00 Last Admin: 04/12/17 12:09 Dose: 100 ml Lidocaine HCl (Xylocaine 1%) 2 ml INJECT ASDIRECTED [facility] Last Admin: 04/11/17 20:51 Dose: 2 ml Lorazepam (Ativan) 0.5 mg PO Q6H PRN PRN Reason: Anxiety Last Admin: 04/09/17 01:03 Dose: 0.5 mg Lorazepam (Ativan) 0.5 mg IVPUSH ONETIME STA Stop: 04/09/17 06:27 Last Admin: 04/09/17 06:37 Dose: 0.5 mg Lorazepam (Ativan) 0.5 mg PO Q2H PRN PRN Reason: Anxiety Last Admin: 04/10/17 07:22 Dose: 0.5 mg Lorazepam (Ativan) 0.5 mg IVPUSH Q2H PRN PRN Reason: Anxiety Lorazepam (Ativan) 0.5 mg IVPUSH Q4H PRN PRN Reason: Anxiety Methylprednisolone Sodium Succinate (Solu-Medrol) 125 mg IVPUSH ONETIME ONE Stop: 04/08/17 14:03 Last Admin: 04/08/17 14:28 Dose: 125 mg Methylprednisolone Sodium Succinate (Solu-Medrol) 40 mg IVPUSH Q6H [facility] Last Admin: 04/12/17 08:11 Dose: 40 mg Metoprolol Tartrate (Lopressor) 5 mg IVPUSH Q4H [facility] Last Admin: 04/12/17 13:46 Dose: 5 mg Metoprolol Tartrate (Lopressor) Confirm Administered Dose 50 mg .ROUTE .STK-MED ONE Stop: 04/12/17 20:51 Last Admin: 04/12/17 23:32 Dose: Not Given Pantoprazole Sodium (Protonix Iv) 40 mg IVPUSH DAILY [facility] Last Admin: 04/12/17 08:02 Dose: 40 mg Propofol (Diprivan 20 Ml) Confirm Administered Dose 200 mg .ROUTE .STK-MED ONE Stop: 04/10/17 08:14 Propofol (Diprivan 20 Ml) Confirm Administered Dose 200 mg .ROUTE .STK-MED ONE Stop: 04/12/17 18:03 Succinylcholine Chloride (Succinylcholine In Ns Pf) Confirm Administered Dose 200 mg .ROUTE .STK-MED ONE Stop: 04/10/17 08:14 Succinylcholine Chloride (Succinylcholine In Ns Pf) Confirm Administered Dose 200 mg .ROUTE .STK-MED ONE Stop: 04/12/17 18:03 *Q Meaningful Use (DIS) - VTE *Q VTE Criteria *Q: - Stroke *Q Stroke Criteria *Q: - AMI *Q AMI Criteria *Q:
[2017-04-13 15:15] VITALS: BP 155/88
--- NOTE | 2017-04-15 09:06 | CR ---
Chest 1V Frontal INDICATION: Postintubation COMPARISON: Exam same day at 0321 hours FINDINGS: AP portable chest. ET tube mid trachea in good position, unchanged. NG tube is been placed with tip in the distal esophagus just above the GE junction. No other change in the chest.
--- NOTE | 2017-04-15 09:07 | CR ---
Chest 1V Frontal INDICATION: Respiratory failure, intubation COMPARISON: 04/12/2017 at 1827 hours FINDINGS: AP portable chest. ET tube remains in place in good position. NG tube remains in place, tip distal esophagus just above the GE junction. Interval development of right perihilar infiltrate. No other change in the chest.
--- NOTE | 2017-04-15 09:35 | CR ---
OR PCXR-No Charge-PICC/Central INDICATION: PICC placement COMPARISON: Same day FINDINGS: AP portable chest shows right upper extremity PICC line in good position in the mid trache a. ET and NG tubes remain in place. NG tube remains at the distal esophagus just above the level of t he GE junction. No infiltrates seen on this exam. Previous perihilar infiltrate has cleared. Heart si ze normal.
== END 2017-04-13 16:30 | DRG 208 ==
LOC: JP.ED 12:13 → JP.MS 14:20 → JP.ICU 04-10 06:30
PROVIDERS: ADMIT Hospitalist; ATTEND Hospitalist
PROC: 0BH17EZ Insertion of Endotracheal Airway into Trachea, Via Natural or Artificial Opening (ICD-10-PCS; principal; 2017-04-10)
PROC: 5A1945Z Respiratory Ventilation, 24-96 Consecutive Hours (ICD-10-PCS; 2017-04-10)
PROC: 03HC33Z Insertion of Infusion Device into Left Radial Artery, Percutaneous Approach (ICD-10-PCS; 2017-04-10)
PROC: 0BH17EZ Insertion of Endotracheal Airway into Trachea, Via Natural or Artificial Opening (ICD-10-PCS; 2017-04-12)
DX: J44.0 Chronic obstructive pulmonary disease with (acute) lower respiratory infection (principal); J96.22 Acute and chronic respiratory failure with hypercapnia; J96.21 Acute and chronic respiratory failure with hypoxia; E87.2 Acidosis; J20.9 Acute bronchitis, unspecified; J44.1 Chronic obstructive pulmonary disease with (acute) exacerbation; I10 Essential (primary) hypertension; I25.10 Atherosclerotic heart disease of native coronary artery without angina pectoris; R06.02 Shortness of breath; R05 Cough; Z99.81 Dependence on supplemental oxygen; Z87.891 Personal history of nicotine dependence; R00.0 Tachycardia, unspecified; D72.829 Elevated white blood cell count, unspecified; R53.83 Other fatigue; F41.9 Anxiety disorder, unspecified; Z86.74 Personal history of sudden cardiac arrest; Z95.5 Presence of coronary angioplasty implant and graft; H54.7 Unspecified visual loss; Z87.440 Personal history of urinary (tract) infections; Z88.2 Allergy status to sulfonamides; Z88.8 Allergy status to other drugs, medicaments and biological substances
CPT/HCPCS: 36415; 36600; 70450; 71045; 71045-26; 71275; 71275-26; 80048; 80053; 81001; 82607; 82746; 82803; 83735; 84132; 84484; 85025; 86140; 87040; 87804; 93005; 94002; 94003; 94640; 94660; 94762; 96374; 99283; 99285-25; A9270-GY; C9113; J0692; J1644; J1650; J1940; J1956; J2060; J2185; J2270; J2704; J2920; J2930; J3370; J3480; J3490; J7030; J7040; J7050; J7612; J7620; J7626; Q9967

== ENCOUNTER 2017-04-26 00:44 | Emergency (ER) | payer MEDICARE, BC ==
--- NOTE | 2017-04-26 00:57 | EDM.PDOC ---
ED HPI GENERAL MEDICAL PROBLEM - General Chief Complaint: Chest Pain Stated Complaint: MEDICAL VIA [facility] Time Seen by Provider: 04/26/17 00:49 Source of Information: Reports: Patient History Limitations: Reports: No Limitations - History of Present Illness INITIAL COMMENTS - FREE TEXT/NARRATIVE: pt has acute onset of left chest pain. This did wakn her from a sound sleep, She took 3 nitros and she had good relief of the pain. She is now now painfree. She i comfortable with her breathing. She just got back from [place] on sat. She was to go to [facility] for rehap and only stayed there one nite. Onset: Today, Sudden Duration: Minutes:, Resolved Prior to Arrival Location: Reports: Chest Associated Symptoms: Reports: Other ( severe left sided chest pain. ) - Related Data Allergies Allergy/AdvReac Type Severity Reaction Status Date / Time Sulfa (Sulfonamide Allergy Mild Rash Verified 04/26/17 00:47 Antibiotics) meperidine HCl [From Demerol] Allergy Unknown Rash Verified 04/26/17 00:47 Home Meds: Home Meds Albuterol/Ipratropium [DuoNeb 3.0-0.5 MG/3 ML] 3 ml INH ASDIRECTED PRN 01/06/13 [History] PARoxetine [Paxil] 10 mg PO QAM 04/11/14 [History] busPIRone [Buspar] 5 mg PO TID 11/06/15 [History] Metoprolol Tartrate [Lopressor] 50 mg PO BID tablet 02/18/16 [Rx] Budesonide/Formoterol Fumarate [Symbicort 160-4.5 Mcg Inhaler] 2 puff INH BID [History] Clopidogrel Bisulfate [Clopidogrel] 75 mg PO DAILY 11/26/16 [History] Nitroglycerin 0.4 mg SL ASDIRECTED PRN 11/26/16 [History] atorvaSTATin [Lipitor] 80 mg PO BEDTIME 11/26/16 [History] Lifitegrast [Xiidra] 1 drop EYEBOTH BID 04/08/17 [History] Albuterol/Ipratropium [DuoNeb 3.0-0.5 MG/3 ML] 3 ml NEB QIDRT neb 04/13/17 [Rx] Folic Acid 1 mg PO DAILY tablet 04/13/17 [Rx] Levalbuterol Tartrate [Levalbuterol Tartrate Hfa] 2 puff INH QID PRN 04/26/17 [ History] Past Medical History HEENT History: Reports: Impaired Vision Cardiovascular History: Reports: Hypertension, Prior Cardiac Arrest, Stents, Other (See Below) Other Cardiovascular History: cardiac arrest april 2016 Respiratory History: Reports: COPD, Other (See Below) Other Respiratory History: 02 2l at night as needed. 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 copd. 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: Neurological History: Reports: Migraines Psychiatric History: Reports: Anxiety - Infectious Disease History Infectious Disease History: Reports: Shingles Other Infectious Disease History: unknown - Past Surgical History Head Surgeries/Procedures: Reports: None Neurological Surgical History: Reports: None Dermatological Surgical History: Reports: None Social & Family History - Family History Family Medical History: Noncontributory - Tobacco Use Smoking Status *Q: Former Smoker Years of Tobacco use: 50 Packs/Tins Daily: 1 Used Tobacco, but Quit: Yes Month Tobacco Last Used: 1 Second Hand Smoke Exposure: No - Caffeine Use Caffeine Use: Reports: None - Alcohol Use Days Per Week of Alcohol Use: 7 Number of Drinks Per Day: 2 Total Drinks Per Week: 14 - Recreational Drug Use Recreational Drug Use: No - Living Situation & Occupation Living situation: Reports: , with Spouse Occupation: Disabled ED ROS GENERAL - Review of Systems Review Of Systems: See Below Constitutional: Reports: No Symptoms HEENT: Reports: No Symptoms Respiratory: Reports: Shortness of Breath, Other ( pt has severe copd but at this time appears to be under good control. ) Cardiovascular: Reports: Chest Pain Endocrine: Reports: No Symptoms GI/Abdominal: Reports: No Symptoms : Reports: No Symptoms Musculoskeletal: Reports: No Symptoms Skin: Reports: No Symptoms ED EXAM, GENERAL - Physical Exam Exam: See Below Free Text/Narrative:: pt arrived with pain in the upper chest area and the pain radiated to her jaw and teeth area/ t. She would have rated the pain at a 10. The nitros gave full relief. Exam Limited By: No Limitations General Appearance: Alert, No Apparent Distress, Other (Pt did arrive with minimal discomfort. ) Ears: Normal TMs Nose: Normal Inspection Throat/Mouth: Normal Inspection Head: Atraumatic Neck: Normal Inspection Respiratory/Chest: No Respiratory Distress, Other (pt has very distant breath sounds. ) Cardiovascular: Regular Rate, Rhythm, Tachycardia GI/Abdominal: Soft, Non-Tender (Female) Exam: Deferred Rectal (Female) Exam: Deferred Back Exam: Normal Inspection Extremities: Normal Inspection Neurological: Alert, Oriented, Normal Cognition Skin Exam: Other (pt was very diaphoretic at the time of the pain. ) Course - Vital Signs Last Recorded V/S: Last Vital Signs Temp 36.4 C 04/26/17 02:05 Pulse 91 04/26/17 02:13 Resp 15 04/26/17 02:13 BP 103/52 L 04/26/17 02:13 Pulse Ox 100 04/26/17 02:13 - Orders/Labs/Meds Labs: Laboratory Tests 04/26/17 04/26/17 04/26/17 Range/Units 00:58 00:58 00:58 WBC 13.2 H (4.5-11.0) K/uL RBC 3.02 L (3.30-5.50) M/uL Hgb 10.6 L D (12.0-15.0) g/dL Hct 33.5 L (36.0-48.0) % MCV 111 H (80-98) fL MCH 35 H (27-31) pg MCHC 32 (32-36) % Plt Count 357 (150-400) K/uL Neut % (Auto) 86 H (36-66) % Lymph % (Auto) 7 L (24-44) % Davis % (Auto) 5 (2-6) % Eos % (Auto) 1 L (2-4) % Baso % (Auto) 0 (0-1) % APTT 22.2 L (27.0-36.0) sec Sodium 144 (140-148) mmol/L Potassium 4.2 (3.6-5.2) mmol/L Chloride 106 (100-108) mmol/L Carbon Dioxide 25 (21-32) mmol/L Anion Gap 13.0 (5.0-14.0) mmol/L BUN 12 D (7-18) mg/dL Creatinine 1.0 (0.6-1.0) mg/dL Est Cr Clr Drug Dosing 38.68 mL/min Estimated GFR (MDRD) 55 L (>60) Glucose 126 H (74-106) mg/dL Calcium 8.7 (8.5-10.1) mg/dL Total Bilirubin 0.5 (0.2-1.0) mg/dL AST 38 H (15-37) U/L ALT 61 (12-78) U/L Alkaline Phosphatase 117 H (46-116) U/L Troponin I 0.031 (0.000-0.056) ng/mL Total Protein 6.7 (6.4-8.2) g/dL Albumin 3.6 (3.4-5.0) g/dL Globulin 3.1 (2.3-3.5) g/dL Albumin/Globulin Ratio 1.2 (1.2-2.2) Meds: Medications Discontinued Medications Generic Name Dose Route Start Last Admin Trade Name Freq PRN Reason Stop Dose Admin Sodium Chloride 1,000 mls @ 500 mls/hr 04/26/17 01:45 Normal Saline IV ASDIRECTED THEA Sodium Chloride 500 mls @ 999 mls/hr 04/26/17 01:45 04/26/17 02:10 Normal Saline IV 04/26/17 02:15 999 mls/hr .BOLUS ONE Administration - Re-Assessments/Exams Free Text/Narrative Re-Assessment/Exam: 04/26/17 01:40 pt had an episode of chest pin that lasted for about 3/4 hour. She got very sweaty ith the pain. She did take 3 noitros nd had good relief of her chest pain. She did take 1 full sized asa. She had been doing well with her breathing. Her pain did awaken her from a sound sleep. 04/26/17 01:56 Departure - Departure Time of Disposition: 02:15 Disposition: DC/Tfer to Acute Hospital 02 Reason for Transfer *Q: Primary PCI Indicated Condition: Fair Clinical Impression: Angina at rest, COPD (chronic obstructive pulmonary disease), Cardiac arrest due to respiratory disorder Referrals: PCP,None [Primary Care Provider] - Forms: ED Department Discharge Care Plan Goals: transfer to [facility]
[2017-04-26] MEDS ORDERED: Sodium Chloride 0.9% 500 ML IV ONE (01:45)
[2017-04-26] MEDS ORDERED: Sodium Chloride 0.9% 1,000 ML IV SCH (01:45)
[2017-04-26 02:17] VITALS: BP 103/52
== END 2017-04-26 02:30 ==
LOC: JP.ED 00:44
DX: J98.9 Respiratory disorder, unspecified (principal); I46.8 Cardiac arrest due to other underlying condition; I20.9 Angina pectoris, unspecified; J44.9 Chronic obstructive pulmonary disease, unspecified; I10 Essential (primary) hypertension; Z88.2 Allergy status to sulfonamides; Z88.5 Allergy status to narcotic agent; Z79.899 Other long term (current) drug therapy; Z87.891 Personal history of nicotine dependence
CPT/HCPCS: 36415; 80053; 84484; 85025; 85730; 93005; 99285; J7040

== ENCOUNTER 2017-05-08 22:11 | Emergency (ER) | payer MEDICARE, BC ==
[2017-05-08 22:55] VITALS: BP 108/48
--- NOTE | 2017-05-08 23:21 | EDM.PDOC ---
ED HPI GENERAL MEDICAL PROBLEM - General Chief Complaint: Cardiovascular Problem Stated Complaint: MEDICAL VIA [facility] Time Seen by Provider: 05/08/17 22:20 Source of Information: Reports: Patient, EMS, Family History Limitations: Reports: No Limitations - History of Present Illness INITIAL COMMENTS - FREE TEXT/NARRATIVE: 67-year-old female with severe COPD and coronary artery disease has had some medication changes over the past 1-2 weeks and has been persistently hypotensive at home and tonight when she sat up on the side of the bed she had a syncopal episode. She did not get hurt but her called EMS and they brought her in for evaluation. Her blood pressure now is 103/69, she is asymptomatic. Home health has been commenting over the past several days that her blood pressures have been low and she needs to discuss her medications with her doctors. Onset: Unknown/Unsure Associated Symptoms: Reports: Weakness. Denies: Chest Pain, Fever/Chills, Headaches, Loss of Appetite, Malaise - Related Data Allergies Allergy/AdvReac Type Severity Reaction Status Date / Time Sulfa (Sulfonamide Allergy Mild Rash Verified 05/08/17 22:16 Antibiotics) meperidine HCl [From Demerol] Allergy Unknown Rash Verified 05/08/17 22:16 Home Meds: Home Meds PARoxetine [Paxil] 10 mg PO QAM 04/11/14 [History] busPIRone [Buspar] 5 mg PO TID 11/06/15 [History] Budesonide/Formoterol Fumarate [Symbicort 160-4.5 Mcg Inhaler] 2 puff INH BID [History] Clopidogrel Bisulfate [Clopidogrel] 75 mg PO DAILY 11/26/16 [History] Nitroglycerin 0.4 mg SL ASDIRECTED PRN 11/26/16 [History] atorvaSTATin [Lipitor] 80 mg PO BEDTIME 11/26/16 [History] Lifitegrast [Xiidra] 1 drop EYEBOTH BID 04/08/17 [History] Folic Acid 1 mg PO DAILY tablet 04/13/17 [Rx] Levalbuterol Tartrate [Levalbuterol Tartrate Hfa] 2 puff INH Q4H PRN 04/26/17 [ History] Albuterol/Ipratropium [DuoNeb 3.0-0.5 MG/3 ML] 3 ml NEB QIDRT PRN 05/08/17 [ History] Aspirin [Adult Low Dose Aspirin EC] 81 mg PO DAILY 05/08/17 [History] Furosemide [Furosemide] 1 tab PO DAILY 05/08/17 [History] LORazepam [Ativan] 0.5 mg PO Q6H PRN 05/08/17 [History] Lisinopril [Lisinopril] 1 tab PO DAILY 05/08/17 [History] Metoprolol Succinate [Toprol XL 50mg] 50 mg PO DAILY 05/08/17 [History] Potassium Chloride [Klor-Con 10] 10 meq PO DAILY 05/08/17 [History] Ranolazine [Ranexa] 500 mg PO BID 05/08/17 [History] Past Medical History HEENT History: Reports: Impaired Vision Cardiovascular History: Reports: Hypertension, Prior Cardiac Arrest, Stents, Other (See Below) Other Cardiovascular History: cardiac arrest april 2016 Respiratory History: Reports: COPD, Other (See Below) Other Respiratory History: 02 2l at night as needed. 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 copd. 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: Neurological History: Reports: Migraines Psychiatric History: Reports: Anxiety - Infectious Disease History Infectious Disease History: Reports: Shingles Other Infectious Disease History: unknown - Past Surgical History Head Surgeries/Procedures: Reports: None GI Surgical History: Reports: Colonoscopy Neurological Surgical History: Reports: None Dermatological Surgical History: Reports: None Social & Family History - Family History Family Medical History: Noncontributory - Tobacco Use Smoking Status *Q: Former Smoker Years of Tobacco use: 50 Packs/Tins Daily: 1 Used Tobacco, but Quit: Yes Month/Year Tobacco Last Used: . Second Hand Smoke Exposure: No - Caffeine Use Caffeine Use: Reports: None - Alcohol Use Days Per Week of Alcohol Use: 7 Number of Drinks Per Day: 2 Total Drinks Per Week: 14 - Recreational Drug Use Recreational Drug Use: No - Living Situation & Occupation Living situation: Reports: , with Spouse Occupation: Disabled ED ROS GENERAL - Review of Systems Review Of Systems: See Below Constitutional: Reports: Weakness. Denies: Fever, Chills HEENT: Reports: No Symptoms Respiratory: Reports: Shortness of Breath (Chronic but stable and actually doing very well) Cardiovascular: Reports: Syncope. Denies: Chest Pain, Palpitations GI/Abdominal: Denies: Abdominal Pain, Nausea, Vomiting Skin: Reports: Other (Numerous bruises on her arms from recent blood draws and IVs) Neurological: Reports: Dizziness. Denies: Headache Psychiatric: Reports: No Symptoms ED EXAM, GENERAL - Physical Exam Exam: See Below Exam Limited By: No Limitations General Appearance: Alert, No Apparent Distress Eye Exam: Bilateral Eye: EOMI Respiratory/Chest: No Respiratory Distress, Decreased Breath Sounds (Diffuse decreased breath sounds, basilar rales are present) Cardiovascular: Regular Rate, Rhythm, Other (Systolic blood pressure ranged from 103-109 for the entire hour she was in the emergency room) GI/Abdominal: Soft, Non-Tender Extremities: No: Pedal Edema Neurological: Alert, Oriented Course - Vital Signs Last Recorded V/S: Last Vital Signs Temp 96.5 F 05/08/17 22:15 Pulse 84 05/08/17 22:54 Resp 16 05/08/17 22:15 BP 108/48 L 05/08/17 22:54 Pulse Ox 89 L 05/08/17 22:54 - Re-Assessments/Exams Free Text/Narrative Re-Assessment/Exam: 05/08/17 23:18 Spend quite a bit of time going over her medications. She is on Ranexa, and antianginal agent which is a new medication. However she is not experiencing any angina, and an angiogram she had 10 days ago showed clear coronary arteries. It is possible that this medication is causing side effects not worth the benefits. She also has sublingual nitroglycerin on a when necessary basis if needed. She is going to hold her Ranexa dose tonight and tomorrow morning, and then discuss it with her accounting manager controller tomorrow. Departure - Departure Time of Disposition: 23:32 Disposition: Home, Self-Care 01 Condition: Fair Clinical Impression: Syncope due to orthostatic hypotension Instructions: Hypotension, [id number] Referrals: PCP,None [Primary Care Provider] - Forms: ED Department Discharge Care Plan Goals: Hold Ranexa tonight and tomorrow morning, and communicate with your primary accounting manager controller tomorrow regarding your medications.
== END 2017-05-08 23:32 | disposition home or self-care (01) ==
LOC: JP.ED 22:11
DX: I95.1 Orthostatic hypotension (principal); I10 Essential (primary) hypertension; Z88.2 Allergy status to sulfonamides; Z88.5 Allergy status to narcotic agent; Z79.899 Other long term (current) drug therapy; Z87.891 Personal history of nicotine dependence
CPT/HCPCS: 99285

== ENCOUNTER 2018-10-24 07:45 | Day surgery (SDC) | payer MEDICARE, BC ==
[~2018-10-24 07:45] MED LIST: Lactated Ringers 1,000 ML IV SCH
[2018-10-24] MEDS ORDERED: Lactated Ringers 1,000 ML IV SCH (08:15)
[2018-10-24] MEDS ORDERED: fentaNYL 100 MCG/2 ML SDV ONE (08:58)
[2018-10-24] MEDS ORDERED: Midazolam 1 MG/ML 2 ML SDV ONE (08:58)
[2018-10-24] MEDS ORDERED: Propofol 200 MG/20 ML SDV ONE (08:58)
[2018-10-24 11:19] VITALS: BP 88/45
--- NOTE | 2018-10-24 14:03 | OR ---
DATE OF PROCEDURE: 10/24/2018 PREOPERATIVE DIAGNOSIS: Blood in stool. POSTOPERATIVE DIAGNOSIS: Hemorrhoids. PROCEDURE: Colonoscopy to the cecum. SURGEON: Vipin Cabrera MD ANESTHESIA: IV anesthesia with monitored anesthesia care. INDICATION: This 68-year-old white female has never had a colonoscopic exam. She presented to me with blood in stool, presumably from hemorrhoids. I counseled her for a colonoscopy with possible biopsy and/or polypectomy, including risks and alternatives, and she gave her informed consent to proceed. DESCRIPTION OF PROCEDURE: The patient was placed in the left lateral decubitus position. IV anesthesia was administered by the Anesthesia Service. Time-out was held. A rectal exam was performed, which was unremarkable. The flexible video Olympus colonoscope was introduced through her anus, up her rectum and out her colon, all the way to the cecum. Once the cecum was reached, the scope was slowly withdrawn, examining the mucosa throughout. No mucosal abnormalities were noted. The scope was retroflexed in the rectum with the distal rectum showing some hemorrhoidal tissue. The scope was straightened and removed. She tolerated the procedure well. Vipin Cabrera MD /[id number]
== END 2018-10-24 11:50 | disposition home or self-care (01) ==
LOC: JP.SDS 07:45
PROVIDERS: ATTEND Surgery
DX: K92.1 Melena (principal); K64.9 Unspecified hemorrhoids; J44.9 Chronic obstructive pulmonary disease, unspecified; I25.10 Atherosclerotic heart disease of native coronary artery without angina pectoris; M54.9 Dorsalgia, unspecified; Z88.2 Allergy status to sulfonamides; Z88.5 Allergy status to narcotic agent
CPT/HCPCS: 45378; J2250; J2704; J3010; J7120

== ENCOUNTER 2019-04-23 10:52 | Emergency (ER) | payer MEDICARE, BC ==
[2019-04-23 11:00] VITALS: BP 153/80; PULSE 118
--- NOTE | 2019-04-23 11:09 | EDM.PDOC ---
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 Medication(s) (Visitation treatments and Symbicort), Oxygen - Related Data Allergies Allergy/AdvReac Type Severity Reaction Status Date / Time Sulfa (Sulfonamide Allergy Mild Rash Verified 12/27/18 12:44 Antibiotics) meperidine HCl [From Demerol] Allergy Unknown Rash Verified 12/27/18 12:44 Home Meds: Home Meds PARoxetine [Paxil] 10 mg PO QAM 04/11/14 [History] busPIRone [Buspar] 5 mg PO TID 11/06/15 [History] Budesonide/Formoterol Fumarate [Symbicort 160-4.5 Mcg Inhaler] 2 puff INH BID [History] Nitroglycerin 0.4 mg SL ASDIRECTED PRN 11/26/16 [History] atorvaSTATin [Lipitor] 80 mg PO BEDTIME 11/26/16 [History] Albuterol/Ipratropium [DuoNeb 3.0-0.5 MG/3 ML] 3 ml NEB QIDRT PRN 05/08/17 [ History] Aspirin [Adult Low Dose Aspirin EC] 81 mg PO DAILY 05/08/17 [History] LORazepam [Ativan] 0.5 mg PO Q6H PRN 05/08/17 [History] Lisinopril 2.5 mg PO DAILY 05/08/17 [History] Metoprolol Succinate [Toprol XL 50mg] 50 mg PO DAILY 05/08/17 [History] Albuterol [Ventolin HFA] 2 puff INH Q4H PRN 10/15/18 [History] Magnesium Oxide [Magnesium] 400 mg PO DAILY 10/15/18 [History] Sodium Chloride for Inhalation [Sodium Chloride] 4 ml IH Q4H PRN 10/15/18 [ History] amLODIPine [Norvasc] 2.5 mg PO DAILY 10/15/18 [History] Past Medical History HEENT History: Reports: Impaired Vision Cardiovascular History: Reports: Hypertension, Prior Cardiac Arrest, Stents, Other (See Below) Other Cardiovascular History: cardiac arrest april 2016 Respiratory History: Reports: COPD, Other (See Below) Other Respiratory History: 02 2l at night as needed. 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 copd. 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: Musculoskeletal History: Reports: Osteoarthritis, Osteoporosis Neurological History: Reports: Migraines Psychiatric History: Reports: Anxiety Endocrine/Metabolic History: Reports: Osteoporosis - Infectious Disease History Infectious Disease History: Reports: Measles Other Infectious Disease History: unknown - Past Surgical History Head Surgeries/Procedures: Reports: None HEENT Surgical History: Reports: None Cardiovascular Surgical History: Reports: None Respiratory Surgical History: Reports: None GI Surgical History: Reports: None Female Surgical History: Reports: None Endocrine Surgical History: Reports: None Neurological Surgical History: Reports: None Musculoskeletal Surgical History: Reports: None Dermatological Surgical History: Reports: None Social & Family History - Family History Family Medical History: Noncontributory - Tobacco Use Smoking Status *Q: Former Smoker Used Tobacco, but Quit: Yes Month/Year Tobacco Last Used: 02/2013 - Caffeine Use Caffeine Use: Reports: None - Recreational Drug Use Recreational Drug Use: No - Living Situation & Occupation Living situation: Reports: , with Spouse Occupation: Disabled ED ROS GENERAL - Review of Systems Review Of Systems: See Below Constitutional: Reports: Weakness, Fatigue. Denies: Fever, Diaphoresis HEENT: Reports: No Symptoms Respiratory: Reports: Shortness of Breath, Wheezing, Cough. Denies: Pleuritic Chest Pain Cardiovascular: Reports: Dyspnea on Exertion. Denies: Chest Pain, Edema GI/Abdominal: Denies: Abdominal Pain Musculoskeletal: Reports: No Symptoms Skin: Denies: Pallor, Diaphoresis, Rash Neurological: Denies: Confusion, Dizziness, Trouble Speaking Psychiatric: Reports: No Symptoms ED EXAM, GENERAL - Physical Exam Exam: See Below Exam Limited By: No Limitations General Appearance: No Apparent Distress Eye Exam: Bilateral Eye: PERRL Ears: Normal External Exam Nose: Normal Inspection Throat/Mouth: Normal Inspection, Normal Voice Head: Normocephalic. No: Facial Swelling Neck: No: Carotid Bruit, Lymphadenopathy (R), Lymphadenopathy (L) Respiratory/Chest: Respiratory Distress, Decreased Breath Sounds, Rales, Wheezing, Retractions, Prolonged Expiration Cardiovascular: Normal Peripheral Pulses, No Murmur GI/Abdominal: Normal Bowel Sounds, Soft Back Exam: Normal Inspection, Full Range of Motion Extremities: Normal Inspection, Normal Range of Motion, No Pedal Edema Neurological: Alert, Oriented Course - Vital Signs Text/Narrative:: Was administered a DuoNeb IV Solu-Medrol, and IV magnesium. Within an hour she stated she was breathing much easier and was back at her baseline. She is comfortable being discharged home. Last Recorded V/S: Last Vital Signs Temp 36.4 C 04/23/19 11:00 Pulse 118 H 04/23/19 11:00 Resp 17 04/23/19 11:00 BP 153/80 H 04/23/19 11:00 Pulse Ox 95 04/23/19 11:00 - Orders/Labs/Meds Orders: Active Orders 24 hr Category Date Time Status EKG Documentation Completion [RC] ASDIRECTED Care 04/23/19 11:17 Active RT Aerosol Therapy [RC] ASDIRECTED Care 04/23/19 11:21 Active Magnesium Sulfate/Water [Magnesium Sulfate in Water Med 04/23/19 11:22 Active Premix] 2 gm Premix Bag 1 bag IV ONETIME EKG 12 Lead [EK] Urgent Ther 04/23/19 11:16 Ordered Medication Orders Magnesium Sulfate 2 gm/ Premix 50 mls @ 12.5 mls/hr IV ONETIME ONE Stop: 04/23/19 15:21 Last Admin: 04/23/19 11:46 Dose: 12.5 mls/hr Labs: Laboratory Tests 04/23/19 04/23/19 04/23/19 Range/Units 11:30 11:30 11:30 WBC 10.8 (4.5-11.0) K/uL RBC 3.62 (3.30-5.50) M/uL Hgb 12.9 (12.0-15.0) g/dL Hct 39.1 (36.0-48.0) % MCV 108 H (80-98) fL MCH 36 H (27-31) pg MCHC 33 (32-36) % Plt Count 289 (150-400) K/uL Sodium 139 L (140-148) mmol/L Potassium 3.6 (3.6-5.2) mmol/L Chloride 102 (100-108) mmol/L Carbon Dioxide 27 (21-32) mmol/L Anion Gap 13.6 (5.0-14.0) mmol/L BUN 5 L D (7-18) mg/dL Creatinine 0.6 (0.6-1.0) mg/dL Est Cr Clr Drug Dosing 65.84 mL/min Estimated GFR (MDRD) > 60 (>60) Glucose 113 H (74-106) mg/dL Calcium 8.8 (8.5-10.1) mg/dL Magnesium 1.4 L D (1.8-2.4) mg/dL Total Bilirubin 0.6 (0.2-1.0) mg/dL AST 81 H D (15-37) U/L ALT 57 (12-78) U/L Alkaline Phosphatase 123 H (46-116) U/L NT-Pro-B Natriuret Pep 69 (5-125) pg/mL Total Protein 6.9 (6.4-8.2) g/dL Albumin 3.3 L (3.4-5.0) g/dL Globulin 3.6 H (2.3-3.5) g/dL Albumin/Globulin Ratio 0.9 L (1.2-2.2) Meds: Medications Generic Name Dose Route Start Last Admin Trade Name Freq PRN Reason Stop Dose Admin Magnesium Sulfate 2 gm/ Premix 50 mls @ 12.5 mls/hr 04/23/19 11:22 04/23/19 11:46 IV 04/23/19 15:21 12.5 mls/hr ONETIME ONE Administration Discontinued Medications Generic Name Dose Route Start Last Admin Trade Name Freq PRN Reason Stop Dose Admin Albuterol/Ipratropium 3 ml 04/23/19 11:21 04/23/19 11:28 Duoneb 3.0-0.5 Mg/3 Ml NEB 04/23/19 11:22 3 ml ONETIME ONE Administration Methylprednisolone Sodium 100 mls @ 200 mls/hr 04/23/19 11:45 04/23/19 11:45 Succinate 500 mg/ Dextrose/ IV 04/23/19 12:14 200 mls/hr Water ONETIME ONE Administration Departure - Departure Time of Disposition: 13:11 (Have advised the patient to continue all of her usual medications especially DuoNeb and Symbicort. She did receive a single dose of IV Solu-Medrol while here in the emergency department. I am going to continue her on 4 days of prednisone 20 mg/day.) Disposition: Home, Self-Care 01 Clinical Impression: Acute asthma - Discharge Information Instructions: Asthma, Adult Referrals: PCP,None [Primary Care Provider] - Forms: ED Department Discharge Sepsis Event Note - Evaluation Sepsis Screening Result: No Definite Risk - Focused Exam Vital Signs: Vital Signs Temp Pulse Resp BP Pulse Ox 04/23/19 11:00 36.4 C 118 H 17 153/80 H 95 04/23/19 10:59 36.4 C 118 H 17 153/80 H 95 Date Exam was Performed: 04/23/19 Time Exam was Performed: 13:05 - My Orders Last 24 Hours: My Active Orders 04/23/19 11:16 EKG 12 Lead [EK] Urgent 04/23/19 11:17 EKG Documentation Completion [RC] ASDIRECTED 04/23/19 11:21 RT Aerosol Therapy [RC] ASDIRECTED 04/23/19 11:22 Magnesium Sulfate/Water [Magnesium Sulfate in Water Premix] 2 gm Premix Bag 1 bag IV ONETIME - Assessment/Plan Last 24 Hours: My Active Orders 04/23/19 11:16 EKG 12 Lead [EK] Urgent 04/23/19 11:17 EKG Documentation Completion [RC] ASDIRECTED 04/23/19 11:21 RT Aerosol Therapy [RC] ASDIRECTED 04/23/19 11:22 Magnesium Sulfate/Water [Magnesium Sulfate in Water Premix] 2 gm Premix Bag 1 bag IV ONETIME
[2019-04-23] MEDS ORDERED: methylPREDNISolone Sodium Succinate 2 GM Vial IV ONE (11:18)
[2019-04-23] MEDS: Albuterol/Ipratropium 3.0-0.5 MG/3 ML Neb Soln NEB ONE ×2 (11:28→14:24)
[2019-04-23] MEDS: METHYLPREDNISOLONE SOD SUCC IV ONE ×2 (11:45)
[2019-04-23] MEDS: WATER IV ONE ×2 (11:45)
[2019-04-23] MEDS: DEXTROSE 5% IV ONE ×2 (11:45)
[2019-04-23] MEDS: Magnesium Sulfate/Water 2 GM in Premix Bag 1 BAG IV ONE (11:46)
--- NOTE | 2019-04-23 12:22 | CRLCR ---
INDICATION: Shortness of breath TECHNIQUE: Chest 2 views. COMPARISON: 12/27/2018 FINDINGS: Cardiovascular and mediastinum: Heart size and vasculature are normal in caliber and appearance. Mediastinum is within normal limits. Lungs and pleural spaces: Hyperinflation. Lungs are clear. No sign of infiltrate or mass. No sign of pleural effusion. No pneumothorax. Bones and soft tissues: No significant findings. IMPRESSION: No acute pulmonary or cardiac abnormalities. Hyperinflation. Dictated by Garth Dowling MD @ 04/23/2019 12:21:48 PM Dictated by: Garth Dowling MD @ 04/23/2019 12:21:54 (Electronically Signed)
[2019-04-23] MEDS: busPIRone 5 MG Tab PO ONE (14:24)
== END 2019-04-23 14:53 | disposition home or self-care (01) ==
LOC: JP.ED 10:52
DX: J45.901 Unspecified asthma with (acute) exacerbation (principal); I10 Essential (primary) hypertension; J44.9 Chronic obstructive pulmonary disease, unspecified; F41.9 Anxiety disorder, unspecified; M19.90 Unspecified osteoarthritis, unspecified site; Z79.82 Long term (current) use of aspirin; Z88.2 Allergy status to sulfonamides; Z88.5 Allergy status to narcotic agent; Z87.891 Personal history of nicotine dependence
CPT/HCPCS: 36415; 71046; 80053; 83735; 83880; 85027; 93005; 94640; 96365; 96366; 96375; 99285; A9270; J2930; J3475; J7060; 99284; J7620-GY

== ENCOUNTER 2019-12-21 09:40 | Emergency (ER) | payer MEDICARE, BC ==
[2019-12-21] MEDS ORDERED: methylPREDNISolone Sodium Succinate 125 MG/2 ML SDV IVPUSH ONE ×2 (09:48→13:02)
--- NOTE | 2019-12-21 10:55 | CR ---
CHEST: Portable 12/21/2019 at 10:39 AM CLINICAL HISTORY:Acute shortness of breath COMPARISON:04/23/2019 FINDINGS: Heart size and pulmonary vascularity are normal. There are atherosclerotic changes in the aorta.. Lungs are moderately emphysematous. There are some minimal streaky density in both infrahilar regions. This is similar to prior study. Impression: Moderate emphysematous changes.
--- NOTE | 2019-12-21 11:03 | EDM.PDOC ---
ED HPI GENERAL MEDICAL PROBLEM - General Chief Complaint: Respiratory Problem Stated Complaint: SHORTNESS OF BREATH, COPD Time Seen by Provider: 12/21/19 10:58 Source of Information: Reports: Patient History Limitations: Reports: No Limitations - History of Present Illness INITIAL COMMENTS - FREE TEXT/NARRATIVE: pt was found to be covid neg about 1 week ago. She did have a slight cough just prior to being tested. Pt had an episode of marked sob. with any activity her sats dropped in the 80s. Onset: Today, Sudden Duration: Hour(s): Location: Reports: Chest, Other (pt was found to be very sob. She has not had any recent steriods. ) Associated Symptoms: Reports: Cough, Shortness of Breath, Weakness - Related Data Allergies Allergy/AdvReac Type Severity Reaction Status Date / Time Sulfa (Sulfonamide Allergy Mild Rash Verified 12/27/18 12:44 Antibiotics) meperidine HCl [From Demerol] Allergy Unknown Rash Verified 12/27/18 12:44 Home Meds: Home Meds PARoxetine [Paxil] 10 mg PO QAM 04/11/14 [History] busPIRone [Buspar] 5 mg PO TID 11/06/15 [History] Budesonide/Formoterol Fumarate [Symbicort 160-4.5 Mcg Inhaler] 2 puff INH BID 04/15/16 [History] Nitroglycerin 0.4 mg SL ASDIRECTED PRN 11/26/16 [History] atorvaSTATin [Lipitor] 80 mg PO BEDTIME 11/26/16 [History] Albuterol/Ipratropium [DuoNeb 3.0-0.5 MG/3 ML] 3 ml NEB QIDRT PRN 05/08/17 [History] Aspirin [Adult Low Dose Aspirin EC] 81 mg PO DAILY 05/08/17 [History] LORazepam [Ativan] 0.5 mg PO Q6H PRN 05/08/17 [History] Lisinopril 2.5 mg PO DAILY 05/08/17 [History] Metoprolol Succinate [Toprol XL 50mg] 50 mg PO DAILY 05/08/17 [History] Albuterol [Ventolin HFA] 2 puff INH Q4H PRN 10/15/18 [History] Sodium Chloride for Inhalation [Sodium Chloride] 4 ml IH Q4H PRN 10/15/18 [History] amLODIPine [Norvasc] 2.5 mg PO DAILY 10/15/18 [History] Acetaminophen [Tylenol] 325 mg PO Q4H PRN 12/21/19 [History] Levalbuterol HCl 2 inh IH Q4H PRN 12/21/19 [History] Montelukast [Singulair] 10 mg PO DAILY 12/21/19 [History] Past Medical History HEENT History: Reports: Impaired Vision Cardiovascular History: Reports: Hypertension, Prior Cardiac Arrest, Stents, Other (See Below) Other Cardiovascular History: cardiac arrest april 2016 Respiratory History: Reports: COPD, Other (See Below) Other Respiratory History: 02 2l at night as needed. 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 copd. 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, Recurrent [employer] History: Reports: Musculoskeletal History: Reports: Osteoarthritis, Osteoporosis Neurological History: Reports: Migraines Psychiatric History: Reports: Anxiety Endocrine/Metabolic History: Reports: Osteoporosis - Infectious Disease History Infectious Disease History: Reports: Measles Other Infectious Disease History: unknown - Past Surgical History Head Surgeries/Procedures: Reports: None HEENT Surgical History: Reports: None Cardiovascular Surgical History: Reports: None Respiratory Surgical History: Reports: None GI Surgical History: Reports: None Female Surgical History: Reports: None Endocrine Surgical History: Reports: None Neurological Surgical History: Reports: None Musculoskeletal Surgical History: Reports: None Dermatological Surgical History: Reports: None Social & Family History - Family History Family Medical History: Noncontributory - Tobacco Use Tobacco Use Status *Q: Former Tobacco User Used Tobacco, but Quit: Yes Month/Year Tobacco Last Used: 2013 - Caffeine Use Caffeine Use: Reports: Coffee - Recreational Drug Use Recreational Drug Use: No - Living Situation & Occupation Living situation: Reports: , with Spouse Occupation: Disabled ED ROS GENERAL - Review of Systems Review Of Systems: See Below Constitutional: Reports: Other ( acute sob. ) HEENT: Reports: No Symptoms Respiratory: Reports: Shortness of Breath, Wheezing, Cough, Other (pt did raise some colored sputuim yesterday. ) Cardiovascular: Reports: Dyspnea on Exertion Endocrine: Reports: No Symptoms GI/Abdominal: Reports: No Symptoms : Reports: No Symptoms Musculoskeletal: Reports: No Symptoms Skin: Reports: No Symptoms Neurological: Reports: No Symptoms Psychiatric: Reports: Anxiety ED EXAM, GENERAL - Physical Exam Exam: See Below Free Text/Narrative:: pt arrived after having an acute episode of sob. When the ambulance arrived she was very winded but was sating at rest ok. When she moved around she desated to in the low 80s when she was using 3 liters of o2. She gave a huistory of being covid neg 3 weeks ago. Yesterday she did cough up a small amount of colored sputum. Exam Limited By: No Limitations General Appearance: Alert, Anxious, Mild Distress, Other (pt had a neb in the ambulance and was better on arrival. ) Ears: Normal TMs Nose: Normal Inspection Throat/Mouth: Normal Inspection Head: Atraumatic Neck: Normal Inspection Respiratory/Chest: Wheezing, Other ( resp were in the 20 range. She did have good sats. Her hr was 117 and did go down to the 90s. ) Cardiovascular: Regular Rate, Rhythm, Tachycardia Course - Vital Signs Last Recorded V/S: Last Vital Signs Temp 97.2 C H 12/21/19 10:48 Pulse 99 12/21/19 10:48 Resp 14 12/21/19 10:48 BP 112/65 12/21/19 10:48 Pulse Ox 99 12/21/19 10:48 - Orders/Labs/Meds Orders: Active Orders 24 hr Category Date Time Status RT Aerosol Therapy [RC] ASDIRECTED Care 12/21/19 12:15 Active RT Aerosol Therapy [RC] ASDIRECTED Care 12/21/19 12:16 Active Labs: Laboratory Tests 12/21/19 12/21/19 12/21/19 Range/Units 09:44 09:44 09:45 WBC 11.1 H (4.5-11.0) K/uL RBC 3.81 (3.30-5.50) M/uL Hgb 13.0 (12.0-15.0) g/dL Hct 40.7 (36.0-48.0) % MCV 107 H (80-98) fL MCH 34 H (27-31) pg MCHC 32 (32-36) % Plt Count 320 (150-400) K/uL Neut % (Auto) 76 H (36-66) % Lymph % (Auto) 11 L (24-44) % Green % (Auto) 7 H (2-6) % Eos % (Auto) 6 H (2-4) % Baso % (Auto) 0 (0-1) % D-Dimer, Quantitative (0.0-400.0) ng/mL Puncture Site Rt radial ABG pH 7.473 H (7.350-7.450) ABG pCO2 35.5 (35.0-42.0) mmHg ABG pO2 129.0 H (75.0-100.0) mmHg ABG HCO3 25.7 (22.0-26.0) mmol/L ABG Total CO2 22.4 (21.0-25.0) mmol/L ABG O2 Saturation 98.7 H (95.0-98.0) % ABG O2 Content 18.0 (15.0-23.0) %vol ABG Base Excess 2.7 mm/L ABG Hemoglobin 13.4 (12.0-16.0) g/dL ABG Oxyhemoglobin 94.5 % ABG Carboxyhemoglobin 3.4 H (0.0-1.6) % ABG Methemoglobin 0.9 % Shaun Test Passed O2 Delivery Device Bipap Oxygen Flow Rate 8.0 L Sodium 138 L (140-148) mmol/L Potassium 3.6 (3.6-5.2) mmol/L Chloride 103 (100-108) mmol/L Carbon Dioxide 27 (21-32) mmol/L Anion Gap 11.6 (5.0-14.0) mmol/L BUN 7 (7-18) mg/dL Creatinine 0.6 (0.6-1.0) mg/dL Est Cr Clr Drug Dosing TNP Estimated GFR (MDRD) > 60 (>60) Glucose 113 H (74-106) mg/dL Calcium 8.6 (8.5-10.1) mg/dL Total Bilirubin 0.4 (0.2-1.0) mg/dL AST 56 H (15-37) U/L ALT 53 (12-78) U/L Alkaline Phosphatase 129 H (46-116) U/L NT-Pro-B Natriuret Pep (5-125) pg/mL Total Protein 6.7 (6.4-8.2) g/dL Albumin 3.1 L (3.4-5.0) g/dL Globulin 3.6 H (2.3-3.5) g/dL Albumin/Globulin Ratio 0.9 L (1.2-2.2) SARS-CoV-2 RNA (TATIANA) (NEGATIVE) 12/21/19 12/21/19 12/21/19 Range/Units 10:00 10:00 10:19 WBC (4.5-11.0) K/uL RBC (3.30-5.50) M/uL Hgb (12.0-15.0) g/dL Hct (36.0-48.0) % MCV (80-98) fL MCH (27-31) pg MCHC (32-36) % Plt Count (150-400) K/uL Neut % (Auto) (36-66) % Lymph % (Auto) (24-44) % Green % (Auto) (2-6) % Eos % (Auto) (2-4) % Baso % (Auto) (0-1) % D-Dimer, Quantitative 307 (0.0-400.0) ng/mL Puncture Site ABG pH (7.350-7.450) ABG pCO2 (35.0-42.0) mmHg ABG pO2 (75.0-100.0) mmHg ABG HCO3 (22.0-26.0) mmol/L ABG Total CO2 (21.0-25.0) mmol/L ABG O2 Saturation (95.0-98.0) % ABG O2 Content (15.0-23.0) %vol ABG Base Excess mm/L ABG Hemoglobin (12.0-16.0) g/dL ABG Oxyhemoglobin % ABG Carboxyhemoglobin (0.0-1.6) % ABG Methemoglobin % Shaun Test O2 Delivery Device Oxygen Flow Rate L Sodium (140-148) mmol/L Potassium (3.6-5.2) mmol/L Chloride (100-108) mmol/L Carbon Dioxide (21-32) mmol/L Anion Gap (5.0-14.0) mmol/L BUN (7-18) mg/dL Creatinine (0.6-1.0) mg/dL Est Cr Clr Drug Dosing Estimated GFR (MDRD) (>60) Glucose (74-106) mg/dL Calcium (8.5-10.1) mg/dL Total Bilirubin (0.2-1.0) mg/dL AST (15-37) U/L ALT (12-78) U/L Alkaline Phosphatase (46-116) U/L NT-Pro-B Natriuret Pep 52 (5-125) pg/mL Total Protein (6.4-8.2) g/dL Albumin (3.4-5.0) g/dL Globulin (2.3-3.5) g/dL Albumin/Globulin Ratio (1.2-2.2) SARS-CoV-2 RNA (TATIANA) Negative (NEGATIVE) Meds: Medications Discontinued Medications Generic Name Dose Route Start Last Admin Trade Name Freq PRN Reason Stop Dose Admin Albuterol/Ipratropium 3 ml 12/21/19 12:16 12/21/19 12:46 Duoneb 3.0-0.5 Mg/3 Ml NEB 12/21/19 12:17 3 ml ONETIME ONE Administration Budesonide 0.5 mg 12/21/19 12:15 12/21/19 12:51 Pulmicort NEB 12/21/19 12:16 0.5 mg ONETIME ONE Administration Lorazepam 0.5 mg 12/21/19 12:34 12/21/19 12:44 Ativan PO 12/21/19 12:35 0.5 mg ONETIME ONE Administration Methylprednisolone Sodium Succinate 125 mg 12/21/19 09:48 12/21/19 10:30 Solu-Medrol IVPUSH 12/21/19 09:49 125 mg ONETIME ONE Administration Methylprednisolone Sodium Succinate 62.5 mg 12/21/19 13:02 12/21/19 13:25 Solu-Medrol IVPUSH 12/21/19 13:03 62.5 mg ONETIME ONE Administration - Re-Assessments/Exams Free Text/Narrative Re-Assessment/Exam: 12/21/19 14:28 pt was observed several hours in the ER and she appeared to be stable. She had a chest xray which did not look unchnged, She did remain stable. She was given iv solumedrol twice during her stay in the ER, She was give a duoneb. . She continued to remain stable. She felt a little washed out. We did not have any beds here and there was none in [place]. She was nervous of being anywhere but home because of Covid. She definitely will return if she feels like things are not going well. Departure - Departure Time of Disposition: 14:05 Disposition: Home, Self-Care 01 Condition: Fair Clinical Impression: Bronchospasm, COPD exacerbation - Discharge Information Instructions: Chronic Obstructive Pulmonary Disease Exacerbation, [id number], Bronchospasm, Adult, [id number] Referrals: Félix Santana MD [Primary Care Provider] - Forms: ED Department Discharge Care Plan Goals: push fluids, cont same meds aid predisone 15 mg po tonight,--pt has had iv steriod at the ER. then starting tomorrow 30mg for 3 days, 20 mg for 2 days, 10mg for 3 days and then stop,. Zithromax 500mg now and 250 mg daily for 5 days, rtc if increased problems. ativan .5 1 tab q8h prn for anxiety. #5 Sepsis Event Note (ED) - Evaluation Sepsis Screening Result: No Definite Risk - Focused Exam Vital Signs: Vital Signs Temp Pulse Resp BP Pulse Ox 12/21/19 10:48 97.2 C H 99 14 112/65 99 - My Orders Last 24 Hours: My Active Orders 12/21/19 12:15 RT Aerosol Therapy [RC] ASDIRECTED 12/21/19 12:16 RT Aerosol Therapy [RC] ASDIRECTED - Assessment/Plan Last 24 Hours: My Active Orders 12/21/19 12:15 RT Aerosol Therapy [RC] ASDIRECTED 12/21/19 12:16 RT Aerosol Therapy [RC] ASDIRECTED
[2019-12-21] MEDS ORDERED: Budesonide 0.5 MG/2 ML Neb Susp NEB ONE (12:15)
[2019-12-21] MEDS ORDERED: Albuterol/Ipratropium 3.0-0.5 MG/3 ML Neb Soln NEB ONE (12:16)
[2019-12-21] MEDS ORDERED: LORazepam 0.5 MG Tab PO ONE (12:34)
[2019-12-21 14:48] VITALS: BP 114/57; PULSE 114
== END 2019-12-21 16:10 | disposition home or self-care (01) ==
LOC: JP.ED 09:40
DX: J44.1 Chronic obstructive pulmonary disease with (acute) exacerbation (principal); J98.01 Acute bronchospasm; I10 Essential (primary) hypertension; F41.9 Anxiety disorder, unspecified; Z95.5 Presence of coronary angioplasty implant and graft; Z20.828 Contact with and (suspected) exposure to other viral communicable diseases; Z87.891 Personal history of nicotine dependence; Z88.2 Allergy status to sulfonamides; Z88.5 Allergy status to narcotic agent; Z79.899 Other long term (current) drug therapy
CPT/HCPCS: 36415; 36600; 71045; 80053; 82803; 83880; 85025; 85379; 94640; 96374; 96376; 99285; A9270; J2930; U0002; J7620-GY

== ENCOUNTER 2020-04-06 21:52 | Emergency (ER) | payer MEDICARE, BC ==
--- NOTE | 2020-04-06 22:30 | EDM.PDOC ---
ED HPI GENERAL MEDICAL PROBLEM - General Chief Complaint: Respiratory Problem Stated Complaint: BREATHING TROUBLE Time Seen by Provider: 04/06/20 22:21 Source of Information: Reports: Patient, Family, RN Notes Reviewed History Limitations: Reports: No Limitations - History of Present Illness INITIAL COMMENTS - FREE TEXT/NARRATIVE: 70-year-old female presents emergency department today complaint of shortness of breath, she has a known history of end-stage COPD earlier today had taken a double dose of her lorazepam and ended up sleeping most of the day. She became very nervous and anxious about her breathing however by the time she arrives to the emergency department and is evaluated by nursing staff she is feeling better she is maintaining her O2 saturation without oxygen she usually uses 3 L at night. denies Pain Score (Numeric/FACES): 0 - Related Data Allergies Allergy/AdvReac Type Severity Reaction Status Date / Time Sulfa (Sulfonamide Allergy Mild Rash Verified 04/06/20 22:00 Antibiotics) meperidine HCl [From Demerol] Allergy Unknown Rash Verified 04/06/20 22:00 Home Meds: Home Meds PARoxetine [Paxil] 10 mg PO QAM 04/11/14 [History] busPIRone [Buspar] 5 mg PO TID 11/06/15 [History] Budesonide/Formoterol Fumarate [Symbicort 160-4.5 Mcg Inhaler] 2 puff INH BID 04/15/16 [History] Nitroglycerin 0.4 mg SL ASDIRECTED PRN 11/26/16 [History] atorvaSTATin [Lipitor] 80 mg PO BEDTIME 11/26/16 [History] Albuterol/Ipratropium [DuoNeb 3.0-0.5 MG/3 ML] 3 ml NEB QIDRT PRN 05/08/17 [History] Aspirin [Adult Low Dose Aspirin EC] 81 mg PO DAILY 05/08/17 [History] LORazepam [Ativan] 0.5 mg PO Q6H PRN 05/08/17 [History] Lisinopril 2.5 mg PO DAILY 05/08/17 [History] Metoprolol Succinate [Toprol XL 50mg] 50 mg PO DAILY 05/08/17 [History] Albuterol [Ventolin HFA] 2 puff INH Q4H PRN 10/15/18 [History] Sodium Chloride for Inhalation [Sodium Chloride] 4 ml IH Q4H PRN 10/15/18 [History] amLODIPine [Norvasc] 2.5 mg PO DAILY 10/15/18 [History] Acetaminophen [Tylenol] 325 mg PO Q4H PRN 12/21/19 [History] Levalbuterol HCl 2 inh IH Q4H PRN 12/21/19 [History] Montelukast [Singulair] 10 mg PO DAILY 12/21/19 [History] Past Medical History HEENT History: Reports: Impaired Vision Cardiovascular History: Reports: CAD, Hypertension, Prior Cardiac Arrest, Stents, Other (See Below) Other Cardiovascular History: cardiac arrest april 2016 Respiratory History: Reports: COPD, Other (See Below) Other Respiratory History: 02 2l at night as needed. 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 copd. 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, Recurrent [employer] History: Reports: Musculoskeletal History: Reports: Osteoarthritis, Osteoporosis Neurological History: Reports: Migraines Psychiatric History: Reports: Anxiety Endocrine/Metabolic History: Reports: Osteoporosis - Infectious Disease History Infectious Disease History: Reports: Measles Other Infectious Disease History: unknown - Past Surgical History Head Surgeries/Procedures: Reports: None HEENT Surgical History: Reports: None Cardiovascular Surgical History: Reports: None Respiratory Surgical History: Reports: None GI Surgical History: Reports: None Female Surgical History: Reports: None Endocrine Surgical History: Reports: None Neurological Surgical History: Reports: None Musculoskeletal Surgical History: Reports: None Dermatological Surgical History: Reports: None Social & Family History - Family History Family Medical History: No Pertinent Family History - Tobacco Use Tobacco Use Status *Q: Former Tobacco User Years of Tobacco use: 40 Packs/Tins Daily: 1 Used Tobacco, but Quit: Yes Month/Year Tobacco Last Used: 10 years ago Second Hand Smoke Exposure: No - Caffeine Use Caffeine Use: Reports: Tea - Alcohol Use Days Per Week of Alcohol Use: 7 Number of Drinks Per Day: 2 Total Drinks Per Week: 14 - Recreational Drug Use Recreational Drug Use: No - Living Situation & Occupation Living situation: Reports: , with Spouse Occupation: Disabled ED ROS GENERAL - Review of Systems Review Of Systems: See Below Constitutional: Denies: Fever, Chills HEENT: Reports: No Symptoms Respiratory: Reports: Shortness of Breath. Denies: Cough, Sputum Cardiovascular: Reports: No Symptoms GI/Abdominal: Reports: No Symptoms ED EXAM, GENERAL - Physical Exam Exam: See Below Exam Limited By: No Limitations General Appearance: Alert, WD/WN, No Apparent Distress Respiratory/Chest: No Respiratory Distress, Decreased Breath Sounds. No: Rhonchi, Wheezing Cardiovascular: Regular Rate, Rhythm, No Murmur Course - Vital Signs Last Recorded V/S: Last Vital Signs Temp 96 F L 04/06/20 21:58 Pulse 105 H 04/06/20 21:58 Resp 16 04/06/20 21:58 BP 100/61 04/06/20 21:58 Pulse Ox 90 L 04/06/20 21:58 Departure - Departure Time of Disposition: 22:29 Disposition: Home, Self-Care 01 Condition: Poor Clinical Impression: COPD, Severe chronic obstructive pulmonary disease - Discharge Information Instructions: Chronic Obstructive Pulmonary Disease, [id number] Referrals: Félix Santana MD [Primary Care Provider] - Additional Instructions: Take full course of prednisone, please followup with your primary care provider in 3-5 days if not better, please call return to the emergency department with worsening of symptoms. Sepsis Event Note (ED) - Evaluation Sepsis Screening Result: No Definite Risk - Focused Exam Vital Signs: Vital Signs Temp Pulse Resp BP Pulse Ox 04/06/20 21:58 96 F L 105 H 16 100/61 90 L - Assessment/Plan Plan: Assessment Acuity = acute Site and laterality = COPD exacerbation Etiology = unknown Manifestations = hypoxia Location of injury = Home Lab values = none Plan She felt she was doing much better declined any further work-up however she would like to do a short course of prednisone which had helped her in the past to try and stay out of the hospital. I was in agreement with the plan she is can follow-up with her primary care this week if not better. Prescription prednisone 40 mg once a day for 3 days followed by 30 mg once a day for 3 days followed by 20 mg once a day for 3 days 10 mg once a day for 3 days then stop This note was dictated using [employer] voice recognition software please call with any questions on syntax or grammar.
[2020-04-06 22:53] VITALS: BP 121/73; PULSE 100
== END 2020-04-06 22:53 | disposition home or self-care (01) ==
LOC: JP.ED 21:52
DX: J44.9 Chronic obstructive pulmonary disease, unspecified (principal); I25.10 Atherosclerotic heart disease of native coronary artery without angina pectoris; I10 Essential (primary) hypertension; M19.90 Unspecified osteoarthritis, unspecified site; Z87.891 Personal history of nicotine dependence; Z88.2 Allergy status to sulfonamides; Z88.8 Allergy status to other drugs, medicaments and biological substances; Z79.899 Other long term (current) drug therapy; Z79.82 Long term (current) use of aspirin
CPT/HCPCS: 99283; 99285

== ENCOUNTER 2020-05-24 21:07 | Emergency (ER) | payer MEDICARE, BC ==
[2020-05-24] MEDS ORDERED: methylPREDNISolone Sodium Succinate 125 MG/2 ML SDV IVPUSH ONE (21:48)
[2020-05-24 22:12] VITALS: BP 119/60; PULSE 99
[2020-05-24] MEDS ORDERED: LORazepam 0.5 MG Tab PO ONE (22:46)
--- NOTE | 2020-05-24 22:46 | EDM.PDOC ---
ED HPI GENERAL MEDICAL PROBLEM - General Chief Complaint: Respiratory Problem Stated Complaint: TROUBLE BREATHING Time Seen by Provider: 05/24/20 21:15 Source of Information: Reports: Patient History Limitations: Reports: No Limitations - History of Present Illness INITIAL COMMENTS - FREE TEXT/NARRATIVE: pt arrived with increased sob. She became very anxious with her breathing tonight. Onset: Other ( started yesterday) Duration: Hour(s): Location: Reports: Chest, Generalized Associated Symptoms: Reports: Shortness of Breath - Related Data Allergies Allergy/AdvReac Type Severity Reaction Status Date / Time Sulfa (Sulfonamide Allergy Mild Rash Verified 05/24/20 21:13 Antibiotics) meperidine HCl [From Demerol] Allergy Unknown Rash Verified 05/24/20 21:13 Home Meds: Home Meds PARoxetine [Paxil] 10 mg PO QAM 04/11/14 [History] busPIRone [Buspar] 5 mg PO TID 11/06/15 [History] Budesonide/Formoterol Fumarate [Symbicort 160-4.5 Mcg Inhaler] 2 puff INH BID 04/15/16 [History] Nitroglycerin 0.4 mg SL ASDIRECTED PRN 11/26/16 [History] atorvaSTATin [Lipitor] 80 mg PO BEDTIME 11/26/16 [History] Albuterol/Ipratropium [DuoNeb 3.0-0.5 MG/3 ML] 3 ml NEB QIDRT PRN 05/08/17 [History] Aspirin [Adult Low Dose Aspirin EC] 81 mg PO DAILY 05/08/17 [History] LORazepam [Ativan] 0.5 mg PO Q6H PRN 05/08/17 [History] Lisinopril 2.5 mg PO DAILY 05/08/17 [History] Metoprolol Succinate [Toprol XL 50mg] 50 mg PO DAILY 05/08/17 [History] Albuterol [Ventolin HFA] 2 puff INH Q4H PRN 10/15/18 [History] Sodium Chloride for Inhalation [Sodium Chloride] 4 ml IH Q4H PRN 10/15/18 [History] amLODIPine [Norvasc] 2.5 mg PO DAILY 10/15/18 [History] Acetaminophen [Tylenol] 325 mg PO Q4H PRN 12/21/19 [History] Levalbuterol HCl 2 inh IH Q4H PRN 12/21/19 [History] Past Medical History HEENT History: Reports: Impaired Vision Cardiovascular History: Reports: CAD, Hypertension, Prior Cardiac Arrest, Stents, Other (See Below) Other Cardiovascular History: cardiac arrest april 2016 Respiratory History: Reports: COPD, Other (See Below) Other Respiratory History: 02 2l at night as needed. 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 copd. 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: Reports: Musculoskeletal History: Reports: Osteoarthritis, Osteoporosis Neurological History: Reports: Migraines Psychiatric History: Reports: Anxiety Endocrine/Metabolic History: Reports: Osteoporosis - Infectious Disease History Infectious Disease History: Reports: Measles Other Infectious Disease History: unknown - Past Surgical History Head Surgeries/Procedures: Reports: None HEENT Surgical History: Reports: None Cardiovascular Surgical History: Reports: None Respiratory Surgical History: Reports: None GI Surgical History: Reports: None Female Surgical History: Reports: None Endocrine Surgical History: Reports: None Neurological Surgical History: Reports: None Musculoskeletal Surgical History: Reports: None Dermatological Surgical History: Reports: None Social & Family History - Family History Family Medical History: No Pertinent Family History - Tobacco Use Tobacco Use Status *Q: Former Tobacco User Years of Tobacco use: 30 Used Tobacco, but Quit: Yes Month/Year Tobacco Last Used: 12/02 - Caffeine Use Caffeine Use: Reports: None - Recreational Drug Use Recreational Drug Use: No - Living Situation & Occupation Living situation: Reports: , with Spouse Occupation: Disabled ED ROS GENERAL - Review of Systems Review Of Systems: See Below Constitutional: Reports: No Symptoms HEENT: Reports: No Symptoms Respiratory: Reports: Shortness of Breath, Other (pt has a history of copd. ) Cardiovascular: Reports: No Symptoms Endocrine: Reports: No Symptoms GI/Abdominal: Reports: No Symptoms : Reports: No Symptoms Musculoskeletal: Reports: No Symptoms Skin: Reports: No Symptoms Neurological: Reports: No Symptoms Psychiatric: Reports: Anxiety ED EXAM, GENERAL - Physical Exam Exam: See Below Free Text/Narrative:: pt has had 2 very scarey episodes of sob. The first was yesterday and then this pm. She has a history of severe copd and has been hospitaslied multiple times and on a resp. She has been doing much better recently. Exam Limited By: No Limitations General Appearance: Alert, Anxious, Mild Distress Ears: Normal TMs Nose: Normal Inspection Throat/Mouth: Normal Inspection Head: Atraumatic Neck: Normal Inspection Respiratory/Chest: Decreased Breath Sounds Cardiovascular: Regular Rate, Rhythm GI/Abdominal: Soft, No Mass (Female) Exam: Deferred Rectal (Female) Exam: Deferred Back Exam: Normal Inspection Extremities: Normal Inspection Neurological: Alert, Oriented, Normal Cognition Psychiatric: Anxious Course - Vital Signs Last Recorded V/S: Last Vital Signs Temp 36.9 C 05/24/20 22:11 Pulse 99 05/24/20 22:11 Resp 18 05/24/20 22:11 BP 119/60 05/24/20 22:11 Pulse Ox 95 05/24/20 22:11 - Orders/Labs/Meds Orders: Active Orders 24 hr Category Date Time Status RT Aerosol Therapy [RC] ASDIRECTED Care 05/24/20 22:48 Active Chest 1V Frontal [CR] Stat Exams 05/24/20 21:38 Taken Labs: Laboratory Tests 05/24/20 05/24/20 05/24/20 Range/Units 21:40 21:40 21:40 WBC 10.2 (4.5-11.0) K/uL RBC 3.56 (3.30-5.50) M/uL Hgb 13.3 (12.0-15.0) g/dL Hct 40.2 (36.0-48.0) % MCV 113 H (80-98) fL MCH 37 H (27-31) pg MCHC 33 (32-36) % Plt Count 358 (150-400) K/uL Neut % (Auto) 74 H (36-66) % Lymph % (Auto) 12 L (24-44) % Slope % (Auto) 7 H (2-6) % Eos % (Auto) 6 H (2-4) % Baso % (Auto) 0 (0-1) % Sodium 143 (140-148) mmol/L Potassium 4.3 (3.6-5.2) mmol/L Chloride 102 (100-108) mmol/L Carbon Dioxide 27 (21-32) mmol/L Anion Gap 14.4 H (5.0-14.0) mmol/L BUN 6 L (7-18) mg/dL Creatinine 0.7 (0.6-1.0) mg/dL Est Cr Clr Drug Dosing 52.95 mL/min Estimated GFR (MDRD) > 60 (>60) Glucose 99 (74-106) mg/dL Calcium 9.8 (8.5-10.1) mg/dL Total Bilirubin 0.2 (0.2-1.0) mg/dL AST 61 H (15-37) U/L ALT 53 (12-78) U/L Alkaline Phosphatase 132 H (46-116) U/L NT-Pro-B Natriuret Pep 95 (5-125) pg/mL Total Protein 7.1 (6.4-8.2) g/dL Albumin 3.2 L (3.4-5.0) g/dL Globulin 3.9 H (2.3-3.5) g/dL Albumin/Globulin Ratio 0.8 L (1.2-2.2) Urine Color (YELLOW) Urine Appearance (CLEAR) Urine pH (5.0-8.0) Ur Specific Panther Burn (1.008-1.030) Urine Protein (NEGATIVE) mg/dL Urine Glucose (UA) (NEGATIVE) mg/dL Urine Ketones (NEGATIVE) mg/dL Urine Occult Blood (NEGATIVE) Urine Nitrite (NEGATIVE) Urine Bilirubin (NEGATIVE) Urine Urobilinogen (0.2-1.0) EU/dL Ur Leukocyte Esterase (NEGATIVE) Urine RBC (0-5) Urine WBC (0-5) Ur Epithelial Cells Amorphous Sediment Urine Bacteria Urine Mucus 05/24/20 Range/Units 22:45 WBC (4.5-11.0) K/uL RBC (3.30-5.50) M/uL Hgb (12.0-15.0) g/dL Hct (36.0-48.0) % MCV (80-98) fL MCH (27-31) pg MCHC (32-36) % Plt Count (150-400) K/uL Neut % (Auto) (36-66) % Lymph % (Auto) (24-44) % Slope % (Auto) (2-6) % Eos % (Auto) (2-4) % Baso % (Auto) (0-1) % Sodium (140-148) mmol/L Potassium (3.6-5.2) mmol/L Chloride (100-108) mmol/L Carbon Dioxide (21-32) mmol/L Anion Gap (5.0-14.0) mmol/L BUN (7-18) mg/dL Creatinine (0.6-1.0) mg/dL Est Cr Clr Drug Dosing mL/min Estimated GFR (MDRD) (>60) Glucose (74-106) mg/dL Calcium (8.5-10.1) mg/dL Total Bilirubin (0.2-1.0) mg/dL AST (15-37) U/L ALT (12-78) U/L Alkaline Phosphatase (46-116) U/L NT-Pro-B Natriuret Pep (5-125) pg/mL Total Protein (6.4-8.2) g/dL Albumin (3.4-5.0) g/dL Globulin (2.3-3.5) g/dL Albumin/Globulin Ratio (1.2-2.2) Urine Color Yellow (YELLOW) Urine Appearance Clear (CLEAR) Urine pH 6.5 (5.0-8.0) Ur Specific Panther Burn 1.010 (1.008-1.030) Urine Protein Negative (NEGATIVE) mg/dL Urine Glucose (UA) Negative (NEGATIVE) mg/dL Urine Ketones Negative (NEGATIVE) mg/dL Urine Occult Blood Negative (NEGATIVE) Urine Nitrite Negative (NEGATIVE) Urine Bilirubin Negative (NEGATIVE) Urine Urobilinogen 0.2 (0.2-1.0) EU/dL Ur Leukocyte Esterase Trace H (NEGATIVE) Urine RBC 0-5 (0-5) Urine WBC 0-5 (0-5) Ur Epithelial Cells Moderate Amorphous Sediment Not seen Urine Bacteria Few Urine Mucus Not seen Meds: Medications Discontinued Medications Generic Name Dose Route Start Last Admin Trade Name Freq PRN Reason Stop Dose Admin Albuterol/Ipratropium 3 ml 05/24/20 22:48 05/24/20 22:53 Albuterol/Ipratropium 3.0-0.5 Mg/3 Ml Neb Soln NEB 05/24/20 22:49 3 ml ONETIME ONE Administration Lorazepam 0.5 mg 05/24/20 22:46 05/24/20 22:53 Lorazepam 0.5 Mg Tab PO 05/24/20 22:47 0.5 mg ONETIME ONE Administration Methylprednisolone Sodium Succinate 125 mg 05/24/20 21:48 05/24/20 22:01 Methylprednisolone Sodium Succinate 125 Mg/2 Ml Sdv IVPUSH 05/24/20 21:49 125 mg ONETIME ONE Administration - Re-Assessments/Exams Free Text/Narrative Re-Assessment/Exam: 05/24/20 22:46 pt had a chest xray that looked stable her bnp was normal. She did not sound congested. She was given solumedrol 125 iv and has been stable since arrival. dual neb was given to the pt. Departure - Departure Time of Disposition: 23:30 Disposition: Home, Self-Care 01 Condition: Fair Clinical Impression: COPD exacerbation - Discharge Information Referrals: Félix Santana MD [Primary Care Provider] - Forms: ED Department Discharge Care Plan Goals: tonight at 1 pm take predisone 30mg. 6 day predisone therapy 30 mg on sat then 20 mg for 2 days, 15 mg for 3 days 10 mg for 2days. zithromax 500mg now then 1 tab for the next 5 days. Sepsis Event Note (ED) - Evaluation Sepsis Screening Result: No Definite Risk - Focused Exam Vital Signs: Vital Signs Temp Pulse Resp BP Pulse Ox 05/24/20 22:11 36.9 C 99 18 119/60 95 05/24/20 21:29 36.1 C 107 H 20 126/64 96 05/24/20 21:11 36.1 C 107 H 20 126/64 96 - My Orders Last 24 Hours: My Active Orders 05/24/20 21:38 Chest 1V Frontal [CR] Stat 05/24/20 22:48 RT Aerosol Therapy [RC] ASDIRECTED - Assessment/Plan Last 24 Hours: My Active Orders 05/24/20 21:38 Chest 1V Frontal [CR] Stat 05/24/20 22:48 RT Aerosol Therapy [RC] ASDIRECTED
[2020-05-24] MEDS ORDERED: Albuterol/Ipratropium 3.0-0.5 MG/3 ML Neb Soln NEB ONE (22:48)
--- NOTE | 2020-05-25 09:05 | CR ---
CHEST: Portable 05/24/2020 at 10:14 PM CLINICAL HISTORY:SOB COMPARISON:May 08, 2019 FINDINGS: Lungs are emphysematous. Heart and pulmonary vascularity are normal. There are old healed rib fractures on the left. There are atherosclerotic changes in the aorta. IMPRESSION: Emphysematous changes No acute cardio pulmonary process.
== END 2020-05-24 23:55 | disposition home or self-care (01) ==
LOC: JP.ED 21:07
DX: J44.1 Chronic obstructive pulmonary disease with (acute) exacerbation (principal); I25.10 Atherosclerotic heart disease of native coronary artery without angina pectoris; I10 Essential (primary) hypertension; M19.90 Unspecified osteoarthritis, unspecified site; Z87.891 Personal history of nicotine dependence; Z88.2 Allergy status to sulfonamides; Z88.5 Allergy status to narcotic agent; Z79.82 Long term (current) use of aspirin; Z79.899 Other long term (current) drug therapy
CPT/HCPCS: 36415; 71045; 80053; 81001; 83880; 85025; 94640; 96374; 99285; A9270; J2930; J7620-GY

== ENCOUNTER 2020-07-10 15:36 | Emergency (ER) | payer MEDICARE, BC ==
[2020-07-10] MEDS ORDERED: Sodium Chloride 0.9% 10 ML Syringe FLUSH PRN (15:50)
[2020-07-10] MEDS ORDERED: methylPREDNISolone Sodium Succinate 125 MG/2 ML SDV IVPUSH ONE (15:51)
--- NOTE | 2020-07-10 15:59 | EDM.PDOC ---
ED HPI GENERAL MEDICAL PROBLEM - General Chief Complaint: Respiratory Problem Stated Complaint: MEDICAL VIA [facility] Time Seen by Provider: 07/10/20 15:50 Source of Information: Reports: Patient, EMS, Old Records History Limitations: Reports: No Limitations - History of Present Illness INITIAL COMMENTS - FREE TEXT/NARRATIVE: 70 yo female with known COPD presents via EMS from her home after onset of increased SOB last evening. She is not sure what worsened her sx's. She uses oxygen at home. EMS administered a Duoneb en route with some benefit. She denies any pain, fever, or productive cough. Her is at bedside. Onset: Gradual Onset Date: 07/09/20 Duration: Hour(s):, Getting Worse Location: Reports: Chest Quality: Reports: Other (no pain) Severity: Moderate Improves with: Reports: Medication, Other (oxygen) Worsens with: Reports: Other (unsure) Context: Reports: Other (See HPI) Associated Symptoms: Reports: Shortness of Breath. 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) (Duoneb per EMS) - Related Data Allergies Allergy/AdvReac Type Severity Reaction Status Date / Time Sulfa (Sulfonamide Allergy Mild Rash Verified 07/10/20 15:45 Antibiotics) meperidine HCl [From Demerol] Allergy Unknown Rash Verified 07/10/20 15:45 Home Meds: Home Meds PARoxetine [Paxil] 10 mg PO QAM 04/11/14 [History] busPIRone [Buspar] 5 mg PO TID 11/06/15 [History] Budesonide/Formoterol Fumarate [Symbicort 160-4.5 Mcg Inhaler] 2 puff INH BID 04/15/16 [History] Nitroglycerin 0.4 mg SL ASDIRECTED PRN 11/26/16 [History] atorvaSTATin [Lipitor] 80 mg PO BEDTIME 11/26/16 [History] Albuterol/Ipratropium [DuoNeb 3.0-0.5 MG/3 ML] 3 ml NEB QIDRT PRN 05/08/17 [History] Aspirin [Adult Low Dose Aspirin EC] 81 mg PO DAILY 05/08/17 [History] LORazepam [Ativan] 0.5 mg PO Q6H PRN 05/08/17 [History] Lisinopril 2.5 mg PO DAILY 05/08/17 [History] Metoprolol Succinate [Toprol XL 50mg] 50 mg PO DAILY 05/08/17 [History] Albuterol [Ventolin HFA] 2 puff INH Q4H PRN 10/15/18 [History] Sodium Chloride for Inhalation [Sodium Chloride] 4 ml IH Q4H PRN 10/15/18 [History] amLODIPine [Norvasc] 2.5 mg PO DAILY 10/15/18 [History] Acetaminophen [Tylenol] 325 mg PO Q4H PRN 12/21/19 [History] Fexofenadine [Tata] 180 mg PO DAILY 07/10/20 [History] Folic Acid 1 tab PO DAILY 07/10/20 [History] Mecobalamin [B-12] 1,000 mcg SL DAILY 07/10/20 [History] Past Medical History HEENT History: Reports: Impaired Vision Cardiovascular History: Reports: CAD, Hypertension, Prior Cardiac Arrest, Stents, Other (See Below) Other Cardiovascular History: cardiac arrest april 2016 Respiratory History: Reports: COPD, Other (See Below) Other Respiratory History: 02 2l at night as needed. 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 copd. 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: Musculoskeletal History: Reports: Osteoarthritis, Osteoporosis Neurological History: Reports: Migraines Psychiatric History: Reports: Anxiety Endocrine/Metabolic History: Reports: Osteoporosis - Infectious Disease History Infectious Disease History: Reports: Measles Other Infectious Disease History: unknown - Past Surgical History Head Surgeries/Procedures: Reports: None HEENT Surgical History: Reports: None Cardiovascular Surgical History: Reports: None Respiratory Surgical History: Reports: None GI Surgical History: Reports: None Female Surgical History: Reports: None Endocrine Surgical History: Reports: None Neurological Surgical History: Reports: None Musculoskeletal Surgical History: Reports: None Dermatological Surgical History: Reports: None Social & Family History - Family History Family Medical History: No Pertinent Family History - Caffeine Use Caffeine Use: Reports: None - Living Situation & Occupation Living situation: Reports: , with Spouse Occupation: Disabled ED ROS GENERAL - Review of Systems Review Of Systems: See Below Constitutional: Reports: Malaise. Denies: Fever, Chills HEENT: Reports: No Symptoms Respiratory: Reports: Shortness of Breath, Wheezing. Denies: Pleuritic Chest Pain, Cough, Sputum, Hemoptysis Cardiovascular: Reports: No Symptoms Endocrine: Reports: No Symptoms GI/Abdominal: Reports: No Symptoms : Reports: No Symptoms Musculoskeletal: Reports: No Symptoms Skin: Reports: No Symptoms Neurological: Reports: No Symptoms ED EXAM, GENERAL - Physical Exam Exam: See Below Exam Limited By: No Limitations General Appearance: Alert, WD/WN, No Apparent Distress Eye Exam: Bilateral Eye: Normal Inspection Ears: Normal External Exam, Normal Canal, Hearing Grossly Normal, Normal TMs Ear Exam: Bilateral Ear: Auricle Normal, Canal Normal Nose: Normal Inspection, No Blood Throat/Mouth: Normal Inspection, Normal Lips, Normal Oropharynx, Normal Voice, No Airway Compromise Head: Atraumatic, Normocephalic Neck: Normal Inspection Respiratory/Chest: Lungs Clear, Decreased Breath Sounds, Accessory Muscle Use, Prolonged Expiration. No: No Respiratory Distress, Normal Breath Sounds, No Accessory Muscle Use, Crackles, Rales, Rhonchi, Wheezing Cardiovascular: Regular Rate, Rhythm, No Edema, Tachycardia GI/Abdominal: Normal Bowel Sounds, Soft, Non-Tender, No Distention Back Exam: Normal Inspection. No: CVA Tenderness (R), CVA Tenderness (L) Extremities: Normal Inspection, Normal Range of Motion, Non-Tender, No Pedal Edema. No: Rajat's Sign Neurological: Alert, Oriented, CN II-XII Intact, Normal Cognition, No Motor/Sensory Deficits Psychiatric: Normal Affect, Normal Mood Skin Exam: Warm, Dry, Intact, Normal Color, No Rash Course - Vital Signs Last Recorded V/S: Last Vital Signs Temp 36.6 C 07/10/20 16:26 Pulse 108 H 07/10/20 16:27 Resp 17 07/10/20 16:27 BP 123/60 07/10/20 16:27 Pulse Ox 97 07/10/20 16:27 - Orders/Labs/Meds Orders: Active Orders 24 hr Category Date Time Status Oxygen Therapy Adult [Oxygen Therapy, ED] [RC] Care 07/10/20 15:53 Active ASDIRECTED Chest 2V [CR] Stat Exams 07/10/20 15:51 Taken UA W/MICROSCOPIC [URIN] Stat Lab 07/10/20 15:50 Ordered Sodium Chloride 0.9% [Saline Flush] Med 07/10/20 15:50 Active 10 ml FLUSH ASDIRECTED PRN Saline Lock Insert [OM.PC] Routine Oth 07/10/20 15:50 Ordered Medication Orders Sodium Chloride (Sodium Chloride 0.9% 10 Ml Syringe) 10 ml FLUSH ASDIRECTED PRN PRN Reason: Keep Vein Open Last Admin: 07/10/20 16:29 Dose: 10 ml Documented by: MONET Labs: Laboratory Tests 07/10/20 07/10/20 Range/Units 16:13 16:13 WBC 11.4 H (4.5-11.0) K/uL RBC 3.72 (3.30-5.50) M/uL Hgb 12.8 (12.0-15.0) g/dL Hct 40.5 (36.0-48.0) % MCV 109 H (80-98) fL MCH 34 H (27-31) pg MCHC 32 (32-36) % Plt Count 271 (150-400) K/uL Sodium 141 (140-148) mmol/L Potassium 3.7 (3.6-5.2) mmol/L Chloride 102 (100-108) mmol/L Carbon Dioxide 25 (21-32) mmol/L Anion Gap 13.9 (5.0-14.0) mmol/L BUN 7 (7-18) mg/dL Creatinine 0.7 (0.6-1.0) mg/dL Est Cr Clr Drug Dosing 52.95 mL/min Estimated GFR (MDRD) > 60 (>60) Glucose 141 H (74-106) mg/dL Calcium 8.7 (8.5-10.1) mg/dL Troponin I < 0.017 (0.000-0.056) ng/mL Meds: Medications Generic Name Dose Route Start Last Admin Trade Name Freq PRN Reason Stop Dose Admin Sodium Chloride 10 ml 07/10/20 15:50 07/10/20 16:29 Sodium Chloride 0.9% 10 Ml Syringe FLUSH 10 ml ASDIRECTED PRN Administration Keep Vein Open Discontinued Medications Generic Name Dose Route Start Last Admin Trade Name Freq PRN Reason Stop Dose Admin Methylprednisolone Sodium Succinate 125 mg 07/10/20 15:51 07/10/20 16:29 Methylprednisolone Sodium Succinate 125 Mg/2 Ml Sdv IVPUSH 07/10/20 15:52 125 mg ONETIME ONE Administration - Radiology Interpretation Free Text/Narrative:: CXR-no acute changes, emphysema - Re-Assessments/Exams Free Text/Narrative Re-Assessment/Exam: 07/10/20 16:48 Feels well enough to try going home. Departure - Departure Time of Disposition: 17:00 Disposition: Home, Self-Care 01 Condition: Fair Clinical Impression: COPD exacerbation - Discharge Information *PRESCRIPTION DRUG MONITORING PROGRAM REVIEWED*: No *COPY OF PRESCRIPTION DRUG MONITORING REPORT IN PATIENT CARRILLO: No Instructions: Chronic Obstructive Pulmonary Disease, [id number] Referrals: Félix Santana MD [Primary Care Provider] - Forms: ED Department Discharge Additional Instructions: Continue your usual meds. Start prednisone tomorrow. F/U with your doctor this week. Return if worse. Sepsis Event Note (ED) - Focused Exam Vital Signs: Vital Signs Temp Pulse Resp BP Pulse Ox 07/10/20 16:27 108 H 17 123/60 97 07/10/20 16:26 36.6 C 123 H 16 120/64 95 07/10/20 15:42 36.6 C 123 H 16 120/64 95 - My Orders Last 24 Hours: My Active Orders 07/10/20 15:50 UA W/MICROSCOPIC [URIN] Stat Sodium Chloride 0.9% [Saline Flush] 10 ml FLUSH ASDIRECTED PRN Saline Lock Insert [OM.PC] Routine 07/10/20 15:51 Chest 2V [CR] Stat 07/10/20 15:53 Oxygen Therapy Adult [Oxygen Therapy, ED] [RC] ASDIRECTED - Assessment/Plan Last 24 Hours: My Active Orders 07/10/20 15:50 UA W/MICROSCOPIC [URIN] Stat Sodium Chloride 0.9% [Saline Flush] 10 ml FLUSH ASDIRECTED PRN Saline Lock Insert [OM.PC] Routine 07/10/20 15:51 Chest 2V [CR] Stat 07/10/20 15:53 Oxygen Therapy Adult [Oxygen Therapy, ED] [RC] ASDIRECTED
[2020-07-10 16:28] VITALS: BP 123/60; PULSE 108
--- NOTE | 2020-07-11 16:08 | CR ---
CHEST: 2 view CLINICAL HISTORY:COPD, SOB COMPARISON:05/24/2020 FINDINGS: Lungs are emphysematous. No infiltrate effusion or pneumothorax is seen. Heart and pulmonary vascularity are normal. There are atherosclerotic changes in the aorta. Impression: Emphysematous changes No acute cardiopulmonary process or significant change from prior study
== END 2020-07-10 17:54 | disposition home or self-care (01) ==
LOC: JP.ED 15:36
DX: J44.1 Chronic obstructive pulmonary disease with (acute) exacerbation (principal); I25.10 Atherosclerotic heart disease of native coronary artery without angina pectoris; I10 Essential (primary) hypertension; M19.90 Unspecified osteoarthritis, unspecified site; Z79.82 Long term (current) use of aspirin; Z79.899 Other long term (current) drug therapy; Z88.5 Allergy status to narcotic agent; Z88.2 Allergy status to sulfonamides
CPT/HCPCS: 36415; 71046; 80048; 84484; 85027; 96374; 99285; J2930

== ENCOUNTER 2020-11-22 21:34 | Emergency (ER) | payer MEDICARE, BC ==
[2020-11-22 21:53] VITALS: BP 110/56; PULSE 101
[2020-11-22] MEDS: methylPREDNISolone Sodium Succinate 125 MG/2 ML SDV IVPUSH ONE (22:19)
--- NOTE | 2020-11-22 22:20 | EDM.PDOC ---
ED HPI GENERAL MEDICAL PROBLEM - General Chief Complaint: Respiratory Problem Stated Complaint: MEDICAL VIA [facility] Time Seen by Provider: 11/22/20 21:35 Source of Information: Reports: Patient, EMS, Family History Limitations: Reports: No Limitations - History of Present Illness INITIAL COMMENTS - FREE TEXT/NARRATIVE: 70-year-old female with severe COPD, has been doing well over the past several months, yesterday did not need oxygen all day. This morning however at 5 AM she was awoken by shortness of breath, took her usual medications including duo nebs and thought it helped. She rested most of the day but did have some shortness of breath all day, and tonight it got worse. She gave herself 2 duo nebs and put her self on CPAP and called the ambulance. She is very careful and anxious about her COPD, when EMS arrived her sats were in low to mid 90s and there much better now. On just 1 L of nasal cannula oxygen she is at 97 and she feels back to baseline. Denies any fevers or chills, denies any increased cough, chest pain, cold symptoms or other complaints. Onset: Unknown/Unsure denies pain Pain Score (Numeric/FACES): 0 - Related Data Allergies Allergy/AdvReac Type Severity Reaction Status Date / Time Sulfa (Sulfonamide Allergy Mild Rash Verified 11/22/20 21:45 Antibiotics) meperidine HCl [From Demerol] Allergy Unknown Rash Verified 11/22/20 21:45 Home Meds: Home Meds PARoxetine [Paxil] 10 mg PO QAM 04/11/14 [History] busPIRone [Buspar] 5 mg PO TID 11/06/15 [History] Budesonide/Formoterol Fumarate [Symbicort 160-4.5 Mcg Inhaler] 2 puff INH BID 04/15/16 [History] Nitroglycerin 0.4 mg SL ASDIRECTED PRN 11/26/16 [History] atorvaSTATin [Lipitor] 80 mg PO BEDTIME 11/26/16 [History] Albuterol/Ipratropium [DuoNeb 3.0-0.5 MG/3 ML] 3 ml NEB QIDRT PRN 05/08/17 [History] Aspirin [Adult Low Dose Aspirin EC] 81 mg PO DAILY 05/08/17 [History] LORazepam [Ativan] 0.5 mg PO Q6H PRN 05/08/17 [History] Lisinopril 2.5 mg PO DAILY 05/08/17 [History] Metoprolol Succinate [Toprol XL 50mg] 50 mg PO DAILY 05/08/17 [History] Albuterol [Ventolin HFA] 2 puff INH Q4H PRN 10/15/18 [History] Sodium Chloride for Inhalation [Sodium Chloride] 4 ml IH Q4H PRN 10/15/18 [History] amLODIPine [Norvasc] 2.5 mg PO DAILY 10/15/18 [History] Acetaminophen [Tylenol] 325 mg PO Q4H PRN 12/21/19 [History] Fexofenadine [Tata] 180 mg PO DAILY 07/10/20 [History] Folic Acid 1 tab PO DAILY 07/10/20 [History] Mecobalamin [B-12] 1,000 mcg SL DAILY 07/10/20 [History] Teriparatide 2.48 ml SQ DAILY 11/22/20 [History] Past Medical History HEENT History: Reports: Impaired Vision Cardiovascular History: Reports: CAD, Hypertension, Prior Cardiac Arrest, Stents, Other (See Below) Other Cardiovascular History: cardiac arrest april 2016 Respiratory History: Reports: COPD, Other (See Below) Other Respiratory History: 02 2l at night as needed. 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 copd. 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, Recurrent GR[employer]OL History: Reports: Musculoskeletal History: Reports: Osteoarthritis, Osteoporosis Neurological History: Reports: Migraines Psychiatric History: Reports: Anxiety Endocrine/Metabolic History: Reports: Osteoporosis - Infectious Disease History Infectious Disease History: Reports: Measles Other Infectious Disease History: unknown - Past Surgical History Head Surgeries/Procedures: Reports: None HEENT Surgical History: Reports: None Cardiovascular Surgical History: Reports: None Respiratory Surgical History: Reports: None GI Surgical History: Reports: None Female Surgical History: Reports: None Endocrine Surgical History: Reports: None Neurological Surgical History: Reports: None Musculoskeletal Surgical History: Reports: None Social & Family History - Family History Family Medical History: No Pertinent Family History - Tobacco Use Tobacco Use Status *Q: Never Tobacco User - Caffeine Use Caffeine Use: Reports: None - Living Situation & Occupation Living situation: Reports: , with Spouse Occupation: Disabled ED ROS GENERAL - Review of Systems Review Of Systems: See Below Constitutional: Reports: Malaise. Denies: Fever, Chills HEENT: Denies: Rhinitis, Throat Pain Respiratory: Reports: Shortness of Breath, Cough Cardiovascular: Denies: Chest Pain, Palpitations GI/Abdominal: Denies: Abdominal Pain, Nausea, Vomiting Musculoskeletal: Reports: No Symptoms Skin: Reports: Bruising (Bruises easily) Neurological: Denies: Headache Psychiatric: Reports: Anxiety ED EXAM, GENERAL - Physical Exam Exam: See Below Exam Limited By: No Limitations General Appearance: Alert, No Apparent Distress, Other (Patient has calmed down and is doing much better) Head: Atraumatic Respiratory/Chest: No Respiratory Distress, Other (Marked decreased breath s ounds diffusely, a few scattered posterior rhonchi) Cardiovascular: Regular Rate, Rhythm. No: Tachycardia GI/Abdominal: Soft, Non-Tender Extremities: No: Pedal Edema Neurological: Alert, Oriented, No Motor/Sensory Deficits Psychiatric: Normal Affect, Normal Mood Skin Exam: Warm, Dry Course - Vital Signs Last Recorded V/S: Last Vital Signs Temp 97.8 F 11/22/20 21:59 Pulse 101 H 11/22/20 21:59 Resp 16 11/22/20 21:59 BP 110/56 L 11/22/20 21:59 Pulse Ox 93 L 11/22/20 21:59 - Orders/Labs/Meds Orders: Active Orders 24 hr Category Date Time Status Saline Lock Insert [OM.PC] Routine Oth 11/22/20 21:55 Ordered Meds: Medications Discontinued Medications Generic Name Dose Route Start Last Admin Trade Name Reilly PRN Reason Stop Dose Admin Methylprednisolone Sodium Succinate 125 mg 11/22/20 21:55 11/22/20 22:19 Methylprednisolone Sodium Succinate 125 Mg/2 Ml Sdv IVPUSH 11/22/20 21:56 125 mg ONETIME ONE Administration Sodium Chloride 10 ml 11/22/20 21:55 11/22/20 22:22 Sodium Chloride 0.9% 10 Ml Syringe FLUSH 10 ml ASDIRECTED PRN Administration Keep Vein Open - Re-Assessments/Exams Free Text/Narrative Re-Assessment/Exam: 11/23/20 00:57 A chest x-ray was performed which showed COPD but no infiltrates, effusions or acute findings. The x-ray was consistent with 5 months ago. An IV was started and the patient was given 125 mg of IV Solu-Medrol. She was monitored for 1 hour, continued to oxygenate normally and felt at her baseline. She was discharged on 2-5 more days of prednisone, 50 mg daily to be taken at the patient's discretion. She can return at any time if breathing worsens despite treatment. Departure - Departure Time of Disposition: 22:44 Disposition: Home, Self-Care 01 Clinical Impression: Chronic obstructive pulmonary disease with acute exacerbation - Discharge Information Instructions: Chronic Obstructive Pulmonary Disease, [id number] Referrals: Félix Santana MD [Primary Care Provider] - Forms: ED Department Discharge Care Plan Goals: Take 5 pills of prednisone with your first meal tomorrow and . Continue up to 5 days if needed. Continue your other medications including nebulizers, and return anytime if worsening or concerns. Sepsis Event Note (ED) - Evaluation Sepsis Screening Result: No Definite Risk - Focused Exam Vital Signs: Vital Signs Temp Pulse Resp BP Pulse Ox 11/22/20 21:59 97.8 F 101 H 16 110/56 L 93 L 11/22/20 21:51 97.8 F 101 H 16 110/56 L 93 L - My Orders Last 24 Hours: My Active Orders 11/22/20 21:55 Saline Lock Insert [OM.PC] Routine - Assessment/Plan Last 24 Hours: My Active Orders 11/22/20 21:55 Saline Lock Insert [OM.PC] Routine
[2020-11-22] MEDS: Sodium Chloride 0.9% 10 ML Syringe FLUSH PRN (22:22)
--- NOTE | 2020-11-22 22:43 | CRLCR ---
For Patients: As a result of the Century Cures Act, medical imaging exams and procedure reports are released immediately into your electronic medical record. You may view this report before your referring provider. If you have questions, please contact your health care provider. Indication: Shortness of breath Technique: Chest 1 view Comparison: July 10, 2020 Findings/Impression: Normal cardiomediastinal silhouette. Emphysema. No focal infiltrate, effusion or pneumothorax. No acute osseous abnormality. Dictated by Samara Caldwell MD @ 11/22/2020 10:42:26 PM (Electronically Signed)
== END 2020-11-22 23:04 | disposition home or self-care (01) ==
LOC: JP.ED 21:34
DX: J44.1 Chronic obstructive pulmonary disease with (acute) exacerbation (principal); I25.10 Atherosclerotic heart disease of native coronary artery without angina pectoris; I10 Essential (primary) hypertension; M19.90 Unspecified osteoarthritis, unspecified site; Z79.82 Long term (current) use of aspirin; Z79.899 Other long term (current) drug therapy; Z88.2 Allergy status to sulfonamides; Z88.5 Allergy status to narcotic agent
CPT/HCPCS: 71045; 96374; 99285; J2930

== ENCOUNTER 2021-02-15 13:19 | Emergency (ER) | payer MEDICARE, BC ==
--- NOTE | 2021-02-15 13:47 | EDM.PDOC ---
ED HPI GENERAL MEDICAL PROBLEM - General Chief Complaint: Gastrointestinal Problem Stated Complaint: MEDICAL VIA [facility] Time Seen by Provider: 02/15/21 13:39 Source of Information: Reports: Patient, RN Notes Reviewed History Limitations: Reports: No Limitations - History of Present Illness INITIAL COMMENTS - FREE TEXT/NARRATIVE: 71-year-old female presents emergency department today via EMS services complaint of nausea, states been nauseated for about a month progressively getting worse no fevers no shortness of breath no chest pain no diarrhea does have a history of end-stage COPD - Related Data Allergies Allergy/AdvReac Type Severity Reaction Status Date / Time Sulfa (Sulfonamide Allergy Mild Rash Verified 02/15/21 13:27 Antibiotics) meperidine HCl [From Demerol] Allergy Unknown Rash Verified 02/15/21 13:27 Home Meds: Home Meds PARoxetine [Paxil] 10 mg PO QAM 04/11/14 [History] busPIRone [Buspar] 5 mg PO TID 11/06/15 [History] Budesonide/Formoterol Fumarate [Symbicort 160-4.5 Mcg Inhaler] 2 puff INH BID 04/15/16 [History] Nitroglycerin 0.4 mg SL ASDIRECTED PRN 11/26/16 [History] atorvaSTATin [Lipitor] 80 mg PO BEDTIME 11/26/16 [History] Albuterol/Ipratropium [DuoNeb 3.0-0.5 MG/3 ML] 3 ml NEB QIDRT PRN 05/08/17 [History] Aspirin [Adult Low Dose Aspirin EC] 81 mg PO DAILY 05/08/17 [History] LORazepam [Ativan] 0.5 mg PO Q6H PRN 05/08/17 [History] Lisinopril 2.5 mg PO DAILY 05/08/17 [History] Metoprolol Succinate [Toprol XL 50mg] 50 mg PO DAILY 05/08/17 [History] Albuterol [Ventolin HFA] 2 puff INH Q4H PRN 10/15/18 [History] Sodium Chloride for Inhalation [Sodium Chloride] 4 ml IH Q4H PRN 10/15/18 [History] amLODIPine [Norvasc] 2.5 mg PO DAILY 10/15/18 [History] Acetaminophen [Tylenol] 325 mg PO Q4H PRN 12/21/19 [History] Folic Acid 1 tab PO DAILY 07/10/20 [History] Mecobalamin [B-12] 1,000 mcg SL DAILY 07/10/20 [History] Diphenhyd/Lidocaine/Nystatin [First-Bxn Mouthwash] 5 ml MM TID PRN #1 susp.recon 02/15/21 [Rx] Ibandronate [Boniva] 150 mg PO ASDIRECTED 02/15/21 [History] Montelukast [Singulair] 10 mg PO BEDTIME 02/15/21 [History] Ondansetron [Zofran ODT] 4 mg PO Q6H PRN #10 tab.dis 02/15/21 [Rx] Past Medical History HEENT History: Reports: Impaired Vision Cardiovascular History: Reports: CAD, Hypertension, Prior Cardiac Arrest, Stents, Other (See Below) Other Cardiovascular History: cardiac arrest april 2016 Respiratory History: Reports: COPD, Other (See Below) Other Respiratory History: 02 2l at night as needed. 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 copd. 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, Recurrent [employer] History: Reports: Musculoskeletal History: Reports: Osteoarthritis, Osteoporosis Neurological History: Reports: Migraines Psychiatric History: Reports: Anxiety Endocrine/Metabolic History: Reports: Osteoporosis - Infectious Disease History Infectious Disease History: Reports: Measles Other Infectious Disease History: unknown - Past Surgical History Head Surgeries/Procedures: Reports: None HEENT Surgical History: Reports: None Cardiovascular Surgical History: Reports: None Respiratory Surgical History: Reports: None GI Surgical History: Reports: None Female Surgical History: Reports: None Endocrine Surgical History: Reports: None Neurological Surgical History: Reports: None Musculoskeletal Surgical History: Reports: None Dermatological Surgical History: Reports: None Social & Family History - Family History Family Medical History: No Pertinent Family History - Tobacco Use Tobacco Use Status *Q: Never Tobacco User - Caffeine Use Caffeine Use: Reports: None - Recreational Drug Use Recreational Drug Use: No - Living Situation & Occupation Living situation: Reports: , with Spouse Occupation: Disabled ED ROS GENERAL - Review of Systems Review Of Systems: See Below Constitutional: Denies: Fever, Chills HEENT: Reports: No Symptoms Respiratory: Reports: No Symptoms Cardiovascular: Reports: No Symptoms GI/Abdominal: Reports: Flatus, Nausea. Denies: Abdominal Pain, Diarrhea, Vomiting ED EXAM, GI/ABD - Physical Exam Exam: See Below Exam Limited By: No Limitations General Appearance: Alert, WD/WN, No Apparent Distress Respiratory/Chest: No Respiratory Distress, No Accessory Muscle Use, Decreased Breath Sounds Cardiovascular: Regular Rate, Rhythm, No Murmur GI/Abdominal Exam: Soft, Non-Tender Course - Vital Signs Last Recorded V/S: Last Vital Signs Temp 97.4 F 02/15/21 13:23 Pulse 103 H 02/15/21 15:40 Resp 16 02/15/21 15:40 BP 108/45 L 02/15/21 15:40 Pulse Ox 98 02/15/21 15:40 - Orders/Labs/Meds Orders: Active Orders 24 hr Category Date Time Status Iopamidol [Isovue-300 (61%)] Med 02/15/21 15:04 Active 100 ml IV . DIRECTED PRN Sodium Chloride 0.9% [Normal Saline] 1,000 ml Med 02/15/21 15:00 Active IV ASDIRECTED Sodium Chloride 0.9% [Normal Saline] 80 ml Med 02/15/21 15:30 Active IV ASDIRECTED Medication Orders Sodium Chloride (Normal Saline) 1,000 mls @ 500 mls/hr IV ASDIRECTED [facility] Last Admin: 02/15/21 15:09 Dose: 500 mls/hr Documented by: TIFF Sodium Chloride (Normal Saline) 80 mls @ 3 mls/sec IV ASDIRECTED [facility] Last Admin: 02/15/21 15:28 Dose: 3 mls/sec Documented by: [facility]LI Iopamidol (Iopamidol 612 Mg/Ml 100 Ml Bottle) 100 ml IV . DIRECTED PRN PRN Reason: RADIOLOGY EXAM Stop: 02/16/21 15:05 Last Admin: 02/15/21 15:28 Dose: 75 ml Documented by: OLI Labs: Laboratory Tests 02/15/21 02/15/21 02/15/21 Range/Units 13:50 13:50 13:50 WBC 12.1 H (4.5-11.0) K/uL RBC 3.50 (3.30-5.50) M/uL Hgb 12.3 (12.0-15.0) g/dL Hct 37.7 (36.0-48.0) % MCV 108 H (80-98) fL MCH 35 H (27-31) pg MCHC 33 (32-36) % Plt Count 380 (150-400) K/uL Neut % (Auto) 72.1 H (36-66) % Lymph % (Auto) 12.6 L (24-44) % [place] % (Auto) 8.9 H (2-6) % Eos % (Auto) 6.2 H (2-4) % Baso % (Auto) 0.2 (0-1) % Sodium 140 (140-148) mmol/L Potassium 4.9 (3.6-5.2) mmol/L Chloride 101 (100-108) mmol/L Carbon Dioxide 32 (21-32) mmol/L Anion Gap 7.2 (5.0-14.0) mmol/L BUN 6 L (7-18) mg/dL Creatinine 0.7 (0.6-1.0) mg/dL Est Cr Clr Drug Dosing 52.18 mL/min Estimated GFR (MDRD) > 60 (>60) Glucose 111 H (74-106) mg/dL Lactic Acid (0.4-2.0) mmol/L Calcium 9.9 (8.5-10.1) mg/dL Troponin I High Sens 5.1 (<=60.3) pg/mL C-Reactive Protein (0.0-0.3) mg/dL Procalcitonin ng/mL 02/15/21 02/15/21 02/15/21 Range/Units 13:50 15:04 15:04 WBC (4.5-11.0) K/uL RBC (3.30-5.50) M/uL Hgb (12.0-15.0) g/dL Hct (36.0-48.0) % MCV (80-98) fL MCH (27-31) pg MCHC (32-36) % Plt Count (150-400) K/uL Neut % (Auto) (36-66) % Lymph % (Auto) (24-44) % [place] % (Auto) (2-6) % Eos % (Auto) (2-4) % Baso % (Auto) (0-1) % Sodium (140-148) mmol/L Potassium (3.6-5.2) mmol/L Chloride (100-108) mmol/L Carbon Dioxide (21-32) mmol/L Anion Gap (5.0-14.0) mmol/L BUN (7-18) mg/dL Creatinine (0.6-1.0) mg/dL Est Cr Clr Drug Dosing mL/min Estimated GFR (MDRD) (>60) Glucose (74-106) mg/dL Lactic Acid 4.0 H (0.4-2.0) mmol/L Calcium (8.5-10.1) mg/dL Troponin I High Sens (<=60.3) pg/mL C-Reactive Protein 1.61 H (0.0-0.3) mg/dL Procalcitonin 0.11 ng/mL Meds: Medications Generic Name Dose Route Start Last Admin Trade Name Freq PRN Reason Stop Dose Admin Sodium Chloride 1,000 mls @ 500 mls/hr 02/15/21 15:00 02/15/21 15:09 Normal Saline IV 500 mls/hr ASDIRECTED THEA Administration Sodium Chloride 80 mls @ 3 mls/sec 02/15/21 15:30 02/15/21 15:28 Normal Saline IV 3 mls/sec ASDIRECTED THEA Administration Iopamidol 100 ml 02/15/21 15:04 02/15/21 15:28 Iopamidol 612 Mg/Ml 100 Ml Bottle IV 02/16/21 15:05 75 ml . DIRECTED PRN Administration RADIOLOGY EXAM Discontinued Medications Generic Name Dose Route Start Last Admin Trade Name Freq PRN Reason Stop Dose Admin Sodium Chloride 100 mls @ 3 mls/sec 02/15/21 15:15 Normal Saline IV 02/15/21 15:16 ASDIRECTED THEA Lorazepam 0.5 mg 02/15/21 15:00 02/15/21 15:08 Lorazepam 2 Mg/Ml Sdv IVPUSH 02/15/21 15:01 0.5 mg ONETIME ONE Administration Sodium Chloride 10 ml 02/15/21 15:04 Sodium Chloride 0.9% 10 Ml Sdv FLUSH 02/15/21 15:05 ONETIME ONE Departure - Departure Time of Disposition: 16:42 Disposition: Home, Self-Care 01 Condition: Fair Clinical Impression: Nausea - Discharge Information Prescriptions: Diphenhyd/Lidocaine/Nystatin [First-Bxn Mouthwash] 5 ml MM TID PRN #1 susp.recon PRN Reason: Pain Ondansetron [Zofran ODT] 4 mg PO Q6H PRN #10 tab.dis PRN Reason: Nausea Instructions: Nausea, Adult Referrals: Félix Santana MD [Primary Care Provider] - Forms: ED Department Discharge Additional Instructions: Use Zofran as needed for nausea and vomiting symptoms, use the Magic mouthwash as needed for mouth pain, please follow-up with your primary care in the next 3 to 5 days for reevaluation call return to the emergency department worsening of symptoms Sepsis Event Note (ED) - Evaluation Sepsis Screening Result: No Definite Risk - Focused Exam Vital Signs: Vital Signs Temp Pulse Resp BP Pulse Ox 02/15/21 15:40 103 H 16 108/45 L 98 02/15/21 15:08 103 H 90/51 L 97 02/15/21 14:51 97 16 90/51 L 98 02/15/21 14:24 100 90/52 L 98 02/15/21 13:23 97.4 F 112 H 18 103/60 93 L - My Orders Last 24 Hours: My Active Orders 02/15/21 15:00 Sodium Chloride 0.9% [Normal Saline] 1,000 ml IV ASDIRECTED 02/15/21 15:04 Iopamidol [Isovue-300 (61%)] 100 ml IV . DIRECTED PRN 02/15/21 15:30 Sodium Chloride 0.9% [Normal Saline] 80 ml IV ASDIRECTED - Assessment/Plan Last 24 Hours: My Active Orders 02/15/21 15:00 Sodium Chloride 0.9% [Normal Saline] 1,000 ml IV ASDIRECTED 02/15/21 15:04 Iopamidol [Isovue-300 (61%)] 100 ml IV . DIRECTED PRN 02/15/21 15:30 Sodium Chloride 0.9% [Normal Saline] 80 ml IV ASDIRECTED Plan: Assessment Acuity = acute Site and laterality = nausea Etiology = unknown Manifestations = none Location of injury = Home Lab values = WBC elevated 4.1 consistent leukocytosis CRP slightly elevated 1.6 procalcitonin 0.11 lactic acid elevated 4.0 consistent lactic acidosis unknown significance, CT scan of the abdomen shows no acute abdominal process Plan I did review lab work with her as well as provide her a copy of her CT scan results prescription for Zofran 4 mg ODT 1 tab p.o. 3 times daily as needed total #10 as well as Magic mouthwash 5 mL 3 times daily as needed for mouth pain or follow-up with her primary care next 3 to 5 days for further evaluation of nausea This note was dictated using [employer] voice recognition software please call with any questions on syntax or grammar.
[2021-02-15] MEDS ORDERED: Sodium Chloride 0.9% 10 ML SDV FLUSH ONE (15:04)
[2021-02-15] MEDS: LORazepam 2 MG/ML SDV IVPUSH ONE (15:08)
[2021-02-15] MEDS: Sodium Chloride 0.9% 1,000 ML IV SCH (15:09)
[2021-02-15 15:14] VITALS: PULSE 103
[2021-02-15] MEDS ORDERED: Sodium Chloride 0.9% 100 ML IV SCH (15:15)
[2021-02-15] MEDS: Sodium Chloride 0.9% 80 ML IV SCH (15:28)
[2021-02-15] MEDS: Iopamidol 612 MG/ML 100 ML Bottle IV PRN (15:28)
[2021-02-15 15:41] VITALS: BP 108/45
--- NOTE | 2021-02-15 16:27 | CRLCT ---
For Patients: As a result of the Century Cures Act, medical imaging exams and procedure reports are released immediately into your electronic medical record. You may view this report before your referring provider. If you have questions, please contact your health care provider. INDICATION: Distention, nausea, sores in the mouth, since taking antibiotics her stomach has been feeling an easy and can`t eat. TECHNIQUE: CT of the abdomen and pelvis with 74 cc Isovue 300 IV contrast. Coronal and sagittal reconstructions. COMPARISON: CT chest 01/05/2018. FINDINGS: Moderate diffuse hepatic steatosis. The gallbladder, spleen, pancreas, and adrenal glands are negative. No biliary dilation. Hepatic and portal veins are patent. Symmetric enhancement of the kidneys. Two tiny low-attenuation lesions in the lower pole of the left kidney most likely represent cysts. No hydronephrosis or ureteral dilation. No obstructing urinary calculi. The bladder is normal in appearance. Few small calcified uterine fibroids. No abnormality in the adnexa. The stomach is normal in appearance. No bowel dilation. Small amount of stool scattered throughout the colon. Negative appendix. No intraperitoneal free air or fluid. Aortoiliac vascular calcifications. No lymphadenopathy. Left convex lumbar curve. Degenerative changes of the spine. 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 Emphysema in the lung bases. There is a stable benign 3 mm noncalcified pulmonary nodule in the posterior left lower lobe (series 2 images 17). New 3 mm noncalcified pulmonary nodule in the posterior left lower lobe (image 24). Coronary artery calcifications. IMPRESSION: 1. No acute findings in the abdomen or pelvis. 2. No evidence of bowel inflammation or obstruction. 3. Moderate diffuse hepatic steatosis. 4. Emphysema in the lung bases. 5. New 3 mm noncalcified pulmonary nodule in the left lower lobe. Follow-up per Fleischner society guidelines. Please note that all CT scans at this facility use dose modulation, iterative reconstruction, and/or weight-based dosing when appropriate to reduce radiation dose to as low as reasonably achievable. Dictated by Camelia Hill MD @ 02/15/2021 4:25:34 PM (Electronically Signed)
== END 2021-02-15 17:04 | disposition home or self-care (01) ==
LOC: JP.ED 13:19
DX: R11.0 Nausea (principal); I25.10 Atherosclerotic heart disease of native coronary artery without angina pectoris; I10 Essential (primary) hypertension; J44.9 Chronic obstructive pulmonary disease, unspecified; M19.90 Unspecified osteoarthritis, unspecified site; Z88.2 Allergy status to sulfonamides; Z88.8 Allergy status to other drugs, medicaments and biological substances; Z79.899 Other long term (current) drug therapy; Z79.82 Long term (current) use of aspirin
CPT/HCPCS: 36415; 74177; 80048; 83605; 84145; 84484; 85025; 86140; 96374; 99284; J2060; J7030; Q9967

== ENCOUNTER 2021-02-20 15:10 | Emergency (ER) | payer MEDICARE, BC ==
[2021-02-20 16:16] VITALS: BP 114/50; PULSE 96
[2021-02-20] MEDS ORDERED: Ondansetron 4 MG/2 ML SDV IVPUSH ONE (16:18)
[2021-02-20] MEDS ORDERED: Scopolamine 1.5 MG Transdermal Patch TRDERM PRN (16:19)
--- NOTE | 2021-02-20 16:22 | EDM.PDOC ---
ED HPI GENERAL MEDICAL PROBLEM - General Stated Complaint: MED[facility] Time Seen by Provider: 02/20/21 16:11 Source of Information: Reports: Patient, Family, Old Records, RN Notes Reviewed History Limitations: Reports: No Limitations - History of Present Illness INITIAL COMMENTS - FREE TEXT/NARRATIVE: 71-year-old female presents emergency department day complaint of nausea and vomiting, she states she has been feeling ill now total time about 6 weeks I did evaluate her low about 5 days ago lab work at that time was fairly unremarkable except for slightly elevated lactic acid 4.0 CAT scan of the abdomen revealed no acute process. She states the Zofran that she was given did seem to help she was taking it every 6 hours but she is out of that medication nausea has returned. She has a follow-up appointment with her primary care on Saturday of this week, Covid from last week was negative - Related Data Allergies Allergy/AdvReac Type Severity Reaction Status Date / Time Sulfa (Sulfonamide Allergy Mild Rash Verified 02/15/21 13:27 Antibiotics) meperidine HCl [From Demerol] Allergy Unknown Rash Verified 02/15/21 13:27 Home Meds: Home Meds PARoxetine [Paxil] 10 mg PO QAM 04/11/14 [History] busPIRone [Buspar] 5 mg PO TID 11/06/15 [History] Budesonide/Formoterol Fumarate [Symbicort 160-4.5 Mcg Inhaler] 2 puff INH BID 04/15/16 [History] Nitroglycerin 0.4 mg SL ASDIRECTED PRN 11/26/16 [History] atorvaSTATin [Lipitor] 80 mg PO BEDTIME 11/26/16 [History] Albuterol/Ipratropium [DuoNeb 3.0-0.5 MG/3 ML] 3 ml NEB QIDRT PRN 05/08/17 [History] Aspirin [Adult Low Dose Aspirin EC] 81 mg PO DAILY 05/08/17 [History] LORazepam [Ativan] 0.5 mg PO Q6H PRN 05/08/17 [History] Lisinopril 2.5 mg PO DAILY 05/08/17 [History] Metoprolol Succinate [Toprol XL 50mg] 50 mg PO DAILY 05/08/17 [History] Albuterol [Ventolin HFA] 2 puff INH Q4H PRN 10/15/18 [History] Sodium Chloride for Inhalation [Sodium Chloride] 4 ml IH Q4H PRN 10/15/18 [History] amLODIPine [Norvasc] 2.5 mg PO DAILY 10/15/18 [History] Acetaminophen [Tylenol] 325 mg PO Q4H PRN 12/21/19 [History] Folic Acid 1 tab PO DAILY 07/10/20 [History] Mecobalamin [B-12] 1,000 mcg SL DAILY 07/10/20 [History] Diphenhyd/Lidocaine/Nystatin [First-Bxn Mouthwash] 5 ml MM TID PRN #1 susp.recon 02/15/21 [Rx] Ibandronate [Boniva] 150 mg PO ASDIRECTED 02/15/21 [History] Montelukast [Singulair] 10 mg PO BEDTIME 02/15/21 [History] Ondansetron [Zofran ODT] 4 mg PO Q6H PRN #10 tab.dis 02/15/21 [Rx] Past Medical History HEENT History: Reports: Impaired Vision Cardiovascular History: Reports: CAD, Hypertension, Prior Cardiac Arrest, Stents, Other (See Below) Other Cardiovascular History: cardiac arrest april 2016 Respiratory History: Reports: COPD, Other (See Below) Other Respiratory History: 02 2l at night as needed. 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 copd. 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, Recurrent [employer]OLOG[employer] History: Reports: Musculoskeletal History: Reports: Osteoarthritis, Osteoporosis Neurological History: Reports: Migraines Psychiatric History: Reports: Anxiety Endocrine/Metabolic History: Reports: Osteoporosis - Infectious Disease History Infectious Disease History: Reports: Measles Other Infectious Disease History: unknown - Past Surgical History Head Surgeries/Procedures: Reports: None HEENT Surgical History: Reports: None Cardiovascular Surgical History: Reports: None Respiratory Surgical History: Reports: None GI Surgical History: Reports: None Female Surgical History: Reports: None Endocrine Surgical History: Reports: None Neurological Surgical History: Reports: None Musculoskeletal Surgical History: Reports: None Dermatological Surgical History: Reports: None Social & Family History - Family History Family Medical History: No Pertinent Family History - Caffeine Use Caffeine Use: Reports: None - Living Situation & Occupation Living situation: Reports: , with Spouse Occupation: Disabled ED ROS GENERAL - Review of Systems Review Of Systems: See Below Constitutional: Reports: No Symptoms HEENT: Reports: No Symptoms Respiratory: Reports: Shortness of Breath (Not beyond baseline) Cardiovascular: Reports: Dyspnea on Exertion (Not beyond baseline) GI/Abdominal: Reports: Nausea, Vomiting ED EXAM, GENERAL - Physical Exam Exam: See Below Exam Limited By: No Limitations General Appearance: Alert, WD/WN, No Apparent Distress Respiratory/Chest: Lungs Clear, Chest Non-Tender, Decreased Breath Sounds Cardiovascular: Regular Rate, Rhythm, No Murmur GI/Abdominal: Soft, Non-Tender Course - Vital Signs Last Recorded V/S: Last Vital Signs Temp 97.5 F 02/20/21 16:34 Pulse 96 02/20/21 16:34 Resp 16 02/20/21 16:34 BP 114/50 L 02/20/21 16:34 Pulse Ox 100 02/20/21 16:34 - Orders/Labs/Meds Orders: Active Orders 24 hr Category Date Time Status Scopolamine [Transderm-Scop] Med 02/20/21 16:19 Active 1.5 mg TRDERM Q72H PRN Medication Orders Scopolamine (Scopolamine 1.5 Mg Transdermal Patch) 1.5 mg TRDERM Q72H PRN PRN Reason: Nausea Last Admin: 02/20/21 16:45 Dose: 1.5 mg Documented by: [email or web address] Meds: Medications Generic Name Dose Route Start Last Admin Trade Name Freq PRN Reason Stop Dose Admin Scopolamine 1.5 mg 02/20/21 16:19 02/20/21 16:45 Scopolamine 1.5 Mg Transdermal Patch TRDERM 1.5 mg Q72H PRN Administration Nausea Discontinued Medications Generic Name Dose Route Start Last Admin Trade Name Freq PRN Reason Stop Dose Admin Ondansetron HCl 4 mg 02/20/21 16:18 02/20/21 16:42 Ondansetron 4 Mg/2 Ml Sdv IVPUSH 02/20/21 16:19 4 mg ONETIME ONE Administration Departure - Departure Time of Disposition: 17:18 Disposition: Home, Self-Care 01 Condition: Fair Clinical Impression: Nausea & vomiting Qualifiers: Vomiting type: unspecified Qualified Code(s): R11.2 - Nausea with vomiting, unspecified - Discharge Information Instructions: Nausea, Adult Referrals: Félix Santana MD [Primary Care Provider] - Additional Instructions: Use the Zofran as needed for nausea and vomiting symptoms, continue to use the scopolamine patch to help with nausea symptoms please keep your follow-up appointment with Dr. Leahy on Saturday, consider further gallbladder evaluation with a HIDA scan Sepsis Event Note (ED) - Focused Exam Vital Signs: Vital Signs Temp Pulse Resp BP Pulse Ox 02/20/21 16:34 97.5 F 96 16 114/50 L 100 02/20/21 16:12 96 114/50 L 100 02/20/21 15:23 97.5 F 113 H 16 106/49 L 93 L - My Orders Last 24 Hours: My Active Orders 02/20/21 16:19 Scopolamine [Transderm-Scop] 1.5 mg TRDERM Q72H PRN - Assessment/Plan Last 24 Hours: My Active Orders 02/20/21 16:19 Scopolamine [Transderm-Scop] 1.5 mg TRDERM Q72H PRN Plan: Assessment Acuity = acute Site and laterality = nausea Etiology = unknown Manifestations = none Location of injury = Home Lab values = none Plan She was given one dose of Zofran while in the emergency department also Scopolamine patch was placed. Talked her about possible gallbladder dysfunction which she is going to discuss with her primary care on Saturday of this week prescription for Zofran 4 mg ODT one tab p.o. 3 times daily as needed total #15 provided This note was dictated using [employer] voice recognition software please call with any questions on syntax or grammar.
== END 2021-02-20 17:50 | disposition home or self-care (01) ==
LOC: JP.ED 15:10
DX: R11.2 Nausea with vomiting, unspecified (principal); I25.10 Atherosclerotic heart disease of native coronary artery without angina pectoris; I10 Essential (primary) hypertension; M19.90 Unspecified osteoarthritis, unspecified site; J44.9 Chronic obstructive pulmonary disease, unspecified; Z95.5 Presence of coronary angioplasty implant and graft; Z88.2 Allergy status to sulfonamides; Z79.899 Other long term (current) drug therapy; Z79.82 Long term (current) use of aspirin
CPT/HCPCS: 96374; 99283; A9270; J2405

== ENCOUNTER 2021-03-04 15:32 | Inpatient (IN) | payer MEDICARE, BC ==
[2021-03-04] MEDS ORDERED: Sodium Chloride 0.9% 1,000 ML IV SCH (16:30)
[2021-03-04 17:04] LABS: CORONAVIRUS COVID-19 NAA NEGATIVE (NEGATIVE)
[2021-03-04] MEDS ORDERED: Albuterol/Ipratropium 3.0-0.5 MG/3 ML Neb Soln NEB PRN (18:24)
[2021-03-04] MEDS ORDERED: Lactated Ringers 1,000 ML IV SCH (18:24)
[2021-03-04] MEDS ORDERED: Acetaminophen 325 MG Tab PO PRN (18:24)
[2021-03-04] MEDS ORDERED: Ondansetron 4 MG/2 ML SDV IV PRN (18:24)
[2021-03-04] MEDS ORDERED: Magnesium Hydroxide 400 MG/5 ML Susp 30 ML Cup PO PRN (18:24)
[2021-03-04] MEDS ORDERED: fentaNYL 100 MCG/2 ML SDV IVPUSH PRN (18:24)
[2021-03-04] MEDS ORDERED: oxyCODONE 5 MG Tab PO PRN (18:24)
[2021-03-04] MEDS ORDERED: LORazepam 2 MG/ML SDV IVPUSH PRN (18:24)
[2021-03-04] MEDS ORDERED: Albuterol 0.083% 2.5 MG/3 ML Neb Soln NEB PRN (18:24)
[2021-03-04] MEDS: Ampicillin/Sulbactam Na 1.5 GM in Sodium Chloride 0.9% 50 ML IV SCH ×2 (19:29→23:38)
[2021-03-04] MEDS: atorvaSTATin 20 MG Tab PO SCH (20:37)
[2021-03-04] MEDS: Lactobacillus Rhamnosus GG (Probiotic) Cap PO SCH (20:37)
[2021-03-04] MEDS: Montelukast 10 MG Tab PO SCH (20:37)
[2021-03-04] MEDS: busPIRone 5 MG Tab PO SCH (20:38)
[2021-03-04] MEDS: Metoprolol Succinate 50 MG Tab.ER PO SCH (20:38)
[2021-03-04] MEDS: amLODIPine 5 MG Tab PO SCH (20:38)
[2021-03-04] MEDS: Lisinopril 2.5 MG Tab PO SCH (20:39)
[2021-03-04] MEDS: Pantoprazole 40 MG Vial IV SCH (20:39)
[2021-03-04] MEDS: Ondansetron 4 MG Tab.DIS PO PRN (20:48)
[2021-03-04] MEDS ORDERED: Formoterol/Mometasone 200-5 MCG 8.8 GM Inhaler IH SCH (21:00)
[2021-03-04] MEDS: Melatonin 3 MG Tab PO PRN (23:43)
[2021-03-05] MEDS: Ondansetron 4 MG Tab.DIS PO PRN (03:15)
[2021-03-05] MEDS: Ampicillin/Sulbactam Na 1.5 GM in Sodium Chloride 0.9% 50 ML IV SCH ×4 (05:31→23:31)
[2021-03-05] MEDS ORDERED: Meropenem 500 MG SDV ONE (06:47)
[2021-03-05] MEDS ORDERED: Bupivacaine 0.5%/EPINEPHrine 1:200,000 50 ML MDV ONE (06:47)
[2021-03-05] MEDS ORDERED: Propofol 200 MG/20 ML SDV ONE (07:06)
[2021-03-05] MEDS ORDERED: Rocuronium 50 MG/5 ML Vial ONE (07:07)
[2021-03-05] MEDS ORDERED: fentaNYL 100 MCG/2 ML SDV ONE ×2 (07:07→08:14)
[2021-03-05] MEDS ORDERED: Ropivacaine 23 ML, dexAMETHasone 8 MG, EPINEPHrine 0.4 MG, Sodium Chloride 0.9% 54.6 ML NERVRT SCH ×4 (07:30)
[2021-03-05] MEDS ORDERED: Dexamethasone 4 MG/ML SDV ONE (08:10)
[2021-03-05] MEDS ORDERED: Neostigmine Methylsulfate 1 MG/ML 5 ML Syringe ONE (08:26)
[2021-03-05] MEDS ORDERED: Glycopyrrolate 0.2 MG/ML 5 ML MDV ONE (08:26)
[2021-03-05] MEDS ORDERED: Ondansetron 4 MG/2 ML SDV ONE (08:26)
[2021-03-05] MEDS ORDERED: MECOBALAMIN 1000 MCG SL SCH (09:00)
[2021-03-05] MEDS ORDERED: fentaNYL 100 MCG/2 ML SDV IVPUSH ONE (09:18)
[2021-03-05] MEDS ORDERED: HYDROmorphone 0.5 MG/0.5 ML Syringe IVPUSH PRN (09:56)
[2021-03-05] MEDS: Formoterol/Mometasone 200-5 MCG 8.8 GM Inhaler IH SCH ×2 (09:57→20:59)
[2021-03-05] MEDS: HYDROmorphone 2 MG Tab PO PRN ×3 (11:04→21:14)
[2021-03-05] MEDS: Folic Acid 1 MG Tab PO SCH (12:31)
[2021-03-05] MEDS: PARoxetine 20 MG Tab PO SCH (12:32)
[2021-03-05] MEDS: Lactobacillus Rhamnosus GG (Probiotic) Cap PO SCH ×2 (12:33→21:00)
[2021-03-05] MEDS: Acetaminophen 500 MG Tab PO SCH ×3 (12:34→20:59)
[2021-03-05] MEDS: busPIRone 5 MG Tab PO SCH ×2 (12:34→21:00)
[2021-03-05] MEDS: Aspirin 81 MG Tab.EC PO SCH (12:52)
[2021-03-05] MEDS: Dextrose 5%-Lactated Ringers 1,000 ML IV SCH (14:47)
[2021-03-05] MEDS: Potassium Chloride 20 MEQ, Lidocaine 1% 2 ML in Sodium Chloride 0.9% 100 ML IV SCH ×2 (14:48→16:55)
[2021-03-05] MEDS: amLODIPine 5 MG Tab PO SCH (20:59)
[2021-03-05] MEDS: Metoprolol Succinate 50 MG Tab.ER PO SCH (21:00)
[2021-03-05] MEDS: atorvaSTATin 20 MG Tab PO SCH (21:00)
[2021-03-05] MEDS: Lisinopril 2.5 MG Tab PO SCH (21:01)
[2021-03-05] MEDS: Montelukast 10 MG Tab PO SCH (21:01)
[2021-03-05] MEDS: Pantoprazole 40 MG Vial IV SCH (21:01)
[2021-03-05] MEDS: Melatonin 3 MG Tab PO PRN (22:07)
[2021-03-05] MEDS: LORazepam 0.5 MG Tab PO PRN (23:40)
[2021-03-06] MEDS: Acetaminophen 500 MG Tab PO SCH ×4 (03:06→21:51)
[2021-03-06] MEDS: Dextrose 5%-Lactated Ringers 1,000 ML IV SCH (03:10)
[2021-03-06] MEDS: Ampicillin/Sulbactam Na 1.5 GM in Sodium Chloride 0.9% 50 ML IV SCH ×3 (05:40→17:32)
[2021-03-06] MEDS: Formoterol/Mometasone 200-5 MCG 8.8 GM Inhaler IH SCH ×2 (07:06→21:52)
[2021-03-06] MEDS ORDERED: Dextrose 5%-Lactated Ringers 1,000 ML IV SCH (07:35)
[2021-03-06] MEDS: HYDROmorphone 2 MG Tab PO PRN ×4 (08:39→22:04)
[2021-03-06] MEDS: Lactobacillus Rhamnosus GG (Probiotic) Cap PO SCH ×2 (08:40→21:52)
[2021-03-06] MEDS: busPIRone 5 MG Tab PO SCH ×2 (08:40→21:52)
[2021-03-06] MEDS: Aspirin 81 MG Tab.EC PO SCH (08:40)
[2021-03-06] MEDS: Folic Acid 1 MG Tab PO SCH (08:40)
[2021-03-06] MEDS: PARoxetine 20 MG Tab PO SCH (08:41)
[2021-03-06] MEDS: Albuterol 8 GM Inhaler INH SCH ×3 (08:45→19:42)
[2021-03-06] MEDS: Cyanocobalamin (Vitamin B12) 1,000 MCG Tab SL SCH (09:20)
[2021-03-06] MEDS: Albuterol/Ipratropium 3.0-0.5 MG/3 ML Neb Soln NEB SCH ×4 (10:19→21:46)
[2021-03-06] MEDS ORDERED: Pantoprazole 40 MG Tab.CR PO SCH (21:00)
[2021-03-06] MEDS: Montelukast 10 MG Tab PO SCH (21:51)
[2021-03-06] MEDS: atorvaSTATin 20 MG Tab PO SCH (21:51)
[2021-03-06] MEDS: amLODIPine 5 MG Tab PO SCH (21:53)
[2021-03-06] MEDS: Lisinopril 2.5 MG Tab PO SCH (21:55)
[2021-03-06] MEDS: Metoprolol Succinate 50 MG Tab.ER PO SCH (21:56)
[2021-03-06] MEDS: Melatonin 3 MG Tab PO PRN (22:04)
[2021-03-07] MEDS: Ampicillin/Sulbactam Na 1.5 GM in Sodium Chloride 0.9% 50 ML IV SCH ×2 (01:27→06:08)
[2021-03-07] MEDS: Albuterol 8 GM Inhaler INH SCH ×3 (01:28→07:40)
[2021-03-07] MEDS: Albuterol/Ipratropium 3.0-0.5 MG/3 ML Neb Soln NEB SCH ×2 (02:36→06:04)
[2021-03-07] MEDS: HYDROmorphone 2 MG Tab PO PRN ×2 (02:50→09:42)
[2021-03-07] MEDS: LORazepam 0.5 MG Tab PO PRN (03:03)
[2021-03-07] MEDS: Acetaminophen 500 MG Tab PO SCH (04:53)
[2021-03-07 07:22] VITALS: BP 92/50; PULSE 97
[2021-03-07] MEDS: Formoterol/Mometasone 200-5 MCG 8.8 GM Inhaler IH SCH (07:38)
[2021-03-07] MEDS: busPIRone 5 MG Tab PO SCH (08:17)
[2021-03-07] MEDS: Folic Acid 1 MG Tab PO SCH (08:18)
[2021-03-07] MEDS: PARoxetine 20 MG Tab PO SCH (08:18)
[2021-03-07] MEDS: Aspirin 81 MG Tab.EC PO SCH (08:18)
[2021-03-07] MEDS: Cyanocobalamin (Vitamin B12) 1,000 MCG Tab SL SCH (08:18)
[2021-03-07] MEDS: Lactobacillus Rhamnosus GG (Probiotic) Cap PO SCH (08:18)
[2021-03-07] MEDS ORDERED: Magnesium Hydroxide 400 MG/5 ML Susp 30 ML Cup PO ONE (20:00)
== END 2021-03-07 09:53 | disposition home or self-care (01) | DRG 418 ==
LOC: JP.ED 15:32 → JP.MS 17:01
PROVIDERS: ADMIT Internal Medicine; ATTEND Hospitalist
PROC: 0FT44ZZ Resection of Gallbladder, Percutaneous Endoscopic Approach (ICD-10-PCS; principal; 2021-03-05)
PROC: 0WQF4ZZ Repair Abdominal Wall, Percutaneous Endoscopic Approach (ICD-10-PCS; 2021-03-05)
PROC: 0FB14ZX Excision of Right Lobe Liver, Percutaneous Endoscopic Approach, Diagnostic (ICD-10-PCS; 2021-03-05)
DX: K81.0 Acute cholecystitis (principal); J44.9 Chronic obstructive pulmonary disease, unspecified; R11.2 Nausea with vomiting, unspecified; K80.12 Calculus of gallbladder with acute and chronic cholecystitis without obstruction; J44.1 Chronic obstructive pulmonary disease with (acute) exacerbation; K42.0 Umbilical hernia with obstruction, without gangrene; I25.10 Atherosclerotic heart disease of native coronary artery without angina pectoris; I25.2 Old myocardial infarction; Z20.822 Contact with and (suspected) exposure to COVID-19; R16.0 Hepatomegaly, not elsewhere classified; H54.7 Unspecified visual loss; I10 Essential (primary) hypertension; M19.90 Unspecified osteoarthritis, unspecified site; M81.0 Age-related osteoporosis without current pathological fracture; K82.A1 Gangrene of gallbladder in cholecystitis; F41.9 Anxiety disorder, unspecified; Z79.51 Long term (current) use of inhaled steroids; Z88.2 Allergy status to sulfonamides; Z88.1 Allergy status to other antibiotic agents; Z79.82 Long term (current) use of aspirin; Z79.899 Other long term (current) drug therapy; Z95.5 Presence of coronary angioplasty implant and graft; Z86.74 Personal history of sudden cardiac arrest; Z88.6 Allergy status to analgesic agent
CPT/HCPCS: 0241U; 36415; 80053; 82150; 83690; 83735; 83880; 84100; 85025; 85027; 86140; 93005; 94640; 94667; 99285; A9270-GY; C9113; J0171; J0295; J1100; J1170; J2185; J2405; J2704; J2710; J2795; J3010; J3480; J3490; J7030; J7120; J7121; J7620-GY

== ENCOUNTER 2021-05-02 12:42 | Inpatient (IN) | payer MEDICARE, BC ==
[2021-05-02] MEDS ORDERED: LORazepam 2 MG/ML SDV IVPUSH ONE (14:21)
[2021-05-02] MEDS ORDERED: Sodium Chloride 0.9% 1,000 ML IV SCH (14:30)
[2021-05-02] MEDS ORDERED: LORazepam 2 MG/ML SDV IV PRN (16:20)
[2021-05-02] MEDS ORDERED: HYDROmorphone 0.5 MG/0.5 ML Syringe IVPUSH PRN (16:20)
[2021-05-02] MEDS ORDERED: Polyethylene Glycol 3350 Powder 17 GM Packet PO PRN (16:20)
[2021-05-02] MEDS ORDERED: Sodium Chloride 0.9% 10 ML Syringe FLUSH PRN (16:20)
[2021-05-02] MEDS: Sodium Chloride 0.9% 1,000 ML IV SCH (17:04)
[2021-05-02] MEDS: Enoxaparin 40 MG/0.4 ML Syringe SUBCUT SCH (17:07)
[2021-05-02 17:54] LABS: CORONAVIRUS COVID-19 NAA NEGATIVE (NEGATIVE)
[2021-05-02] MEDS: Formoterol/Mometasone 200-5 MCG 8.8 GM Inhaler IH SCH (20:24)
[2021-05-02] MEDS: atorvaSTATin 20 MG Tab PO SCH (20:24)
[2021-05-02] MEDS: Montelukast 10 MG Tab PO SCH (20:46)
[2021-05-02] MEDS: busPIRone 5 MG Tab PO SCH (20:46)
[2021-05-02] MEDS: Metoprolol Succinate 50 MG Tab.ER PO SCH (20:57)
[2021-05-02] MEDS: Lisinopril 2.5 MG Tab PO SCH (20:57)
[2021-05-02] MEDS: amLODIPine 5 MG Tab PO SCH (20:57)
[2021-05-02] MEDS: HYDROmorphone 0.5 MG/0.5 ML Syringe IVPUSH PRN (21:29)
[2021-05-02] MEDS: Melatonin 3 MG Tab PO PRN (21:37)
[2021-05-03] MEDS: HYDROmorphone 0.5 MG/0.5 ML Syringe IVPUSH PRN ×3 (05:00→15:04)
[2021-05-03] MEDS: Albuterol 8 GM Inhaler INH PRN ×2 (07:41→15:08)
[2021-05-03] MEDS ORDERED: fentaNYL 100 MCG/2 ML SDV ONE (07:44)
[2021-05-03] MEDS ORDERED: Propofol 200 MG/20 ML SDV ONE (07:44)
[2021-05-03] MEDS: Sodium Chloride 0.9% 1,000 ML IV SCH (08:01)
[2021-05-03] MEDS ORDERED: Potassium Chloride Riders 40 MEQ in Premix Bag 1 BAG IV ONE (08:04)
[2021-05-03] MEDS: Formoterol/Mometasone 200-5 MCG 8.8 GM Inhaler IH SCH ×2 (08:38→21:34)
[2021-05-03] MEDS: Lidocaine 2% 60 ML, Alum Hydrox/Mag Hydrox/Simeth 360 ML PO SCH ×6 (09:14→15:04)
[2021-05-03] MEDS: busPIRone 5 MG Tab PO SCH ×2 (09:54→21:35)
[2021-05-03] MEDS: PARoxetine 20 MG Tab PO SCH (09:54)
[2021-05-03] MEDS: Acetaminophen 325 MG Tab PO PRN ×2 (09:54→19:39)
[2021-05-03] MEDS: Aspirin 81 MG Tab.EC PO SCH (09:55)
[2021-05-03] MEDS: Potassium Chloride 20 MEQ, Lidocaine 1% 2 ML in Sodium Chloride 0.9% 100 ML IV SCH ×2 (09:56→12:11)
[2021-05-03] MEDS: Ondansetron 4 MG Tab.DIS PO PRN ×2 (13:33→21:34)
[2021-05-03] MEDS: Mineral Oil/Petrolatum,Hydrophilic Ointment 100 GM Jar TOP SCH ×2 (17:44→21:35)
[2021-05-03] MEDS: Enoxaparin 40 MG/0.4 ML Syringe SUBCUT SCH (17:44)
[2021-05-03] MEDS: Albuterol/Ipratropium 3.0-0.5 MG/3 ML Neb Soln NEB PRN (19:43)
[2021-05-03] MEDS: Melatonin 3 MG Tab PO PRN (21:34)
[2021-05-03] MEDS: atorvaSTATin 20 MG Tab PO SCH (21:35)
[2021-05-03] MEDS: Montelukast 10 MG Tab PO SCH (21:35)
[2021-05-03] MEDS: Triamcinolone Acetonide 0.1% Crm 15 GM Tube TOP SCH (21:38)
[2021-05-03] MEDS: Metoprolol Succinate 50 MG Tab.ER PO SCH (21:49)
[2021-05-03] MEDS: amLODIPine 5 MG Tab PO SCH (21:49)
[2021-05-03] MEDS: Lisinopril 2.5 MG Tab PO SCH (21:49)
[2021-05-04] MEDS: Ondansetron 4 MG Tab.DIS PO PRN (03:25)
[2021-05-04] MEDS: HYDROmorphone 0.5 MG/0.5 ML Syringe IVPUSH PRN (05:09)
[2021-05-04] MEDS ORDERED: Sodium Chloride 0.9% 10 ML SDV FLUSH ONE (06:52)
[2021-05-04] MEDS ORDERED: Iopamidol 755 Mg/ML 100 ML Bottle IV SCH (07:00)
[2021-05-04] MEDS ORDERED: Sodium Chloride 0.9% 75 ML IV SCH (07:00)
[2021-05-04] MEDS: Formoterol/Mometasone 200-5 MCG 8.8 GM Inhaler IH SCH ×2 (07:01→22:22)
[2021-05-04] MEDS: PARoxetine 20 MG Tab PO SCH (08:45)
[2021-05-04] MEDS: Lidocaine 2% 60 ML, Alum Hydrox/Mag Hydrox/Simeth 360 ML PO SCH ×6 (08:45→15:01)
[2021-05-04] MEDS: Triamcinolone Acetonide 0.1% Crm 15 GM Tube TOP SCH ×2 (08:46→22:22)
[2021-05-04] MEDS: busPIRone 5 MG Tab PO SCH ×2 (08:46→22:21)
[2021-05-04] MEDS: Mineral Oil/Petrolatum,Hydrophilic Ointment 100 GM Jar TOP SCH ×2 (08:46→22:23)
[2021-05-04] MEDS: Aspirin 81 MG Tab.EC PO SCH (08:46)
[2021-05-04] MEDS: Albuterol 8 GM Inhaler INH PRN (08:47)
[2021-05-04] MEDS ORDERED: Metoprolol Succinate 50 MG Tab.ER PO SCH (09:21)
[2021-05-04] MEDS ORDERED: oxyCODONE 5 MG Tab PO PRN (09:22)
[2021-05-04] MEDS: Metoprolol Succinate 25 MG Tab.ER PO SCH (10:02)
[2021-05-04] MEDS: LORazepam 0.5 MG Tab PO PRN ×2 (14:57→19:01)
[2021-05-04] MEDS: Albuterol/Ipratropium 3.0-0.5 MG/3 ML Neb Soln NEB PRN ×3 (15:09→21:20)
[2021-05-04] MEDS: Enoxaparin 40 MG/0.4 ML Syringe SUBCUT SCH (17:41)
[2021-05-04] MEDS ORDERED: Albuterol 0.083% 2.5 MG/3 ML Neb Soln NEB ONE (21:03)
[2021-05-04] MEDS ORDERED: Albuterol 0.083% 2.5 MG/3 ML Neb Soln ONE (21:08)
[2021-05-04] MEDS ORDERED: methylPREDNISolone Sodium Succinate 125 MG/2 ML SDV IVPUSH ONE (21:23)
[2021-05-04] MEDS ORDERED: LORazepam 2 MG/ML SDV IVPUSH ONE (22:04)
[2021-05-04] MEDS: Montelukast 10 MG Tab PO SCH (22:21)
[2021-05-04] MEDS: atorvaSTATin 20 MG Tab PO SCH (22:21)
[2021-05-04] MEDS ORDERED: Sodium Polystyrene Sulfonate 15 GM/60 ML Susp 60 ML Bot PO ONE (22:25)
[2021-05-04] MEDS: Levofloxacin/Dextrose 5%-Water 750 MG in Premix Bag 1 BAG IV SCH (23:03)
[2021-05-05] MEDS: LORazepam 2 MG/ML SDV IVPUSH PRN ×5 (00:32→23:26)
[2021-05-05] MEDS: Formoterol/Mometasone 200-5 MCG 8.8 GM Inhaler IH SCH ×2 (07:18→21:06)
[2021-05-05] MEDS: Lidocaine 2% 60 ML, Alum Hydrox/Mag Hydrox/Simeth 360 ML PO SCH ×6 (07:35→16:09)
[2021-05-05] MEDS: methylPREDNISolone Sodium Succinate 40 MG/1 ML SDV IVPUSH SCH ×3 (08:50→23:31)
[2021-05-05] MEDS: busPIRone 5 MG Tab PO SCH ×2 (08:52→21:06)
[2021-05-05] MEDS: Mineral Oil/Petrolatum,Hydrophilic Ointment 100 GM Jar TOP SCH ×2 (08:52→21:08)
[2021-05-05] MEDS: PARoxetine 20 MG Tab PO SCH (08:52)
[2021-05-05] MEDS: Aspirin 81 MG Tab.EC PO SCH (08:52)
[2021-05-05] MEDS: Triamcinolone Acetonide 0.1% Crm 15 GM Tube TOP SCH ×2 (08:53→21:14)
[2021-05-05] MEDS: Metoprolol Succinate 25 MG Tab.ER PO SCH (14:31)
[2021-05-05] MEDS: Albuterol/Ipratropium 3.0-0.5 MG/3 ML Neb Soln NEB PRN ×2 (14:56→19:36)
[2021-05-05] MEDS ORDERED: Metoprolol Succinate 25 MG Tab.ER PO ONE (15:59)
[2021-05-05] MEDS: Enoxaparin 40 MG/0.4 ML Syringe SUBCUT SCH (16:09)
[2021-05-05] MEDS: Ondansetron 4 MG Tab.DIS PO PRN (18:14)
[2021-05-05] MEDS: atorvaSTATin 20 MG Tab PO SCH (21:09)
[2021-05-05] MEDS: Montelukast 10 MG Tab PO SCH (21:11)
[2021-05-05] MEDS: Levofloxacin/Dextrose 5%-Water 750 MG in Premix Bag 1 BAG IV SCH (22:35)
[2021-05-06] MEDS: Albuterol/Ipratropium 3.0-0.5 MG/3 ML Neb Soln NEB PRN ×4 (00:05→22:43)
[2021-05-06] MEDS: LORazepam 2 MG/ML SDV IVPUSH PRN (06:18)
[2021-05-06] MEDS: Formoterol/Mometasone 200-5 MCG 8.8 GM Inhaler IH SCH ×2 (07:54→21:16)
[2021-05-06] MEDS ORDERED: LORazepam 0.5 MG Tab PO PRN (08:00)
[2021-05-06] MEDS: methylPREDNISolone Sodium Succinate 40 MG/1 ML SDV IVPUSH SCH (08:27)
[2021-05-06] MEDS: Lidocaine 2% 60 ML, Alum Hydrox/Mag Hydrox/Simeth 360 ML PO SCH ×6 (09:19→16:13)
[2021-05-06] MEDS: busPIRone 5 MG Tab PO SCH (09:20)
[2021-05-06] MEDS: PARoxetine 20 MG Tab PO SCH (09:20)
[2021-05-06] MEDS: Aspirin 81 MG Tab.EC PO SCH (09:20)
[2021-05-06] MEDS: Metoprolol Succinate 25 MG Tab.ER PO SCH (09:21)
[2021-05-06] MEDS: Mineral Oil/Petrolatum,Hydrophilic Ointment 100 GM Jar TOP SCH ×2 (09:22→21:17)
[2021-05-06] MEDS: Triamcinolone Acetonide 0.1% Crm 15 GM Tube TOP SCH ×2 (09:22→21:21)
[2021-05-06] MEDS: LORazepam 0.5 MG Tab PO PRN ×2 (15:53→23:38)
[2021-05-06] MEDS: Ondansetron 4 MG Tab.DIS PO PRN ×2 (16:12→21:37)
[2021-05-06] MEDS: Enoxaparin 40 MG/0.4 ML Syringe SUBCUT SCH (16:14)
[2021-05-06] MEDS: atorvaSTATin 20 MG Tab PO SCH (21:13)
[2021-05-06] MEDS: Levofloxacin/Dextrose 5%-Water 750 MG in Premix Bag 1 BAG IV SCH (22:33)
[2021-05-06] MEDS: Acetaminophen 325 MG Tab PO PRN (23:36)
[2021-05-07] MEDS: Acetaminophen 325 MG Tab PO PRN ×2 (03:13→19:50)
[2021-05-07] MEDS: Ondansetron 4 MG Tab.DIS PO PRN ×3 (03:16→19:45)
[2021-05-07] MEDS: Formoterol/Mometasone 200-5 MCG 8.8 GM Inhaler IH SCH ×2 (07:29→21:01)
[2021-05-07] MEDS: predniSONE 20 MG Tab PO SCH (08:32)
[2021-05-07] MEDS: Aspirin 81 MG Tab.EC PO SCH (08:32)
[2021-05-07] MEDS: Metoprolol Succinate 25 MG Tab.ER PO SCH (08:32)
[2021-05-07] MEDS: Lidocaine 2% 60 ML, Alum Hydrox/Mag Hydrox/Simeth 360 ML PO SCH ×6 (08:32→17:45)
[2021-05-07] MEDS: Mineral Oil/Petrolatum,Hydrophilic Ointment 100 GM Jar TOP SCH ×2 (08:33→21:02)
[2021-05-07] MEDS: PARoxetine 20 MG Tab PO SCH (08:33)
[2021-05-07] MEDS: Triamcinolone Acetonide 0.1% Crm 15 GM Tube TOP SCH ×2 (08:33→21:02)
[2021-05-07] MEDS: Albuterol/Ipratropium 3.0-0.5 MG/3 ML Neb Soln NEB PRN ×3 (08:58→20:43)
[2021-05-07] MEDS: LORazepam 0.5 MG Tab PO PRN ×3 (08:58→21:00)
[2021-05-07] MEDS: Enoxaparin 40 MG/0.4 ML Syringe SUBCUT SCH (17:47)
[2021-05-07] MEDS: atorvaSTATin 20 MG Tab PO SCH (21:01)
[2021-05-08] MEDS: Melatonin 3 MG Tab PO PRN (00:25)
[2021-05-08] MEDS: Acetaminophen 325 MG Tab PO PRN ×2 (00:26→08:58)
[2021-05-08] MEDS: LORazepam 0.5 MG Tab PO PRN ×4 (03:30→22:08)
[2021-05-08] MEDS: Formoterol/Mometasone 200-5 MCG 8.8 GM Inhaler IH SCH ×2 (07:02→21:05)
[2021-05-08] MEDS: Lidocaine 2% 60 ML, Alum Hydrox/Mag Hydrox/Simeth 360 ML PO SCH ×6 (07:17→16:01)
[2021-05-08] MEDS: predniSONE 20 MG Tab PO SCH (07:23)
[2021-05-08] MEDS: Albuterol/Ipratropium 3.0-0.5 MG/3 ML Neb Soln NEB PRN ×3 (07:23→19:08)
[2021-05-08] MEDS: PARoxetine 20 MG Tab PO SCH (08:51)
[2021-05-08] MEDS: Aspirin 81 MG Tab.EC PO SCH (08:51)
[2021-05-08] MEDS: Mineral Oil/Petrolatum,Hydrophilic Ointment 100 GM Jar TOP SCH ×2 (08:52→21:05)
[2021-05-08] MEDS: Triamcinolone Acetonide 0.1% Crm 15 GM Tube TOP SCH ×3 (08:52→21:06)
[2021-05-08] MEDS: Metoprolol Succinate 50 MG Tab.ER PO SCH (08:53)
[2021-05-08] MEDS: Ondansetron 4 MG Tab.DIS PO PRN ×2 (08:58→19:08)
[2021-05-08] MEDS ORDERED: Scopolamine 1.5 MG Transdermal Patch TRDERM SCH (11:30)
[2021-05-08] MEDS: Enoxaparin 40 MG/0.4 ML Syringe SUBCUT SCH (16:00)
[2021-05-09] MEDS: Ondansetron 4 MG Tab.DIS PO PRN ×2 (02:47→14:13)
[2021-05-09] MEDS: Albuterol/Ipratropium 3.0-0.5 MG/3 ML Neb Soln NEB PRN ×4 (02:47→19:51)
[2021-05-09] MEDS: LORazepam 0.5 MG Tab PO PRN ×4 (03:57→22:21)
[2021-05-09] MEDS: Formoterol/Mometasone 200-5 MCG 8.8 GM Inhaler IH SCH ×2 (07:02→21:20)
[2021-05-09] MEDS: Lidocaine 2% 60 ML, Alum Hydrox/Mag Hydrox/Simeth 360 ML PO SCH ×6 (07:17→16:20)
[2021-05-09] MEDS: predniSONE 20 MG Tab PO SCH (07:37)
[2021-05-09] MEDS: Aspirin 81 MG Tab.EC PO SCH (09:06)
[2021-05-09] MEDS: Metoprolol Succinate 50 MG Tab.ER PO SCH (09:06)
[2021-05-09] MEDS: SCOPOLAMINE PATCH CHECK TOP SCH (09:07)
[2021-05-09] MEDS: PARoxetine 20 MG Tab PO SCH (09:07)
[2021-05-09] MEDS: Triamcinolone Acetonide 0.1% Crm 15 GM Tube TOP SCH ×2 (09:07→21:20)
[2021-05-09] MEDS: Mineral Oil/Petrolatum,Hydrophilic Ointment 100 GM Jar TOP SCH ×2 (09:08→21:20)
[2021-05-09] MEDS: Enoxaparin 40 MG/0.4 ML Syringe SUBCUT SCH (16:19)
[2021-05-09] MEDS: Melatonin 3 MG Tab PO PRN (22:22)
[2021-05-10] MEDS: LORazepam 0.5 MG Tab PO PRN ×2 (05:46→20:55)
[2021-05-10] MEDS: Formoterol/Mometasone 200-5 MCG 8.8 GM Inhaler IH SCH ×2 (07:15→20:54)
[2021-05-10] MEDS: Lidocaine 2% 60 ML, Alum Hydrox/Mag Hydrox/Simeth 360 ML PO SCH ×6 (07:28→16:56)
[2021-05-10] MEDS: predniSONE 20 MG Tab PO SCH (07:28)
[2021-05-10] MEDS: Metoprolol Succinate 50 MG Tab.ER PO SCH (09:02)
[2021-05-10] MEDS: Aspirin 81 MG Tab.EC PO SCH (09:02)
[2021-05-10] MEDS: PARoxetine 20 MG Tab PO SCH (09:02)
[2021-05-10] MEDS: SCOPOLAMINE PATCH CHECK TOP SCH (09:02)
[2021-05-10] MEDS: Triamcinolone Acetonide 0.1% Crm 15 GM Tube TOP SCH ×2 (09:03→20:55)
[2021-05-10] MEDS: Mineral Oil/Petrolatum,Hydrophilic Ointment 100 GM Jar TOP SCH ×2 (09:03→20:55)
[2021-05-10] MEDS: Albuterol/Ipratropium 3.0-0.5 MG/3 ML Neb Soln NEB PRN ×2 (09:52→20:04)
[2021-05-10] MEDS: Ondansetron 4 MG Tab.DIS PO PRN (14:40)
[2021-05-10] MEDS: Enoxaparin 40 MG/0.4 ML Syringe SUBCUT SCH (16:56)
[2021-05-10] MEDS: Melatonin 3 MG Tab PO PRN (20:55)
[2021-05-11] MEDS: LORazepam 0.5 MG Tab PO PRN (03:00)
[2021-05-11] MEDS: Formoterol/Mometasone 200-5 MCG 8.8 GM Inhaler IH SCH (07:16)
[2021-05-11 08:08] VITALS: BP 111/57
[2021-05-11] MEDS: Lidocaine 2% 60 ML, Alum Hydrox/Mag Hydrox/Simeth 360 ML PO SCH ×2 (08:14)
[2021-05-11] MEDS: Aspirin 81 MG Tab.EC PO SCH (08:15)
[2021-05-11] MEDS: PARoxetine 20 MG Tab PO SCH (08:16)
[2021-05-11] MEDS: Metoprolol Succinate 50 MG Tab.ER PO SCH (08:16)
[2021-05-11 08:19] VITALS: PULSE 82
[2021-05-11] MEDS: Mineral Oil/Petrolatum,Hydrophilic Ointment 100 GM Jar TOP SCH (08:26)
[2021-05-11] MEDS: Triamcinolone Acetonide 0.1% Crm 15 GM Tube TOP SCH (08:27)
[2021-05-11] MEDS: Albuterol/Ipratropium 3.0-0.5 MG/3 ML Neb Soln NEB PRN (09:55)
== END 2021-05-11 12:00 | disposition home or self-care (01) | DRG 392 ==
LOC: JP.ED 12:42 → JP.ICU 15:01 → UNDOADMIN 16:01
PROVIDERS: ADMIT Hospitalist; ATTEND Internal Medicine
PROC: 0DB68ZX Excision of Stomach, Via Natural or Artificial Opening Endoscopic, Diagnostic (ICD-10-PCS; principal; 2021-05-03)
DX: R11.0 Nausea (principal); K75.81 Nonalcoholic steatohepatitis (NASH); R53.1 Weakness; J44.9 Chronic obstructive pulmonary disease, unspecified; J44.1 Chronic obstructive pulmonary disease with (acute) exacerbation; I85.00 Esophageal varices without bleeding; K44.9 Diaphragmatic hernia without obstruction or gangrene; K29.80 Duodenitis without bleeding; T46.6X5A Adverse effect of antihyperlipidemic and antiarteriosclerotic drugs, initial encounter; I25.10 Atherosclerotic heart disease of native coronary artery without angina pectoris; E86.0 Dehydration; K29.70 Gastritis, unspecified, without bleeding; H54.7 Unspecified visual loss; Z99.81 Dependence on supplemental oxygen; Z79.51 Long term (current) use of inhaled steroids; I10 Essential (primary) hypertension; M19.90 Unspecified osteoarthritis, unspecified site; Z88.8 Allergy status to other drugs, medicaments and biological substances; M81.0 Age-related osteoporosis without current pathological fracture; F41.9 Anxiety disorder, unspecified; Z79.82 Long term (current) use of aspirin; Z79.899 Other long term (current) drug therapy; Z88.2 Allergy status to sulfonamides; Z88.5 Allergy status to narcotic agent; Z95.5 Presence of coronary angioplasty implant and graft; Z86.74 Personal history of sudden cardiac arrest; Z87.440 Personal history of urinary (tract) infections; Z98.49 Cataract extraction status, unspecified eye; Z90.49 Acquired absence of other specified parts of digestive tract; Z20.822 Contact with and (suspected) exposure to COVID-19
CPT/HCPCS: 0241U; 36415; 36600; 71045; 71045-26; 74174; 74174-26; 74176; 74176-26; 80048; 80053; 82607; 82746; 82803; 83615; 83690; 84425; 84443; 84484; 85025; 85045; 86140; 87040; 87081; 93005; 93010; 94640; 94660; 96374; 97110-GP; 97161-GP; 99222; 99232; 99239; 99284; 99285-25; A9270-GY; J1170; J1650; J1956; J2060; J2704; J2920; J2930; J3010; J3480; J3490; J7030; J7512; J7620; Q0162; Q9967

== ENCOUNTER 2021-11-15 15:32 | Emergency (ER) | payer MEDICARE, BC ==
[2021-11-15] MEDS ORDERED: Sodium Chloride 0.9% 10 ML Syringe FLUSH PRN ×2 (15:42)
[2021-11-15] MEDS ORDERED: LORazepam 2 MG/ML SDV IVPUSH ONE (15:43)
[2021-11-15 15:46] VITALS: PULSE 134
[2021-11-15 16:32] LABS: ESTIMATED GFR 92 mL/min (>60); TROPONIN I HIGH SENSITIVITY 4.9 pg/mL (<=60.3)
[2021-11-15] MEDS ORDERED: Sertraline 50 MG Tab PO ONE (17:54)
[2021-11-15 18:06] VITALS: BP 127/59
== END 2021-11-15 18:22 | disposition home or self-care (01) ==
LOC: JP.ED 15:32
DX: Z63.4 Disappearance and death of family member (principal); I10 Essential (primary) hypertension; J44.9 Chronic obstructive pulmonary disease, unspecified; Z79.899 Other long term (current) drug therapy; Z20.822 Contact with and (suspected) exposure to COVID-19; Z88.2 Allergy status to sulfonamides
CPT/HCPCS: 36415; 71046; 71046-26; 80053; 84484; 85025; 93005; 96374; 99285-25; A9270-GY; J2060; J3490; U0002

== ENCOUNTER 2021-11-16 21:39 | Inpatient (IN) | payer MEDICARE, BC ==
[2021-11-16] MEDS ORDERED: methylPREDNISolone Sodium Succinate 125 MG/2 ML SDV IVPUSH ONE (21:41)
[2021-11-16] MEDS ORDERED: Albuterol/Ipratropium 3.0-0.5 MG/3 ML Neb Soln NEB ONE (21:41)
[2021-11-16 22:28] LABS: TROPONIN I HIGH SENSITIVITY 6.6 pg/mL (<=60.3)
[2021-11-16] MEDS ORDERED: LORazepam 2 MG/ML SDV IVPUSH ONE (22:43)
[2021-11-16 22:58] LABS: ESTIMATED GFR 78 mL/min (>60)
[2021-11-16] MEDS ORDERED: Enoxaparin 40 MG/0.4 ML Syringe SUBCUT SCH (23:58)
[2021-11-16] MEDS ORDERED: Acetaminophen 325 MG Tab PO PRN (23:58)
[2021-11-16] MEDS ORDERED: Levofloxacin/Dextrose 5%-Water 750 MG in Premix Bag 1 BAG IV SCH (23:58)
[2021-11-16] MEDS ORDERED: Sodium Chloride 0.9% 1,000 ML IV SCH (23:58)
[2021-11-16] MEDS ORDERED: Albuterol 0.083% 2.5 MG/3 ML Neb Soln NEB PRN (23:58)
[2021-11-16] MEDS ORDERED: Ondansetron 4 MG/2 ML SDV IV PRN (23:58)
[2021-11-16] MEDS ORDERED: Sodium Chloride 0.9% 10 ML Syringe FLUSH PRN (23:58)
[2021-11-17] MEDS: methylPREDNISolone Sodium Succinate 40 MG/1 ML SDV IVPUSH SCH ×4 (00:28→23:14)
[2021-11-17] MEDS: LORazepam 2 MG/ML SDV IV PRN ×4 (00:46→09:43)
[2021-11-17] MEDS: Albuterol/Ipratropium 3.0-0.5 MG/3 ML Neb Soln NEB SCH ×4 (06:59→21:20)
[2021-11-17] MEDS: Formoterol/Mometasone 200-5 MCG 8.8 GM Inhaler IH SCH ×2 (08:18→21:20)
[2021-11-17] MEDS: Sertraline 50 MG Tab PO SCH (08:36)
[2021-11-17] MEDS: Folic Acid 1 MG Tab PO SCH (08:36)
[2021-11-17] MEDS: PARoxetine 20 MG Tab PO SCH (08:36)
[2021-11-17] MEDS ORDERED: Formoterol/Mometasone 200-5 MCG 8.8 GM Inhaler IH SCH (09:00)
[2021-11-17] MEDS: LORazepam 0.5 MG Tab PO PRN ×4 (13:37→23:19)
[2021-11-17] MEDS: Metoprolol Succinate 50 MG Tab.ER PO SCH (13:45)
[2021-11-17] MEDS ORDERED: Metoprolol Tartrate 25 MG Tab PO ONE (17:00)
[2021-11-17] MEDS ORDERED: Enoxaparin 40 MG/0.4 ML Syringe SUBCUT SCH (21:00)
[2021-11-17] MEDS ORDERED: Metoprolol Succinate 50 MG Tab.ER PO SCH (21:00)
[2021-11-17] MEDS ORDERED: Levofloxacin/Dextrose 5%-Water 750 MG in Premix Bag 1 BAG IV SCH (22:00)
[2021-11-18] MEDS: LORazepam 0.5 MG Tab PO PRN ×2 (02:00→08:07)
[2021-11-18] MEDS: Albuterol/Ipratropium 3.0-0.5 MG/3 ML Neb Soln NEB SCH (07:17)
[2021-11-18] MEDS: Formoterol/Mometasone 200-5 MCG 8.8 GM Inhaler IH SCH (07:19)
[2021-11-18] MEDS: methylPREDNISolone Sodium Succinate 40 MG/1 ML SDV IVPUSH SCH (08:08)
[2021-11-18] MEDS: Sertraline 50 MG Tab PO SCH (08:14)
[2021-11-18] MEDS: Metoprolol Succinate 50 MG Tab.ER PO SCH (08:14)
[2021-11-18 08:15] VITALS: BP 126/60; PULSE 103
[2021-11-18] MEDS: Folic Acid 1 MG Tab PO SCH (08:15)
[2021-11-18] MEDS: PARoxetine 20 MG Tab PO SCH (08:15)
== END 2021-11-18 10:27 | disposition home or self-care (01) | DRG 189 ==
LOC: JP.ED 21:39 → JP.ICU 23:07
PROVIDERS: ADMIT Hospitalist; ATTEND Hospitalist
PROC: 5A09457 Assistance with Respiratory Ventilation, 24-96 Consecutive Hours, Continuous Positive Airway Pressure (ICD-10-PCS; principal; 2021-11-16)
DX: J96.21 Acute and chronic respiratory failure with hypoxia (principal); J44.1 Chronic obstructive pulmonary disease with (acute) exacerbation; J44.0 Chronic obstructive pulmonary disease with (acute) lower respiratory infection; I50.32 Chronic diastolic (congestive) heart failure; F41.9 Anxiety disorder, unspecified; F41.8 Other specified anxiety disorders; J20.9 Acute bronchitis, unspecified; J96.01 Acute respiratory failure with hypoxia; I11.0 Hypertensive heart disease with heart failure; F32.A Depression, unspecified; Z63.4 Disappearance and death of family member; I25.10 Atherosclerotic heart disease of native coronary artery without angina pectoris; Z79.52 Long term (current) use of systemic steroids; I10 Essential (primary) hypertension; Z95.5 Presence of coronary angioplasty implant and graft; Z86.74 Personal history of sudden cardiac arrest; Z87.440 Personal history of urinary (tract) infections; Z98.42 Cataract extraction status, left eye; Z98.41 Cataract extraction status, right eye; Z90.49 Acquired absence of other specified parts of digestive tract; Z87.891 Personal history of nicotine dependence; M19.90 Unspecified osteoarthritis, unspecified site; Z88.2 Allergy status to sulfonamides; Z88.8 Allergy status to other drugs, medicaments and biological substances; Z99.81 Dependence on supplemental oxygen; Z79.51 Long term (current) use of inhaled steroids; Z79.899 Other long term (current) drug therapy; Z20.822 Contact with and (suspected) exposure to COVID-19
CPT/HCPCS: 36415; 36600; 71045 ×2; 80053; 82803; 83605; 83880; 84484; 85025; 86140; 93005; 93010; 94640; 94660; 96374; 96375; 99285 ×2; J2060; J2930; U0002; 80048; 99222; 99232; 99238; A9270-GY; J1650; J1956; J2920; J7030; J7620

== ENCOUNTER 2021-12-16 14:33 | Emergency (ER) | payer MEDICARE, BC ==
[2021-12-16] MEDS ORDERED: Sodium Chloride 0.9% 10 ML Syringe FLUSH PRN (15:03)
[2021-12-16] MEDS ORDERED: methylPREDNISolone Sodium Succinate 125 MG/2 ML SDV IVPUSH ONE (15:05)
[2021-12-16] MEDS ORDERED: Sodium Chloride 0.9% 1,000 ML IV SCH (15:15)
[2021-12-16 15:41] VITALS: BP 108/58; PULSE 114
[2021-12-16 15:41] LABS: ESTIMATED GFR 92 mL/min (>60)
[2021-12-16] MEDS ORDERED: Fluconazole 150 MG Tab PO ONE (16:07)
[2021-12-16] MEDS ORDERED: Azithromycin 250 MG Tab PO ONE (16:09)
== END 2021-12-16 16:40 | disposition home or self-care (01) ==
LOC: JP.ED 14:33
DX: J44.1 Chronic obstructive pulmonary disease with (acute) exacerbation (principal); I25.10 Atherosclerotic heart disease of native coronary artery without angina pectoris; I10 Essential (primary) hypertension; Z88.2 Allergy status to sulfonamides; Z88.8 Allergy status to other drugs, medicaments and biological substances; Z79.899 Other long term (current) drug therapy; Z90.49 Acquired absence of other specified parts of digestive tract; Z87.891 Personal history of nicotine dependence
CPT/HCPCS: 36415; 71046; 80053; 83605; 84145; 84484; 85025; 93005; 96361; 96374; 99285; A9270; J2930; J3490; J7030

== ENCOUNTER 2022-02-11 14:55 | Emergency (ER) | payer MEDICARE, BC ==
[2022-02-11 15:54] VITALS: PULSE 113
[2022-02-11] MEDS ORDERED: Sodium Chloride 0.9% 10 ML Syringe FLUSH PRN (16:07)
[2022-02-11] MEDS ORDERED: methylPREDNISolone Sodium Succinate 125 MG/2 ML SDV IVPUSH ONE (16:08)
[2022-02-11] MEDS ORDERED: Doxycycline 100 MG in Sodium Chloride 0.9% 100 ML IV ONE (16:08)
[2022-02-11 16:59] LABS: CORONAVIRUS COVID-19 NAA NEGATIVE (NEGATIVE)
[2022-02-11 17:10] VITALS: BP 113/50
== END 2022-02-11 17:40 | disposition home or self-care (01) ==
LOC: JP.ED 14:55
DX: J44.1 Chronic obstructive pulmonary disease with (acute) exacerbation (principal); I25.10 Atherosclerotic heart disease of native coronary artery without angina pectoris; I10 Essential (primary) hypertension; Z87.891 Personal history of nicotine dependence; Z88.2 Allergy status to sulfonamides; Z88.8 Allergy status to other drugs, medicaments and biological substances; Z20.822 Contact with and (suspected) exposure to COVID-19
CPT/HCPCS: 0241U; 36415; 71045; 80048; 83605; 84484; 85025; 96365; 96375; 99285-25; J2930; J3490

== ENCOUNTER 2022-03-05 18:45 | Emergency (ER) | payer MEDICARE, BC ==
[2022-03-05 19:47] LABS: ESTIMATED GFR 95 mL/min (>60)
[2022-03-05 19:56] LABS: CORONAVIRUS COVID-19 NAA NEGATIVE (NEGATIVE)
[2022-03-05] MEDS ORDERED: Potassium Chloride 20 MEQ Tab.ER PO ONE (20:36)
[2022-03-05] MEDS ORDERED: Diazepam 2 MG Tab PO ONE (20:36)
[2022-03-05] MEDS ORDERED: Albuterol/Ipratropium 3.0-0.5 MG/3 ML Neb Soln NEB ONE (21:39)
[2022-03-05] MEDS ORDERED: Sodium Chloride 0.9% 75 ML IV SCH (22:00)
[2022-03-05] MEDS ORDERED: Iopamidol 612 MG/ML 100 ML Bottle IV SCH (22:00)
[2022-03-06] MEDS ORDERED: Sodium Chloride 0.9% 1,000 ML IV SCH ×2 (01:15→03:00)
[2022-03-06] MEDS: Albuterol/Ipratropium 3.0-0.5 MG/3 ML Neb Soln NEB PRN ×3 (03:01→20:13)
[2022-03-06] MEDS: Diazepam 2 MG Tab PO PRN ×2 (10:36→20:39)
[2022-03-06] MEDS: Folic Acid 1 MG Tab PO SCH (10:36)
[2022-03-06] MEDS: Sertraline 50 MG Tab PO SCH (10:36)
[2022-03-06] MEDS: Metoprolol Succinate 50 MG Tab.ER PO SCH (10:37)
[2022-03-07] MEDS: Metoprolol Succinate 50 MG Tab.ER PO SCH ×2 (03:00→08:52)
[2022-03-07] MEDS: Folic Acid 1 MG Tab PO SCH (08:53)
[2022-03-07] MEDS: Sertraline 50 MG Tab PO SCH (08:53)
[2022-03-07 09:49] VITALS: BP 132/60; PULSE 113
== END 2022-03-07 10:04 ==
LOC: JP.ED 18:45
DX: J44.9 Chronic obstructive pulmonary disease, unspecified (principal); E46 Unspecified protein-calorie malnutrition; R09.02 Hypoxemia; K75.81 Nonalcoholic steatohepatitis (NASH); I25.10 Atherosclerotic heart disease of native coronary artery without angina pectoris; M19.90 Unspecified osteoarthritis, unspecified site; I11.0 Hypertensive heart disease with heart failure; I50.32 Chronic diastolic (congestive) heart failure; Z87.891 Personal history of nicotine dependence; Z88.2 Allergy status to sulfonamides; Z88.5 Allergy status to narcotic agent; Z79.899 Other long term (current) drug therapy; Z20.822 Contact with and (suspected) exposure to COVID-19
CPT/HCPCS: 0241U; 36415; 74177; 80048; 80053; 81001; 83880; 84145; 85025; 87493; 94640; 96360; 96361; 99284; 99285-25; A9270-GY; J3490; J7620; Q9967

== ENCOUNTER 2022-07-03 13:41 | Inpatient (IN) | payer MEDICARE, BC ==
[2022-07-03 14:09] LABS: HEMATOCRIT 38.2 % (34.3-46.0); HEMOGLOBIN 12.2 g/dL (11.2-15.5); MEAN CORPUSCULAR HEMOGLOBIN 30.3 pg (31.6-35.5); MEAN CORPUSCULAR HGB CONC 31.9 g/dL (31.6-35.5); MEAN CORPUSCULAR VOLUME 94.8 fL (81.4-99.0); RED BLOOD CELL COUNT 4.03 M/uL (3.77-5.24)
[2022-07-03] MEDS ORDERED: Acetaminophen 325 MG Tab PO ONE (14:10)
[2022-07-03] MEDS ORDERED: cefTRIAXone 1 GM in Sodium Chloride 0.9% 50 ML IV ONE (14:20)
[2022-07-03 14:21] LABS: A/G RATIO 0.7 (1.2-2.2); ALANINE AMINOTRANSFERASE,ALT 69 U/L (12-78); ALBUMIN 2.7 g/dL (3.4-5.0); ALKALINE PHOSPHATASE 205 U/L (46-116); ANION GAP 9.4 mmol/L (5.0-14.0); ASPARTATE AMNIOTRANSFERASE,AST 76 U/L (15-37); BILIRUBIN TOTAL 0.8 mg/dL (0.2-1.0); BLOOD UREA NITROGEN,BUN 12 mg/dL (7-18); CALCIUM 9.1 mg/dL (8.5-10.1); CARBON DIOXIDE,CO2 29 mmol/L (21-32); CHLORIDE,CL 102 mmol/L (100-108); CREATININE 0.7 mg/dL (0.6-1.0); EST CRCL DRUG DOSING (CG) 49.72 mL/min; ESTIMATED GFR 91 mL/min (>60); GLUCOSE RANDOM 119 mg/dL (74-106); POTASSIUM,K 3.7 mmol/L (3.6-5.2); PROTEIN TOTAL,TP 6.8 g/dL (6.4-8.2); SODIUM,NA 140 mmol/L (140-148)
[2022-07-03] MEDS ORDERED: Sodium Chloride 0.9% 1,000 ML IV SCH (15:30)
[2022-07-03] MEDS ORDERED: Acetaminophen Soln 650 MG/20.3 ML UD Cup PO PRN (16:24)
[2022-07-03] MEDS ORDERED: Magnesium Hydroxide 400 MG/5 ML Susp 30 ML Cup PO PRN (16:24)
[2022-07-03] MEDS ORDERED: Ondansetron 4 MG Tab.DIS PO PRN (16:24)
[2022-07-03] MEDS ORDERED: Albuterol 90 MCG/6.7 GM Inhaler INH PRN (16:24)
[2022-07-03] MEDS ORDERED: Benzocaine/Cetylpyridinium/Menthol Lozenge MUCMEM PRN (16:24)
[2022-07-03] MEDS ORDERED: Diazepam 2 MG Tab PO PRN (16:24)
[2022-07-03] MEDS ORDERED: Ondansetron 4 MG/2 ML SDV IV PRN (16:24)
[2022-07-03] MEDS ORDERED: HYDROmorphone 0.5 MG/0.5 ML Syringe IVPUSH PRN (16:33)
[2022-07-03] MEDS: Ibuprofen Susp 100 MG/5 ML 5 ML UD Cup PO PRN (16:49)
[2022-07-03] MEDS ORDERED: Dexamethasone 4 MG/ML SDV IVPUSH ONE (17:00)
[2022-07-03] MEDS: Sodium Chloride 0.9% 1,000 ML IV SCH (17:05)
[2022-07-03] MEDS: Albuterol/Ipratropium 3.0-0.5 MG/3 ML Neb Soln NEB PRN (18:22)
[2022-07-03 19:51] LABS: APPEARANCE,URINE SLIGHTLY CLOUDY (CLEAR); BILIRUBIN,URINE SMALL (NEGATIVE); COLOR,URINE ORANGE (YELLOW); GLUCOSE,URINE NEGATIVE (NEGATIVE); KETONES,URINE NEGATIVE (NEGATIVE); LEUKOCYTE ESTERASE,URINE SMALL (NEGATIVE); NITRITE,URINE POSITIVE (NEGATIVE); OCCULT BLOOD,URINE NEGATIVE (NEGATIVE); PROTEIN,URINE 30 mg/dL (NEGATIVE)
[2022-07-03 20:02] LABS: AMORPHOUS SEDIMENT,URINE NOT SEEN; BACTERIA,URINE MANY; EPITHELIAL CELLS,URINE FEW; MUCUS,URINE NOT SEEN; RBC,URINE 0-5 (0-5); WBC,URINE 20-30 (0-5)
[2022-07-03] MEDS: Formoterol/Mometasone 200-5 MCG 8.8 GM Inhaler IH SCH (22:03)
[2022-07-03] MEDS: Lactobacillus Rhamnosus GG (Probiotic) Cap PO SCH (22:04)
[2022-07-04] MEDS: Sodium Chloride 0.9% 1,000 ML IV SCH (04:20)
[2022-07-04 04:32] LABS: HEMATOCRIT 30.7 % (34.3-46.0); HEMOGLOBIN 9.6 g/dL (11.2-15.5); MEAN CORPUSCULAR HEMOGLOBIN 29.4 pg (31.6-35.5); MEAN CORPUSCULAR HGB CONC 31.3 g/dL (31.6-35.5); MEAN CORPUSCULAR VOLUME 93.9 fL (81.4-99.0); RED BLOOD CELL COUNT 3.27 M/uL (3.77-5.24)
[2022-07-04 04:52] LABS: ANION GAP 9.3 mmol/L (5.0-14.0); CALCIUM 8.2 mg/dL (8.5-10.1); CREATININE 0.5 mg/dL (0.6-1.0); EST CRCL DRUG DOSING (CG) 69.92 mL/min; POTASSIUM,K 3.6 mmol/L (3.6-5.2)
[2022-07-04] MEDS: Albuterol/Ipratropium 3.0-0.5 MG/3 ML Neb Soln NEB PRN (07:00)
[2022-07-04] MEDS: Formoterol/Mometasone 200-5 MCG 8.8 GM Inhaler IH SCH ×2 (07:22→20:18)
[2022-07-04] MEDS: Sertraline 50 MG Tab PO SCH (08:42)
[2022-07-04] MEDS: Metoprolol Succinate 50 MG Tab.ER PO SCH (08:42)
[2022-07-04] MEDS: Lactobacillus Rhamnosus GG (Probiotic) Cap PO SCH ×2 (08:42→20:18)
[2022-07-04] MEDS: Folic Acid 1 MG Tab PO SCH (08:42)
[2022-07-04] MEDS ORDERED: Dexamethasone 2 MG Tab PO ONE (11:00)
[2022-07-04] MEDS: Albuterol/Ipratropium 3.0-0.5 MG/3 ML Neb Soln NEB SCH ×3 (11:14→20:18)
[2022-07-04] MEDS ORDERED: cefTRIAXone 1 GM in Sodium Chloride 0.9% 50 ML IV SCH (15:00)
[2022-07-04] MEDS: Ibuprofen Susp 100 MG/5 ML 5 ML UD Cup PO PRN (18:38)
[2022-07-05] MEDS: Albuterol/Ipratropium 3.0-0.5 MG/3 ML Neb Soln NEB SCH ×2 (07:02→10:47)
[2022-07-05] MEDS: Formoterol/Mometasone 200-5 MCG 8.8 GM Inhaler IH SCH (07:03)
[2022-07-05] MEDS: Sertraline 50 MG Tab PO SCH (08:18)
[2022-07-05] MEDS: Folic Acid 1 MG Tab PO SCH (08:18)
[2022-07-05] MEDS: Metoprolol Succinate 50 MG Tab.ER PO SCH (08:18)
[2022-07-05] MEDS: Lactobacillus Rhamnosus GG (Probiotic) Cap PO SCH (08:18)
[2022-07-05 10:34] VITALS: BP 147/73; PULSE 104
[2022-07-05 10:49] LABS: BASOPHILS PERCENT AUTO 0.1 % (0.1-1.3); EOSINOPHILS ABSOLUTE AUTO 0.11 K/uL (0.00-0.40); EOSINOPHILS PERCENT AUTO 0.7 % (0.0-5.4); HEMATOCRIT 30.9 % (34.3-46.0); HEMOGLOBIN 9.7 g/dL (11.2-15.5); IMMATURE GRAN ABSOLUTE AUTO 0.14 K/uL (0.00-0.23); IMMATURE GRAN PERCENT AUTO 0.9 % (0.0-0.7); LYMPHOCYTES ABSOLUTE AUTO 0.67 K/uL (0.8-3.3); LYMPHOCYTES PERCENT AUTO 4.4 % (11.4-47.7); MEAN CORPUSCULAR HEMOGLOBIN 29.7 pg (31.6-35.5); MEAN CORPUSCULAR HGB CONC 31.4 g/dL (31.6-35.5); MEAN CORPUSCULAR VOLUME 94.5 fL (81.4-99.0); MONOCYTES ABSOLUTE AUTO 0.68 K/uL (0.20-0.90); MONOCYTES PERCENT AUTO 4.4 % (3.3-12.6); NEUTROPHILS ABSOLUTE AUTO 13.71 K/uL (1.0-7.6); NEUTROPHILS PERCENT AUTO 89.5 % (40.0-78.1); PLATELET COUNT,PLT 194 K/uL (130-375); RED BLOOD CELL COUNT 3.27 M/uL (3.77-5.24); WHITE BLOOD CELL COUNT,WBC 15.3 K/uL (3.2-11.0)
[2022-07-05 10:50] LABS: BASOPHILS ABSOLUTE AUTO 0.02 K/uL (0.00-0.10)
[2022-07-05] MEDS ORDERED: Cephalexin 250 MG Cap PO ONE (11:00)
== END 2022-07-05 14:30 | disposition home or self-care (01) | DRG 872 ==
LOC: JP.ED 13:41 → JP.ICU 15:49
PROVIDERS: ADMIT Internal Medicine; ATTEND Internal Medicine
DX: A40.0 Sepsis due to streptococcus, group A (principal); N30.00 Acute cystitis without hematuria; J02.0 Streptococcal pharyngitis; E86.0 Dehydration; M81.0 Age-related osteoporosis without current pathological fracture; Z20.822 Contact with and (suspected) exposure to COVID-19; F41.9 Anxiety disorder, unspecified; F32.A Depression, unspecified; J44.9 Chronic obstructive pulmonary disease, unspecified; Z88.2 Allergy status to sulfonamides; Z88.8 Allergy status to other drugs, medicaments and biological substances; Z79.52 Long term (current) use of systemic steroids; I10 Essential (primary) hypertension; I25.10 Atherosclerotic heart disease of native coronary artery without angina pectoris; Z98.42 Cataract extraction status, left eye; Z98.41 Cataract extraction status, right eye; Z87.440 Personal history of urinary (tract) infections; Z87.19 Personal history of other diseases of the digestive system; Z90.49 Acquired absence of other specified parts of digestive tract; Z87.891 Personal history of nicotine dependence; Z99.81 Dependence on supplemental oxygen; Z79.899 Other long term (current) drug therapy; Z95.5 Presence of coronary angioplasty implant and graft
CPT/HCPCS: 36415; 80053; 83605; 84145; 85027; 87040; 87880; 96365; 99285; A9270; J0696; J3490; U0002; 80048; 81001; 85025; 87086; 94640; 99222; 99232; 99239; J1100; J7030; J7620; J8540

== ENCOUNTER 2022-07-31 15:34 | Emergency (ER) | payer MEDICARE, BC ==
[2022-07-31] MEDS ORDERED: Sodium Chloride 0.9% 10 ML Syringe FLUSH PRN (15:48)
[2022-07-31] MEDS ORDERED: Dexamethasone 4 MG/ML SDV IVPUSH STA (15:49)
[2022-07-31 16:08] LABS: BASOPHILS PERCENT AUTO 0.2 % (0.1-1.3); EOSINOPHILS PERCENT AUTO 0.2 % (0.0-5.4); HEMATOCRIT 38.2 % (34.3-46.0); HEMOGLOBIN 11.7 g/dL (11.2-15.5); IMMATURE GRAN ABSOLUTE AUTO 0.06 K/uL (0.00-0.23); IMMATURE GRAN PERCENT AUTO 0.6 % (0.0-0.7); LYMPHOCYTES PERCENT AUTO 5.2 % (11.4-47.7); MEAN CORPUSCULAR HEMOGLOBIN 28.9 pg (31.6-35.5); MEAN CORPUSCULAR HGB CONC 30.6 g/dL (31.6-35.5); MEAN CORPUSCULAR VOLUME 94.3 fL (81.4-99.0); MONOCYTES ABSOLUTE AUTO 0.32 K/uL (0.20-0.90); MONOCYTES PERCENT AUTO 3.4 % (3.3-12.6); NEUTROPHILS ABSOLUTE AUTO 8.62 K/uL (1.0-7.6); NEUTROPHILS PERCENT AUTO 90.4 % (40.0-78.1); PLATELET COUNT,PLT 224 K/uL (130-375); RED BLOOD CELL COUNT 4.05 M/uL (3.77-5.24); WHITE BLOOD CELL COUNT,WBC 9.5 K/uL (3.2-11.0)
[2022-07-31 16:15] LABS: BASOPHILS ABSOLUTE AUTO 0.02 K/uL (0.00-0.10); EOSINOPHILS ABSOLUTE AUTO 0.02 K/uL (0.00-0.40)
[2022-07-31 16:25] LABS: SODIUM,ISTAT 140 mmol/L (140-148)
[2022-07-31 16:26] LABS: BASE EXCESS ARTERIAL,ISTAT 6 mmol/L (-2-3); CALCIUM IONIZED,ISTAT 1.21 mmol/L (1.12-1.32); HCO3 ARTERIAL,ISTAT 29.4 mmol/L (22.0-26.0); HEMATOCRIT,ISTAT 37 % (36-48); O2 SATURATION ARTERIAL,ISTAT 96 % (95-98); PCO2 ARTERIAL,ISTAT 37.7 mmHG (35-45); PO2 ARTERIAL,ISTAT 75 mmHg (80-105); POTASSIUM,ISTAT 3.6 mmol/L (3.5-4.9); TCO2 ARTERIAL,ISTAT 31 mmol/L (23-27)
[2022-07-31 16:27] LABS: ALLEN TEST, ISTAT PERFORMED
[2022-07-31 16:36] LABS: A/G RATIO 0.7 (1.2-2.2); ALANINE AMINOTRANSFERASE,ALT 52 U/L (12-78); ALBUMIN 2.8 g/dL (3.4-5.0); ALKALINE PHOSPHATASE 141 U/L (46-116); ANION GAP 7.8 mmol/L (5.0-14.0); ASPARTATE AMNIOTRANSFERASE,AST 68 U/L (15-37); BILIRUBIN TOTAL 0.5 mg/dL (0.2-1.0); BLOOD UREA NITROGEN,BUN 9 mg/dL (7-18); C-REACTIVE PROTEIN 1.33 mg/dL (0.0-0.3); CALCIUM 8.9 mg/dL (8.5-10.1); CARBON DIOXIDE,CO2 31 mmol/L (21-32); CHLORIDE,CL 105 mmol/L (100-108); CREATININE 0.7 mg/dL (0.6-1.0); EST CRCL DRUG DOSING (CG) 49.72 mL/min; ESTIMATED GFR 91 mL/min (>60); GLUCOSE RANDOM 130 mg/dL (74-106); POTASSIUM,K 4.1 mmol/L (3.6-5.2); PROTEIN TOTAL,TP 6.9 g/dL (6.4-8.2); SODIUM,NA 144 mmol/L (140-148)
[2022-07-31 18:29] VITALS: BP 155/68; PULSE 105
== END 2022-07-31 18:20 | disposition home or self-care (01) ==
LOC: JP.ED 15:34
DX: J44.1 Chronic obstructive pulmonary disease with (acute) exacerbation (principal); I25.10 Atherosclerotic heart disease of native coronary artery without angina pectoris; I10 Essential (primary) hypertension; Z88.2 Allergy status to sulfonamides; Z88.5 Allergy status to narcotic agent; Z79.899 Other long term (current) drug therapy; Z20.822 Contact with and (suspected) exposure to COVID-19
CPT/HCPCS: 36415; 36600; 71046; 80053; 82803; 85025; 86140; 96374; 99285; J1100; J3490; U0002

== ENCOUNTER 2022-08-17 04:22 | Inpatient (IN) | payer MEDICARE, BC ==
[2022-08-17] MEDS ORDERED: Sodium Chloride 0.9% 10 ML Syringe FLUSH PRN (04:39)
[2022-08-17] MEDS ORDERED: Aspirin 81 MG Tab.Chew PO ONE (04:41)
[2022-08-17 04:54] LABS: BASOPHILS PERCENT AUTO 0.1 % (0.1-1.3); EOSINOPHILS ABSOLUTE AUTO 0.09 K/uL (0.00-0.40); EOSINOPHILS PERCENT AUTO 0.3 % (0.0-5.4); HEMATOCRIT 39.5 % (34.3-46.0); HEMOGLOBIN 12.1 g/dL (11.2-15.5); IMMATURE GRAN ABSOLUTE AUTO 0.27 K/uL (0.00-0.23); LYMPHOCYTES PERCENT AUTO 1.9 % (11.4-47.7); MEAN CORPUSCULAR HEMOGLOBIN 28.5 pg (31.6-35.5); MEAN CORPUSCULAR HGB CONC 30.6 g/dL (31.6-35.5); MEAN CORPUSCULAR VOLUME 93.2 fL (81.4-99.0); MONOCYTES PERCENT AUTO 1.5 % (3.3-12.6); NEUTROPHILS ABSOLUTE AUTO 25.02 K/uL (1.0-7.6); NEUTROPHILS PERCENT AUTO 95.2 % (40.0-78.1); PLATELET COUNT,PLT 209 K/uL (130-375); RED BLOOD CELL COUNT 4.24 M/uL (3.77-5.24); WHITE BLOOD CELL COUNT,WBC 26.3 K/uL (3.2-11.0)
[2022-08-17 04:58] LABS: BASOPHILS ABSOLUTE AUTO 0.02 K/uL (0.00-0.10)
[2022-08-17 05:08] LABS: BASE EXCESS VENOUS -0.4 mm/L; BICARBONATE,VENOUS 23.7 mmol/L; CARBOXYHEMOGLOBIN 2.1 % (0.0-1.6); METHEMOGLOBIN 0.8 %; O2 SATURATION VENOUS 74.9; OXYHEMOGLOBIN 72.7 %; PCO2 VENOUS 38.8 mm/Hg; PH,VENOUS 7.402 (7.350-7.450); PO2 VENOUS 46.6 mm/Hg; TOTAL HEMOGLOBIN 12.5 g/dL (12.0-16.0)
[2022-08-17 05:14] LABS: CALCIUM 8.8 mg/dL (8.5-10.1); CREATININE 0.6 mg/dL (0.6-1.0); EST CRCL DRUG DOSING (CG) 56.81 mL/min; TROPONIN I HIGH SENSITIVITY 7.1 pg/mL (<=60.3)
[2022-08-17 05:16] LABS: ANION GAP 14.9 mmol/L (5.0-14.0); POTASSIUM,K 2.9 mmol/L (3.6-5.2)
[2022-08-17] MEDS ORDERED: Potassium Chloride 20 MEQ Tab.ER PO ONE (05:17)
[2022-08-17 05:24] LABS: PROTHROMBIN TIME 9.9 sec (9.2-10.6); PTT,PARTIAL THROMBOPLSTIN TIME 21.7 sec (21.8-27.3)
[2022-08-17 05:26] LABS: LACTIC ACID 3.1 mmol/L (0.4-2.0)
[2022-08-17 05:46] LABS: APPEARANCE,URINE CLEAR (CLEAR); BILIRUBIN,URINE NEGATIVE (NEGATIVE); COLOR,URINE YELLOW (YELLOW); GLUCOSE,URINE NEGATIVE (NEGATIVE); KETONES,URINE NEGATIVE (NEGATIVE); LEUKOCYTE ESTERASE,URINE NEGATIVE (NEGATIVE); NITRITE,URINE NEGATIVE (NEGATIVE); OCCULT BLOOD,URINE TRACE-INTACT (NEGATIVE); PH,URINE 5.5 (5.0-8.0); PROTEIN,URINE 100 mg/dL (NEGATIVE)
[2022-08-17 05:56] LABS: EPITHELIAL CELLS,URINE FEW; RBC,URINE 0-5 (0-5)
[2022-08-17] MEDS ORDERED: Albuterol 0.083% 2.5 MG/3 ML Neb Soln NEB ONE (05:56)
[2022-08-17 05:57] LABS: AMORPHOUS SEDIMENT,URINE NOT SEEN; BACTERIA,URINE FEW; MUCUS,URINE NOT SEEN
[2022-08-17] MEDS ORDERED: Magnesium Sulfate/Water 2 GM in Premix Bag 1 BAG IV ONE (06:09)
[2022-08-17] MEDS ORDERED: LORazepam 0.5 MG Tab PO ONE (06:11)
[2022-08-17] MEDS ORDERED: Sodium Chloride 0.9% 500 ML IV ONE (06:31)
[2022-08-17] MEDS ORDERED: cefTRIAXone 1 GM in Sodium Chloride 0.9% 50 ML IV ONE (06:41)
[2022-08-17] MEDS ORDERED: LORazepam 2 MG/ML SDV IVPUSH ONE (07:56)
[2022-08-17] MEDS ORDERED: traMADol 50 MG Tab PO PRN (11:01)
[2022-08-17] MEDS ORDERED: Sennosides/Docusate Sodium 50-8.6 MG Tab PO PRN (11:01)
[2022-08-17] MEDS ORDERED: Magnesium Hydroxide 400 MG/5 ML Susp 30 ML Cup PO PRN (11:01)
[2022-08-17] MEDS ORDERED: Ondansetron 4 MG Tab.DIS PO PRN (11:01)
[2022-08-17] MEDS ORDERED: Ondansetron 4 MG/2 ML SDV IV PRN (11:01)
[2022-08-17] MEDS ORDERED: LORazepam 0.5 MG Tab PO PRN ×2 (11:07→15:31)
[2022-08-17] MEDS ORDERED: Nitroglycerin 0.4 MG Tab.SL SL PRN (11:07)
[2022-08-17] MEDS ORDERED: cefTRIAXone 1 GM Vial IM SCH (11:15)
[2022-08-17] MEDS ORDERED: Azithromycin 500 MG in Sodium Chloride 0.9% 250 ML IV SCH (11:30)
[2022-08-17] MEDS: Albuterol/Ipratropium 3.0-0.5 MG/3 ML Neb Soln NEB SCH ×2 (14:38→21:56)
[2022-08-17] MEDS: Enoxaparin 30 MG/0.3 ML Syringe SUBCUT SCH (15:53)
[2022-08-17] MEDS ORDERED: Morphine 10 MG/0.5 ML Oral Syringe PO PRN (17:54)
[2022-08-17] MEDS ORDERED: Naloxone 0.4 MG/ML SDV IVPUSH PRN (17:54)
[2022-08-17] MEDS: Morphine 10 MG/0.5 ML Oral Syringe PO PRN (18:23)
[2022-08-17] MEDS: Albuterol 0.083% 2.5 MG/3 ML Neb Soln NEB PRN (18:33)
[2022-08-17] MEDS: LORazepam ORAL Concentrate 1MG/0.5ML U/D PO PRN (19:45)
[2022-08-17] MEDS ORDERED: Water For Injection, Sterile 40 ML ONE (22:08)
[2022-08-17] MEDS: Melatonin 3 MG Tab PO SCH (22:15)
[2022-08-18] MEDS: Morphine 10 MG/0.5 ML Oral Syringe PO PRN ×4 (02:31→17:30)
[2022-08-18] MEDS: LORazepam ORAL Concentrate 1MG/0.5ML U/D PO PRN ×3 (02:49→17:33)
[2022-08-18] MEDS ORDERED: cefTRIAXone 1 GM in Sodium Chloride 0.9% 50 ML IV SCH (06:00)
[2022-08-18] MEDS: Albuterol/Ipratropium 3.0-0.5 MG/3 ML Neb Soln NEB SCH ×4 (06:58→20:47)
[2022-08-18] MEDS: Metoprolol Succinate 50 MG Tab.ER PO SCH (08:22)
[2022-08-18] MEDS: Sertraline 50 MG Tab PO SCH (08:22)
[2022-08-18] MEDS: Folic Acid 1 MG Tab PO SCH (08:22)
[2022-08-18 10:19] LABS: HEMATOCRIT 32.2 % (34.3-46.0); HEMOGLOBIN 9.8 g/dL (11.2-15.5); MEAN CORPUSCULAR HEMOGLOBIN 28.9 pg (31.6-35.5); MEAN CORPUSCULAR HGB CONC 30.4 g/dL (31.6-35.5); RED BLOOD CELL COUNT 3.39 M/uL (3.77-5.24); WHITE BLOOD CELL COUNT,WBC 19.3 K/uL (3.2-11.0)
[2022-08-18 10:39] LABS: ANION GAP 7.9 mmol/L (5.0-14.0); CALCIUM 8.1 mg/dL (8.5-10.1); CREATININE 0.6 mg/dL (0.6-1.0); EST CRCL DRUG DOSING (CG) 57.08 mL/min; POTASSIUM,K 3.9 mmol/L (3.6-5.2)
[2022-08-18] MEDS: Azithromycin 500 MG in Sodium Chloride 0.9% 250 ML IV SCH (12:00)
[2022-08-18] MEDS ORDERED: Ampicillin 2 GM in Sodium Chloride 0.9% 100 ML IV SCH (12:00)
[2022-08-18] MEDS: Enoxaparin 30 MG/0.3 ML Syringe SUBCUT SCH (13:51)
[2022-08-18] MEDS ORDERED: Furosemide 20 MG/2 ML VIAL IVPUSH ONE (14:30)
[2022-08-18] MEDS: Budesonide 0.5 MG/2 ML Neb Susp INH SCH (20:47)
[2022-08-18] MEDS: Melatonin 3 MG Tab PO SCH (20:48)
[2022-08-18] MEDS: Non-Formulary Medication 1 Each (Budesonide/Formoterol Fumarate [Symbicort 160-4.5 Mcg Inh INH SCH (20:55)
[2022-08-19] MEDS: Albuterol 0.083% 2.5 MG/3 ML Neb Soln NEB PRN (01:56)
[2022-08-19] MEDS: Morphine 10 MG/0.5 ML Oral Syringe PO PRN ×4 (01:57→16:58)
[2022-08-19] MEDS: LORazepam ORAL Concentrate 1MG/0.5ML U/D PO PRN ×4 (01:57→16:57)
[2022-08-19] MEDS: Albuterol/Ipratropium 3.0-0.5 MG/3 ML Neb Soln NEB SCH ×4 (06:55→20:53)
[2022-08-19] MEDS: Budesonide 0.5 MG/2 ML Neb Susp INH SCH ×2 (06:55→20:53)
[2022-08-19] MEDS: Sertraline 50 MG Tab PO SCH (08:45)
[2022-08-19] MEDS: Folic Acid 1 MG Tab PO SCH (08:45)
[2022-08-19] MEDS: Metoprolol Succinate 50 MG Tab.ER PO SCH (08:45)
[2022-08-19] MEDS: Ampicillin 2 GM in Sodium Chloride 0.9% 100 ML IV SCH ×3 (10:38→21:08)
[2022-08-19] MEDS: methylPREDNISolone Sodium Succinate 125 MG/2 ML SDV IVPUSH SCH ×2 (11:57→17:02)
[2022-08-19] MEDS: Azithromycin 500 MG in Sodium Chloride 0.9% 250 ML IV SCH (12:24)
[2022-08-19] MEDS: Enoxaparin 30 MG/0.3 ML Syringe SUBCUT SCH (16:46)
[2022-08-19] MEDS: Melatonin 3 MG Tab PO SCH (20:53)
[2022-08-20] MEDS: methylPREDNISolone Sodium Succinate 125 MG/2 ML SDV IVPUSH SCH ×3 (00:36→17:26)
[2022-08-20] MEDS: Ampicillin 2 GM in Sodium Chloride 0.9% 100 ML IV SCH ×4 (04:19→21:08)
[2022-08-20 04:47] LABS: HEMATOCRIT 32.3 % (34.3-46.0); HEMOGLOBIN 9.8 g/dL (11.2-15.5); MEAN CORPUSCULAR HEMOGLOBIN 28.7 pg (31.6-35.5); MEAN CORPUSCULAR HGB CONC 30.3 g/dL (31.6-35.5); MEAN CORPUSCULAR VOLUME 94.4 fL (81.4-99.0); RED BLOOD CELL COUNT 3.42 M/uL (3.77-5.24); WHITE BLOOD CELL COUNT,WBC 9.7 K/uL (3.2-11.0)
[2022-08-20] MEDS: Albuterol/Ipratropium 3.0-0.5 MG/3 ML Neb Soln NEB SCH ×4 (06:57→21:07)
[2022-08-20] MEDS: Budesonide 0.5 MG/2 ML Neb Susp INH SCH ×2 (06:58→21:07)
[2022-08-20] MEDS: Metoprolol Succinate 50 MG Tab.ER PO SCH (08:57)
[2022-08-20] MEDS: Folic Acid 1 MG Tab PO SCH (08:57)
[2022-08-20] MEDS: Sertraline 50 MG Tab PO SCH (08:58)
[2022-08-20] MEDS: Azithromycin 500 MG in Sodium Chloride 0.9% 250 ML IV SCH (12:30)
[2022-08-20] MEDS: Enoxaparin 30 MG/0.3 ML Syringe SUBCUT SCH (14:43)
[2022-08-20] MEDS ORDERED: LORazepam ORAL Concentrate 1MG/0.5ML U/D PO PRN (14:58)
[2022-08-20] MEDS: Melatonin 3 MG Tab PO SCH (21:00)
[2022-08-21] MEDS: methylPREDNISolone Sodium Succinate 125 MG/2 ML SDV IVPUSH SCH ×2 (02:08→09:17)
[2022-08-21] MEDS: Ampicillin 2 GM in Sodium Chloride 0.9% 100 ML IV SCH ×4 (03:54→22:03)
[2022-08-21] MEDS: Albuterol/Ipratropium 3.0-0.5 MG/3 ML Neb Soln NEB SCH ×4 (07:25→20:43)
[2022-08-21] MEDS: Budesonide 0.5 MG/2 ML Neb Susp INH SCH ×2 (07:25→20:43)
[2022-08-21] MEDS: Sertraline 50 MG Tab PO SCH (09:16)
[2022-08-21] MEDS: Metoprolol Succinate 50 MG Tab.ER PO SCH (09:16)
[2022-08-21] MEDS: Folic Acid 1 MG Tab PO SCH (09:17)
[2022-08-21] MEDS: Enoxaparin 30 MG/0.3 ML Syringe SUBCUT SCH (13:49)
[2022-08-21] MEDS: Melatonin 3 MG Tab PO SCH (20:44)
[2022-08-22] MEDS: Ampicillin 2 GM in Sodium Chloride 0.9% 100 ML IV SCH ×4 (04:12→21:06)
[2022-08-22] MEDS: Albuterol/Ipratropium 3.0-0.5 MG/3 ML Neb Soln NEB SCH ×4 (07:30→21:05)
[2022-08-22] MEDS: Budesonide 0.5 MG/2 ML Neb Susp INH SCH ×2 (07:30→21:06)
[2022-08-22] MEDS: Folic Acid 1 MG Tab PO SCH (08:41)
[2022-08-22] MEDS: predniSONE 20 MG Tab PO SCH (08:41)
[2022-08-22] MEDS: Sertraline 50 MG Tab PO SCH (08:42)
[2022-08-22] MEDS: Metoprolol Succinate 50 MG Tab.ER PO SCH (08:42)
[2022-08-22] MEDS: Acetaminophen 325 MG Tab PO PRN ×2 (12:50→21:06)
[2022-08-22] MEDS: Enoxaparin 30 MG/0.3 ML Syringe SUBCUT SCH (13:26)
[2022-08-22] MEDS: Melatonin 3 MG Tab PO SCH (21:06)
[2022-08-23] MEDS: Ampicillin 2 GM in Sodium Chloride 0.9% 100 ML IV SCH ×2 (03:47→09:12)
[2022-08-23] MEDS: Budesonide 0.5 MG/2 ML Neb Susp INH SCH (06:57)
[2022-08-23] MEDS: Albuterol/Ipratropium 3.0-0.5 MG/3 ML Neb Soln NEB SCH ×2 (06:57→10:31)
[2022-08-23] MEDS: Acetaminophen 325 MG Tab PO PRN (07:24)
[2022-08-23 07:37] VITALS: BP 115/51
[2022-08-23] MEDS: Folic Acid 1 MG Tab PO SCH (08:26)
[2022-08-23] MEDS: predniSONE 20 MG Tab PO SCH (08:26)
[2022-08-23] MEDS: Metoprolol Succinate 50 MG Tab.ER PO SCH (08:26)
[2022-08-23] MEDS: Sertraline 50 MG Tab PO SCH (08:27)
[2022-08-23 08:28] VITALS: PULSE 84
== END 2022-08-23 11:35 | disposition home or self-care (01) | DRG 189 ==
LOC: JP.ED 04:22 → JP.MS 11:01
PROVIDERS: ADMIT Internal Medicine; ATTEND Hospitalist
DX: I11.0 Hypertensive heart disease with heart failure (principal); J96.21 Acute and chronic respiratory failure with hypoxia; J44.1 Chronic obstructive pulmonary disease with (acute) exacerbation; R64 Cachexia; Z68.1 Body mass index [BMI] 19.9 or less, adult; E46 Unspecified protein-calorie malnutrition; J96.11 Chronic respiratory failure with hypoxia; R78.81 Bacteremia; R74.02 Elevation of levels of lactic acid dehydrogenase [LDH]; I50.32 Chronic diastolic (congestive) heart failure; I10 Essential (primary) hypertension; M19.90 Unspecified osteoarthritis, unspecified site; J43.9 Emphysema, unspecified; Z88.5 Allergy status to narcotic agent; Z66 Do not resuscitate; Z87.891 Personal history of nicotine dependence; Z20.822 Contact with and (suspected) exposure to COVID-19; Z51.5 Encounter for palliative care; F32.A Depression, unspecified; F41.9 Anxiety disorder, unspecified; K75.81 Nonalcoholic steatohepatitis (NASH); E87.6 Hypokalemia; E83.42 Hypomagnesemia; B95.0 Streptococcus, group A, as the cause of diseases classified elsewhere; D72.829 Elevated white blood cell count, unspecified; T38.0X5A Adverse effect of glucocorticoids and synthetic analogues, initial encounter; H54.7 Unspecified visual loss; I25.10 Atherosclerotic heart disease of native coronary artery without angina pectoris; M81.0 Age-related osteoporosis without current pathological fracture; Z88.2 Allergy status to sulfonamides; Z79.899 Other long term (current) drug therapy; Z90.49 Acquired absence of other specified parts of digestive tract
CPT/HCPCS: 36415; 71045 ×2; 71250 ×2; 80048; 81001; 82803; 83605 ×2; 83735; 84145; 84484 ×2; 85025; 85379; 85610; 85730; 87040 ×2; 93005; 94640 ×2; 96365; 96366; 96368; 96375; 99285; A9270 ×2; J0696; J2060; J3475; J3490 ×2; J7040; U0002; 80202; 85027; 93010; 93306; 97110-GP; 97162-GP; 99223; 99233; 99238; J0290; J0456; J1650; J1940; J2930; J3370; J7050; J7512; J7620

== ENCOUNTER 2022-10-17 18:08 | Emergency (ER) | payer MEDICARE, BC ==
[2022-10-17 19:44] LABS: BASOPHILS ABSOLUTE AUTO 0.03 K/uL (0.00-0.10); BASOPHILS PERCENT AUTO 0.3 % (0.1-1.3); EOSINOPHILS ABSOLUTE AUTO 0.33 K/uL (0.00-0.40); EOSINOPHILS PERCENT AUTO 2.8 % (0.0-5.4); HEMATOCRIT 35.8 % (34.3-46.0); HEMOGLOBIN 11.1 g/dL (11.2-15.5); IMMATURE GRAN ABSOLUTE AUTO 0.04 K/uL (0.00-0.23); IMMATURE GRAN PERCENT AUTO 0.3 % (0.0-0.7); LYMPHOCYTES ABSOLUTE AUTO 0.88 K/uL (0.8-3.3); LYMPHOCYTES PERCENT AUTO 7.5 % (11.4-47.7); MEAN CORPUSCULAR HEMOGLOBIN 29.3 pg (31.6-35.5); MEAN CORPUSCULAR VOLUME 94.5 fL (81.4-99.0); MONOCYTES ABSOLUTE AUTO 0.88 K/uL (0.20-0.90); MONOCYTES PERCENT AUTO 7.5 % (3.3-12.6); NEUTROPHILS ABSOLUTE AUTO 9.64 K/uL (1.0-7.6); NEUTROPHILS PERCENT AUTO 81.6 % (40.0-78.1); PLATELET COUNT,PLT 222 K/uL (130-375); RED BLOOD CELL COUNT 3.79 M/uL (3.77-5.24); WHITE BLOOD CELL COUNT,WBC 11.8 K/uL (3.2-11.0)
[2022-10-17 20:07] LABS: A/G RATIO 0.8 (1.2-2.2); ALANINE AMINOTRANSFERASE,ALT 33 U/L (12-78); ALBUMIN 2.8 g/dL (3.4-5.0); ALKALINE PHOSPHATASE 133 U/L (46-116); ANION GAP 8.6 mmol/L (5.0-14.0); ASPARTATE AMNIOTRANSFERASE,AST 44 U/L (15-37); BILIRUBIN TOTAL 0.5 mg/dL (0.2-1.0); BLOOD UREA NITROGEN,BUN 6 mg/dL (7-18); CALCIUM 9.1 mg/dL (8.5-10.1); CARBON DIOXIDE,CO2 29 mmol/L (21-32); CHLORIDE,CL 103 mmol/L (100-108); CREATININE 0.6 mg/dL (0.6-1.0); EST CRCL DRUG DOSING (CG) 53.82 mL/min; ESTIMATED GFR 95 mL/min (>60); GLUCOSE RANDOM 116 mg/dL (74-106); POTASSIUM,K 3.9 mmol/L (3.6-5.2); PROTEIN TOTAL,TP 6.5 g/dL (6.4-8.2); SODIUM,NA 141 mmol/L (140-148)
[2022-10-17] MEDS ORDERED: Albuterol/Ipratropium 3.0-0.5 MG/3 ML Neb Soln NEB ONE (20:29)
[2022-10-17 21:04] VITALS: BP 119/54; PULSE 115
== END 2022-10-17 22:29 | disposition home or self-care (01) ==
LOC: JP.ED 18:08
DX: J44.1 Chronic obstructive pulmonary disease with (acute) exacerbation (principal); I25.10 Atherosclerotic heart disease of native coronary artery without angina pectoris; I10 Essential (primary) hypertension; Z87.891 Personal history of nicotine dependence; Z88.2 Allergy status to sulfonamides; Z88.8 Allergy status to other drugs, medicaments and biological substances; Z79.899 Other long term (current) drug therapy
CPT/HCPCS: 36415; 71046; 71046-26; 80053; 83605; 84145; 85025; 94640; 99285; J7620

== ENCOUNTER 2023-06-01 12:51 | Emergency (ER) | payer MEDICARE, BC ==
[2023-06-01] MEDS ORDERED: Sodium Chloride 0.9% 10 ML Syringe FLUSH PRN (13:59)
[2023-06-01] MEDS ORDERED: Morphine 4 MG/ML Syringe IVPUSH PRN (13:59)
[2023-06-01 14:13] LABS: BASOPHILS PERCENT AUTO 0.3 % (0.1-1.3); EOSINOPHILS ABSOLUTE AUTO 0.33 K/uL (0.00-0.40); EOSINOPHILS PERCENT AUTO 4.3 % (0.0-5.4); HEMATOCRIT 35.7 % (34.3-46.0); HEMOGLOBIN 11.1 g/dL (11.2-15.5); IMMATURE GRAN ABSOLUTE AUTO 0.03 K/uL (0.00-0.23); IMMATURE GRAN PERCENT AUTO 0.4 % (0.0-0.7); LYMPHOCYTES ABSOLUTE AUTO 0.82 K/uL (0.8-3.3); LYMPHOCYTES PERCENT AUTO 10.7 % (11.4-47.7); MEAN CORPUSCULAR HEMOGLOBIN 28.9 pg (31.6-35.5); MEAN CORPUSCULAR HGB CONC 31.1 g/dL (31.6-35.5); MONOCYTES ABSOLUTE AUTO 0.65 K/uL (0.20-0.90); MONOCYTES PERCENT AUTO 8.5 % (3.3-12.6); NEUTROPHILS ABSOLUTE AUTO 5.81 K/uL (1.0-7.6); NEUTROPHILS PERCENT AUTO 75.8 % (40.0-78.1); PLATELET COUNT,PLT 203 K/uL (130-375); RED BLOOD CELL COUNT 3.84 M/uL (3.77-5.24); WHITE BLOOD CELL COUNT,WBC 7.7 K/uL (3.2-11.0)
[2023-06-01 14:15] LABS: BASOPHILS ABSOLUTE AUTO 0.02 K/uL (0.00-0.10)
[2023-06-01] MEDS: Aspirin 81 MG Tab.Chew PO ONE (14:28)
[2023-06-01 14:36] LABS: A/G RATIO 0.9 (1.2-2.2); ALANINE AMINOTRANSFERASE,ALT 46 U/L (12-78); ALBUMIN 3.2 g/dL (3.4-5.0); ALKALINE PHOSPHATASE 138 U/L (46-116); ANION GAP 8.2 mmol/L (5.0-14.0); ASPARTATE AMNIOTRANSFERASE,AST 61 U/L (15-37); BILIRUBIN TOTAL 0.2 mg/dL (0.2-1.0); BLOOD UREA NITROGEN,BUN 14 mg/dL (7-18); CALCIUM 9.3 mg/dL (8.5-10.1); CARBON DIOXIDE,CO2 28 mmol/L (21-32); CHLORIDE,CL 104 mmol/L (100-108); CREATININE 0.7 mg/dL (0.6-1.0); EST CRCL DRUG DOSING (CG) 50.65 mL/min; ESTIMATED GFR 91 mL/min (>60); GLUCOSE RANDOM 113 mg/dL (74-106); POTASSIUM,K 4.1 mmol/L (3.6-5.2); PROTEIN TOTAL,TP 6.9 g/dL (6.4-8.2); SODIUM,NA 140 mmol/L (140-148); TROPONIN I HIGH SENSITIVITY 12.4 pg/mL (<=60.3)
[2023-06-01] MEDS: Cyclobenzaprine 10 MG Tab PO ONE (15:17)
[2023-06-01 15:35] VITALS: BP 108/53; PULSE 93
== END 2023-06-01 16:31 | disposition home or self-care (01) ==
LOC: JP.ED 12:51
DX: M54.2 Cervicalgia (principal); I25.2 Old myocardial infarction; J44.9 Chronic obstructive pulmonary disease, unspecified; Z88.2 Allergy status to sulfonamides; Z88.1 Allergy status to other antibiotic agents; Z79.899 Other long term (current) drug therapy; Z79.51 Long term (current) use of inhaled steroids
CPT/HCPCS: 36415; 80053; 83605; 84484; 85025; 93005; 99285; A9270

== ENCOUNTER 2023-08-20 17:16 | Emergency (ER) | payer MEDICARE, BC ==
[2023-08-20] MEDS ORDERED: Sodium Chloride 0.9% 10 ML Syringe FLUSH PRN (17:27)
[2023-08-20] MEDS ORDERED: Levofloxacin/Dextrose 5%-Water 500 MG in Premix Bag 1 BAG IV ONE (17:36)
[2023-08-20 17:43] LABS: BASE EXCESS ARTERIAL 3.1 mm/L; BICARBONATE,ARTERIAL 27.3 mmol/L (22.0-26.0); CARBOXYHEMOGLOBIN 2.4 % (0.0-1.6); METHEMOGLOBIN 0.3 %; OXYHEMOGLOBIN 96.7 %; PCO2 ARTERIAL 42.3 mmHg (35.0-42.0); TOTAL HEMOGLOBIN 11.3 g/dL (12.0-16.0)
[2023-08-20 17:43] LABS: BASOPHILS PERCENT AUTO 0.3 % (0.1-1.3); EOSINOPHILS ABSOLUTE AUTO 0.44 K/uL (0.00-0.40); EOSINOPHILS PERCENT AUTO 6.8 % (0.0-5.4); HEMATOCRIT 33.7 % (34.3-46.0); HEMOGLOBIN 10.9 g/dL (11.2-15.5); IMMATURE GRAN ABSOLUTE AUTO 0.03 K/uL (0.00-0.23); IMMATURE GRAN PERCENT AUTO 0.5 % (0.0-0.7); LYMPHOCYTES ABSOLUTE AUTO 0.69 K/uL (0.8-3.3); LYMPHOCYTES PERCENT AUTO 10.7 % (11.4-47.7); MEAN CORPUSCULAR HEMOGLOBIN 30.1 pg (31.6-35.5); MEAN CORPUSCULAR HGB CONC 32.3 g/dL (31.6-35.5); MEAN CORPUSCULAR VOLUME 93.1 fL (81.4-99.0); MONOCYTES ABSOLUTE AUTO 0.49 K/uL (0.20-0.90); MONOCYTES PERCENT AUTO 7.6 % (3.3-12.6); NEUTROPHILS ABSOLUTE AUTO 4.77 K/uL (1.0-7.6); NEUTROPHILS PERCENT AUTO 74.1 % (40.0-78.1); PLATELET COUNT,PLT 183 K/uL (130-375); RED BLOOD CELL COUNT 3.62 M/uL (3.77-5.24); WHITE BLOOD CELL COUNT,WBC 6.4 K/uL (3.2-11.0)
[2023-08-20 17:44] LABS: O2 SATURATION ARTERIAL > 99.3 % (95.0-98.0)
[2023-08-20 17:46] LABS: BASOPHILS ABSOLUTE AUTO 0.02 K/uL (0.00-0.10)
[2023-08-20 18:07] LABS: CALCIUM 8.9 mg/dL (8.5-10.1); CREATININE 0.7 mg/dL (0.6-1.0); EST CRCL DRUG DOSING (CG) 50.65 mL/min; POTASSIUM,K 4.1 mmol/L (3.6-5.2); TROPONIN I HIGH SENSITIVITY 14.3 pg/mL (<=60.3)
[2023-08-20 18:08] LABS: ANION GAP 13.1 mmol/L (5.0-14.0)
[2023-08-20 18:13] VITALS: BP 120/47; PULSE 102
[2023-08-20] MEDS: methylPREDNISolone Sodium Succinate 125 MG/2 ML SDV IVPUSH ONE (18:43)
== END 2023-08-20 19:10 | disposition home or self-care (01) ==
LOC: JP.ED 17:16
DX: J44.9 Chronic obstructive pulmonary disease, unspecified (principal); I25.2 Old myocardial infarction; Z95.5 Presence of coronary angioplasty implant and graft; Z87.891 Personal history of nicotine dependence; Z79.899 Other long term (current) drug therapy; Z88.2 Allergy status to sulfonamides; Z88.5 Allergy status to narcotic agent
CPT/HCPCS: 36415; 71045; 71045-26; 80048; 82803; 84484; 85025; 96374; 99284; 99285-25; J2919

== ENCOUNTER 2023-09-29 14:28 | Inpatient (IN) | payer MEDICARE, BC ==
[2023-09-29 14:49] LABS: BASOPHILS PERCENT AUTO 0.2 % (0.1-1.3); EOSINOPHILS ABSOLUTE AUTO 0.37 K/uL (0.00-0.40); HEMATOCRIT 36.6 % (34.3-46.0); HEMOGLOBIN 11.5 g/dL (11.2-15.5); IMMATURE GRAN ABSOLUTE AUTO 0.05 K/uL (0.00-0.23); IMMATURE GRAN PERCENT AUTO 0.5 % (0.0-0.7); LYMPHOCYTES ABSOLUTE AUTO 1.11 K/uL (0.8-3.3); MEAN CORPUSCULAR HEMOGLOBIN 29.1 pg (31.6-35.5); MEAN CORPUSCULAR HGB CONC 31.4 g/dL (31.6-35.5); MEAN CORPUSCULAR VOLUME 92.7 fL (81.4-99.0); MONOCYTES ABSOLUTE AUTO 0.62 K/uL (0.20-0.90); MONOCYTES PERCENT AUTO 6.7 % (3.3-12.6); NEUTROPHILS ABSOLUTE AUTO 7.05 K/uL (1.0-7.6); NEUTROPHILS PERCENT AUTO 76.6 % (40.0-78.1); PLATELET COUNT,PLT 187 K/uL (130-375); RED BLOOD CELL COUNT 3.95 M/uL (3.77-5.24); WHITE BLOOD CELL COUNT,WBC 9.2 K/uL (3.2-11.0)
[2023-09-29 14:52] LABS: BASOPHILS ABSOLUTE AUTO 0.02 K/uL (0.00-0.10)
[2023-09-29] MEDS: cefTRIAXone 2 GM in Sodium Chloride 0.9% 50 ML IV ONE (15:01)
[2023-09-29 15:02] LABS: BICARBONATE,ARTERIAL 25.5 mmol/L (22.0-26.0); CARBOXYHEMOGLOBIN 1.6 % (0.0-1.6); METHEMOGLOBIN 0.9 %; O2 SATURATION ARTERIAL 98.5 % (95.0-98.0); PCO2 ARTERIAL 42.8 mmHg (35.0-42.0); TOTAL HEMOGLOBIN 11.5 g/dL (12.0-16.0)
[2023-09-29] MEDS: Sodium Chloride 0.9% 10 ML Syringe FLUSH PRN (15:02)
[2023-09-29] MEDS: methylPREDNISolone Sodium Succinate 125 MG/2 ML SDV IVPUSH ONE (15:02)
[2023-09-29 15:18] LABS: LACTIC ACID 0.8 mmol/L (0.4-2.0)
[2023-09-29 15:23] LABS: ANION GAP 11.1 mmol/L (5.0-14.0); C-REACTIVE PROTEIN 1.54 mg/dL (<0.50); CALCIUM 8.7 mg/dL (8.5-10.1); CREATININE 0.7 mg/dL (0.6-1.0); EST CRCL DRUG DOSING (CG) 50.65 mL/min; POTASSIUM,K 4.1 mmol/L (3.6-5.2); TROPONIN I HIGH SENSITIVITY 21.9 pg/mL (<=60.3)
[2023-09-29] MEDS: Albuterol/Ipratropium 3.0-0.5 MG/3 ML Neb Soln NEB ONE (16:11)
[2023-09-29] MEDS: LORazepam 2 MG/ML SDV IVPUSH ONE ×2 (16:37→21:02)
[2023-09-29] MEDS ORDERED: Magnesium Hydroxide 400 MG/5 ML Susp 30 ML Cup PO PRN (19:54)
[2023-09-29] MEDS ORDERED: Ondansetron 4 MG/2 ML SDV IV PRN (19:54)
[2023-09-29] MEDS ORDERED: Sennosides/Docusate Sodium 50-8.6 MG Tab PO PRN (19:54)
[2023-09-29] MEDS ORDERED: Benzonatate 100 MG Cap PO PRN (19:54)
[2023-09-29] MEDS ORDERED: Ondansetron 4 MG Tab.DIS PO PRN (19:54)
[2023-09-29] MEDS ORDERED: Diazepam 2 MG Tab PO PRN (19:54)
[2023-09-29] MEDS ORDERED: LORazepam 2 MG/ML SDV IVPUSH PRN (20:30)
[2023-09-29] MEDS ORDERED: Dental Adhesive 1 Tube DENT ONE ×2 (21:03→21:41)
[2023-09-29] MEDS: Sodium Chloride 0.9% 1,000 ML IV SCH (21:15)
[2023-09-29] MEDS: Albuterol/Ipratropium 3.0-0.5 MG/3 ML Neb Soln NEB SCH (21:16)
[2023-09-29] MEDS: Azithromycin 500 MG in Sodium Chloride 0.9% 250 ML IV SCH (21:20)
[2023-09-29] MEDS: Lactobacillus Rhamnosus GG (Probiotic) Cap PO SCH (21:20)
[2023-09-29] MEDS: methylPREDNISolone Sodium Succinate 125 MG/2 ML SDV IVPUSH SCH (22:35)
[2023-09-29] MEDS: LORazepam 0.5 MG Tab PO PRN (23:41)
[2023-09-30] MEDS: Albuterol 0.083% 2.5 MG/3 ML Neb Soln NEB PRN (04:37)
[2023-09-30 05:34] LABS: HEMATOCRIT 31.5 % (34.3-46.0); HEMOGLOBIN 10.1 g/dL (11.2-15.5); MEAN CORPUSCULAR HEMOGLOBIN 29.5 pg (31.6-35.5); MEAN CORPUSCULAR HGB CONC 32.1 g/dL (31.6-35.5); MEAN CORPUSCULAR VOLUME 92.1 fL (81.4-99.0); RED BLOOD CELL COUNT 3.42 M/uL (3.77-5.24)
[2023-09-30 05:48] LABS: ANION GAP 11.6 mmol/L (5.0-14.0); CALCIUM 8.1 mg/dL (8.5-10.1); CREATININE 0.7 mg/dL (0.6-1.0); EST CRCL DRUG DOSING (CG) 50.65 mL/min; POTASSIUM,K 4.2 mmol/L (3.6-5.2)
[2023-09-30] MEDS: Sertraline 50 MG Tab PO SCH (08:23)
[2023-09-30] MEDS: Folic Acid 1 MG Tab PO SCH (08:23)
[2023-09-30] MEDS: Metoprolol Succinate 50 MG Tab.ER PO SCH (08:24)
[2023-09-30] MEDS: Albuterol/Ipratropium 3.0-0.5 MG/3 ML Neb Soln NEB SCH (10:25)
[2023-09-30] MEDS: BREZTRI AEROSPHERE INH SCH (10:40)
[2023-09-30] MEDS: cefTRIAXone 1 GM in Sodium Chloride 0.9% 50 ML IV SCH (15:16)
[2023-10-01] MEDS: predniSONE 20 MG Tab PO SCH (07:45)
[2023-10-01] MEDS: Acetaminophen 325 MG Tab PO PRN (20:56)
[2023-10-01] MEDS: Azithromycin 250 MG Tab PO ONE (21:47)
[2023-10-01] MEDS: Azithromycin 250 MG Tab PO SCH (21:50)
[2023-10-02] MEDS: Azithromycin 250 MG Tab PO SCH (14:19)
[2023-10-02] MEDS: Cefdinir 300 MG Cap PO SCH (14:20)
[2023-10-02] MEDS ORDERED: Azithromycin 250 MG Tab PO SCH (21:00)
[2023-10-03 05:28] VITALS: BP 140/54
[2023-10-03 11:41] VITALS: PULSE 84
== END 2023-10-03 12:58 | disposition home or self-care (01) | DRG 189 ==
LOC: JP.ED 14:28 → JP.MS 16:09
PROVIDERS: ADMIT Internal Medicine; ATTEND Hospitalist
PROC: 4A033R1 Measurement of Arterial Saturation, Peripheral, Percutaneous Approach (ICD-10-PCS; principal; 2023-09-29)
PROC: 5A09357 Assistance with Respiratory Ventilation, Less than 24 Consecutive Hours, Continuous Positive Airway Pressure (ICD-10-PCS; 2023-09-29)
DX: J96.21 Acute and chronic respiratory failure with hypoxia (principal); J44.1 Chronic obstructive pulmonary disease with (acute) exacerbation; H54.7 Unspecified visual loss; M19.90 Unspecified osteoarthritis, unspecified site; M81.0 Age-related osteoporosis without current pathological fracture; F41.9 Anxiety disorder, unspecified; F32.A Depression, unspecified; Z66 Do not resuscitate; G62.9 Polyneuropathy, unspecified; I25.10 Atherosclerotic heart disease of native coronary artery without angina pectoris; Z88.2 Allergy status to sulfonamides; Z88.8 Allergy status to other drugs, medicaments and biological substances; Z79.51 Long term (current) use of inhaled steroids; Z79.899 Other long term (current) drug therapy; I25.2 Old myocardial infarction; Z95.5 Presence of coronary angioplasty implant and graft; Z87.440 Personal history of urinary (tract) infections; Z98.49 Cataract extraction status, unspecified eye; Z95.828 Presence of other vascular implants and grafts; Z87.891 Personal history of nicotine dependence
CPT/HCPCS: 36415; 36600; 71045 ×2; 80048; 82803; 83605; 84145; 84484; 85025; 86140; 87040 ×2; 93005; 94660; 96365; 96375; 99285; J0696; J2919; J3490 ×2; 85027; 93010; 94640; 99222; 99232; 99238; A9270-GY; J0456; J2060; J7030; J7050; J7512; J7620; U0002

== ENCOUNTER 2023-10-26 21:34 | Inpatient (IN) | payer MEDICARE, BC ==
[2023-10-26 22:15] LABS: BASOPHILS ABSOLUTE AUTO 0.03 K/uL (0.00-0.10); BASOPHILS PERCENT AUTO 0.3 % (0.1-1.3); EOSINOPHILS ABSOLUTE AUTO 0.33 K/uL (0.00-0.40); EOSINOPHILS PERCENT AUTO 3.6 % (0.0-5.4); HEMATOCRIT 35.6 % (34.3-46.0); HEMOGLOBIN 11.4 g/dL (11.2-15.5); IMMATURE GRAN PERCENT AUTO 0.2 % (0.0-0.7); LYMPHOCYTES ABSOLUTE AUTO 1.09 K/uL (0.8-3.3); MEAN CORPUSCULAR VOLUME 93.7 fL (81.4-99.0); MONOCYTES ABSOLUTE AUTO 0.77 K/uL (0.20-0.90); MONOCYTES PERCENT AUTO 8.4 % (3.3-12.6); NEUTROPHILS ABSOLUTE AUTO 6.88 K/uL (1.0-7.6); NEUTROPHILS PERCENT AUTO 75.5 % (40.0-78.1); PLATELET COUNT,PLT 256 K/uL (130-375); WHITE BLOOD CELL COUNT,WBC 9.1 K/uL (3.2-11.0)
[2023-10-26 22:16] LABS: BICARBONATE,VENOUS 27.2 mmol/L; CARBOXYHEMOGLOBIN 2.6 % (0.0-1.6); METHEMOGLOBIN 0.6 %; O2 SATURATION VENOUS 87.1; OXYHEMOGLOBIN 84.3 %; PH,VENOUS 7.427 (7.350-7.450); PO2 VENOUS 54.5 mm/Hg; TOTAL HEMOGLOBIN 11.9 g/dL (12.0-16.0)
[2023-10-26 22:21] LABS: IMMATURE GRAN ABSOLUTE AUTO 0.02 K/uL (0.00-0.23)
[2023-10-26 22:38] LABS: A/G RATIO 0.6 (1.2-2.2); ALANINE AMINOTRANSFERASE,ALT 45 U/L (12-78); ALBUMIN 2.9 g/dL (3.4-5.0); ALKALINE PHOSPHATASE 123 U/L (46-116); ANION GAP 11.8 mmol/L (5.0-14.0); ASPARTATE AMNIOTRANSFERASE,AST 76 U/L (15-37); BILIRUBIN TOTAL 0.3 mg/dL (0.2-1.0); BLOOD UREA NITROGEN,BUN 7 mg/dL (7-18); CARBON DIOXIDE,CO2 28 mmol/L (21-32); CHLORIDE,CL 103 mmol/L (100-108); CREATININE 0.7 mg/dL (0.6-1.0); EST CRCL DRUG DOSING (CG) 50.65 mL/min; ESTIMATED GFR 91 mL/min (>60); GLUCOSE RANDOM 116 mg/dL (74-106); POTASSIUM,K 3.8 mmol/L (3.6-5.2); PROTEIN TOTAL,TP 7.6 g/dL (6.4-8.2); SODIUM,NA 139 mmol/L (140-148)
[2023-10-26 22:44] LABS: LACTIC ACID 0.7 mmol/L (0.4-2.0)
[2023-10-26] MEDS: Sodium Chloride 0.9% 80 ML IV SCH (23:24)
[2023-10-26] MEDS: Iopamidol 612 MG/ML 100 ML Bottle IV ONE (23:24)
[2023-10-27] MEDS: Sodium Chloride 0.9% 1,000 ML IV SCH ×2 (00:30→01:40)
[2023-10-27] MEDS: methylPREDNISolone Sodium Succinate 125 MG/2 ML SDV IVPUSH ONE (00:31)
[2023-10-27] MEDS ORDERED: Nitroglycerin 0.4 MG Tab.SL SL PRN (01:11)
[2023-10-27] MEDS ORDERED: Ondansetron 4 MG Tab.DIS PO PRN (01:11)
[2023-10-27] MEDS ORDERED: Naloxone 0.4 MG/ML SDV IVPUSH PRN (01:11)
[2023-10-27] MEDS ORDERED: Ondansetron 4 MG/2 ML SDV IV PRN (01:11)
[2023-10-27] MEDS ORDERED: Docusate Sodium 100 MG Cap PO PRN (01:11)
[2023-10-27] MEDS ORDERED: Acetaminophen 325 MG Tab PO PRN (01:11)
[2023-10-27] MEDS ORDERED: Bisacodyl 5 MG Tab PO PRN (01:11)
[2023-10-27] MEDS: Albuterol 0.083% 2.5 MG/3 ML Neb Soln NEB PRN (01:36)
[2023-10-27] MEDS: cefTRIAXone 1 GM in Sodium Chloride 0.9% 50 ML IV SCH ×2 (01:44→20:14)
[2023-10-27] MEDS: Morphine 2 MG/ML SYRINGE IVPUSH PRN (02:02)
[2023-10-27] MEDS: Doxycycline 100 MG in Sodium Chloride 0.9% 100 ML IV SCH ×3 (02:19→22:34)
[2023-10-27] MEDS: Metoprolol Tartrate 5 MG/5 ML SDV IVPUSH ONE (03:35)
[2023-10-27 04:51] LABS: BASOPHILS PERCENT AUTO 0.1 % (0.1-1.3); EOSINOPHILS ABSOLUTE AUTO 0.04 K/uL (0.00-0.40); EOSINOPHILS PERCENT AUTO 0.2 % (0.0-5.4); HEMATOCRIT 36.5 % (34.3-46.0); HEMOGLOBIN 11.3 g/dL (11.2-15.5); IMMATURE GRAN ABSOLUTE AUTO 0.17 K/uL (0.00-0.23); IMMATURE GRAN PERCENT AUTO 0.9 % (0.0-0.7); LYMPHOCYTES ABSOLUTE AUTO 0.18 K/uL (0.8-3.3); MEAN CORPUSCULAR HEMOGLOBIN 29.7 pg (31.6-35.5); MEAN CORPUSCULAR VOLUME 96.1 fL (81.4-99.0); MONOCYTES ABSOLUTE AUTO 0.68 K/uL (0.20-0.90); MONOCYTES PERCENT AUTO 3.7 % (3.3-12.6); NEUTROPHILS ABSOLUTE AUTO 17.36 K/uL (1.0-7.6); NEUTROPHILS PERCENT AUTO 94.1 % (40.0-78.1); PLATELET COUNT,PLT 270 K/uL (130-375); WHITE BLOOD CELL COUNT,WBC 18.5 K/uL (3.2-11.0)
[2023-10-27 05:09] LABS: ANION GAP 7.7 mmol/L (5.0-14.0); CALCIUM 8.5 mg/dL (8.5-10.1); CREATININE 0.8 mg/dL (0.6-1.0); EST CRCL DRUG DOSING (CG) 44.31 mL/min; POTASSIUM,K 4.3 mmol/L (3.6-5.2)
[2023-10-27 05:27] LABS: BASOPHILS ABSOLUTE AUTO 0.02 K/uL (0.00-0.10)
[2023-10-27] MEDS: methylPREDNISolone Sodium Succinate 40 MG/1 ML SDV IVPUSH SCH (05:45)
[2023-10-27] MEDS: Albuterol/Ipratropium 3.0-0.5 MG/3 ML Neb Soln NEB SCH ×2 (05:50→10:24)
[2023-10-27] MEDS: Enoxaparin 40 MG/0.4 ML Syringe SUBCUT SCH (08:59)
[2023-10-27] MEDS: Folic Acid 1 MG Tab PO SCH (09:00)
[2023-10-27] MEDS: Sertraline 50 MG Tab PO SCH (09:00)
[2023-10-27] MEDS: Metoprolol Succinate 50 MG Tab.ER PO SCH (09:01)
[2023-10-27] MEDS: Diazepam 2 MG Tab PO PRN (14:42)
[2023-10-28] MEDS: oxyCODONE 5 MG Tab PO PRN (02:05)
[2023-10-28] MEDS: predniSONE 20 MG Tab PO ONE (11:24)
[2023-10-28] MEDS: GLYCOPYR INH SCH (14:57)
[2023-10-28] MEDS: BUDESONIDE INH SCH (14:57)
[2023-10-28] MEDS: FORMOTEROL INH SCH (14:57)
[2023-10-28] MEDS: Doxycycline 100 MG Cap PO SCH (20:10)
[2023-10-28] MEDS: Cefdinir 300 MG Cap PO SCH (20:11)
[2023-10-29] MEDS: Metoprolol Tartrate 25 MG Tab PO ONE
[2023-10-29] MEDS: Morphine 10 MG/0.5 ML Oral Syringe BUCCAL PRN (02:43)
[2023-10-29] MEDS ORDERED: LORazepam 2 MG/ML SDV IVPUSH PRN (08:00)
[2023-10-29] MEDS: predniSONE 20 MG Tab PO SCH (08:44)
[2023-10-29] MEDS ORDERED: LORazepam 0.5 MG Tab PO PRN (10:40)
[2023-10-30 05:49] LABS: HEMATOCRIT 28.5 % (34.3-46.0); IMMATURE GRAN PERCENT AUTO 0.3 % (0.0-0.7); LYMPHOCYTES ABSOLUTE AUTO 0.67 K/uL (0.8-3.3); LYMPHOCYTES PERCENT AUTO 11.1 % (11.4-47.7); MEAN CORPUSCULAR HGB CONC 31.6 g/dL (31.6-35.5); MONOCYTES PERCENT AUTO 6.6 % (3.3-12.6); NEUTROPHILS ABSOLUTE AUTO 4.93 K/uL (1.0-7.6); PLATELET COUNT,PLT 190 K/uL (130-375)
[2023-10-30 06:01] LABS: IMMATURE GRAN ABSOLUTE AUTO 0.02 K/uL (0.00-0.23)
[2023-10-30 06:10] LABS: A/G RATIO 0.5 (1.2-2.2); ALANINE AMINOTRANSFERASE,ALT 34 U/L (12-78); ALBUMIN 2.3 g/dL (3.4-5.0); ALKALINE PHOSPHATASE 82 U/L (46-116); ANION GAP 10.8 mmol/L (5.0-14.0); ASPARTATE AMNIOTRANSFERASE,AST 46 U/L (15-37); BILIRUBIN TOTAL 0.3 mg/dL (0.2-1.0); BLOOD UREA NITROGEN,BUN 26 mg/dL (7-18); CALCIUM 9.1 mg/dL (8.5-10.1); CARBON DIOXIDE,CO2 24 mmol/L (21-32); CHLORIDE,CL 106 mmol/L (100-108); CREATININE 0.7 mg/dL (0.6-1.0); EST CRCL DRUG DOSING (CG) 50.65 mL/min; ESTIMATED GFR 91 mL/min (>60); GLUCOSE RANDOM 70 mg/dL (74-106); POTASSIUM,K 4.1 mmol/L (3.6-5.2); PROTEIN TOTAL,TP 6.8 g/dL (6.4-8.2); SODIUM,NA 141 mmol/L (140-148)
[2023-10-30] MEDS ORDERED: Morphine 15 MG Tab PO PRN (11:31)
[2023-10-30] MEDS ORDERED: Ibuprofen 600 MG Tab PO PRN (11:45)
[2023-10-30] MEDS ORDERED: Albuterol/Ipratropium 3.0-0.5 MG/3 ML Neb Soln NEB PRN (11:45)
[2023-10-30] MEDS ORDERED: Albuterol 6.7 GM Inhaler INH PRN (11:45)
[2023-10-30 11:49] VITALS: BP 133/55; PULSE 92
[2023-10-30] MEDS ORDERED: Cefdinir 300 MG Cap PO SCH (21:00)
== END 2023-10-30 12:26 | disposition home or self-care (01) | DRG 192 ==
LOC: JP.ED 21:34 → JP.ICU 10-27 00:43
PROVIDERS: ADMIT Internal Medicine; ATTEND Internal Medicine
PROC: 5A09357 Assistance with Respiratory Ventilation, Less than 24 Consecutive Hours, Continuous Positive Airway Pressure (ICD-10-PCS; 2023-10-26)
PROC: 5A09357 Assistance with Respiratory Ventilation, Less than 24 Consecutive Hours, Continuous Positive Airway Pressure (ICD-10-PCS; principal; 2023-10-27)
DX: J44.1 Chronic obstructive pulmonary disease with (acute) exacerbation (principal); Z66 Do not resuscitate; I25.2 Old myocardial infarction; Z88.8 Allergy status to other drugs, medicaments and biological substances; H54.7 Unspecified visual loss; F41.9 Anxiety disorder, unspecified; F32.A Depression, unspecified; M81.0 Age-related osteoporosis without current pathological fracture; G62.9 Polyneuropathy, unspecified; M19.90 Unspecified osteoarthritis, unspecified site; I25.10 Atherosclerotic heart disease of native coronary artery without angina pectoris; Z88.2 Allergy status to sulfonamides; Z95.5 Presence of coronary angioplasty implant and graft; Z88.5 Allergy status to narcotic agent; Z79.52 Long term (current) use of systemic steroids; Z98.49 Cataract extraction status, unspecified eye; Z79.899 Other long term (current) drug therapy; Z87.440 Personal history of urinary (tract) infections; Z87.891 Personal history of nicotine dependence
CPT/HCPCS: 36415; 71260; 74177; 80053; 82150; 82803; 83605; 84484; 85025; 86140; 93005; 99285; J2919; J3490; J7030; Q9967; 80048; 93010; 94640; 94660; 97116-GP; 97162-GP; 99222; 99231; 99232; 99239; 99284; A9270-GY; J0696; J1650; J2270; J7512; J7620

== ENCOUNTER 2023-11-14 12:15 | Emergency (ER) | payer MEDICARE, BC ==
[2023-11-14 12:45] LABS: BASOPHILS PERCENT AUTO 0.2 % (0.1-1.3); EOSINOPHILS ABSOLUTE AUTO 0.26 K/uL (0.00-0.40); EOSINOPHILS PERCENT AUTO 2.8 % (0.0-5.4); HEMATOCRIT 36.5 % (34.3-46.0); HEMOGLOBIN 11.8 g/dL (11.2-15.5); IMMATURE GRAN ABSOLUTE AUTO 0.03 K/uL (0.00-0.23); IMMATURE GRAN PERCENT AUTO 0.3 % (0.0-0.7); LYMPHOCYTES PERCENT AUTO 11.8 % (11.4-47.7); MEAN CORPUSCULAR HEMOGLOBIN 30.2 pg (31.6-35.5); MEAN CORPUSCULAR HGB CONC 32.3 g/dL (31.6-35.5); MEAN CORPUSCULAR VOLUME 93.4 fL (81.4-99.0); MONOCYTES ABSOLUTE AUTO 0.68 K/uL (0.20-0.90); MONOCYTES PERCENT AUTO 7.3 % (3.3-12.6); NEUTROPHILS ABSOLUTE AUTO 7.27 K/uL (1.0-7.6); NEUTROPHILS PERCENT AUTO 77.6 % (40.0-78.1); PLATELET COUNT,PLT 219 K/uL (130-375); RED BLOOD CELL COUNT 3.91 M/uL (3.77-5.24); WHITE BLOOD CELL COUNT,WBC 9.4 K/uL (3.2-11.0)
[2023-11-14 12:46] LABS: BASOPHILS ABSOLUTE AUTO 0.02 K/uL (0.00-0.10)
[2023-11-14] MEDS ORDERED: Iopamidol 612 MG/ML 100 ML Bottle IV PRN (12:52)
[2023-11-14] MEDS: Sodium Chloride 0.9% 1,000 ML IV ONE ×2 (12:57→14:34)
[2023-11-14 13:03] LABS: INR 1.1; PROTHROMBIN TIME 11.1 sec (9.2-10.6)
[2023-11-14 13:11] LABS: A/G RATIO 0.6 (1.2-2.2); ALANINE AMINOTRANSFERASE,ALT 37 U/L (12-78); ALBUMIN 2.8 g/dL (3.4-5.0); ALKALINE PHOSPHATASE 133 U/L (46-116); ANION GAP 7.8 mmol/L (5.0-14.0); ASPARTATE AMNIOTRANSFERASE,AST 46 U/L (15-37); BILIRUBIN TOTAL 0.4 mg/dL (0.2-1.0); BLOOD UREA NITROGEN,BUN 7 mg/dL (7-18); CALCIUM 9.3 mg/dL (8.5-10.1); CARBON DIOXIDE,CO2 30 mmol/L (21-32); CHLORIDE,CL 104 mmol/L (100-108); CREATININE 0.7 mg/dL (0.6-1.0); EST CRCL DRUG DOSING (CG) 50.65 mL/min; ESTIMATED GFR 91 mL/min (>60); GLUCOSE RANDOM 125 mg/dL (74-106); POTASSIUM,K 3.9 mmol/L (3.6-5.2); PRO B-TYPE NATRIUR PEPT,BNPPRO 760 pg/mL (5-125); PROTEIN TOTAL,TP 7.5 g/dL (6.4-8.2); SODIUM,NA 142 mmol/L (140-148)
[2023-11-14 13:17] LABS: PCO2 VENOUS 49.9 mm/Hg; PH,VENOUS 7.363 (7.350-7.450); PO2 VENOUS 40.3 mm/Hg
[2023-11-14 13:18] LABS: BASE EXCESS VENOUS 2.2 mm/L; BICARBONATE,VENOUS 27.7 mmol/L; CARBOXYHEMOGLOBIN 2.4 % (0.0-1.6); METHEMOGLOBIN 0.6 %; O2 SATURATION VENOUS 66.9; OXYHEMOGLOBIN 64.9 %; TOTAL HEMOGLOBIN 11.2 g/dL (12.0-16.0)
[2023-11-14] MEDS: Ondansetron 4 MG/2 ML SDV IVPUSH ONE (13:37)
[2023-11-14] MEDS: Sodium Chloride 0.9% 10 ML Syringe FLUSH PRN (14:15)
[2023-11-14] MEDS: Iopamidol 755 Mg/ML 100 ML Bottle IV SCH (14:15)
[2023-11-14] MEDS: Sodium Chloride 0.9% 100 ML IV ONE (14:15)
[2023-11-14 14:52] LABS: CORONAVIRUS COVID-19 NAA NEGATIVE (NEGATIVE); INFLUENZA A NAA NEGATIVE (NEGATIVE); INFLUENZA B NAA NEGATIVE (NEGATIVE); RESPIRATORY SYNCYTIAL VIR NAA NEGATIVE (NEGATIVE)
[2023-11-14 15:56] LABS: APPEARANCE,URINE CLEAR (CLEAR); BILIRUBIN,URINE NEGATIVE (NEGATIVE); COLOR,URINE YELLOW (YELLOW); GLUCOSE,URINE NEGATIVE (NEGATIVE); KETONES,URINE NEGATIVE (NEGATIVE); LEUKOCYTE ESTERASE,URINE NEGATIVE (NEGATIVE); NITRITE,URINE NEGATIVE (NEGATIVE); OCCULT BLOOD,URINE TRACE-INTACT (NEGATIVE); PROTEIN,URINE NEGATIVE (NEGATIVE); UROBILINOGEN,URINE 0.2 EU/dL (0.2-1.0)
[2023-11-14 16:00] LABS: AMORPHOUS SEDIMENT,URINE NOT SEEN; BACTERIA,URINE FEW; EPITHELIAL CELLS,URINE FEW; MUCUS,URINE NOT SEEN; RBC,URINE 0-5 (0-5)
[2023-11-14 17:13] VITALS: BP 108/46; PULSE 104
== END 2023-11-14 17:36 | disposition home or self-care (01) ==
LOC: JP.ED 12:15
DX: E86.0 Dehydration (principal); R00.0 Tachycardia, unspecified; R11.0 Nausea; R62.7 Adult failure to thrive; J44.9 Chronic obstructive pulmonary disease, unspecified; Z87.891 Personal history of nicotine dependence; Z88.2 Allergy status to sulfonamides; Z88.5 Allergy status to narcotic agent
CPT/HCPCS: 0241U; 36415; 71045; 71275; 74177; 80053; 81001; 82803; 83605; 83880; 84484; 85025; 85610; 87040; 93005; 96361; 96374; 99285; J2405; J3490; J7030; Q9967

== ENCOUNTER 2024-03-11 22:29 | Emergency (ER) | payer MEDICARE, BC ==
[2024-03-11 22:57] LABS: BASOPHILS ABSOLUTE AUTO 0.03 K/uL (0.00-0.10); BASOPHILS PERCENT AUTO 0.3 % (0.1-1.3); EOSINOPHILS ABSOLUTE AUTO 0.62 K/uL (0.00-0.40); EOSINOPHILS PERCENT AUTO 6.7 % (0.0-5.4); HEMATOCRIT 36.8 % (34.3-46.0); HEMOGLOBIN 11.9 g/dL (11.2-15.5); IMMATURE GRAN ABSOLUTE AUTO 0.03 K/uL (0.00-0.23); IMMATURE GRAN PERCENT AUTO 0.3 % (0.0-0.7); LYMPHOCYTES ABSOLUTE AUTO 1.12 K/uL (0.8-3.3); LYMPHOCYTES PERCENT AUTO 12.1 % (11.4-47.7); MEAN CORPUSCULAR HEMOGLOBIN 29.2 pg (31.6-35.5); MEAN CORPUSCULAR HGB CONC 32.3 g/dL (31.6-35.5); MEAN CORPUSCULAR VOLUME 90.4 fL (81.4-99.0); MONOCYTES ABSOLUTE AUTO 0.67 K/uL (0.20-0.90); MONOCYTES PERCENT AUTO 7.3 % (3.3-12.6); NEUTROPHILS ABSOLUTE AUTO 6.77 K/uL (1.0-7.6); NEUTROPHILS PERCENT AUTO 73.3 % (40.0-78.1); PLATELET COUNT,PLT 306 K/uL (130-375); RED BLOOD CELL COUNT 4.07 M/uL (3.77-5.24); WHITE BLOOD CELL COUNT,WBC 9.2 K/uL (3.2-11.0)
[2024-03-11] MEDS: Sodium Chloride 0.9% 80 ML IV ONE (23:06)
[2024-03-11] MEDS: Sodium Chloride 0.9% 10 ML Syringe FLUSH PRN (23:06)
[2024-03-11] MEDS: Iopamidol 612 MG/ML 100 ML Bottle IV PRN (23:07)
[2024-03-11 23:18] LABS: A/G RATIO 0.5 (1.2-2.2); ALANINE AMINOTRANSFERASE,ALT 41 U/L (12-78); ALBUMIN 2.7 g/dL (3.4-5.0); ALKALINE PHOSPHATASE 171 U/L (46-116); ASPARTATE AMNIOTRANSFERASE,AST 76 U/L (15-37); BILIRUBIN TOTAL 0.3 mg/dL (0.2-1.0); BLOOD UREA NITROGEN,BUN 7 mg/dL (7-18); CALCIUM 9.3 mg/dL (8.5-10.1); CARBON DIOXIDE,CO2 27 mmol/L (21-32); CHLORIDE,CL 99 mmol/L (100-108); CREATININE 0.7 mg/dL (0.6-1.0); EST CRCL DRUG DOSING (CG) 49.72 mL/min; ESTIMATED GFR 90 mL/min (>60); GLUCOSE RANDOM 103 mg/dL (74-106); POTASSIUM,K 3.7 mmol/L (3.6-5.2); PROTEIN TOTAL,TP 7.7 g/dL (6.4-8.2); SODIUM,NA 135 mmol/L (140-148)
[2024-03-11] MEDS: Sodium Chloride 0.9% 500 ML IV ONE (23:20)
[2024-03-11 23:30] LABS: ANION GAP 12.7 mmol/L (5.0-14.0)
[2024-03-11 23:47] VITALS: BP 94/49; PULSE 110
[2024-03-12 00:59] LABS: APPEARANCE,URINE CLEAR (CLEAR); BILIRUBIN,URINE NEGATIVE (NEGATIVE); COLOR,URINE YELLOW (YELLOW); GLUCOSE,URINE NEGATIVE (NEGATIVE); KETONES,URINE NEGATIVE (NEGATIVE); LEUKOCYTE ESTERASE,URINE NEGATIVE (NEGATIVE); NITRITE,URINE NEGATIVE (NEGATIVE); OCCULT BLOOD,URINE TRACE-INTACT (NEGATIVE); PROTEIN,URINE NEGATIVE (NEGATIVE); UROBILINOGEN,URINE 0.2 EU/dL (0.2-1.0)
[2024-03-12 01:21] LABS: AMORPHOUS SEDIMENT,URINE NOT SEEN; BACTERIA,URINE RARE; EPITHELIAL CELLS,URINE RARE; MUCUS,URINE RARE; RBC,URINE 0-5 (0-5); WBC,URINE 0-5 (0-5)
== END 2024-03-12 01:35 | disposition home or self-care (01) ==
LOC: JP.ED 22:29
DX: R10.84 Generalized abdominal pain (principal); R11.0 Nausea; I25.2 Old myocardial infarction; Z88.2 Allergy status to sulfonamides; Z88.8 Allergy status to other drugs, medicaments and biological substances; Z79.899 Other long term (current) drug therapy; Z87.891 Personal history of nicotine dependence
CPT/HCPCS: 36415; 74177; 80053; 81001; 83605; 85025; 93005; 96360; 96361; 99285; J7040; Q9967

== ENCOUNTER 2024-05-20 11:08 | Emergency (ER) | payer MEDICARE, BC ==
[2024-05-20 11:26] VITALS: BP 130/48; PULSE 101
[2024-05-20 12:03] LABS: BASOPHILS ABSOLUTE AUTO 0.03 K/uL (0.00-0.10); BASOPHILS PERCENT AUTO 0.4 % (0.1-1.3); EOSINOPHILS ABSOLUTE AUTO 0.27 K/uL (0.00-0.40); EOSINOPHILS PERCENT AUTO 3.6 % (0.0-5.4); HEMATOCRIT 51.9 % (34.3-46.0); IMMATURE GRAN PERCENT AUTO 0.3 % (0.0-0.7); LYMPHOCYTES ABSOLUTE AUTO 0.93 K/uL (0.8-3.3); LYMPHOCYTES PERCENT AUTO 12.4 % (11.4-47.7); MEAN CORPUSCULAR HEMOGLOBIN 33.7 pg (31.6-35.5); MEAN CORPUSCULAR HGB CONC 32.8 g/dL (31.6-35.5); MEAN CORPUSCULAR VOLUME 102.8 fL (81.4-99.0); MONOCYTES ABSOLUTE AUTO 0.54 K/uL (0.20-0.90); MONOCYTES PERCENT AUTO 7.2 % (3.3-12.6); NEUTROPHILS ABSOLUTE AUTO 5.68 K/uL (1.0-7.6); NEUTROPHILS PERCENT AUTO 76.1 % (40.0-78.1); PLATELET COUNT,PLT 183 K/uL (130-375); RED BLOOD CELL COUNT 5.05 M/uL (3.77-5.24); WHITE BLOOD CELL COUNT,WBC 7.5 K/uL (3.2-11.0)
[2024-05-20 12:07] LABS: IMMATURE GRAN ABSOLUTE AUTO 0.02 K/uL (0.00-0.23)
[2024-05-20 12:23] LABS: PROTHROMBIN TIME 10.6 sec (9.2-10.6); PTT,PARTIAL THROMBOPLSTIN TIME 25.5 sec (21.8-27.3)
== END 2024-05-20 12:48 | disposition home or self-care (01) ==
LOC: JP.ED 11:08
DX: R58 Hemorrhage, not elsewhere classified (principal); Z88.8 Allergy status to other drugs, medicaments and biological substances; Z88.2 Allergy status to sulfonamides; Z79.899 Other long term (current) drug therapy
CPT/HCPCS: 36415; 73110-26-RT; 73110-RT; 73130-26-RT; 73130-RT; 85025; 85610; 85730; 99283